=== PATIENT | female | born 1955 | race Caucasian/White ===

== ENCOUNTER 2016-12-06 19:41 | Emergency (ER) | payer MEDICARE ==
[~2016-12-06] VITALS: Ht 162.6 cm; Wt 71.7 kg
[2016-12-06] MEDS ORDERED: OMEP20CA3 (20:25)
[2016-12-06] MEDS ORDERED: HYDR-3719 PO (20:25)
[2016-12-06] MEDS ORDERED: SULFAMETHOXAZOLE-TMP PO (20:25)
[2016-12-06] MEDS ORDERED: GABA300C3 PO (20:25)
[2016-12-07] MEDS ORDERED: NS 1,000 ML IV ONE (00:15)
[2016-12-07] MEDS ORDERED: MORPHINE 4 MG/ML 1ML SYRINGE IV PRN (00:15)
[2016-12-07] MEDS ORDERED: ONDANSETRON 4MG/2ML VIAL (J2405) IV ONE (00:15)
[2016-12-07 00:29] LABS: BASO % 0.2 % (0.0-1.0); EOS # 0.2 K/mm3 (0.0-0.50); EOS % 1.3 % (0.0-3.0); LARGE UNSTAINED CELL # 0.1 K/mm3 (0.0-0.4); LARGE UNSTAINED CELL % 0.7 % (0.0-4.0); LYMPH # 2.1 K/mm3 (1.5-4.5); LYMPH % 17.8 % (24.0-44.0); MEAN CORPUSCULAR HGB CONC 33.6 g/dl (32.0-36.5); MEAN CORPUSCULAR VOLUME 95.4 fl (80.0-96.0); MONO # 0.5 K/mm3 (0.0-0.8); MONO % 3.9 % (0.0-5.0); NEUTROPHILS # 8.6 K/mm3 (1.8-7.7); PLATELET COUNT, AUTOMATED 308 k/mm3 (150-450); RED CELL DISTRIBUTION WIDTH 12.4 % (11.5-14.5); WHITE BLOOD COUNT 11.3 K/mm3 (4.0-10.0)
[2016-12-07 00:34] LABS: ALBUMIN 4.2 GM/DL (3.2-5.2); ALBUMIN/GLOBULIN RATIO 1.31 (1.00-1.93); ALKALINE PHOSPHATASE 84 U/L (45-117); ALT/SGPT 18 U/L (12-78); ANION GAP 7 MEQ/L (8-16); AST/SGOT 11 U/L (15-37); BILIRUBIN,DIRECT < 0.1 MG/DL (0.0-0.2); BILIRUBIN,TOTAL 0.2 MG/DL (0.2-1.0); BLOOD UREA NITROGEN 22 MG/DL (7-18); CALCIUM LEVEL 9.4 MG/DL (8.5-10.1); CARBON DIOXIDE LEVEL 24 MEQ/L (21-32); CHLORIDE LEVEL 107 MEQ/L (98-107); CREATININE FOR GFR 1.29 MG/DL (0.55-1.02); GLUCOSE, FASTING 105 MG/DL (70-105); POTASSIUM SERUM 4.5 MEQ/L (3.5-5.1); SODIUM LEVEL 138 MEQ/L (136-145); TOTAL PROTEIN 7.4 GM/DL (6.4-8.2)
[2016-12-07] MEDS: MORPHINE 4 MG/ML 1ML SYRINGE IV PRN ×2 (00:50→01:04)
[2016-12-07 00:55] LABS: CALCIUM OXALATE CRYSTALS LARGE
[2016-12-07] MEDS ORDERED: HYDROmorphone HCL 1 MG/ML SYRINGE (J1170) IV PRN (01:30)
--- NOTE | 2016-12-07 02:00 | REPUSA ---
CT of the abdomen and pelvis without contrast Clinical statement: Pain. Technique: Multiple axial CT images were obtained from the base of the lungs to the floor of the pelv is utilizing 5 mm axial slices without administration of contrast. Coronal and sagittal reconstructio ns were also obtained. No comparison is available. Findings: Chest: The visualized lung bases are clear. Abdomen: The kidneys are normal in size bilaterally. There is moderate right-sided hydronephrosis and hydroureter caused by an obstructing 3 mm stone at the right ureterovesical junction. The left renal collecting system is unremarkable. The liver, spleen, pancreas, gallbladder and adrenal glands are u nremarkable. The aorta demonstrates normal caliber and contour. There is no abdominal lymphadenopathy or ascites. Pelvis: The bowel is unremarkable, with no obstructive or inflammatory changes. The appendix is enoch l. The urinary bladder is within normal limits. There is no pelvic lymphadenopathy or ascites. The ot her pelvic structures appear unremarkable. Bones: There are no suspicious osseous abnormalities seen. Lumbar fusion changes at L4/L5 are intact. Impression: 1. Moderate right-sided hydronephrosis and hydroureter caused by a 3 mm obstructing stone at the righ t ureterovesical junction. 2. No obstructive or inflammatory bowel changes. 3. Lumbar fusion changes at L4/L5 are grossly intact. No acute osseous abnormality.
[2016-12-07] MEDS ORDERED: KETOROLAC 30 MG/ML VIAL (J1885) IV ONE (02:30)
[2016-12-07] MEDS ORDERED: TAMSULOSIN 0.4 MG CAP PO ONE (03:00)
[2016-12-07] MEDS ORDERED: PERC5TAB6 PO (03:52)
[2016-12-07] MEDS ORDERED: FLOM5CAP PO (03:52)
[2016-12-07] MEDS ORDERED: OXYCODONE/APAP 5MG/325MG(BULK) 1 TAB TAB PO ONE (04:00)
[2016-12-07 04:12] VITALS: BP 128/78
== END 2016-12-07 04:14 | disposition home or self-care (01) ==
LOC: M ED 21:21
DX: N20.1 Calculus of ureter (principal); Z79.899 Other long term (current) drug therapy
CPT/HCPCS: 36415; 74176; 80048; 80076; 81001; 83690; 85025; 87086; 93041; 96365; 96367; 96372; 96375; 99284; J1170; J1885; J2405

== ENCOUNTER → 2016-12-12 | Outpatient (REF) | payer MEDICARE ==
[~2016-12-12] MED LIST: ALBU17IN INH; AZIT250T3 PO; FLOM5CAP PO; FLON1SPR; GABA300C3 PO; GERITAB9 PO; HYDR-3713 PO; HYDR-3719 PO; LIDO5TD TOP; MUCI1LIQ PO; OMEP20CA3; OMEP20CA3 PO; PERC5TAB6 PO; PYRI200T5 PO; RIZA10TA4 PO; SULFAMETHOXAZOLE-TMP PO; VITA500T88 PO
== END ==
LOC: M LAB REF 16:40
PROVIDERS: ATTEND Physician Assistant
DX: J02.9 Acute pharyngitis, unspecified (principal)

== ENCOUNTER 2016-12-14 16:25 | Day surgery (SDC) | payer MEDICARE ==
[~2016-12-14] VITALS: Ht 162.6 cm; Wt 71.9 kg
[~2016-12-14 16:25] MED LIST changes: -ALBU17IN INH; -AZIT250T3 PO; -FLON1SPR; -GERITAB9 PO; -HYDR-3713 PO; -LIDO5TD TOP; -MUCI1LIQ PO; -OMEP20CA3 PO; -PYRI200T5 PO; -RIZA10TA4 PO; -VITA500T88 PO
[2016-12-14] MEDS ORDERED: MORPHINE 4 MG/ML 1ML SYRINGE IV ONE (17:45)
[2016-12-14] MEDS ORDERED: NS 1,000 ML IV ONE (17:45)
[2016-12-14] MEDS ORDERED: ONDANSETRON 4MG/2ML VIAL (J2405) IV ONE (17:45)
[2016-12-14 18:17] LABS: BASO % 0.4 % (0.0-1.0); EOS # 0.1 K/mm3 (0.0-0.50); EOS % 0.8 % (0.0-3.0); LARGE UNSTAINED CELL # 0.3 K/mm3 (0.0-0.4); LYMPH # 2.3 K/mm3 (1.5-4.5); LYMPH % 27.1 % (24.0-44.0); MEAN CORPUSCULAR HEMOGLOBIN 31.3 pg (27.0-33.0); MEAN CORPUSCULAR VOLUME 94.9 fl (80.0-96.0); MONO # 0.2 K/mm3 (0.0-0.8); MONO % 2.6 % (0.0-5.0); NEUTROPHILS # 5.6 K/mm3 (1.8-7.7); NEUTROPHILS % 66.1 % (36.0-66.0); PLATELET COUNT, AUTOMATED 309 k/mm3 (150-450); RED CELL DISTRIBUTION WIDTH 12.4 % (11.5-14.5); WHITE BLOOD COUNT 8.5 K/mm3 (4.0-10.0)
[2016-12-14] MEDS ORDERED: HYDROmorphone HCL 1 MG/ML SYRINGE (J1170) IV ONE (18:30)
[2016-12-14 18:35] LABS: ALBUMIN 4.2 GM/DL (3.2-5.2); ALKALINE PHOSPHATASE 86 U/L (45-117); ALT/SGPT 23 U/L (12-78); ANION GAP 9 MEQ/L (8-16); AST/SGOT 17 U/L (15-37); BILIRUBIN,DIRECT < 0.1 MG/DL (0.0-0.2); BILIRUBIN,TOTAL 0.2 MG/DL (0.2-1.0); BLOOD UREA NITROGEN 15 MG/DL (7-18); CALCIUM LEVEL 9.2 MG/DL (8.5-10.1); CARBON DIOXIDE LEVEL 24 MEQ/L (21-32); CHLORIDE LEVEL 108 MEQ/L (98-107); CREATININE FOR GFR 0.92 MG/DL (0.55-1.02); GLOMERULAR FILTRATION RATE > 60.0 (>51); GLUCOSE, FASTING 103 MG/DL (70-105); POTASSIUM SERUM 4.3 MEQ/L (3.5-5.1); SODIUM LEVEL 141 MEQ/L (136-145); TOTAL PROTEIN 7.2 GM/DL (6.4-8.2)
--- NOTE | 2016-12-14 19:02 | REP ---
CT ABDOMEN: REASON: Right flank pain. Followup distal right ureterolith. COMPARISON: 12/07/2016 There is right sided hydronephrosis and hydroureter which is essentially unchanged from the prior exam and again seen to be secondary to a 3 mm sized calcification within the distal right ureter near the ureterovesical junction. Limited evaluation of the solid intraabdominal organs and gallbladder show no gross abnormalities or significant changes from the prior exam. Limited evaluation of the pancreas, adrenal glands, and left kidney show no gross abnormalities or significant changes from the prior exam. Limited evaluation of the abdominal aorta and paraortic regions show no gross abnormalities or significant changes from the prior exam. There is no evidence of free fluid or free air in the abdomen or pelvis. Bone window technique throughout the examination shows no change in the appearance of the osseous structures, compared to the prior exam. IMPRESSION: No change from 12/07/2016 with findings as described above. Signed by Morales Collier DO 12/14/2016 07:05 P
[2016-12-14] MEDS ORDERED: CONRAY-60 60% 50ML VIAL (Q9961) As Ordered ONE (20:23)
[2016-12-14] MEDS ORDERED: ONDANSETRON 4MG/2ML VIAL (J2405) As Ordered ONE (20:25)
[2016-12-14] MEDS ORDERED: LIDOCAINE 2% INJ 100 MG/5 ML SDV (FOR ANES.) As Ordered ONE (20:25)
[2016-12-14] MEDS ORDERED: PROPOFOL 200 MG/20 ML VIAL As Ordered ONE ×2 (20:25→21:42)
[2016-12-14] MEDS ORDERED: MIDAZOLAM INJ 2 MG/2 ML VIAL (J2250) As Ordered ONE (20:27)
[2016-12-14] MEDS ORDERED: fentaNYL 100 MCG/2 ML INJECTION (J3010) As Ordered ONE ×2 (20:27→22:41)
[2016-12-14] MEDS ORDERED: HYDR-3713 PO (20:27)
[2016-12-14] MEDS ORDERED: FLOM5CAP PO (20:30)
[2016-12-14] MEDS ORDERED: GERITAB9 PO (20:30)
[2016-12-14] MEDS ORDERED: MUCI1LIQ PO (20:30)
[2016-12-14] MEDS ORDERED: OMEP20CA3 PO (20:30)
[2016-12-14] MEDS ORDERED: AZIT250T3 PO (20:30)
[2016-12-14] MEDS ORDERED: GABA300C3 PO (20:30)
[2016-12-14] MEDS ORDERED: VITA500T88 PO (20:30)
[2016-12-14] MEDS ORDERED: LIDO5TD TOP (20:32)
[2016-12-14] MEDS ORDERED: FLON1SPR (20:32)
[2016-12-14] MEDS ORDERED: ALBU17IN INH (20:32)
[2016-12-14] MEDS ORDERED: RIZA10TA4 PO (20:33)
[2016-12-14] MEDS ORDERED: ceFAZolin 1GM INJ (J0690) As Ordered ONE ×2 (20:54→21:00)
[2016-12-14] MEDS ORDERED: dexameTHASONE 4 MG/ML 1ML VIAL (J1100) As Ordered ONE (21:24)
[2016-12-14] MEDS ORDERED: PERCOCET 5MG/325MG TAB PO PRN (22:30)
[2016-12-14] MEDS ORDERED: fentaNYL 100 MCG/2 ML INJECTION (J3010) IV PRN (22:30)
[2016-12-14] MEDS ORDERED: ONDANSETRON 4MG/2ML VIAL (J2405) IV PRN ×2 (22:30→23:00)
[2016-12-14] MEDS ORDERED: LR 1,000 ML IV SCH (22:30)
[2016-12-14] MEDS ORDERED: zolPIDEM TARTRATE 5 MG TAB PO PRN (23:00)
[2016-12-14] MEDS ORDERED: ALPRAZolam 0.5 MG TAB PO PRN (23:00)
[2016-12-14 23:10] VITALS: BP 142/85
[2016-12-14 23:40] VITALS: BP 138/83
[2016-12-15] VITALS (7 sets, daily range): BP systolic 97–127; BP diastolic 51–77
[2016-12-15] MEDS: NORCO, ANEXSIA 5/325MG TABLET (HYDROcodone/ACETAMINOPHEN) PO PRN ×3 (00:31→13:42)
[2016-12-15] MEDS ORDERED: OMEPRAZOLE 20 MG CAP PO SCH (09:00)
--- NOTE | 2016-12-15 09:54 | REP ---
DOUBLE J STENT CATHETER PLACEMENT: Three fluoroscopic images of the abdomen and pelvis were obtained in my absentia during retrograde pyelography. A double J stent catheter is seen on the right, the proximal portion of which is in the region of the renal pelvis and the distal portion of which is in the region of the urinary bladder. Fluoroscopy time was 11 seconds. Signed by Morales Collier DO 12/15/2016 10:05 A
[2016-12-15] MEDS ORDERED: PYRI200T5 PO (13:08)
--- NOTE | 2016-12-15 16:20 | HPE ---
DATE OF ADMISSION: 12/14/2016 REASON FOR CONSULTATION: 3 mm right ureteral vesicle junction stone with moderate hydroureter nephrosis in a patient with intractable pain despite pain medication. HISTORY OF PRESENT ILLNESS: The patient is a 61-year-old female who began having right flank pain about 3 weeks ago radiating to the groin. On 12/07/2016 the pain became very severe and she came to the emergency room. A CT scan of the abdomen and pelvis was done which showed moderate right sided hydroureter nephrosis caused by a 3 mm stone at the right ureteral vesicle junction. The patient's pain was brought under control at that time and she was sent home on Flomax and pain medication. [facility] and they are unable to control her pain. They repeated a CT scan and this showed the stone unchanged in the distal right ureter. A urologic consultation was requested. The patient denies any previous history of kidney stones. She has had no gross hematuria. She was diagnosis with a urinary tract infection (UTI) at the beginning of this week but a urinalysis done today only showed a few red and white blood cells. Her white blood count is 8.5 and her serum creatinine is 0.92. Her serum calcium is 9.2. She denies any previous history of recurrent urinary tract infections. She does not drink a lot of water and she normally voids every 3-4 hours during the day. She has had both nausea and vomiting but denies fever or chills. She has also recently had some diarrhea. PAST MEDICAL HISTORY: Chronic back pain. PAST SURGICAL HISTORY: Back surgery in 2013 and she does not know the level, surgery for a right broken leg, hysterectomy, and cataract surgery. MEDICATIONS: She takes a half of a hydrocodone in the morning and at night for her chronic back pain, omeprazole, and multivitamins. ALLERGIES: No known drug allergies. FAMILY HISTORY: Her father at the age of 84 from prostate cancer. Mother at 79 from pancreatic cancer. There is no family history of kidney stones. SOCIAL HISTORY: She is . She smokes half a pack of cigarettes a day according to her but according to her son this is probably double that. She denies drinking alcohol or using any other drugs. PHYSICAL EXAMINATION: Her temperature was 98.5. Her pulse was 91, blood pressure 155/101, but then came down to 134/85 after pain medication, respiratory rate was 22, and her oxygen saturations were 100%. Her head was normocephalic, atraumatic. Her eyes were pupils equal, round, and reactive to light and accommodation and extraocular movements were intact. Her trachea was midline and she had no significant supraclavicular or cervical adenopathy. Her heart has a regular rate and rhythm. Her lungs had some inspiratory wheeze at the beginning but then sounded fairly clear, although there was some decreased breath sounds at the bases. She did have right CVA tenderness and also right lower quadrant tenderness without any rebound or guarding. Her extremities showed no cyanosis, clubbing or edema. RADIOLOGY: A CT scan of the abdomen and pelvis without contrast on 12/07/2016, showed moderate right-sided hydronephrosis and hydroureter caused by a 3 mm obstructing stone at the right ureteral vesicle junction without any other stones seen and there is lumbar fusion changes at L4-L5 which are grossly intact. Reportedly there was another CT scan done today and the findings were the same. LABORATORY DATA: Her white blood count is 8.5, hemoglobin and hematocrit 13.9/42.1. Her creatinine is 0.92 and her BUN is 15. Her serum calcium level is 9.2. Urinalysis from 12/14/2016, showed 1 white blood cell and 3 red blood cells per high power field. Urine culture for 12/07/2016, showed no growth. DISCUSSION: I discussed these findings at length with the patient and her son in the emergency room today. She has not had anything to eat or drink since early this morning. We discussed all different options and alternatives, and at this point she wanted to proceed with immediate surgical management. We discussed that we would plan on doing a right ureteroscopy with stone manipulation and we discussed exactly how this procedure is done and what to expect both pre and post procedurally. We discussed the major risks of the procedure which included, but was not limited to, the risks of general anesthesia, reactions to medication, bleeding, infection and stent pain. She also understands that there is a small possibility that there either will not be a stone there or we will not be able to remove it. She understands that the stent will need to be removed in the office and that it can be quite painful while it is in place. We discussed how this is removed by cystoscopy and stent removal. At this point she would like to proceed with surgical management. IMPRESSION: 1. 3 mm obstructing right ureteral vesicle junction stone in a patient in intractable pain with nausea and vomiting despite Flomax and pain medication for the last several days. 2. History of smoking. 3. Chronic low back pain. PLAN: The patient to be brought urgently to the operating room for cystoscopy, right ureteroscopy, laser lithotripsy and or stone basketing and right ureteral stent placement.
--- NOTE | 2016-12-16 11:57 | RO ---
DATE OF PROCEDURE: 12/14/2016 PREOPERATIVE DIAGNOSIS: Distal obstructing 3 mm ureteral stone. POSTOPERATIVE DIAGNOSIS: Distal obstructing 3 mm ureteral stone. PROCEDURE: Cystoscopy, right ureteroscopy, right stone basketing and right ureteral stent placement. SURGEON: Carol Blackwell MD NATIONAL SALES MANAGER: ANESTHESIA: General. MEDICATIONS: Ancef 2 grams preoperatively. SPECIMEN: Stone. FINDINGS: Small right ureteral orifice and very jagged distal stone. DRAINS: 6-Frisian double-J ureteral catheter. INDICATIONS FOR PROCEDURE: The patient is a 61-year-old female with a few week history of right flank pain. On 12/07/2016, the pain became extremely intense and she came to the emergency room where she was diagnosed with a 3 mm right ureterovesical junction stone and associated moderate hydroureteronephrosis. She was given Flomax and pain medication, but the pain became very severe again today and she came back to the emergency room (ER). A repeat CT scan showed the stone to be in the same place. The patient's pain could not be well controlled in the emergency room so a urologic consultation was called. When the patient was seen, she was extremely uncomfortable after pain medication was already given. After discussing all different options, alternatives, risks, and benefits it was decided to bring her to the operating room for further surgical management. DESCRIPTION OF PROCEDURE: The patient was brought into the operating room. Sequential compression devices were in place and preoperative antibiotics had been given. General anesthesia was induced. She was then placed in the lithotomy position and careful attention was paid that her pressure points were well padded and protected. She was prepped and draped in the usual fashion. Next, a 21-Frisian cystoscope was inserted. The urethra was noted to be open without any evidence of lesions or strictures. Upon entering the bladder. Both ureteral orifices were seen. There was no evidence of stones, erythematous patches, lesions or other significant abnormalities. The ureteral orifices though were noted to be extremely small and it was quite difficult even to pass a wire. I was able to finally direct it after an open-ended stent and then dilated the distal ureter with an open-ended catheter. Fluoroscopy showed the wire to be up in the right collecting system and this was used as a safety wire. A second wire was then placed and the ureteroscope was passed over this. The stone was seen in the distal ureter and was noted to be extremely jagged. At this point, a stone basket was placed and the stone was grasped and removed in totality. At this point, a 6-Frisian double-J ureteral stent was placed and there was an excellent curl seen under fluoroscopy in the right renal pelvis and down in the bladder. The patient's bladder was emptied and she was returned to the recovery room in stable condition.
== END 2016-12-15 14:00 | disposition home or self-care (01) ==
LOC: M ED 17:31 → M SDC 20:39 → M MSPAV 23:20 → M SDC 12-15 14:00
PROVIDERS: ATTEND Specialist
DX: N20.1 Calculus of ureter (principal); K21.9 Gastro-esophageal reflux disease without esophagitis; G89.29 Other chronic pain; M54.5 Low back pain; F17.290 Nicotine dependence, other tobacco product, uncomplicated; Z79.899 Other long term (current) drug therapy; Z96.1 Presence of intraocular lens
CPT/HCPCS: 52332; 52352; 74176; 74420; 80048; 80076; 81001; 82360; 85025; 87086; 88300; 96374; 96375; 96376; 99284; C2617; J0690; J1100; J1170; J2250; J2405; J3010

== ENCOUNTER 2016-12-18 17:19 | Emergency (ER) | payer MEDICARE ==
[~2016-12-18] VITALS: Ht 162.6 cm; Wt 71.7 kg
[~2016-12-18 17:19] MED LIST changes: +GABA-282 PO; -GABA300C3 PO
[2016-12-18] MEDS ORDERED: ONDANSETRON 4MG/2ML VIAL (J2405) IV ONE (17:45)
[2016-12-18] MEDS ORDERED: MORPHINE 4 MG/ML 1ML SYRINGE IV ONE (17:45)
[2016-12-18 18:13] LABS: BASO % 0.3 % (0.0-1.0); EOS # 0.2 K/mm3 (0.0-0.50); LARGE UNSTAINED CELL # 0.1 K/mm3 (0.0-0.4); LARGE UNSTAINED CELL % 1.3 % (0.0-4.0); LYMPH # 3.7 K/mm3 (1.5-4.5); LYMPH % 39.5 % (24.0-44.0); MEAN CORPUSCULAR HGB CONC 34.1 g/dl (32.0-36.5); MEAN CORPUSCULAR VOLUME 94.1 fl (80.0-96.0); MONO # 0.4 K/mm3 (0.0-0.8); MONO % 3.9 % (0.0-5.0); NEUTROPHILS # 4.8 K/mm3 (1.8-7.7); PLATELET COUNT, AUTOMATED 349 k/mm3 (150-450); RED CELL DISTRIBUTION WIDTH 12.3 % (11.5-14.5)
[2016-12-18 18:26] LABS: MICROSCOPIC INDICATED? MAN YES (NO)
[2016-12-18 18:29] LABS: BACTERIA, URINE NONE SEEN; SQUAMOUS EPITHELIAL CELL URINE SMALL AMOUNT /hpf (SMALL AMT); WBC, URINE 0-1 /hpf (0-3)
[2016-12-18 18:30] LABS: HYALINE CAST, URINE NONE SEEN /lpf (0-1); MICROSCOPIC EXAM PERFORMED
[2016-12-18] MEDS ORDERED: fentaNYL 100 MCG/2 ML INJECTION (J3010) IV ONE (18:30)
[2016-12-18 18:39] LABS: ALBUMIN 3.8 GM/DL (3.2-5.2); ALBUMIN/GLOBULIN RATIO 1.09 (1.00-1.93); ALKALINE PHOSPHATASE 75 U/L (45-117); ALT/SGPT 20 U/L (12-78); ANION GAP 9 MEQ/L (8-16); AST/SGOT 13 U/L (15-37); BILIRUBIN,DIRECT < 0.1 MG/DL (0.0-0.2); BILIRUBIN,TOTAL 0.2 MG/DL (0.2-1.0); BLOOD UREA NITROGEN 18 MG/DL (7-18); CALCIUM LEVEL 9.4 MG/DL (8.5-10.1); CARBON DIOXIDE LEVEL 26 MEQ/L (21-32); CHLORIDE LEVEL 104 MEQ/L (98-107); CREATININE FOR GFR 0.99 MG/DL (0.55-1.02); GLOMERULAR FILTRATION RATE > 60.0 (>51); GLUCOSE, FASTING 98 MG/DL (70-105); POTASSIUM SERUM 4.2 MEQ/L (3.5-5.1); SODIUM LEVEL 139 MEQ/L (136-145); TOTAL PROTEIN 7.3 GM/DL (6.4-8.2)
--- NOTE | 2016-12-18 19:00 | REPUSA ---
Clinical statement: Pain. Technique: Multiple axial CT images were obtained from the base of the lungs to the floor of the pelvis utilizing 5 mm axial slices without administration of contrast. Coronal and sagittal reconstructions were also obtained. Findings: Compared to 12/07/16 and 12/14/16 studies The kidneys are normal in size bilaterally. Again noted is a moderate right-sided hydronephrosis and hydroureter caused by an obstructing 3 mm stone at the right ureterovesical junction. The left renal collecting system is unremarkable. The liver, spleen, pancreas, gallbladder and adrenal glands are unremarkable. The aorta demonstrates normal caliber and contour. There is no abdominal lymphadenopathy or ascites. The bowel is unremarkable, with no obstructive or inflammatory changes. The appendix is normal. The urinary bladder is within normal limits. There is no pelvic lymphadenopathy or ascites. The other pelvic structures appear unremarkable. There are no suspicious osseous abnormalities seen. Lumbar fusion changes at L4/L5 are intact. Impression: 1. Moderate right-sided hydronephrosis and hydroureter caused by a 3 mm obstructing stone at the right ureterovesical junction. 2. No significant interval change.
[2016-12-18] MEDS ORDERED: KETOROLAC 30 MG/ML VIAL (J1885) IV ONE (20:30)
[2016-12-18] MEDS ORDERED: NORCO 5/325MG TABLET (BULK FOR ED) PO ONE (21:15)
[2016-12-18] MEDS ORDERED: FLOM5CAP PO (21:16)
[2016-12-18] MEDS ORDERED: PERC5TAB6 PO (21:17)
[2016-12-18 21:25] VITALS: BP 119/83
== END 2016-12-18 21:52 | disposition home or self-care (01) ==
LOC: M ED 17:57
DX: N20.1 Calculus of ureter (principal); N13.4 Hydroureter; N13.30 Unspecified hydronephrosis; F17.210 Nicotine dependence, cigarettes, uncomplicated
CPT/HCPCS: 52310; 74176; 80048; 80076; 81000; 83690; 85025; 87086; 93041; 99284; G0463; J1885; J2405; J3010

== ENCOUNTER → 2016-12-18 | Outpatient (REF) | payer MEDICARE ==
[~2016-12-18] MED LIST changes: +ALBU17IN INH; +AZIT250T3 PO; +FLON1SPR; +GERITAB9 PO; +HYDR-3713 PO; +LIDO5TD TOP; +MUCI1LIQ PO; +OMEP20CA3 PO; +PYRI200T5 PO; +RIZA10TA4 PO; +VITA500T88 PO
[2016-12-18 18:31] LABS: MICROSCOPIC INDICATED? MAN YES (NO)
[2016-12-18 18:37] LABS: BACTERIA, URINE NONE SEEN; CALCIUM OXALATE CRYSTALS,URINE MOD AMOUNT /hpf; HYALINE CAST, URINE NONE SEEN /lpf (0-1); MICROSCOPIC EXAM PERFORMED; RBC, URINE TNTC /hpf (0-3); SQUAMOUS EPITHELIAL CELL URINE SMALL AMOUNT /hpf (SMALL AMT); WBC, URINE 15-20 /hpf (0-3)
== END ==
LOC: M SMT 16:39
PROVIDERS: ATTEND Specialist
DX: N20.0 Calculus of kidney (principal)

== ENCOUNTER → 2016-12-24 | Outpatient (REF) | payer MEDICARE ==
[2016-12-24 20:13] LABS: CALCIUM OXALATE CRYSTALS MODERATE
== END ==
LOC: M SMT 17:12
PROVIDERS: ATTEND Urology
DX: N20.2 Calculus of kidney with calculus of ureter (principal)
CPT/HCPCS: 81001; 87086; G0463

== ENCOUNTER 2017-01-19 08:01 | Emergency (ER) | payer MEDICARE ==
[~2017-01-19] VITALS: Ht 162.6 cm; Wt 67.1 kg
[2017-01-19] MEDS ORDERED: HYDROmorphone HCL 1 MG/ML SYRINGE (J1170) IM ONE (08:45)
[2017-01-19] MEDS ORDERED: CEFD1CAP8 (08:50)
--- NOTE | 2017-01-19 09:59 | REP ---
REASON: Possible abscess left side of the neck. Multiple ultrasonographic images over the area of interest show multiple solid oval and reniform-shaped hypoechoic structures, which have central color flow, vascular phenomenon and evidence of fatty hilum. The largest of these measure 2.2 x 0.8 x 1.6 cm. There is no ultrasonographic evidence of a definite abscess. IMPRESSION: Lymphadenopathy as described above. Signed by Morales Collier DO 01/19/2017 10:20 A
[2017-01-19] MEDS ORDERED: methylPREDNISolone INJ 125 MG/2 ML VIAL (J2930) IM ONE (10:00)
[2017-01-19] MEDS ORDERED: CLIN1CAP5 PO (10:01)
[2017-01-19 10:20] VITALS: BP 125/76
--- NOTE | 2017-01-19 14:55 | ED PDOC ---
Post-Departure Follow-Up dr krishnamurthy faxed forml report of thyroid us for fu Raman Garcia MD Jan 19, 2017 14:55
== END 2017-01-19 10:23 | disposition home or self-care (01) ==
LOC: M ED 10:01
DX: R59.0 Localized enlarged lymph nodes (principal); J06.9 Acute upper respiratory infection, unspecified
CPT/HCPCS: 76536; 96372; 99282; J1170; J2930

== ENCOUNTER 2017-05-01 17:55 | Emergency (ER) | payer MEDICARE ==
[~2017-05-01] VITALS: Ht 162.6 cm; Wt 67.3 kg
[~2017-05-01 17:55] MED LIST changes: +AZIT-12 PO; -AZIT250T3 PO; +CEFD1CAP8; +CLIN150C14 PO; +PERC5TAB12 PO; -PERC5TAB6 PO; +PYRI1TAB5 PO; -PYRI200T5 PO
[2017-05-01] MEDS ORDERED: IBUP1TAB7 PO (18:26)
[2017-05-01] MEDS ORDERED: ROBA500T PO (19:04)
[2017-05-01] MEDS ORDERED: IBUP80TA PO (19:04)
[2017-05-01] MEDS ORDERED: METHOCARBAMOL 500 MG TAB PO ONE (19:15)
[2017-05-01] MEDS ORDERED: IBUPROFEN 800 MG TAB PO ONE (19:15)
[2017-05-01] MEDS ORDERED: NORCO, ANEXSIA 5/325MG TABLET (HYDROcodone/ACETAMINOPHEN) PO ONE (19:15)
[2017-05-01 19:18] VITALS: BP 132/78
[2017-07-18] MEDS ORDERED: HYDR-3719 PO (17:13)
[2017-07-18] MEDS ORDERED: APPL300T PO (17:13)
[2017-07-18] MEDS ORDERED: MULT1TAB16 PO (17:13)
[2017-07-18] MEDS ORDERED: VITA100072 PO (17:13)
[2017-07-18] MEDS ORDERED: POTA99TA PO (17:13)
[2017-07-18] MEDS ORDERED: CALC600T27 PO (17:13)
== END 2017-05-01 19:22 | disposition home or self-care (01) ==
LOC: M ED 17:55
DX: S39.012A Strain of muscle, fascia and tendon of lower back, initial encounter (principal); S43.402A Unspecified sprain of left shoulder joint, initial encounter; M26.622 Arthralgia of left temporomandibular joint; F33.8 Other recurrent depressive disorders; F17.210 Nicotine dependence, cigarettes, uncomplicated; X58.XXXA Exposure to other specified factors, initial encounter; Y92.9 Unspecified place or not applicable; Y99.9 Unspecified external cause status; Y93.9 Activity, unspecified; Z87.442 Personal history of urinary calculi; Z88.5 Allergy status to narcotic agent; Z79.899 Other long term (current) drug therapy

== ENCOUNTER → 2017-05-14 | Outpatient (CLI) | payer MEDICARE ==
[~2017-05-14] MED LIST changes: +APPL300T PO; +CALC600T27 PO; +IBUP1TAB7 PO; +IBUP80TA PO; +MULT1TAB16 PO; +POTA99TA PO; +ROBA500T PO; +VITA100072 PO
--- NOTE | 2017-05-14 10:01 | REPMRS ---
Patient History The patient states she had a clinical breast exam in 2016. Patient is postmenopausal and has history of high-risk lesion on a previous biopsy at age 46. Family history of prostate cancer in father at age 82 and colorectal cancer in mother at age 79. Benign mammogram-guided core biopsy of both breasts, 2008. Took hormonal contraceptives for 5 years. Took estrogen for 11 years. Digital Mammo Screening Bilat: May 14, 2017 - Exam #: [id number] Bilateral CC and MLO view(s) were taken. Technologist: Yaritza Rowley, Technologist Prior study comparison: May 14, 2016, right breast digital mammo diagnostic unilateral performed at [facility]. May 07, 2016, bilateral digital mammo screening bilat performed at [facility]. FINDINGS: There are scattered fibroglandular densities. There is a fairly symmetric fibroglandular pattern in both breasts. There has been no interval development of masses, areas of architectural distortion or clusters of microcalcifications typical of malignancy. ASSESSMENT: BI-RADS/ACR category 2 mammogram. Benign finding(s). Recommendation Routine screening mammogram of both breasts in 1 year (for women over age 40). This mammogram was interpreted with the aid of an FDA-approved computer-aided dectection system. Electronically Signed By: Jerome Lopez MD 05/14/17 [id number]
== END ==
LOC: M RAD 08:57
PROVIDERS: ATTEND Nurse Practitioner Adult Health
DX: Z12.31 Encounter for screening mammogram for malignant neoplasm of breast (principal); Z78.0 Asymptomatic menopausal state; Z92.89 Personal history of other medical treatment; Z92.23 Personal history of estrogen therapy; Z92.0 Personal history of contraception

== ENCOUNTER → 2017-06-06 | Outpatient (CLI) | payer MEDICARE ==
--- NOTE | 2017-06-06 13:06 | REP ---
THYROID ULTRASOUND: Real-time sonographic evaluation of the thyroid performed and compared to prior study of 09/10/2016. Right lobe measures 5.4 x 1.7 x 2.0 cm and left lobe 5.5 x 1.7 x 1.4 cm. There are approximately 5 nodules in the right lobe which are subcentimeter diameter, one of them a tiny cyst measuring 2 mm in diameter in the right upper pole. Four others are at least partially solid, the largest measuring 5 x 4 x 4 mm in the mid aspect. On the left, a 3 mm nodule is seen in the upper pole, a complex cyst is seen in the mid aspect 5 x 2 x 4 mm, a solid nodule is seen in the lower pole, 6 x 4 x 7 mm and a cyst in the left lower pole measures 4 mm. There is no significant change when compared to the prior study. IMPRESSION: Several subcentimeter cysts and nodules bilaterally are essentially unchanged compared to the prior study of 09/10/2016. Signed by Jerome Lopez MD 06/07/2017 04:00 P
== END ==
LOC: M RAD 11:14
PROVIDERS: ATTEND Family Medicine
DX: E04.1 Nontoxic single thyroid nodule (principal)

== ENCOUNTER → 2017-07-02 | Outpatient (REF) | payer MEDICARE ==
[2017-07-02 14:49] LABS: ANION GAP 5 MEQ/L (8-16); BLOOD UREA NITROGEN 18 MG/DL (7-18); CALCIUM LEVEL 9.3 MG/DL (8.8-10.2); CARBON DIOXIDE LEVEL 30 MEQ/L (21-32); CHLORIDE LEVEL 108 MEQ/L (98-107); GLOMERULAR FILTRATION RATE > 60.0 (>45); GLUCOSE, FASTING 98 MG/DL (80-110); POTASSIUM SERUM 4.6 MEQ/L (3.5-5.1); SODIUM LEVEL 143 MEQ/L (136-145)
== END ==
LOC: M LABDRAW1 11:23
PROVIDERS: ATTEND Family Medicine
DX: R63.4 Abnormal weight loss (principal)
CPT/HCPCS: 36415; 80048; G0463

== ENCOUNTER 2017-07-25 08:26 | Day surgery (SDC) | payer MEDICARE ==
[~2017-07-25] VITALS: Ht 162.6 cm; Wt 62.1 kg
[2017-07-25] MEDS: NS 500 ML IV SCH ×2 (08:30→09:16)
[2017-07-25] MEDS ORDERED: LIDOCAINE 2% INJ 100 MG/5 ML SDV (FOR ANES.) As Ordered ONE (09:41)
[2017-07-25] MEDS ORDERED: PROPOFOL 200 MG/20 ML VIAL As Ordered ONE (09:41)
--- NOTE | 2017-07-25 10:01 | ROOR ---
Patient Name: Karol Javed Procedure Date: 07/25/2017 9:38 AM Date of : 1955 Age: 62 Room: [facility] Gender: Female Note Status: Finalized Procedure: Colonoscopy Indications: Screening for colorectal malignant neoplasm Providers: Manny HERRERA MD Referring MD: Marlene Jc Do Requestshahana Provider: Medicines: Monitored Anesthesia Care Complications: No immediate complications. Procedure: Pre-Anesthesia Assessment: - The heart rate, respiratory rate, oxygen saturations, blood pressure, adequacy of pulmonary ventilation, and response to care were monitored throughout the procedure. The Colonoscope was introduced through the anus and advanced to the terminal ileum, with identification of the appendiceal orifice and IC valve. The colonoscopy was performed without difficulty. The patient tolerated the procedure well. The quality of the bowel preparation was good. Findings: The perianal and digital rectal examinations were normal. A 4 mm polyp was found in the hepatic flexure. The polyp was sessile. The polyp was removed with a cold snare. Resection and retrieval were complete. Three sessile polyps were found in the sigmoid colon. The polyps were 3 to 4 mm in size. These polyps were removed with a cold snare. Resection and retrieval were complete. Mild diverticulosis and small internal hemorrhoids. The exam was otherwise without abnormality on direct and retroflexion views. Impression: - One 4 mm polyp at the hepatic flexure, removed with a cold snare. Resected and retrieved. - Three 3 to 4 mm polyps in the sigmoid colon, removed with a cold snare. Resected and retrieved. - Mild diverticulosis and small internal hemorrhoids. - The colonoscopy was otherwise normal on direct and retroflexion views. Recommendation: - Telephone endoscopist for pathology results in 2 weeks. - If the pathology report reveals adenomatous tissue, then repeat the colonoscopy for surveillance in 3 years. - If the pathology report indicates hyperplastic polyp, then repeat colonoscopy for screening purposes in 10 years. Manny Herrera MD Manny HERRERA MD 07/25/2017 10:01:28 AM This report has been signed electronically. Number of Addenda: 0 Note Initiated On: 07/25/2017 9:38 AM Estimated Blood Loss: Estimated blood loss: none.
[2017-07-25 10:33] VITALS: BP 119/68
== END 2017-07-25 10:36 | disposition home or self-care (01) ==
LOC: M OPP 08:26 → EDSTATUS 10:40
PROVIDERS: ATTEND Internal Medicine Gastroenterology
DX: Z12.11 Encounter for screening for malignant neoplasm of colon (principal); K63.5 Polyp of colon; K57.30 Diverticulosis of large intestine without perforation or abscess without bleeding; K64.8 Other hemorrhoids; K21.9 Gastro-esophageal reflux disease without esophagitis; M54.5 Low back pain; F32.9 Major depressive disorder, single episode, unspecified; R51 Headache; M81.0 Age-related osteoporosis without current pathological fracture; Z87.442 Personal history of urinary calculi; Z98.1 Arthrodesis status; H91.90 Unspecified hearing loss, unspecified ear; F17.210 Nicotine dependence, cigarettes, uncomplicated; Z88.5 Allergy status to narcotic agent; Z79.899 Other long term (current) drug therapy; Z80.8 Family history of malignant neoplasm of other organs or systems; Z80.42 Family history of malignant neoplasm of prostate

== ENCOUNTER 2017-08-04 13:50 | Emergency (ER) | payer MEDICARE ==
[2017-08-04 15:00] LABS: BASO % 0.4 % (0.0-1.0); EOS # 0.1 10^3/uL (0.0-0.50); EOS % 0.7 % (0.0-3.0); IMMATURE GRANULOCYTE % 0.4 % (0-0); LYMPH # 3.4 10^3/uL (1.5-4.5); MEAN CORPUSCULAR HEMOGLOBIN 32.7 pg (27.0-33.0); MEAN CORPUSCULAR VOLUME 96.4 fl (80.0-96.0); MONO # 0.6 10^3/uL (0.0-0.8); MONO % 6.1 % (0.0-5.0); NEUTROPHILS # 6.2 10^3/uL (1.8-7.7); NEUTROPHILS % 59.4 % (36.0-66.0); PLATELET COUNT, AUTOMATED 268 10^3/uL (150-450); RED CELL DISTRIBUTION WIDTH 13.5 % (11.5-14.5); WHITE BLOOD COUNT 10.3 10^3/uL (4.0-10.0)
[2017-08-04 15:10] LABS: INR 0.86
--- NOTE | 2017-08-04 15:18 | REP ---
CT brain without contrast: History: Syncope. Comparison CT study: June 17, 2015. Findings: Digital lateral hotel server radiograph is unremarkable. Bone window settings demonstrate an intact bony calvarium. Visualized paranasal sinuses are clear. No intraorbital abnormality is seen. On soft tissue window settings, the lateral, third, and fourth ventricles are normal in size and position. Lopez-white differentiation pattern is normal above and below the tentorium. There is no evidence of intracranial hemorrhage. No mass, infarction, extra-axial fluid collection or midline shift is seen. Impression: Negative noncontrast brain CT. Signed by Saulo Romeo MD 08/04/2017 03:32 P
[2017-08-04 15:25] LABS: ANION GAP 8 MEQ/L (8-16); BLOOD UREA NITROGEN 22 MG/DL (7-18); CALCIUM LEVEL 8.9 MG/DL (8.8-10.2); CARBON DIOXIDE LEVEL 25 MEQ/L (21-32); CHLORIDE LEVEL 109 MEQ/L (98-107); CREATININE FOR GFR 0.82 MG/DL (0.55-1.02); GLOMERULAR FILTRATION RATE > 60.0 (>45); GLUCOSE, FASTING 104 MG/DL (80-110); MAGNESIUM LEVEL 2.5 MG/DL (1.8-2.4); POTASSIUM SERUM 4.2 MEQ/L (3.5-5.1); SODIUM LEVEL 142 MEQ/L (136-145)
[2017-08-04 16:13] VITALS: BP 135/74
--- NOTE | 2017-08-04 18:22 | ECGEPIP ---
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
--- NOTE | 2017-08-05 18:46 | REP ---
RIGHT RIB SERIES: Study is submitted to me for interpretation on 08/05/2017 at approximately 4 p.m. I do not see evidence of fracture or bone lesion of the visualized portions of the right ribs. An accompanying view of the chest demonstrates no acute infiltrate or pneumothorax. There is no evidence of pleural effusion. The heart is normal in size. IMPRESSION: No right rib abnormality detected. Signed by Jerome Lopez MD 08/06/2017 01:17 P
== END 2017-08-04 16:35 | disposition home or self-care (01) ==
LOC: EDBD 13:50 → M ED 13:50
DX: R55 Syncope and collapse (principal); F17.200 Nicotine dependence, unspecified, uncomplicated; Z79.899 Other long term (current) drug therapy; Z88.5 Allergy status to narcotic agent
CPT/HCPCS: 70450; 71101; 80048; 82550; 82553; 83735; 84443; 84484; 85025; 85610; 93005; 93041; 94760; 99285; G0480

== ENCOUNTER → 2017-12-16 | Outpatient (CLI) | payer MEDICARE | LOC: M WUC 13:24 | DX: M19.011 Primary osteoarthritis, right shoulder (principal) | CPT/HCPCS: 73030 ==

== ENCOUNTER 2018-01-05 11:47 | Emergency (ER) | payer MEDICARE ==
[2018-01-05] MEDS: IPRATROPIUM 0.5MG/ALBUTEROL 2.5MG INH SOL UD 3ML (DUONEB)(J7620) NEB (12:27)
[2018-01-05] MEDS: ALBUTEROL SULFATE 2.5 MG/0.5 ML INH NEB SOLN INH (12:27)
[2018-01-05 12:33] LABS: BASO % 0.4 % (0.0-1.0); EOS # 0.1 10^3/uL (0.0-0.50); EOS % 1.6 % (0.0-3.0); HEMOGLOBIN 13.8 g/dl (12.0-15.5); LYMPH # 2.3 10^3/uL (1.5-4.5); LYMPH % 47.4 % (24.0-44.0); MEAN CORPUSCULAR HEMOGLOBIN 31.7 pg (27.0-33.0); MEAN CORPUSCULAR HGB CONC 33.7 g/dl (32.0-36.5); MONO # 0.4 10^3/uL (0.0-0.8); MONO % 8.5 % (0.0-5.0); NEUTROPHILS # 2.1 10^3/uL (1.8-7.7); NEUTROPHILS % 42.1 % (36.0-66.0); PLATELET COUNT, AUTOMATED 268 10^3/uL (150-450); RED BLOOD COUNT 4.36 10^6/uL (4.00-5.40); RED CELL DISTRIBUTION WIDTH 13.7 % (11.5-14.5); WHITE BLOOD COUNT 4.9 10^3/uL (4.0-10.0)
[2018-01-05 12:55] LABS: ANION GAP 4 MEQ/L (8-16); BLOOD UREA NITROGEN 17 MG/DL (7-18); CALCIUM LEVEL 9.2 MG/DL (8.8-10.2); CARBON DIOXIDE LEVEL 29 MEQ/L (21-32); CHLORIDE LEVEL 107 MEQ/L (98-107); CK-MB VALUE MASS 1.3 NG/ML (<3.6); CPK CREATINE PHOSPHOKINASE 49 U/L (26-192); CREATININE FOR GFR 0.82 MG/DL (0.55-1.30); GLOMERULAR FILTRATION RATE > 60.0 (>45); GLUCOSE, FASTING 88 MG/DL (70-100); MB/CK RELATIVE INDEX 2.65 (< OR =4); POTASSIUM SERUM 4.2 MEQ/L (3.5-5.1); SODIUM LEVEL 140 MEQ/L (136-145); TROPONIN I < 0.02 NG/ML (< 0.10)
[2018-01-05] MEDS ORDERED: NAPROXEN 250 MG TAB PO (13:30)
== END 2018-01-05 13:36 | disposition home or self-care (01) ==
LOC: M ED 11:47
DX: J40 Bronchitis, not specified as acute or chronic (principal); B34.9 Viral infection, unspecified; R09.1 Pleurisy; G89.29 Other chronic pain; F17.200 Nicotine dependence, unspecified, uncomplicated; Z88.5 Allergy status to narcotic agent; Z79.899 Other long term (current) drug therapy
CPT/HCPCS: 71046

== ENCOUNTER → 2018-01-27 | Outpatient (REF) | payer MEDICARE | LOC: M LAB REF 09:40 | DX: J06.9 Acute upper respiratory infection, unspecified (principal) | CPT/HCPCS: 87081 ==

== ENCOUNTER → 2018-02-13 | Outpatient (CLI) | payer MEDICARE ==
[~2018-02-13] MED LIST changes: -ALBU17IN INH; -APPL300T PO; -AZIT-12 PO; -CALC600T27 PO; -CEFD1CAP8; -CLIN150C14 PO; -FLOM5CAP PO; -FLON1SPR; -GABA-282 PO; -GERITAB9 PO; -HYDR-3713 PO; -HYDR-3719 PO; -IBUP1TAB7 PO; -IBUP80TA PO; +ISOVUE-370 76% 100ML VIAL (Q9967) As Ordered; -LIDO5TD TOP; -MUCI1LIQ PO; -MULT1TAB16 PO; -OMEP20CA3; -OMEP20CA3 PO; -PERC5TAB12 PO; -POTA99TA PO; -PYRI1TAB5 PO; -RIZA10TA4 PO; -ROBA500T PO; -SULFAMETHOXAZOLE-TMP PO; -VITA100072 PO; -VITA500T88 PO
== END ==
LOC: M RAD 10:03
DX: R07.0 Pain in throat (principal)
CPT/HCPCS: Q9967

== ENCOUNTER → 2018-03-31 | Outpatient (CLI) | payer MEDICARE | LOC: M WUC 11:00 | DX: S20.211A Contusion of right front wall of thorax, initial encounter (principal); X58.XXXA Exposure to other specified factors, initial encounter; Y92.89 Other specified places as the place of occurrence of the external cause | CPT/HCPCS: 71101 ==

== ENCOUNTER → 2018-05-14 | Outpatient (CLI) | payer MEDICARE | LOC: M RAD 12:39 | DX: Z12.31 Encounter for screening mammogram for malignant neoplasm of breast (principal); N60.31 Fibrosclerosis of right breast; N60.32 Fibrosclerosis of left breast | CPT/HCPCS: 77067 ==

== ENCOUNTER → 2018-07-02 | Outpatient (CLI) | payer MEDICARE | LOC: M WUC 09:32 | DX: M79.642 Pain in left hand (principal) | CPT/HCPCS: 73130 ==

== ENCOUNTER 2019-03-06 12:36 | Emergency (ER) | payer MEDICARE ==
[~2019-03-06] VITALS: Ht 162.6 cm; Wt 54.5 kg
[~2019-03-06 12:36] MED LIST changes: +ALBU17IN INH; +APPL300T PO; +AZIT-12 PO; +CALC600T27 PO; +CEFD1CAP8; +CLIN150C14 PO; +FLOM0.4C39 PO; +FLON1SPR; +GABA-843 PO; +GERITAB9 PO; +HYDR-3713 PO; +HYDR-3719 PO; +IBUP-1022 PO; +IBUP1TAB7 PO; +IBUP80TA PO; -ISOVUE-370 76% 100ML VIAL (Q9967) As Ordered; +LIDO5TD TOP; +MUCI1LIQ PO; +MULT1TAB16 PO; +OMEP20CA3; +OMEP20CA3 PO; +PERC5TAB12 PO; +POTA99TA PO; +PROAAER10 INH; +PYRI1TAB5 PO; +RIZA10TA4 PO; +ROBA500T PO; +SULFAMETHOXAZOLE-TMP PO; +VITA100018 PO; +VITA500T88 PO
[2019-03-06] MEDS ORDERED: MECLIZINE 25 MG TABLET PO ONE (13:15)
--- NOTE | 2019-03-06 13:29 | REP ---
Clinical: Vertigo . Comparison: 08/04/2017 . Findings: The ventricles, sulci, and cisterns are normal in position and appearance. Lopez-white differentiation is maintained. No acute intracranial hemorrhage, mass/mass effect, pathology or trauma/injury. No evidence for acute infarction. No extra-axial fluid collection. Calvarium is intact. Paranasal sinuses and mastoid air cells are clear. Impression: Normal noncontrast head CT. No evidence for acute intracranial pathology or trauma/injury. Electronically Signed by Tony Greco MD 03/06/2019 01:20 P
[2019-03-06 14:09] LABS: BASO % 0.4 % (0.0-1.0); EOS # 0.1 10^3/uL (0.0-0.50); EOS % 0.9 % (0.0-3.0); HEMATOCRIT 41.4 % (36.0-47.0); HEMOGLOBIN 13.9 g/dl (12.0-15.5); LYMPH # 2.7 10^3/uL (1.5-4.5); LYMPH % 39.5 % (24.0-44.0); MEAN CORPUSCULAR HEMOGLOBIN 32.9 pg (27.0-33.0); MEAN CORPUSCULAR HGB CONC 33.6 g/dl (32.0-36.5); MEAN CORPUSCULAR VOLUME 98.1 fl (80.0-96.0); MONO # 0.4 10^3/uL (0.0-0.8); MONO % 6.2 % (0.0-5.0); NEUTROPHILS # 3.7 10^3/uL (1.8-7.7); NEUTROPHILS % 52.7 % (36.0-66.0); PLATELET COUNT, AUTOMATED 295 10^3/uL (150-450); RED BLOOD COUNT 4.22 10^6/uL (4.00-5.40); WHITE BLOOD COUNT 6.9 10^3/uL (4.0-10.0)
--- NOTE | 2019-03-06 14:11 | REP ---
Chest one-view HISTORY: Altered mental status Comparison: 01/05/2018 The lungs are clear. The heart is normal in size. The pulmonary vasculature is normal in appearance. Impression: No acute disease. Electronically Signed by Ortega Trejo MD 03/06/2019 02:03 P
[2019-03-06] MEDS ORDERED: NS 500 ML IV ONE (14:15)
[2019-03-06 14:50] LABS: ALBUMIN 3.8 GM/DL (3.2-5.2); ALT/SGPT 17 U/L (12-78); BILIRUBIN,DIRECT < 0.1 MG/DL (0.0-0.2); BILIRUBIN,TOTAL 0.3 MG/DL (0.2-1.0); BLOOD UREA NITROGEN 14 MG/DL (7-18); CARBON DIOXIDE LEVEL 29 MEQ/L (21-32); CHLORIDE LEVEL 108 MEQ/L (98-107); CPK CREATINE PHOSPHOKINASE 85 U/L (26-192); CREATININE FOR GFR 0.81 MG/DL (0.55-1.30); GLOMERULAR FILTRATION RATE > 60.0 (>45); GLUCOSE, FASTING 73 MG/DL (70-100); POTASSIUM SERUM 3.9 MEQ/L (3.5-5.1); SODIUM LEVEL 143 MEQ/L (136-145); THYROID STIMULATING HORMONE 0.718 uIU/ML (0.358-3.740); TOTAL PROTEIN 6.7 GM/DL (6.4-8.2); TROPONIN I < 0.02 NG/ML (< 0.10)
--- NOTE | 2019-03-06 15:46 | REP ---
MR BRAIN WITHOUT CONTRAST: HISTORY: Double vision. COMPARISON: CT 03/06/2019 Several punctate areas of increased signal intensity on T2-weighted images are present in the periventricular and subcortical white matter. This represents small vessel ischemic disease. There is no intraparenchymal hemorrhage, infarct, mass or midline shift. The ventricular system is normal in appearance. There is no extracerebral collection. Mucosal thickening is present in the right mastoid air cells. The sinuses are clear. IMPRESSION: Minimal small vessel ischemic disease. Electronically Signed by Ortega Trejo MD 03/06/2019 04:00 P
[2019-03-06] MEDS ORDERED: MECL1CHW PO (15:51)
[2019-03-06 16:31] VITALS: BP 111/69
--- NOTE | 2019-03-06 22:31 | ECGEPIP ---
[facility] - ED Test Date: 2019-03-06 Pat Name: HI ZAPATA Department: Room: - Gender: Female Incident Engineer: KIM : 1955 Requested By: Regi De Los Santos Order Number: [id number] Reading MD: Stanford Rice Measurements Intervals [place] Rate: 79 P: 67 SD: 128 QRS: 75 QRSD: 87 T: 65 QT: 367 QTc: 421 Interpretive Statements SINUS RHYTHM SIMILAR TO 01/05/18 Electronically Signed on 03-06-2019 22:31:19 EDT by Stanford Rice
== END 2019-03-06 16:32 | disposition home or self-care (01) ==
LOC: M ED 12:36
DX: H81.49 Vertigo of central origin, unspecified ear (principal); F17.210 Nicotine dependence, cigarettes, uncomplicated; Z79.891 Long term (current) use of opiate analgesic; Z79.899 Other long term (current) drug therapy; Z87.442 Personal history of urinary calculi

== ENCOUNTER → 2019-03-27 | Outpatient (CLI) | payer MEDICARE ==
[~2019-03-27] MED LIST changes: +MECL1CHW PO; +PROHANCE 279.3MG/ML 5ML VIAL (A9576) As Ordered ONE
--- NOTE | 2019-03-30 08:37 | REP ---
MRI brain without and with contrast: History: Diplopia . Comparison study: March 06, 2019 Technique: Axial and sagittal imaging planes are utilized for T1 and T2-weighted scans. Sequences include spin-echo, fast spin echo, FLAIR, and diffusion weighted sequences. Gadolinium enhancement dose is 10 ml of intravenous ProHance. MRI findings: No bony calvarial lesion is seen. Craniocervical junction and upper cervical cord are normal in appearance. There is no MR evidence of significant paranasal sinus disease. No intraorbital abnormality is seen. The lateral, third, and fourth ventricles are normal in size and position. Lopez-white differentiation pattern is intact above and below the tentorium. There is no evidence of intracranial hemorrhage. No mass, infarction, extra-axial fluid collection or midline shift is seen. Suprasellar cistern and optic chiasm are unremarkable. There are minimal small vessel changes. No abnormal white matter lesion is seen. No abnormal intracranial gadolinium enhancement is appreciated. Impression: Negative brain MRI study. Electronically Signed by Saulo Romeo MD 03/30/2019 08:28 A
== END ==
LOC: M RAD 17:06
PROVIDERS: ATTEND Hospitalist
DX: H53.2 Diplopia (principal)
CPT/HCPCS: 70553; A9576

== ENCOUNTER → 2019-06-19 | Outpatient (CLI) | payer MEDICARE ==
[~2019-06-19] MED LIST changes: -OMEP20CA3; -OMEP20CA3 PO; +OMEP20CA4; +OMEP20CA4 PO; -PROHANCE 279.3MG/ML 5ML VIAL (A9576) As Ordered ONE
--- NOTE | 2019-06-19 13:52 | REPMRS ---
Patient History The patient states she had a clinical breast exam in June 2019. Family history of prostate cancer at age 82 in father, colorectal cancer at age 79 in mother. Benign mammogram-guided core biopsy of both breasts, 2009. Took hormonal contraceptives for 5 years. Took estrogen for 11 years. 3D TOMOSYNTHESIS WAS PERFORMED. The [facility] lifetime risk for breast cancer is 5.8%. Digital Mammo Screening Bilat: June 19, 2019 - Exam #: [id number] Bilateral CC and MLO view(s) were taken. Technologist: Keely Tenorio, Technologist Prior study comparison: May 14, 2018, bilateral digital mammo screening bilat performed at [facility]. May 14, 2017, bilateral digital mammo screening bilat performed at [facility]. FINDINGS: The breast tissue is heterogeneously dense. This may lower the sensitivity of mammography. There has been no change in the appearance of the mammogram from the prior studies. There is a moderate amount of residual fibroglandular tissue which is fairly symmetric. There is no interval development of dominant mass, areas of architectural distortion, or clustered microcalcification typical of malignancy. Assessment: BI-RADS/ACR category 1 mammogram. Negative Mammogram. Recommendation Routine screening mammogram in 1 year (for women over age 40). This mammogram was interpreted with the aid of an FDA-approved computer-aided dectection system. Electronically Signed By: Jerome Lopez MD 06/19/19 7161
== END ==
LOC: M RAD 12:59
PROVIDERS: ATTEND Nurse Practitioner Adult Health
DX: Z12.31 Encounter for screening mammogram for malignant neoplasm of breast (principal); Z80.0 Family history of malignant neoplasm of digestive organs; Z92.0 Personal history of contraception; Z92.23 Personal history of estrogen therapy

== ENCOUNTER → 2019-10-28 | Outpatient (CLI) | payer MEDICARE ==
[~2019-10-28] MED LIST changes: +CONRAY-43 43% 50ML VIAL (Q9960) As Ordered ONE; +OMEP1CAP73; +OMEP1CAP73 PO; -OMEP20CA4; -OMEP20CA4 PO; +PROHANCE 279.3MG/ML 5ML VIAL (A9576) As Ordered ONE; -RIZA10TA4 PO; +RIZA10TA58 PO
--- NOTE | 2019-10-28 13:21 | REP ---
Reason For Exam/Comment: Osteoarthritis of the left shoulder Procedure: Left MRI arthrogram The procedure was performed by JAVIER Cedillo, under the direct supervision of Dr. Romeo. The benefits and risks including but not limited to pain, infection, bleeding and anaphylaxis were explained to the patient and informed consent was obtained both verbally and written. Directly prior to the start of the procedure, a formal timeout was completed in the procedure room. Technique: The left glenohumeral joint space was localized using fluoroscopic guidance. The skin was prepped and draped in the usual sterile fashion. 3 mL of 1% lidocaine 10 mg/ml was used as a local anesthetic. Using fluoroscopic guidance a 22-gauge spinal needle was inserted and advanced to the left glenohumeral joint space. 1 mL of Conray 43 was injected to verify needle placement. 12 mL of a solution containing 20 ml of sterile saline and a 0.15 ml of ProHance was injected into the joint. The needle was removed and the patient was taken MRI for post procedural imaging. The patient tolerated the procedure well and there were no immediate complications. 0.1 minutes of fluoroscopy time was utilized for this procedure. Some fluoroscopic images are performed with last image hold technology. These images require no additional radiation. Reviewed by JAVIER Vides 10/28/2019 08:23 A Electronically Signed by Saulo Romeo MD 10/28/2019 01:13 P
--- NOTE | 2019-10-28 14:52 | REP ---
MR ARTHROGRAPHY LEFT SHOULDER: with pre- and post intra-articular gadolinium enhanced saline injected imaging: HISTORY: Bilateral shoulder pain. Primary osteoarthritis left shoulder. Calcific tendonitis left shoulder. Rule out rotator cuff tear. No comparison radiographs. TECHNIQUE: The injection procedure is performed and dictated separately. Pre- and post intra-articular gadolinium enhanced saline injected imaging is acquired. Imaging planes include axial, oblique coronal, oblique sagittal and ABER projection images. T1- and T2-weighted scans are included with and without fat saturation. MRI FINDINGS: Pre-injection imaging shows a large subacromial subdeltoid bursal effusion. No significant glenohumeral joint effusion. There is mild hypertrophy at the AC joint. The glenohumeral and acromioclavicular joints are normally aligned. Cortical and medullary bone signal intensity are normal. There is subcortical cyst formation in the superolateral humeral head. There is diffuse tendonitis tendinosis change in the supraspinatus on oblique coronal T1-weighted scans. There is a tendon insertion site partial-thickness cuff tear visible on pre injection oblique coronal T2-weighted scans. Post injection imaging shows good filling and enhancement of the left glenohumeral left accumulation. No loose body is seen. There is mild fraying of the anterior posterior articular glenoid labral cartilages. No labral tear is appreciated. Oblique coronal post injection fat sat images demonstrate partial enhancement of the subacromial subdeltoid bursal effusion indicating at the supraspinatus tear is full-thickness. ABER image shows no evidence of anterior labral tear. Biceps tendon is intact. The infraspinatus and subscapularis tendons have an intact appearance. IMPRESSION: Findings consistent with full-thickness distal supraspinatus cuff tear. Subacromial subdeltoid bursal effusion. AC joint osteoarthritis. Electronically Signed by Saulo Romeo MD 10/28/2019 07:05 P
== END ==
LOC: M RADPRO 06:30
PROVIDERS: ATTEND Orthopaedic Surgery
DX: M75.120 Complete rotator cuff tear or rupture of unspecified shoulder, not specified as traumatic (principal); M75.30 Calcific tendinitis of unspecified shoulder; M19.012 Primary osteoarthritis, left shoulder
CPT/HCPCS: 23350; 73223; 77002; A9576; Q9960

== ENCOUNTER → 2019-10-30 | Outpatient (CLI) | payer MEDICARE ==
--- NOTE | 2019-10-30 09:26 | REP ---
MR arthrography right shoulder: with pre and post intra-articular gadolinium enhanced saline injected imaging: History: Right shoulder osteoarthritis. Rule out rotator cuff tear. Comparison right shoulder radiographs are from December 26, 2017 showing a large calcific deposit adjacent to the humeral head. Technique: The injection procedure is performed and dictated separately. Pre and post intra-articular gadolinium enhanced saline injected imaging is acquired. Imaging planes include axial, oblique coronal, oblique sagittal and ABER projection images. T1 T2-weighted scans are included with and without fat saturation. MRI findings: Pre injection MR imaging of the right shoulder shows cortical and medullary bone signal intensity are normal. Glenohumeral and acromioclavicular joints are normally aligned. There is a moderate size subacromial subdeltoid bursal effusion. There is inferolateral spurring on the acromion process and minimal osteoarthritic hypertrophy at the AC joint is present. There is a low signal intensity area in the distal supraspinatus tendon which may correspond to the calcific opacity seen radiographically. It is not separately visible from the tendon. There is heterogeneous thickening and some increased signal intensity in the distal supraspinous tendon on oblique coronal T1-weighted scans. There is partial thickness linear T2 hyperintensity parallel to the tendon and within it near its insertion on oblique coronal T2-weighted scans which may be partial thickness supraspinatus cuff tear. There is no evidence of labral cartilage tear on pre injection imaging. Post injection imaging shows good filling and enhancement of the right shoulder articulation. Biceps tendon is unremarkable. Infraspinatus tendon shows mild tendinosis but is intact. Infraspinatus tendon is unremarkable. There is subcortical cyst formation in the posterolateral humeral head. T1-weighted fat sat post injection images show no definite full-thickness cuff tear. No loose body is seen. No evidence of labral tear. Impression: Partial thickness distal supraspinatus tear seen. Subacromial subdeltoid bursal effusion. Acromion process spurring. The radiographically visible calcific deposit is felt to be within the distal supraspinatus tendon, mild tendinosis in the subscapularis tendon. Electronically Signed by Saulo Romeo MD 10/30/2019 06:33 P
--- NOTE | 2019-10-30 18:42 | REP ---
Reason For Exam/Comment: Right shoulder osteoarthritis Procedure: Right shoulder MRI arthrogram The procedure was performed by JAVIER Cedillo, under the direct supervision of Dr. Romeo. The benefits and risks including but not limited to pain, infection, bleeding and anaphylaxis were explained to the patient and informed consent was obtained both verbally and written. Directly prior to the start of the procedure, a formal timeout was completed in the procedure room. Technique: The right glenohumeral joint space was localized using fluoroscopic guidance. The skin was prepped and draped in the usual sterile fashion. 4 mL of 1% lidocaine 10 mg/ml was used as a local anesthetic. Using fluoroscopic guidance a 22-gauge spinal needle was inserted and advanced to the right glenohumeral joint space. 1 mL of Conray 43 was injected to verify needle placement. 12 mL of a solution containing 20 ml of sterile saline and a 0.15 ml of ProHance was injected into the joint. The needle was removed and the patient was taken MRI for post procedural imaging. The patient tolerated the procedure well and there were no immediate complications. 0.1 minutes of fluoroscopy time was utilized for this procedure. Some fluoroscopic images are performed with last image hold technology. These images require no additional radiation. Reviewed by JAVIER Vides 10/30/2019 10:20 A Electronically Signed by Saulo Romeo MD 10/30/2019 06:32 P
== END ==
LOC: M RADPRO 06:32
PROVIDERS: ATTEND Orthopaedic Surgery
DX: M75.111 Incomplete rotator cuff tear or rupture of right shoulder, not specified as traumatic (principal); M25.421 Effusion, right elbow; M19.011 Primary osteoarthritis, right shoulder; M79.652 Pain in left thigh; M79.651 Pain in right thigh
CPT/HCPCS: 23350; 36415; 73223; 77002; 80048; 82607; 82728; 82746; 83550; 83735; A9576; G0463; Q9960

== ENCOUNTER → 2019-10-30 | Outpatient (REF) | payer MEDICARE ==
[~2019-10-30] MED LIST changes: -CONRAY-43 43% 50ML VIAL (Q9960) As Ordered ONE; -PROHANCE 279.3MG/ML 5ML VIAL (A9576) As Ordered ONE
[2019-10-30 16:49] LABS: BLOOD UREA NITROGEN 20 MG/DL (7-18); CALCIUM LEVEL 9.8 MG/DL (8.8-10.2); CARBON DIOXIDE LEVEL 31 MEQ/L (21-32); CHLORIDE LEVEL 108 MEQ/L (98-107); CREATININE FOR GFR 0.82 MG/DL (0.55-1.30); FERRITIN 144 NG/ML (8-252); GLOMERULAR FILTRATION RATE > 60.0 (>45); GLUCOSE, FASTING 76 MG/DL (70-100); IRON (FE) 85 UG/DL (50-170); MAGNESIUM LEVEL 2.2 MG/DL (1.8-2.4); PERCENT SATURATION 27.2 % (13.2-45.0); POTASSIUM SERUM 4.4 MEQ/L (3.5-5.1); SODIUM LEVEL 141 MEQ/L (136-145); TOTAL IRON BINDING CAPACITY 313 UG/DL (250-450)
[2019-10-30 16:57] LABS: FOLATE > 24.0 NG/ML (>5.4); VITAMIN B12 LEVEL 1454 PG/ML (247-911)
== END ==
LOC: M LABDRAW1 15:13
PROVIDERS: ATTEND Hospitalist
DX: M79.652 Pain in left thigh (principal)

== ENCOUNTER → 2019-12-03 | Outpatient (REF) | payer MEDICARE | LOC: M SFHCPLAZ 14:06 | DX: Z01.810 Encounter for preprocedural cardiovascular examination (principal); Z71.89 Other specified counseling ==

== ENCOUNTER → 2020-04-01 | Outpatient (CLI) | payer MEDICARE ==
[2020-04-01 14:54] LABS: BASO % 0.5 % (0.0-1.0); EOS # 0.1 10^3/uL (0.0-0.5); EOS % 1.8 % (0.0-3.0); HEMATOCRIT 40.5 % (36.0-47.0); LYMPH # 2.4 10^3/uL (1.5-5.0); LYMPH % 42.2 % (24.0-44.0); MEAN CORPUSCULAR HEMOGLOBIN 32.1 pg (27.0-33.0); MEAN CORPUSCULAR HGB CONC 32.1 g/dl (32.0-36.5); MONO # 0.4 10^3/uL (0.0-0.8); MONO % 7.1 % (0.0-5.0); NEUTROPHILS # 2.7 10^3/uL (1.5-8.5); NEUTROPHILS % 48.2 % (36.0-66.0); PLATELET COUNT, AUTOMATED 342 10^3/uL (150-450); RED BLOOD COUNT 4.05 10^6/uL (4.00-5.40); WHITE BLOOD COUNT 5.7 10^3/uL (4.0-10.0)
[2020-04-01 15:11] LABS: ALBUMIN 3.6 GM/DL (3.2-5.2); ALT/SGPT 21 U/L (12-78); BILIRUBIN,TOTAL 0.3 MG/DL (0.2-1.0); BLOOD UREA NITROGEN 16 MG/DL (7-18); CALCIUM LEVEL 9.3 MG/DL (8.8-10.2); CARBON DIOXIDE LEVEL 28 MEQ/L (21-32); CHLORIDE LEVEL 108 MEQ/L (98-107); CREATININE FOR GFR 0.68 MG/DL (0.55-1.30); FREE T4 0.96 NG/DL (0.76-1.46); GLOMERULAR FILTRATION RATE > 60.0 (>45); GLUCOSE, FASTING 88 MG/DL (70-100); POTASSIUM SERUM 4.5 MEQ/L (3.5-5.1); SODIUM LEVEL 140 MEQ/L (136-145); THYROID STIMULATING HORMONE 0.742 uIU/ML (0.358-3.740); TOTAL PROTEIN 6.5 GM/DL (6.4-8.2); TOTAL T3 107.5 NG/DL (60.0-181.0)
== END ==
LOC: M PLALAB 11:37
PROVIDERS: ATTEND Allergy & Immunology Allergy
DX: L29.9 Pruritus, unspecified (principal)

== ENCOUNTER → 2020-07-15 | Outpatient (CLI) | payer MEDICARE ==
--- NOTE | 2020-07-15 11:30 | REPMRS ---
Patient History The patient states she had a clinical breast exam in July 2020.Family history of prostate cancer at age 82 in father, colorectal cancer at age 79 in mother. Benign mammogram-guided core biopsy of both breasts, 2008. Took hormonal contraceptives for 5 years. Took estrogen for 11 years. 3D TOMOSYNTHESIS WAS PERFORMED. The [facility] lifetime risk for breast cancer is 5.6%. VOLPARA DENSITY C. Digital Woman Screen Mammo: July 15, 2020 - Exam #: [id number] Bilateral CC and MLO view(s) were taken. Technologist: Yaritza Rowley, Technologist Prior study comparison: June 19, 2019, bilateral digital mammo screening bilat, performed at [facility]. May 14, 2018, bilateral digital mammo screening bilat, performed at [facility]. FINDINGS: The breast tissue is heterogeneously dense. This may lower the sensitivity of mammography. There has been no change in the appearance of the mammogram from the prior studies. There is a moderate amount of residual fibroglandular tissue which is fairly symmetric. There is no interval development of dominant mass, areas of architectural distortion, or clustered microcalcification typical of malignancy. Assessment: BI-RADS/ACR category 1 mammogram. Negative Mammogram. Recommendation Routine screening mammogram in 1 year (for women over age 40). This mammogram was interpreted with the aid of an FDA-approved computer-aided dectection system. Electronically Signed By: Jerome Lopez MD 07/15/20 1126
== END ==
LOC: M WHC 09:59
PROVIDERS: ATTEND Nurse Practitioner Adult Health
DX: Z12.31 Encounter for screening mammogram for malignant neoplasm of breast (principal); Z80.0 Family history of malignant neoplasm of digestive organs

== ENCOUNTER → 2020-09-06 | Outpatient (REF) | payer MEDICARE | LOC: EEVIPCON 13:28 → M SFHCPLAZ 13:28 | PROVIDERS: ATTEND Internal Medicine Infectious Disease | DX: Z22.322 Carrier or suspected carrier of Methicillin resistant Staphylococcus aureus (principal) | CPT/HCPCS: 87070; 87077; 87186; G0463 ==

== ENCOUNTER → 2020-09-16 | Outpatient (REF) | payer MEDICARE ==
[2020-09-16 18:10] LABS: APPEARANCE, URINE HAZY (CLEAR); BACTERIA, URINE AUTO 1+ (NEGATIVE); BILIRUBIN, URINE AUTO NEGATIVE (NEGATIVE); BLOOD, URINE BLOOD 2+ (NEGATIVE); COLOR, URINE YELLOW (YELLOW); GLUCOSE, URINE (UA) AUTO NEGATIVE (NEGATIVE); KETONE, URINE AUTO NEGATIVE (NEGATIVE); LEUKOCYTE ESTERASE, URINE AUTO 3+ (NEGATIVE); MUCUS, URINE SMALL (NEGATIVE); NITRITE, URINE AUTO NEGATIVE (NEGATIVE); PROTEIN, URINE AUTO NEGATIVE (NEGATIVE); RBC, URINE AUTO 1 /HPF (0-3); SPECIFIC GRAVITY URINE AUTO 1.003 (1.002-1.035); SQUAMOUS EPITHELIAL CELL UR AU 1 /HPF (0-6); UROBILINOGEN, URINE AUTO 0.2 mg/dL (0.0-2.0); WBC, URINE AUTO 20 /HPF (0-3)
== END ==
LOC: M LAB REF 16:29
PROVIDERS: ATTEND Physician Assistant
DX: N39.0 Urinary tract infection, site not specified (principal)

== ENCOUNTER → 2020-09-26 | Outpatient (REF) | payer MEDICARE ==
[2020-09-26 18:10] LABS: APPEARANCE, URINE CLEAR (CLEAR); BACTERIA, URINE AUTO 1+ (NEGATIVE); BILIRUBIN, URINE AUTO NEGATIVE (NEGATIVE); BLOOD, URINE BLOOD NEGATIVE (NEGATIVE); COLOR, URINE AMBER (YELLOW); GLUCOSE, URINE (UA) AUTO 1+ mg/dL (NEGATIVE); KETONE, URINE AUTO NEGATIVE (NEGATIVE); LEUKOCYTE ESTERASE, URINE AUTO NEGATIVE (NEGATIVE); MUCUS, URINE SMALL (NEGATIVE); NITRITE, URINE AUTO POSITIVE (NEGATIVE); PROTEIN, URINE AUTO 1+ mg/dL (NEGATIVE); RBC, URINE AUTO 2 /HPF (0-3); SPECIFIC GRAVITY URINE AUTO 1.011 (1.002-1.035); SQUAMOUS EPITHELIAL CELL UR AU 3 /HPF (0-6); WBC, URINE AUTO 56 /HPF (0-3)
== END ==
LOC: M LAB REF 16:35
PROVIDERS: ATTEND Physician Assistant Medical
DX: N39.0 Urinary tract infection, site not specified (principal)

== ENCOUNTER → 2020-10-10 | Outpatient (REF) | payer MEDICARE ==
[~2020-10-10] MED LIST changes: -CLIN150C14 PO; +CLIN150C15 PO; +GABA-282 PO; -GABA-843 PO
== END ==
LOC: M SFHCPLAZ 13:12
PROVIDERS: ATTEND Internal Medicine Infectious Disease
DX: Z22.322 Carrier or suspected carrier of Methicillin resistant Staphylococcus aureus (principal)
CPT/HCPCS: 87641; G0463

== ENCOUNTER 2020-12-22 09:47 | Emergency (ER) | payer MEDICARE ==
[~2020-12-22] VITALS: Ht 162.6 cm; Wt 63.4 kg
--- NOTE | 2020-12-22 11:04 | REP ---
INDICATION: chest pain. COMPARISON: Comparison chest x-ray March 06, 2019.. TECHNIQUE: Five views including PA chest. FINDINGS: PA chest radiograph shows no evidence of pneumothorax or hydrothorax. No mediastinal widening is seen. Cardiomediastinal silhouette is unremarkable. Lung mathews are clear. No infiltrate. No extra thoracic soft tissue emphysema. Multiple views of the right rib cage show no visible rib fracture or bony destructive lesion. IMPRESSION: Negative right rib radiographic series. <Electronically signed by Maximino Romeo > 12/22/20 1100
[2020-12-22 11:32] VITALS: BP 131/79
== END 2020-12-22 11:33 | disposition home or self-care (01) ==
LOC: M ED 09:47
DX: S20.211A Contusion of right front wall of thorax, initial encounter (principal); W22.8XXA Striking against or struck by other objects, initial encounter; Y92.810 Car as the place of occurrence of the external cause; K21.9 Gastro-esophageal reflux disease without esophagitis; F33.9 Major depressive disorder, recurrent, unspecified; Z79.899 Other long term (current) drug therapy

== ENCOUNTER → 2021-01-26 | Outpatient (CLI) | payer MEDICARE ==
--- NOTE | 2021-01-26 12:08 | REP ---
INDICATION: CALCIFIC TENDINITIS OF CHARLI SHOULDER. Rule out rotator cuff tear COMPARISON: Comparison left shoulder MR arthrography 28 October 2019.. TECHNIQUE: Axial, oblique coronal, and oblique sagittal imaging planes utilized. T1 and T2 weighted scans are included with without fat saturation. FINDINGS: There is a non metallic orthopedic anchor ring device in the humeral head extending from anterior aspect. There is subcortical cyst formation. Cortical and medullary bone signal intensity are otherwise normal. Glenohumeral and acromioclavicular joints are normally aligned. There is heterogeneous increased signal intensity on T1 and T2 weighted scans in the distal supraspinatus tendon consistent with tendinitis tendinosis change. There is a small focus of T2 hypointensity which may be a calcific deposit. This is surrounded by some adjacent fluid signal. No full-thickness supraspinatus cuff tear is appreciated. There is a small quantity of subacromial subdeltoid bursal fluid. Chondromalacia is seen mild in degree in the glenohumeral articulation. There is some fraying of the anterior and posterior labral cartilage is period there is mild inferolateral spurring of the acromion process. The subscapularis and infraspinatus tendons appear intact. Biceps tendon is in the bony bicipital groove. IMPRESSION: Subacromial subdeltoid bursal effusion. Postoperative change in the humeral head. Fraying of the anterior and posterior labral cartilage is and tendinitis tendinosis in the supraspinatus tendon. Question intra tendinous calcific deposit. <Electronically signed by Maximino Romeo > 01/26/21 1727
--- NOTE | 2021-01-26 12:15 | REP ---
INDICATION: CALCIFIC TENDINITIS OF CHARLI SHOULDER. COMPARISON: 10/28/2019 left 10/30/2019 right TECHNIQUE: Coronal oblique T1 and fat suppressed T2. Sagittal oblique fat suppressed T2. Axial [id number] and T2 FLASH. FINDINGS: Right shoulder: Mild to moderate hypertrophic degenerative changes seen involving the acromioclavicular joint. The acromion process is type 2. Patchy and linear T2 hyper signal is seen throughout the supraspinatus tendon without evidence of musculotendinous retraction or significant muscular atrophy. Patchy T2 hyper signal is seen in the infraspinatus tendon and minimally within the teres minor and subscapularis tendons. The biceps tendon resides within the bicipital groove. There is no glenohumeral joint effusion. Left shoulder: Moderate hypertrophic degenerative changes seen involving the acromioclavicular joint with T2 hyper signal seen within the joint. The acromion process is type 2. There is fluid in the subacromial space. Patchy and linear T2 hyper signal is seen throughout the supraspinatus tendon without evidence of musculotendinous retraction. The supraspinatus muscle does appear to be mildly atrophied. Patchy T2 hyper signal is seen in the infraspinatus and subscapularis tendons. There is a small amount of fluid seen superficial to the infraspinatus musculotendinous junction. The biceps tendon resides within the bicipital groove. There is no glenohumeral joint effusion. The labrum appears somewhat truncated. There is evidence of patchy T2 hyper signal is seen within the labrum. Small subchondral cysts are seen in the superolateral humeral head. There is magnetic susceptibility artifact seen in the humeral head from previous anchor deployment. IMPRESSION: 1. Right shoulder supraspinatus tendinitis/tendinosis without evidence of a complete full-thickness tear. Infraspinatus, teres minor, and subscapularis tendinitis. AC joint DJD. 2. Left shoulder supraspinatus tendinitis and infraspinatus tendinitis with fluid collection as described above. Minimal subscapularis tendinitis is also suspected. Partial full-thickness tear of the supraspinatus tendon cannot be ruled out. Labral pathology is suspected as described above. Other findings as described above. <Electronically signed by Morales Collier > 01/26/21 1211
== END ==
LOC: M RAD 09:54
PROVIDERS: ATTEND Orthopaedic Surgery
DX: M19.011 Primary osteoarthritis, right shoulder (principal); M19.012 Primary osteoarthritis, left shoulder; M77.8 Other enthesopathies, not elsewhere classified; M75.32 Calcific tendinitis of left shoulder; M75.31 Calcific tendinitis of right shoulder

== ENCOUNTER 2021-04-29 18:01 | Emergency (ER) | payer MEDICARE ==
[~2021-04-29] VITALS: Ht 162.6 cm; Wt 59.1 kg
[2021-04-29] MEDS ORDERED: NS 1,000 ML IV ONE (20:00)
[2021-04-29] MEDS ORDERED: MORPHINE 2 MG/ML 1ML VIAL (J2270) IV ONE (20:10)
[2021-04-29] MEDS ORDERED: ONDANSETRON 4MG/2ML VIAL IV ONE (20:10)
[2021-04-29 20:24] LABS: BASO # 0.1 10^3/uL (0.0-0.2); BASO % 0.5 % (0.0-1.0); EOS # 0.1 10^3/uL (0.0-0.5); HEMATOCRIT 39.5 % (36.0-47.0); LYMPH # 1.9 10^3/uL (1.5-5.0); LYMPH % 18.9 % (24.0-44.0); MEAN CORPUSCULAR HEMOGLOBIN 31.6 pg (27.0-33.0); MEAN CORPUSCULAR HGB CONC 32.9 g/dl (32.0-36.5); MEAN CORPUSCULAR VOLUME 96.1 fl (80.0-96.0); MONO # 0.5 10^3/uL (0.0-0.8); MONO % 5.3 % (2.0-8.0); NEUTROPHILS # 7.6 10^3/uL (1.5-8.5); PLATELET COUNT, AUTOMATED 305 10^3/uL (150-450); RED BLOOD COUNT 4.11 10^6/uL (4.00-5.40); WHITE BLOOD COUNT 10.2 10^3/uL (4.0-10.0)
[2021-04-29 20:46] LABS: BLOOD UREA NITROGEN 15 MG/DL (7-18); CALCIUM LEVEL 9.5 MG/DL (8.8-10.2); CARBON DIOXIDE LEVEL 25 MEQ/L (21-32); CHLORIDE LEVEL 110 MEQ/L (98-107); CREATININE FOR GFR 0.84 MG/DL (0.55-1.30); GLOMERULAR FILTRATION RATE > 60.0 (>45); GLUCOSE, FASTING 118 MG/DL (70-100); POTASSIUM SERUM 4.3 MEQ/L (3.5-5.1); SODIUM LEVEL 141 MEQ/L (136-145)
[2021-04-29 20:57] LABS: ALBUMIN 3.9 GM/DL (3.2-5.2); ALT/SGPT 29 U/L (12-78); BILIRUBIN,DIRECT < 0.1 MG/DL (0.0-0.2); BILIRUBIN,TOTAL 0.2 MG/DL (0.2-1.0); LIPASE 129 U/L (73-393); TOTAL PROTEIN 6.7 GM/DL (6.4-8.2)
[2021-04-29] MEDS ORDERED: KETOROLAC 30 MG/ML 1ML VIAL IV ONE (21:00)
[2021-04-29 21:32] LABS: BILIRUBIN, URINE MANUAL OBSCURED (NEGATIVE); GLUCOSE, URINE (UA) MANUAL OBSCURED mg/dL (NEGATIVE); KETONE, URINE MANUAL OBSCURED mg/dL (NEGATIVE); UROBILINOGEN, URINE MANUAL OBSCURED mg/dl (NORMAL)
[2021-04-29 21:33] LABS: BACTERIA, URINE SMALL AMOUNT; HYALINE CAST, URINE 0-1 /lpf (0-1); MUCUS, URINE LARGE AMOUNT (NEGATIVE); RBC, URINE TNTC /hpf (0-3); SQUAMOUS EPITHELIAL CELL URINE MOD AMOUNT /hpf (SMALL AMT)
--- NOTE | 2021-04-29 21:50 | REPVR ---
PROCEDURE INFORMATION: Exam: CT Abdomen And Pelvis Without Contrast Exam date and time: 04/29/2021 8:43 PM Age: 65 years old Clinical indication: Other: L flank pain, HX of stones TECHNIQUE: Imaging protocol: Computed tomography of the abdomen and pelvis without contrast. Radiation optimization: All CT scans at this facility use at least one of these dose optimization techniques: automated exposure control; mA and/or kV adjustment per patient size (includes targeted exams where dose is matched to clinical indication); or iterative reconstruction. COMPARISON: CT ABD PELVIS W/O CONTRAST 12/18/2016 6:09 PM FINDINGS: Liver: Normal. No mass. Gallbladder and bile ducts: Normal. No calcified stones. No ductal dilation. Pancreas: Normal. No ductal dilation. Spleen: Normal. No splenomegaly. Adrenal glands: Normal. No mass. Kidneys and ureters: Punctate nonobstructive calculi in the kidneys. Small simple cyst anterior aspect of the left kidney measures 1.5 cm. There is a 3 mm. obstructive ureteral calculus located left UV junction resulting in mild proximal hydroureteronephrosis. There is no significant periureteral and perinephric stranding. No urinoma demonstrated. Stomach and bowel: Unremarkable. No obstruction. No mucosal thickening. Appendix: No evidence of appendicitis. Intraperitoneal space: Unremarkable. No free air. No significant fluid collection. Vasculature: The aortoiliac vessels demonstrate mild atherosclerotic calcification. Lymph nodes: Unremarkable. No enlarged lymph nodes. Urinary bladder: Unremarkable as visualized. Reproductive: There has been a hysterectomy. Bones/joints: Status post posterior interbody fusion of L4 and L5 using transpedicular screws. Status post L4 bilateral laminectomy. There is increasing irregularity of the intervertebral disc space at L4-L5 particularly along the inferior margin of L4. Clinical correlation to exclude discitis suggested. Slight anterolisthesis of L4 on L5 slightly increased in comparison to the prior study 2017. Soft tissues: There is a small umbilical hernia. There is no evidence of incarceration. IMPRESSION: 1. There is increasing irregularity of the intervertebral disc space at L4-L5 particularly along the inferior margin of L4. Clinical correlation to exclude discitis suggested. 2. Punctate nonobstructive calculi in the kidneys. 3. Small simple cyst anterior aspect of the left kidney measures 1.5 cm. 4. There has been a hysterectomy. 5. 3 mm obstructive left UV junction ureteral calculus as described above. COMMENTS: Consistent with the [employer]'s Incidental Findings Committee white paper (J Am Cortney Radiol 2018): Any incidental renal lesion less than 1 cm or classified as too small to characterize, or any incidental cystic renal lesion characterized as simple-appearing, is likely benign. No follow-up imaging is recommended for these lesions per consensus recommendations based on imaging criteria. Electronically signed by: Marek Chao On 04/29/2021 21:49:32 PM
[2021-04-29] MEDS ORDERED: TAMSULOSIN 0.4 MG CAP PO ONE (22:15)
[2021-04-29] MEDS ORDERED: CIPROFLOXACIN 500MG TABLET PO ONE (22:15)
[2021-04-29] MEDS ORDERED: FLOM0.4C39 PO (22:20)
[2021-04-29] MEDS ORDERED: CIPR-249 PO (22:20)
[2021-04-29] MEDS ORDERED: KETO10TAB PO (22:20)
[2021-04-29 22:22] VITALS: BP 124/74
--- NOTE | 2021-04-30 06:31 | ED PDOC ---
Post-Departure Follow-Up certified letter sent to pt - need to obtain pcp name so can fax formal report o f ct abd/p. obtain and fax. if no pcp [facility] and fax there.Raman Garcia MD Apr 30, 2021 06:31
== END 2021-04-29 22:38 | disposition home or self-care (01) ==
LOC: M ED 18:01
DX: N20.1 Calculus of ureter (principal); N39.0 Urinary tract infection, site not specified; K21.9 Gastro-esophageal reflux disease without esophagitis; Z87.448 Personal history of other diseases of urinary system; Z79.899 Other long term (current) drug therapy
CPT/HCPCS: 74176; 80048; 80076; 81000; 83690; 85025; 87086; 96361; 96374; 96375; 99284; J1885; J2270; J2405

== ENCOUNTER 2021-04-30 13:11 | Emergency (ER) | payer MEDICARE ==
[~2021-04-30] VITALS: Ht 162.6 cm; Wt 62.5 kg
[~2021-04-30 13:11] MED LIST changes: +CIPR-249 PO; +KETO10TAB PO
[2021-04-30 13:12] VITALS: BP 109/71
== END 2021-04-30 13:32 | disposition left against medical advice (07) ==
LOC: M ED 13:11
DX: Z53.21 Procedure and treatment not carried out due to patient leaving prior to being seen by health care provider (principal)

== ENCOUNTER 2021-08-13 10:47 | Emergency (ER) | payer MEDICARE ==
[~2021-08-13] VITALS: Ht 162.6 cm; Wt 59.1 kg
[~2021-08-13 10:47] MED LIST changes: -CLIN150C15 PO; +CLIN150C17 PO
[2021-08-13] MEDS ORDERED: VALA500T5 PO (10:56)
[2021-08-13] MEDS ORDERED: GABA-282 PO (10:56)
[2021-08-13] MEDS ORDERED: HYDR-3719 PO (10:56)
--- OUTSIDE RECORDS SUMMARY | 2021-08-13 10:56 | CCD | Continuity of Care Document ---
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 Name Role Phone Julissa Webster MD AUTM [phone] Mallorie Simon AUTM [phone] Problems Description No Information Available Social History Type Date Description Comments Sex Unknown ETOH Use Denies alcohol use Tobacco Use Start: Unknown Patient is a current smoker, smo kes every day 4-5 CIGARETTES DAILY Smoking Status Reviewed: 01/05/21 Patient is a current smoker, smokes every day 4-5 CIGARETTES DAILY Allergies and adverse reactions Description No Known Drug Allergies Medications Active Medications SIG Qnty Indications Ordering Provide r Date Lidocaine Plus 4% Cream Apply a thin layer to shoulders three times a day as needed. 240gm D. Pet rowena Pacheco MD 10/02/2019 Gabapentin 300mg Capsules Take One Capsule By Mouth Three Times A Day Unknown Methylprednisolone 4mg TBPK Use as Directed Unknown Metronidazole 500mg Tablets Take One Tablet By Mouth Twice A Day For 7 Days Unknown Sulfamethoxazole-Trimethoprim 400-80mg Tablets Take One Tablet By Mouth Twice A Day For 7 Days Unknown Fluconazole 150mg Tablets Take 1 Tablet By Mouth For 1 Day Then Take 2ND Tablet In 48 Hours Unknown Cephalexin 500mg Capsules Take One Capsule By Mouth Three Times A Day For 7 Days Unknown Ciprofloxacin HCL 500mg Tablets Take One Tablet By Mouth Twice A Day For 5 Days Unknown Mupirocin 2% Ointment Apply Externally To Nose Axilla And Groin Two Times A Day For 10 Days Unknown Estradiol 0.1mg/GM Cream Insert 1 Applicatorful Of 1 Gram Vaginally Once Weekly Un known Ibuprofen 800mg Tablets Take One Tablet By Mouth Three Times A Day as Needed DO Not Take For More Than 10Consecutive Day Unknown Hydrocodone-Acetaminophen 10-325mg Tablets Take 1 Tablet By Mouth Every 12 Hours as Needed Maximum Daily Do se 2 Unknown Lidocaine 5% Patches Apply 1 Patch Topically Every Day 12 Hours On And 12 Hours Off Unknown Valacyclovir HCL 500mg Tablets Emmy Andrea MD Vicodin 5-500mg Tablets 1 tablet 4 times a day. From Dr Torrez, pain management Unknown Hydroxyzine HCL 10mg Tablets take 1-2 tablets by mouth every 6 hours if needed Unknown Omeprazole 20mg Capsules DR 1 by mouth every day Unknown Calcium 500mg Tablets 2 by mouth every day Unknown One Daily Multivitamin Adult Tablets Unknown Immunizations Description No Information Available Vital Signs Date Vital Result Comment 01/05/2021 1:33pm Body Temperature 97.1 F Height 64.5 inches 5'4.50" Weight 140.00 lb BMI (Body Mass Index) 23.7 kg/m2 12/27/2017 9:13am Body Temperature 99.0 F Height 64 inches 5'4" Weight 150.12 lb BMI (Body Mass Index) 25.8 kg/m2 Results Description No Information Available Procedures Date Code Description Status 07/26/2021 23299 Office/Outpatient Established Mo d MDM 30-39 Min Completed 07/26/202176965 Inject/Drain Joint/Bursa Major C ompleted 02/15/2021 68035 Office/Outpatient Established Mo d MDM 30-39 Min Completed 02/15/202119173 Inject/Drain Joint/Bursa Major C ompleted Medical Devices Description No Information Available Encounters Type Date Location Provider Dx Diagnosis Office Visit 07/26/2021 2:30p Ugo Pacheco MD M7 5.41 Impingement syndrome of right shoulder M75.42 Impingement syndrome of left shoulder Office Visit 02/15/2021 2:15p Ugo Pacheco MD M7 5.31 Calcific tendinitis of right shoulder M75.32 Calcific tendinitis of left shoulder Assessments Date Code Description Provider 07/26/2021 M75.41 Impingement syndrome of right sh oulder Gareth Pacheco MD 07/26/2021 M75.42 Impingement syndrome of left lizbeth lesley Rodrigues. Vishnu Pacheco MD 02/15/2021 M75.31 Calcific tendinitis of right lizbeth lesley Rodrigues. Vishnu Pacheco MD 02/15/2021 M75.32 Calcific tendinitis of left shou gerir Pacheco MD Plan of Treatment 07/26/2021 - Gareth Pacheco MD* M75.41 Impingement syndrome of right shoulder* Follow up:* 4-5 months zenaida shoulders bharat w/dpv * M75.42 Impingement syndrome of left shoulder Functional Status Description No Information Available Mental Status Description No Information Available Referrals Description No Information Available
--- OUTSIDE RECORDS SUMMARY | 2021-08-13 10:56 | CCD | Continuity of Care Document ---
Author Author Karol COBB SEAT [employer]IMMER Organization Unknown Address [address] [place] [id number] Phone [phone] Problems Active Problems Provider Date Deafness of left ear Delilah Ken NP Onset: 12/04/2016 Recurrent herpes simplex Delilah Ken NP Onset: 05/14/20 18 Family history of breast cancer Delilah Ken NP Onset: 0 07/04/2020 Note: M Social History Type Date Description Comments Sex Unknown ETOH Use Denies alcohol use Recreational Drug Use Denies Drug Use Tobacco Use Start: Unknown End: Patient is a former smoker Allergies and adverse reactions Active Allergies Criticality Reaction | Severity Comments Date NKDA Unable to assess criticality 05/01/2016 NKEA Unable to assess criticality 05/01/2016 NKFA Unable to assess criticality 05/01/2016 Medications Active Medications SIG Qnty Indications Ordering Provide r Date Valacyclovir HCL 500mg Tablets 1 by mouth every day 90tabs Liam Colin M.D. 02/23/20 21 Sulfamethoxazole-Trimethoprim 400-80mg Tablets take one pill by mouth twice a day for 7 days 14tabs Liam Colin M.D. 08/01/2020 Estrace 0.1mg/GM Cream insert in vagina weekly applicator of 1 gm 42.500gm N95.2 Meenu Baez 07/25/2020 Valacyclovir HCL 500mg Tablets take one tablet by mouth twice a day for 3 days 6tabs Liam Colin M.D. 09/14/[address] Take One Capsule By Mouth Twice A Day Unknown Hydrocodone-Acetaminophen 10-325mg Tablets Take One Tablet By Mouth Three Times A Day as Needed Maximum Angelica ly Dos Unknown Multi Vitamin Daily Tablets 1 by mouth every day Unknown Lidocaine 5% Patches apply patch to affected area for 12 hours and remove for 12 hours. 1units Unknown Ibuprofen 800mg Tablets 1 by mouth every 6 hours as needed 60tabs Unknown Immunizations Description No Information Available Vital Signs Date Vital Result Comment 07/10/2021 10:23am BP Systolic 116 mmHg BP Diastolic 74 mmHg Heart Rate 93 /min O2 % BldC Oximetry 98 % Weight 141.25 lb Weight 64.071 kg Height 64 inches 5'4" BMI (Body Mass Index) 24.2 kg/m2 BSA (Body Surface Area) 1.69 m2 07/25/2020 10:11am BP Systolic 105 mmHg BP Diastolic 70 mmHg Heart Rate 104 /min Body Temperature 97.0 F Weight 130.00 lb Weight 58.968 kg Height 64 inches 5'4" BMI (Body Mass Index) 22.3 kg/m2 BSA (Body Surface Area) 1.63 m2 Results Test Acquired Date Facility Test Result H/L Range Note Xray 07/10/2021 [facility] [address] [facility], [address] [place] [id number] [phone] Mammo Screening Bilateral with CAD <pending> Xray 06/27/2021 [facility] nter ( )- - Mammo Screening Bilateral with CAD <pending> Procedures Date Code Description Status 07/10/2021 27138 Preventive Visit Est 40-64 Yrs C ompleted 07/15/2020 [id number] Mammogram Completed 06/19/2019 [id number] Mammogram Completed 05/14/2018 [id number] Mammogram Completed 05/14/2017 [id number] Mammogram Completed Medical Devices Description No Information Available Encounters Description No Information Available Assessments Date Code Description Provider 07/10/2021 Z01.419 Encounter for gyneco logical examination (general) (routine) without abnormal findings Delilah Ken NP 07/10/2021 N95.2 Postmenopausal atrophic vaginiti s Delilah Ken NP 07/10/2021 B00.9 Herpesviral infection, unspecifi ed Delilah Ken NP Plan of Treatment No Information Available Functional Status Description No Information Available Mental Status Description No Information Available Referrals Description No Information Available
--- OUTSIDE RECORDS SUMMARY | 2021-08-13 10:56 | CCD ---
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 INJECT DIRECTED Completed 10/04/2020 Afluria Quad 60 mcg (15 mcg x 4)/0.5 mL intramuscular susp. INJECT DIRECTED Completed 03/13/2021 Amitiza 24 mcg capsule Take 1 capsule twice a day by oral route. Active Not available amoxicillin 875 mg tablet Completed 2018 amoxicillin 875 mg-potassium clavulanate 125 mg tablet Completed 02/05/2020 Aspercreme (lidocaine HCl) 4 % topical APPLY THIN LAYER TO SHOULDERS THREE TIMES A DAY NEEDED Active Not available azelastine 137 mcg (0.1 %) nasal spray aerosol Completed 08/20/2018 cephalexin 500 mg capsule Completed 2020 cetirizine 10 mg tablet TAKE ONE TABLET BY MOUTH EVERY DAY Completed 03/2021 ciprofloxacin 0.3 % eye drops Completed ciprofloxacin 500 mg tablet TAKE ONE TABLET BY MOUTH TWICE A DAY Completed clindamycin 2 % vaginal cream Completed cyclobenzaprine 10 mg tablet Completed diclofenac 1 % topical gel Completed 10/04 doxycycline hyclate 100 mg tablet Completed 08/20/2018 estradiol 0.01% (0.1 mg/gram) vaginal cr eam INSERT 1 APPLICATORFUL OF 1 GRAM VAGINALLY ONCE WEEKLY Completed 07/27/2021 fluconazole 150 mg tablet Completed 2020 fluticasone propionate 50 mcg/actuation nasal spray,suspension C ompleted 08/20/2018 gabapentin 300 mg capsule TAKE ONE CAPSULE BY MOUTH THREE TIMES A DAY Active Not available hydrocodone 10 mg-acetaminophen 325 mg t ablet TAKE 1 TABLET BY MOUTH EVERY 12 HOURS NEEDED MAXIMUM DAILY DOSE 2 Active Not available ibuprofen 800 mg tablet TAKE ONE TABLET BY MOUTH THREE TIMES A DAY NEEDED DO NOT TAKE FOR MORE THAN 10 CONSECUTIVE DAY Active Not available ketorolac 10 mg tablet TAKE ONE TABLET BY MOUTH EVERY 6 HOURS NEEDED FOR PAIN Active Not available lidocaine 4 % topical gel apply to affected area twice a day as needed Completed 10/02/2019 lidocaine 5 % topical patch Apply 1 patch every day by topical route as directed. Active Not available methocarbamol 500 mg tablet Completed 08/07 methylprednisolone 4 mg tablets in a dose pack Completed 06/06/2020 metronidazole 500 mg tablet Completed 03/2021 Movantik 25 mg tablet 1 tab in the am Completed 02/17/2019 05/12/2019 mupirocin 2 % topical ointment APPLY EXTERNALLY TO NOSE AXILLA AND GROIN TWO TIMES A DAY FOR 10 DAYS Active Not available naproxen 375 mg tablet as directed Completed 09/05/2020 omeprazole 20 mg capsule,delayed release TAKE ONE CAPSULE BY MOUTH EVERY DAY Active Not available oxycodone-acetaminophen 5 mg-325 mg tablet Completed 12/25/2019 prednisone 10 mg tablet Completed 02/05/20 prednisone 20 mg tablet Completed 06/06/20 20 sulfamethoxazole 400 mg-trimethoprim 80 mg tablet TAKE ONE TABLET BY MOUTH TWICE A DAY FOR 7 DAYS Completed 01/10/2021 Symproic 0.2 mg tablet Active Not avail able tamsulosin 0.4 mg capsule TAKE ONE CAPSULE BY MOUTH EVERY DAY Active Not available Travel Sickness (meclizine) 25 mg chewable tablet Active Not available valacyclovir 500 mg tablet TAKE ONE TABLET BY MOUTH EVERY DAY Active Not available Vandazole 0.75 % vaginal gel Completed Problems Name Status Onset Date Source Pain in Right Foot Active 08/15/2015 History Finding of Ankle or Foot Active 08/15/2015 History Clinical Finding Active 08/15/2015 History Spondylosis without Myelopathy Active 08/06/2016 H istory Displacement of Cervical Intervertebral Disc Active History Neck Pain Active 08/06/2016 History Cervico-occipital Neuralgia Active 08/06/2016 Hist ory Muscle Pain Active 08/06/2016 History Degeneration of Cervical Intervertebral Disc Active History Cervical Radiculopathy Active 08/28/2016 History Inflammation of Sacroiliac Joint Active 02/05/2017 History Prolapsed Lumbar Intervertebral Disc Active 02/05/2017 History Post-laminectomy Syndrome Active 02/05/2017 Histor y Spinal Stenosis of Lumbar Region Active 02/05/2017 History Procedures Date Name Performed by 12/07/2019 Shoulder Surgery Information not avai lable 10/07/2014 Back Surgery Information not avai lable Hysterectomy Information not avai lable Cataract Surgery Complex Information not available Notes: Broken leg sx in 2005, back surge ry 06/01/2014 (Dr. Tellez), T&A at grade 3, hysterectomy, lithotripsy 12/201606/17/2017 Results Lab Results Date Name Specimen Result Interpretation Description Value Range Status Address 10/04/2020 Drug Screen, Urine No observation recorde d. [facility]: [address] [place] [address] 10/04/2020 [email or web address] Pdf Report UR No observation recorded. [facility]: [address] [place] [address] 10/04/2020 Drug Screen, Urine Amphetamines: negati ve Main Office: [address], [place] Thc negative Main Off ice: [address], [place] Cocaine: negative Main Office: [address] [facility] [address], [place] Opiates: negative Main Office: [address] [facility] [address], [place] Barbiturates: negative Main Office: [address] [facility] [address], [place] Benzodiazepines: negative Main Office: [address] [facility] [address], [place] Methamphetamine negative Main Office: [address] [facility] [address], [place] Pcp positive Main Off ice: [address], [place] Mtd negative Main Off ice: [address], [place] Oxy positive Main Off ice: [address] [facility] [address], [place] 10/04/2020 Drug Screen, Urine U Buprenorphine Ur Ql Cfm <1 NG/mL >=1 NG/mL Final [facility]: [address] [place] [address] U Alcohol Metabolites Ur Ql Cfm <200 N G/mL >=200 NG/mL Final [email or web address] [facility]: [address] [place] [address] U Ethyl Glucuronide Ur Cfm-mcnc <500 N G/mL >=500 NG/mL Final [facility]: [address] [place] [address] U Ethyl Sulfate Ur Cfm-mcnc <200 NG/mL >=200 NG/mL Final [facility]: [address] [place] [address] U Amphetamines Ur Ql Cfm <0 NG/mL >=0 NG/mL Final [facility]: [address] [place] [address] U Tapentadol Ur Ql Cfm <100 NG/mL >=10 0 NG/mL Final [facility]: [address] [place] [address] U Benzodiaz Ur Ql Cfm <50 NG/mL >=50 N G/mL Final [facility]: [address] [place] [address] U Gabapentinpregabalin Ur Ql Cfm <5 mc g/mL >=5 mcg/mL Final [facility]: [address] [place] [address] U Bze Ur Ql Cfm <50 NG/mL >=50 NG/mL F inal [facility]: [address] [place] [address] U Opiates Ur Ql Cfm >=100 NG/mL >=100 NG/mL Final [facility]: [address] [place] [address] U Dhc Ur Cfm-mcnc 309 NG/mL >=100 NG/m L Final [facility]: [address] [place] [address] U Hydrocodone Ur Cfm-mcnc 3240 NG/mL > =100 NG/mL Final [facility]: [address] [place] [address] U Norhydrocodone Ur Cfm-mcnc 1770 NG/m L >=100 NG/mL Final [facility]: [address] [place] [address] U Hydromorphone Ur Cfm-mcnc 354 NG/mL >=100 NG/mL Final [facility]: [address] [place] [address] U 6Mam Ur Ql Cfm <10 NG/mL >=10 NG/mL Final [facility]: [address] [place] [address] U Methadone Ur Ql Cfm <200 NG/mL >=200 NG/mL Final [facility]: [address] [place] [address] U Meperidine Ur Ql Cfm <100 NG/mL >=10 0 NG/mL Final [facility]: [address] [place] [address] U Fentanyl+norfentanyl Ur Ql Cfm <5 NG /mL >=5 NG/mL Final [facility]: [address] [place] [address] U Carisoprodol+meprob Ur Ql Scn <200 N G/mL >=200 NG/mL Final [facility]: [address] [place] [address] U Tramadol Ur Ql Cfm <100 NG/mL >=100 NG/mL Final [facility] [facility]: [address] [place] [address] U Cotinine Ur Ql Cfm >=125 NG/mL >=125 NG/mL Final [facility]: [address] [place] [address] U Kqmtf-3-Ps-cotinine Ur-mcnc 7400 NG/ mL >=125 NG/mL Final [facility]: [address] [place] [address] U Normal pH Ur 5.49 4.5 - 9.0 Final [facility]: [address] [place] [address] U Normal Creat Ur-mcnc 201.8 mg/dL 20 - 370 m g/dL Final [facility]: [address] [place] [address] 10/04/2020 Drug Screen, Urine UR ABNORMAL Gabapentin Ur CM P <5 mcg/mL >=5 mcg/mL Final [facility]: [address] [place] [address] UR Normal Hydrocodone Ur CMP 5680 NG/mL >=100 NG/mL Final [facility]: [address] [place] [address] UR ABNORMAL Cotinine Ur CMP 7400 NG/mL >=500 N G/mL Final [facility]: [address] [place] [address] 05/12/2019 [facility] P[facility] Report UR No observation recorded. [facility]: [address] [place] [address] 05/12/2019 Drug Screen, Urine No observation recorde d. [facility]: [address] [place] [address] 05/12/2019 Drug Screen, Urine Amphetamines: negati ve Main Office: [address], [place] Thc positive Main Off ice: [address], [place] Cocaine: negative Main Office: [address] [address] [address], [place] Opiates: positive Main Office: [address] [place] [address] [address], [place] Barbiturates: negative Main Office: [address] [place] [address] [address], [place] Benzodiazepines: negative Main Office: [address], [place] Methamphetamine negative Main Office: [address], [place] Pcp negative Main Off ice: [address], [place] Mtd negative Main Off ice: [address], [place] Oxy positive Main Off ice: [address], [place] 05/12/2019 Drug Screen, Urine U Buprenorphine Ur Ql Cfm <1 NG/mL >=1 NG/mL Final [facility]: [address] [place] [address] U Alcohol Metabolites Ur Ql Cfm <200 N G/mL >=200 NG/mL Final [facility]: [address] [place] [address] U Ethyl Glucuronide Ur Cfm-mcnc <500 N G/mL >=500 NG/mL Final [facility]: [address] [place] [address] U Ethyl Sulfate Ur Cfm-mcnc <200 NG/mL >=200 NG/mL Final [facility]: [address] [place] [address] U Tapentadol Ur Ql Cfm <100 NG/mL >=10 0 NG/mL Final [facility]: [address] [place] [address] U Amphetamines Ur Ql Cfm <0 NG/mL >=0 NG/mL Final [facility]: [address] [place] [address] U Benzodiaz Ur Ql Cfm <50 NG/mL >=50 N G/mL Final [facility]: [address] [place] [address] U Gabapentinpregabalin Ur Ql Cfm <5 mc g/mL >=5 mcg/mL Final [facility]: [address] [place] [address] U Bze Ur Ql Cfm <50 NG/mL >=50 NG/mL F inal [facility]: [address] [place] [address] U Opiates Ur Ql Cfm >=100 NG/mL >=100 NG/mL Final [facility]: [address] [place] [address] U Dhc Ur Cfm-mcnc 106 NG/mL >=100 NG/m L Final [facility]: [address] [place] [address] U Hydrocodone Ur Cfm-mcnc 1780 NG/mL > =100 NG/mL Final [facility]: [address] [place] [address] U Norhydrocodone Ur Cfm-mcnc 2740 NG/m L >=100 NG/mL Final [facility]: [address] [place] [address] U Hydromorphone Ur Cfm-mcnc 304 NG/mL >=100 NG/mL Final [facility]: [address] [place] [address] U 6Mam Ur Ql Cfm <10 NG/mL >=10 NG/mL Final [facility]: [address] [place] [address] U Methadone Ur Ql Cfm <200 NG/mL >=200 NG/mL Final [facility]: [address] [place] [address] U Meperidine Ur Ql Cfm <100 NG/mL >=10 0 NG/mL Final [facility]: [address] [place] [address] U Fentanyl+norfentanyl Ur Ql Cfm <5 NG /mL >=5 NG/mL Final [facility]: [address] [place] [address] U Carisoprodol+meprob Ur Ql Scn <200 N G/mL >=200 NG/mL Final [facility]: [address] [place] [address] U Tramadol Ur Ql Cfm <100 NG/mL >=100 NG/mL Final [facility]: [address] [place] [address] U Cotinine Ur Ql Cfm >=125 NG/mL >=125 NG/mL Final [facility]: [address] [place] [address] U Cotinine Ur-mcnc 1810 NG/mL >=125 NG /mL Final [facility]: [address] [place] [address] U Rqtte-6-Me-cotinine Ur-mcnc 68345 NG /mL >=125 NG/mL Final [facility]: [address] [place] [address] U Normal pH Ur 5.97 4.5 - 9.0 Final [facility]: [address] [place] [address] U Normal Creat Ur-mcnc 356.3 mg/dL 20 - 370 m g/dL Final [facility]: [address] [place] [address] 05/12/2019 Drug Screen, Urine UR Normal Hydrocodone Ur CM P 4940 NG/mL >=100 NG/mL Final [facility]: [address] [place] [address] UR ABNORMAL Gabapentin Ur CMP <5 mcg/mL >=5 mc g/mL Final [facility]: [address] [place] [address] UR ABNORMAL Cotinine Ur CMP 97697 NG/mL >=500 NG/mL Final [facility]: [address] [facility], [place] 02/17/2019 Drug Screen, Urine Urine Oxy positive Main Office: [address], [place] Urine Methamphetamine positive Main Office: [address], [place] Urine Mtd negative Main Off ice: [address], [place] Urine Pcp negative Main Off ice: [address], [place] Urine Benzodiazepines: negative Main Office: [address], [place] Urine Barbiturates: negative Main Office: [address], [place] Urine Opiates: positive Main Office: [address], [place] Urine Cocaine: negative Main Office: [address], [place] Urine Thc negative Main Off ice: [address], [place] Urine Amphetamines: negative Main Office: [address], [place] 01/07/2019 Drug Screen, Urine Oxy positive Main Office: [address], [place] Mtd negative Main Off ice: [address], [place] Pcp negative Main Off ice: [address], [place] Methamphetamine negative Main Office: [address], [place] Benzodiazepines: negative Main Office: [address], [place] Barbiturates: negative Main Office: [address], [place] Opiates: negative Main Office: [address], [place] Cocaine: negative Main Office: [address], [place] Thc negative Main Off ice: [address], [place] Amphetamines: negative Main Office: [address], [place] Past Encounters 07/27/2021 Therapeutic Opioid Induced Constipation; Cervical Radiculopathy; Degeneration of Cervical Intervertebral Disc; Muscle Pain; Spinal Stenosis of Lumbar Region; Long-term Drug Therapy; Displacement of Cervical Intervertebral Disc without Myelopathy; Cervical Spondylosis without Myelopathy; Medication Side Effects Present Anna Vazquez PHYSICIAN PRESIDENT: [address] [facility] [address], [place] [address], Ph. 06/05/2021 Therapeutic Opioid Induced Constipation; Cervical Radiculopathy; Degeneration of Cervical Intervertebral Disc; Muscle Pain; Spinal Stenosis of Lumbar Region; Long-term Drug Therapy; Displacement of Cervical Intervertebral Disc without Myelopathy; Cervical Spondylosis without Myelopathy; Medication Side Effects Present Anna Vazquez NP: [address], [place] [address], Ph. 04/24/2021 Therapeutic Opioid Induced Constipation; Cervical Radiculopathy; Degeneration of Cervical Intervertebral Disc; Muscle Pain; Spinal Stenosis of Lumbar Region; Long-term Drug Therapy; Displacement of Cervical Intervertebral Disc without Myelopathy; Cervical Spondylosis without Myelopathy; Medication Side Effects Present Anna Vazquez NP: [address], [place] [address], Ph. 03/13/2021 Therapeutic Opioid Induced Constipation; Cervical Radiculopathy; Degeneration of Cervical Intervertebral Disc; Muscle Pain; Spinal Stenosis of Lumbar Region; Long-term Drug Therapy; Displacement of Cervical Intervertebral Disc without Myelopathy; Cervical Spondylosis without Myelopathy; Medication Side Effects Present Anna Vazquez NP: [address], [place] [address], Ph. 02/13/2021 Therapeutic Opioid Induced Constipation; Cervical Radiculopathy; Degeneration of Cervical Intervertebral Disc; Muscle Pain; Spinal Stenosis of Lumbar Region; Long-term Drug Therapy; Displacement of Cervical Intervertebral Disc without Myelopathy; Cervical Spondylosis without Myelopathy; Medication Side Effects Present Anna Vazquez PHYSICIAN PRESIDENT: [address], [place] [address], Ph. 01/10/2021 Cervical Radiculopathy; Degeneration of Cervical Intervertebral Disc; Muscle Pain; Therapeutic Opioid Induced Constipation; Spinal Stenosis of Lumbar Region; Long-term Drug Therapy; Displacement of Cervical Intervertebral Disc without Myelopathy; Cervical Spondylosis without Myelopathy; Medication Side Effects Present Anna Vazquez PHYSICIAN PRESIDENT: [address], [facility] [place] [address], Ph. 11/28/2020 Cervical Radiculopathy; Degeneration of Cervical Intervertebral Disc; Muscle Pain; Therapeutic Opioid Induced Constipation; Spinal Stenosis of Lumbar Region; Long-term Drug Therapy; Displacement of Cervical Intervertebral Disc without Myelopathy; Cervical Spondylosis without Myelopathy Anna Vazquez PHYSICIAN PRESIDENT: [address] [facility] [address] , [place] [address], Ph. 10/31/2020 Cervical Radiculopathy; Degeneration of Cervical Intervertebral Disc; Muscle Pain; Therapeutic Opioid Induced Constipation; Spinal Stenosis of Lumbar Region; Long-term Drug Therapy; Displacement of Cervical Intervertebral Disc without Myelopathy; Cervical Spondylosis without Myelopathy Anna Vazquez PHYSICIAN PRESIDENT: [address] [facility] [address] , [place] [address], Ph. 10/04/2020 Cervical Radiculopathy; Degeneration of Cervical Intervertebral Disc; Muscle Pain; Therapeutic Opioid Induced Constipation; Spinal Stenosis of Lumbar Region; Long-term Drug Therapy; Displacement of Cervical Intervertebral Disc without Myelopathy; Cervical Spondylosis without Myelopathy Anna Vazquez PHYSICIAN PRESIDENT: [address] [facility] [address] , [place] [address], Ph. 09/05/2020 Cervical Radiculopathy; Degeneration of Cervical Intervertebral Disc; Muscle Pain; Therapeutic Opioid Induced Constipation; Spinal Stenosis of Lumbar Region; Long-term Drug Therapy; Displacement of Cervical Intervertebral Disc without Myelopathy; Cervical Spondylosis without Myelopathy Anna Vazquez PHYSICIAN PRESIDENT: [address] [facility] [address], [place] [address], Ph. 07/18/2020 Cervical Radiculopathy; Degeneration of Cervical Intervertebral Disc; Muscle Pain; Therapeutic Opioid Induced Constipation; Spinal Stenosis of Lumbar Region; Long-term Drug Therapy; Displacement of Cervical Intervertebral Disc without Myelopathy; Cervical Spondylosis without Myelopathy Anna Vazquez PHYSICIAN PRESIDENT: [address] [facility] [address], [place] [address], Ph. 06/06/2020 Cervical Radiculopathy; Degeneration of Cervical Intervertebral Disc; Muscle Pain; Therapeutic Opioid Induced Constipation; Spinal Stenosis of Lumbar Region; Long-term Drug Therapy Anna Vazquez, PHYSICIAN PRESIDENT: [address], [facility] [place] [address], Ph. 04/29/2020 Cervical Radiculopathy; Degeneration of Cervical Intervertebral Disc; Muscle Pain; Therapeutic Opioid Induced Constipation; Spinal Stenosis of Lumbar Region; Long-term Drug Therapy Anna Vazquez, PHYSICIAN PRESIDENT: [address], [facility] [place] [address], Ph. 03/18/2020 Cervical Radiculopathy; Degeneration of Cervical Intervertebral Disc; Muscle Pain; Therapeutic Opioid Induced Constipation; Spinal Stenosis of Lumbar Region; Long-term Drug Therapy Anna Vazquez, PHYSICIAN PRESIDENT: [address], [place] [address], Ph. 02/05/2020 Cervical Radiculopathy; Degeneration of Cervical Intervertebral Disc; Muscle Pain; Therapeutic Opioid Induced Constipation; Spinal Stenosis of Lumbar Region; Long-term Drug Therapy Anna Vazquez, PHYSICIAN PRESIDENT: [address], [facility] [place] [address], Ph. 12/25/2019 Cervical Radiculopathy; Degeneration of Cervical Intervertebral Disc; Muscle Pain; Therapeutic Opioid Induced Constipation; Spinal Stenosis of Lumbar Region; Long-term Drug Therapy Anna Vazquez, PHYSICIAN PRESIDENT: [address], [facility] [place] [address], Ph. 11/13/2019 Cervical Radiculopathy; Degeneration of Cervical Intervertebral Disc; Muscle Pain; Therapeutic Opioid Induced Constipation; Spinal Stenosis of Lumbar Region; Long-term Drug Therapy Anna Vazquez, PHYSICIAN PRESIDENT: [address], [facility] [place] [address], Ph. 10/02/2019 Cervical Radiculopathy; Degeneration of Cervical Intervertebral Disc; Muscle Pain; Therapeutic Opioid Induced Constipation; Spinal Stenosis of Lumbar Region; Long-term Drug Therapy Anna Vazquez, PHYSICIAN PRESIDENT: [address], [facility] [place] [address], Ph. 08/25/2019 Cervical Radiculopathy; Degeneration of Cervical Intervertebral Disc; Muscle Pain; Therapeutic Opioid Induced Constipation; Spinal Stenosis of Lumbar Region; Long-term Drug Therapy Anna Vazquez, PHYSICIAN PRESIDENT: [address], [facility] [place] [address], Ph. 07/14/2019 Cervical Radiculopathy; Degeneration of Cervical Intervertebral Disc; Muscle Pain; Therapeutic Opioid Induced Constipation; Spinal Stenosis of Lumbar Region; Long-term Drug Therapy Anna Vazquez, PHYSICIAN PRESIDENT: [address], [facility] [place] [address], Ph. 05/12/2019 Cervical Radiculopathy; Degeneration of Cervical Intervertebral Disc; Muscle Pain; Therapeutic Opioid Induced Constipation; Spinal Stenosis of Lumbar Region; Long-term Drug Therapy Anna Vazquez, PHYSICIAN PRESIDENT: [address], [facility] [place] [address], Ph. 03/31/2019 Cervical Radiculopathy; Degeneration of Cervical Intervertebral Disc; Muscle Pain; Therapeutic Opioid Induced Constipation; Spinal Stenosis of Lumbar Region; Long-term Drug Therapy Anna Vazquez, PHYSICIAN PRESIDENT: [address], [facility] [place] [address], Ph. 02/17/2019 Cervical Radiculopathy; Degeneration of Cervical Intervertebral Disc; Muscle Pain; Therapeutic Opioid Induced Constipation; Spinal Stenosis of Lumbar Region; Long-term Drug Therapy Anna Vazquez, PHYSICIAN PRESIDENT: [address], [facility] [place] [address], Ph. 01/06/2019 Cervical Radiculopathy; Degeneration of Cervical Intervertebral Disc; Muscle Pain; Therapeutic Opioid Induced Constipation; Spinal Stenosis of Lumbar Region; Long-term Drug Therapy Anna Vazquez, PHYSICIAN PRESIDENT: [address] [facility] [address], [place] [address], Ph. 11/25/2018 Cervical Radiculopathy; Degeneration of Cervical Intervertebral Disc; Muscle Pain; Therapeutic Opioid Induced Constipation; Spinal Stenosis of Lumbar Region Anna Vazquez, PHYSICIAN PRESIDENT: [address], [facility] [place] [address], Ph. 10/03/2018 Cervical Radiculopathy; Degeneration of Cervical Intervertebral Disc; Muscle Pain; Therapeutic Opioid Induced Constipation Anna Vazquez, PHYSICIAN PRESIDENT: [id number], [facility] [place] [address], Ph. 08/20/2018 Cervical Radiculopathy; Degeneration of Cervical Intervertebral Disc; Muscle Pain Anna Vazquez, PHYSICIAN PRESIDENT: [id number] [facility] [address], [facility] [place] [address], Ph. Social History Tobacco Smoking Status Former Smoker Vaccine List Notes: patient not vaccinated Plan of Care Reminders Provider Appointments None recorded. Lab None recorded. Referral None recorded. Procedures None recorded. Surgeries None recorded. Imaging None recorded. Vitals 07/27/2021 09:45AM FOLLOW-UP Height Blood Pressure 5 ft 4 in 105/69 mm[Hg] 04/24/2021 10:15AM FOLLOW-UP Height Blood Pressure 5 ft 4 in 97/67 mm[Hg] 03/13/2021 02:30PM FOLLOW-UP Height Blood Pressure 5 ft 4 in 99/76 mm[Hg] 01/10/2021 11:00AM FOLLOW-UP Height Blood Pressure 5 ft 4 in 99/66 mm[Hg] 11/28/2020 10:15AM FOLLOW-UP Height Blood Pressure 5 ft 4 in 88/54 mm[Hg] 10/31/2020 10:45AM FOLLOW-UP Height Blood Pressure 5 ft 4 in 90/64 mm[Hg] 10/04/2020 11:00AM FOLLOW-UP Height Blood Pressure 5 ft 4 in 129/68 mm[Hg] 09/05/2020 11:15AM Telehealth Height 5 ft 4 in 06/06/2020 10:00AM FOLLOW-UP Height Blood Pressure 5 ft 4 in 127/71 mm[Hg] 12/25/2019 11:15AM FOLLOW-UP Height Weight BMI Blood Pressure 5 ft 4 in 130 lbs 22.3 kg/m2 93/65 mm[Hg] 11/13/2019 10:00AM FOLLOW-UP Height Weight BMI Blood Pressure 5 ft 4 in 130 lbs 22.3 kg/m2 101/65 mm[Hg] 10/02/2019 10:00AM FOLLOW-UP Height Blood Pressure 5 ft 4 in 103/61 mm[Hg] 08/25/2019 11:00AM FOLLOW-UP Height Weight BMI Blood Pressure 5 ft 4 in 130 lbs 22.3 kg/m2 95/58 mm[Hg] 07/14/2019 11:00AM FOLLOW-UP Height Weight BMI Blood Pressure 5 ft 4 in 130 lbs 22.3 kg/m2 93/66 mm[Hg] 05/12/2019 10:15AM FOLLOW-UP Height Weight BMI Blood Pressure 5 ft 4 in 130 lbs 22.3 kg/m2 96/67 mm[Hg] 03/31/2019 10:00AM FOLLOW-UP Height Weight BMI Blood Pressure 5 ft 4 in 130 lbs 22.3 kg/m2 97/64 mm[Hg] 02/17/2019 10:00AM FOLLOW-UP Height Blood Pressure 5 ft 4 in 118/68 mm[Hg] 01/06/2019 10:00AM FOLLOW-UP Height Weight BMI Blood Pressure 5 ft 4 in 130 lbs 22.3 kg/m2 93/61 mm[Hg] 11/25/2018 10:00AM FOLLOW-UP Height Weight BMI Blood Pressure 5 ft 4 in 130 lbs 22.3 kg/m2 111/75 mm[Hg] 10/03/2018 10:30AM FOLLOW-UP Height Blood Pressure 5 ft 4 in 120/78 mm[Hg] 08/20/2018 10:15AM FOLLOW-UP Height Blood Pressure 5 ft 4 in 111/76 mm[Hg] 07/09/2018 Blood Pressure 108/69 mm[Hg] 05/28/2018 Blood Pressure 110/76 mm[Hg] 04/16/2018 Weight BMI Blood Pressure 148.2 lbs 25.53 kg/m2 136/94 mm[Hg] 03/05/2018 Weight BMI Blood Pressure 140 lbs 24.12 kg/m2 108/70 mm[Hg] 01/22/2018 Weight BMI Blood Pressure 140 lbs 24.12 kg/m2 122/73 mm[Hg] 12/11/2017 Weight BMI Blood Pressure 140 lbs 24.12 kg/m2 115/79 mm[Hg] 10/23/2017 Weight BMI Blood Pressure 140 lbs 24.12 kg/m2 110/66 mm[Hg] 09/09/2017 Weight BMI Blood Pressure 140 lbs 24.12 kg/m2 112/76 mm[Hg] 07/29/2017 Weight BMI Blood Pressure 138 lbs 23.77 kg/m2 111/70 mm[Hg] 06/17/2017 Weight BMI Blood Pressure 144.4 lbs 24.88 kg/m2 131/89 mm[Hg] 05/06/2017 Blood Pressure 114/75 mm[Hg] 04/17/2017 Blood Pressure 110/69 mm[Hg] 03/25/2017 Blood Pressure 111/75 mm[Hg] 03/21/2017 Blood Pressure 110/82 mm[Hg] 03/19/2017 Blood Pressure 109/75 mm[Hg] 02/22/2017 Blood Pressure 114/72 mm[Hg] 02/18/2017 Blood Pressure 122/83 mm[Hg] 02/08/2017 Blood Pressure 110/76 mm[Hg] 02/05/2017 Blood Pressure 112/81 mm[Hg] 01/03/2017 Blood Pressure 112/77 mm[Hg] 11/22/2016 Blood Pressure 121/77 mm[Hg] 10/10/2016 Blood Pressure 140/85 mm[Hg] 09/17/2016 Blood Pressure 128/82 mm[Hg] 08/28/2016 Blood Pressure 137/86 mm[Hg] 08/06/2016 Weight BMI Blood Pressure 160 lbs 27.56 kg/m2 116/73 mm[Hg] 11/30/2015 Blood Pressure 122/74 mm[Hg] 11/17/2015 Blood Pressure 143/90 mm[Hg] 11/16/2015 Blood Pressure 105/70 mm[Hg] 09/05/2015 Blood Pressure 105/70 mm[Hg] 08/18/2015 Blood Pressure 133/80 mm[Hg] 08/15/2015 Height Weight BMI Blood Pressure 5 ft 4 in 171.8 lbs 29.60 kg/m2 135/77 mm[Hg]
--- OUTSIDE RECORDS SUMMARY | 2021-08-13 10:56 | CCD ---
Author Organization Unknown Address [address] [place] [address] Phone [phone] Care Team Providers Care Juke[employer] Route Driver Name Role Phone JACQUES WHEATLEY DO 3 [phone] KEITH VÁSQUEZEVER 1 [phone] Allergies Code Code System Name Reaction Severity Status Onset NKDA Medications Name Status Start Date Stop Date acyclovir 200 mg capsule TAKE TWO CAPSULES BY MOUTH FIVE TIMES A DAY FOR 5 DAYS Active Not available Afluria Quad 60 mcg (15 mcg x [...] ONE TABLET BY MOUTH TWICE A DAY Active No t available clindamycin 2 % vaginal cream Completed cyclobenzaprine 10 mg tablet Completed diclofenac 1 % topical gel Completed 10/04 doxycycline hyclate 100 mg tablet Completed 08/20/2018 estradiol 0.01% (0.1 mg/gram) vaginal cr eam INSERT 1 APPLICATORFUL OF 1 GRAM VAGINALLY ONCE WEEKLY Active Not available fluconazole 150 mg tablet Active Not av ailable fluticasone propionate 50 mcg/actuation nasal spray,suspension C [...] 02/05/20 prednisone 20 mg tablet Completed 06/06/20 sulfamethoxazole 400 mg-trimethoprim 80 mg tablet TAKE [...] of Ankle or Foot Active 08/15/2015 History Finding by Site Active 08/15/2015 History 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 [facility]: [address] [place] [address] 10/04/2020 [facility] Report [place] No observation recorded. [facility]: [address] [place] [address] 10/04/2020 Drug Screen, Urine Amphetamines: negati ve Main Office: [address] [facility] [address], [place] Thc negative Main Off ice: [address] [place] Cocaine: negative Main Office: [address] [facility] [address], [place] Opiates: negative Main Office: [address] [facility] [address], [place] Barbiturates: negative Main Office: [address] [facility] [address], [place] Benzodiazepines: negative Main Office: [address] [facility] [address], [place] Methamphetamine negative Main Office: [address] [facility] [address], [place] Pcp positive Main Off ice: [address] [facility] [address], [place] Mtd negative Main Off ice: [address] [facility] [address], [place] Oxy positive Main Off ice: [address] [place] [address] [address], [place] 10/04/2020 Drug Screen, Urine U Buprenorphine Ur Ql Cfm <1 NG/mL >=1 NG/mL Final [facility]: [address] [place] [address] U Alcohol Metabolites Ur Ql Cfm <200 N G/mL >=200 NG/mL Final [facility]: [address] [place] [address] U Ethyl Glucuronide Ur Cfm-mcnc <500 N G/mL >=500 NG/mL Final [facility]: [address] [place] [address] U Ethyl Sulfate Ur Cfm-mcnc <200 NG/mL >=200 NG/mL Final [facility]: [address] [place] [address] U Amphetamines Ur Ql Cfm <0 NG/mL >=0 NG/mL Final [facility]: [address] [place] [address] U Tapentadol Ur Ql Cfm <100 NG/mL >=10 0 NG/mL Final [facility]: [address] [place] [address] U Benzodiaz Ur Ql Cfm <50 NG/mL >=50 N G/mL Final [facility]: [address] [place] [address] U Gabapentinpregabalin Ur Ql Cfm <5 mc g/mL >=5 mcg/mL Final [facility]: [address] [place] [address] U Bze Ur Ql Cfm <50 NG/mL >=50 NG/mL F inal [facility]: [address] [place] [address] U Opiates Ur Ql Cfm >=100 NG/mL >=100 NG/mL Final [facility]: [address] [place] [address] U Dhc Ur Cfm-mcnc 309 NG/mL >=100 NG/m L Final [facility]: [address] [place] [address] U Hydrocodone Ur Cfm-mcnc 3240 NG/mL > =100 NG/mL Final [facility]: [address] [place] [address] U Norhydrocodone Ur Cfm-mcnc 1770 NG/m L >=100 NG/mL Final [facility]: [address] [place] [address] U Hydromorphone Ur Cfm-mcnc 354 NG/mL >=100 NG/mL Final [facility]: [address] [place] [address] U 6Mam Ur Ql Cfm <10 NG/mL >=10 NG/mL Final [facility]: [address] [place] [address] U Methadone Ur Ql Cfm <200 NG/mL >=200 NG/mL Final [facility]: [address] [place] [address] U Meperidine Ur Ql Cfm <100 NG/mL >=10 0 NG/mL Final [facility]: [address] [place] [address] U Fentanyl+norfentanyl Ur Ql Cfm <5 NG /mL >=5 NG/mL Final [facility]: [address] [place] [address] U Carisoprodol+meprob Ur Ql Scn <200 N G/mL >=200 NG/mL Final [facility]: [address] [place] [address] U Tramadol Ur Ql Cfm <100 NG/mL >=100 NG/mL Final [facility]: [address] [place] [address] U Cotinine Ur Ql Cfm >=125 NG/mL >=125 NG/mL Final [facility]: [address] [place] [address] U Ykzli-6-Oj-cotinine Ur-mcnc 7400 NG/ mL >=125 NG/mL Final [facility]: [address] [place] [address] U Normal pH Ur 5.49 4.5 - 9.0 Final [facility]: [address] [place] [address] U Normal Creat Ur-mcnc 201.8 mg/dL 20 - 370 m g/dL Final [facility]: [address] [place] [address] 10/04/2020 Drug Screen, Urine UR ABNORMAL Gabapentin Ur CM P <5 mcg/mL >=5 mcg/mL Final [facility] [facility]: [address] [place] [address] UR Normal Hydrocodone Ur CMP 5680 NG/mL >=100 NG/mL Final [facility]: [address] [place] [address] UR ABNORMAL Cotinine Ur CMP 7400 NG/mL >=500 N G/mL Final [facility]: [address] [place] [address] 05/12/2019 [facility] Report UR No observation recorded. [facility]: [address] [place] [address] 05/12/2019 Drug Screen, Urine No observation recorde d. [facility]: [address] [place] [address] 05/12/2019 Drug Screen, Urine Amphetamines: negati ve Main Office: [address] [facility] [address], [place] Thc positive Main Off ice: [address] [place] [address] [address], [place] Cocaine: negative Main Office: [address] [place] [address] [address], [place] Opiates: positive Main Office: [address] [place] [address] [address], [place] Barbiturates: negative Main Office: [address] [place] [address] [address], [place] Benzodiazepines: negative Main Office: [address], [place] Methamphetamine negative Main Office: [address], [place] Pcp negative Main Off ice: [address], [place] Mtd negative Main Off ice: [address], [place] Oxy positive Main Off ice: [address] [facility] [address], [place] 05/12/2019 Drug Screen, Urine U Buprenorphine Ur Ql Cfm <1 NG/mL >=1 NG/mL Final [facility]: [address] [place] [address] U Alcohol Metabolites Ur Ql Cfm <200 N G/mL >=200 NG/mL Final [facility]: [address] [place] [address] U Ethyl Glucuronide Ur Cfm-mcnc <500 N G/mL >=500 NG/mL Final [facility]: [address] [place] [address] U Ethyl Sulfate Ur Cfm-mcnc <200 NG/mL >=200 NG/mL Final [facility]: [address] [place] [address] U Tapentadol Ur Ql Cfm <100 NG/mL >=10 0 NG/mL Final [facility]: [address] [place] [address] U Amphetamines Ur Ql Cfm <0 NG/mL >=0 NG/mL Final [facility]: [address] [place] [address] U Benzodiaz Ur Ql Cfm <50 NG/mL >=50 N G/mL Final [facility]: [address] [place] [address] U Gabapentinpregabalin Ur Ql Cfm <5 mc g/mL >=5 mcg/mL Final [facility]: [address] [place] [address] U Bze Ur Ql Cfm <50 NG/mL >=50 NG/mL F inal [facility]: [address] [place] [address] U Opiates Ur Ql Cfm >=100 NG/mL >=100 NG/mL Final [facility]: [address] [place] [address] U Dhc Ur Cfm-mcnc 106 NG/mL >=100 NG/m L Final [facility]: [address] [place] [address] U Hydrocodone Ur Cfm-mcnc 1780 NG/mL > =100 NG/mL Final [facility]: [address] [place] [address] U Norhydrocodone Ur Cfm-mcnc 2740 NG/m L >=100 NG/mL Final [facility]: [address] [place] [address] U Hydromorphone Ur Cfm-mcnc 304 NG/mL >=100 NG/mL Final [facility]: [address] [place] [address] U 6Mam Ur Ql Cfm <10 NG/mL >=10 NG/mL Final [facility]: [address] [place] [address] U Methadone Ur Ql Cfm <200 NG/mL >=200 NG/mL Final [facility]: [address] [place] [address] U Meperidine Ur Ql Cfm <100 NG/mL >=10 0 NG/mL Final [facility]: [address] [place] [address] U Fentanyl+norfentanyl Ur Ql Cfm <5 NG /mL >=5 NG/mL Final [facility]: [address] [place] [address] U Carisoprodol+meprob Ur Ql Scn <200 N G/mL >=200 NG/mL Final [facility]: [address] [place] [address] U Tramadol Ur Ql Cfm <100 NG/mL >=100 NG/mL Final [facility]: [address] [place] [address] U Cotinine Ur Ql Cfm >=125 NG/mL >=125 NG/mL Final [facility]: [address] [place] [address] U Cotinine Ur-mcnc 1810 NG/mL >=125 NG /mL Final [facility]: [address] [place] [address] U Mjlsa-6-Qs-cotinine Ur-mcnc 27126 NG /mL >=125 NG/mL Final [facility]: [address] [place] [address] U Normal pH Ur 5.97 4.5 - 9.0 Final [facility]: [address] [place] [address] U Normal Creat Ur-mcnc 356.3 mg/dL 20 - 370 m g/dL Final [facility]: [address] [place] [address] 05/12/2019 Drug Screen, Urine UR Normal Hydrocodone Ur CM P 4940 NG/mL >=100 NG/mL Final [facility]: [address] [place] [address] UR ABNORMAL Gabapentin Ur CMP <5 mcg/mL >=5 mc g/mL Final [facility]: [address] [place] [address] UR ABNORMAL Cotinine Ur CMP 01428 NG/mL >=500 NG/mL Final [facility]: [address] [place] [address] 02/17/2019 Drug Screen, Urine Urine Oxy positive Main Office: [address] [place] Urine Methamphetamine positive Main Office: [address], [place] Urine Mtd negative Main Off ice: [address], [place] Urine Pcp negative Main Off ice: [address], [place] Urine Benzodiazepines: negative Main Office: [address], [place] Urine Barbiturates: negative Main Office: [address], [place] Urine Opiates: positive Main Office: [address], [place] Urine Cocaine: negative Main Office: [address], [place] Urine Thc negative Main Off ice: [address], [place] Urine Amphetamines: negative Main Office: [address], [place] 01/07/2019 Drug Screen, Urine Oxy positive Main Office: [address], [place] Mtd negative Main Off ice: [address], [place] Pcp negative Main Off ice: [address], [place] Methamphetamine negative Main Office: [address], [place] Benzodiazepines: negative Main Office: [address], [place] Barbiturates: negative Main Office: [address], [place] Opiates: negative Main Office: [address], [place] Cocaine: negative Main Office: [address], [place] Thc negative Main Off ice: [address], [place] Amphetamines: negative Main Office: [address], [place] Past Encounters 06/05/2021 Therapeutic Opioid Induced Constipation; Cervical Radiculopathy; Degeneration of Cervical Intervertebral Disc; Muscle Pain; Spinal Stenosis of Lumbar Region; Long-term Drug Therapy; Displacement of Cervical Intervertebral Disc without Myelopathy; Cervical Spondylosis without Myelopathy; Medication Side Effects Present Anna Vazquez, TOW TRUCK DRIVER: [address] [facility] [address], [address], [place] [address], Ph. 04/24/2021 Therapeutic Opioid Induced Constipation; Cervical Radiculopathy; Degeneration of Cervical Intervertebral Disc; Muscle Pain; Spinal Stenosis of Lumbar Region; Long-term Drug Therapy; Displacement of Cervical Intervertebral Disc without Myelopathy; Cervical Spondylosis without Myelopathy; Medication Side Effects Present Anna Vazquez TOW TRUCK DRIVER: [address], [facility] [place] [address], Ph. 03/13/2021 Therapeutic Opioid Induced Constipation; Cervical Radiculopathy; Degeneration of Cervical Intervertebral Disc; Muscle Pain; Spinal Stenosis of Lumbar Region; Long-term Drug Therapy; Displacement of Cervical Intervertebral Disc without Myelopathy; Cervical Spondylosis without Myelopathy; Medication Side Effects Present Anna Vazquez TOW TRUCK DRIVER: [address], [facility] [place] [address], Ph. 02/13/2021 Therapeutic Opioid Induced Constipation; Cervical Radiculopathy; Degeneration of Cervical Intervertebral Disc; Muscle Pain; Spinal Stenosis of Lumbar Region; Long-term Drug Therapy; Displacement of Cervical Intervertebral Disc without Myelopathy; Cervical Spondylosis without Myelopathy; Medication Side Effects Present Anna Vazquez TOW TRUCK DRIVER: [address], [facility] [place] [address], Ph. 01/10/2021 Cervical Radiculopathy; Degeneration of Cervical Intervertebral Disc; Muscle Pain; Therapeutic Opioid Induced Constipation; Spinal Stenosis of Lumbar Region; Long-term Drug Therapy; Displacement of Cervical Intervertebral Disc without Myelopathy; Cervical Spondylosis without Myelopathy; Medication Side Effects Present Anna Vazquez TOW TRUCK DRIVER: [address], [facility] [place] [address], Ph. 11/28/2020 Cervical Radiculopathy; Degeneration of Cervical Intervertebral Disc; Muscle Pain; Therapeutic Opioid Induced Constipation; Spinal Stenosis of Lumbar Region; Long-term Drug Therapy; Displacement of Cervical Intervertebral Disc without Myelopathy; Cervical Spondylosis without Myelopathy Anna Vazquez TOW TRUCK DRIVER: [address], [facility] [place] [address], Ph. 10/31/2020 Cervical Radiculopathy; Degeneration of Cervical Intervertebral Disc; Muscle Pain; Therapeutic Opioid Induced Constipation; Spinal Stenosis of Lumbar Region; Long-term Drug Therapy; Displacement of Cervical Intervertebral Disc without Myelopathy; Cervical Spondylosis without Myelopathy Anna Vazquez, TOW TRUCK DRIVER: [address] [facility] [address], [place] [address], Ph. 10/04/2020 Cervical Radiculopathy; Degeneration of Cervical Intervertebral Disc; Muscle Pain; Therapeutic Opioid Induced Constipation; Spinal Stenosis of Lumbar Region; Long-term Drug Therapy; Displacement of Cervical Intervertebral Disc without Myelopathy; Cervical Spondylosis without Myelopathy Anna Karime Valdezosvaldo, TOW TRUCK DRIVER: [address] , [place] [address], Ph. 09/05/2020 Cervical Radiculopathy; Degeneration of Cervical Intervertebral Disc; Muscle Pain; Therapeutic Opioid Induced Constipation; Spinal Stenosis of Lumbar Region; Long-term Drug Therapy; Displacement of Cervical Intervertebral Disc without Myelopathy; Cervical Spondylosis without Myelopathy Anna Karime George, TOW TRUCK DRIVER: [address] [place] [address], Ph. 07/18/2020 Cervical Radiculopathy; Degeneration of Cervical Intervertebral Disc; Muscle Pain; Therapeutic Opioid Induced Constipation; Spinal Stenosis of Lumbar Region; Long-term Drug Therapy; Displacement of Cervical Intervertebral Disc without Myelopathy; Cervical Spondylosis without Myelopathy Anna Karime George, TOW TRUCK DRIVER: [address], [place] [address], Ph. 06/06/2020 Cervical Radiculopathy; Degeneration of Cervical Intervertebral Disc; Muscle Pain; Therapeutic Opioid Induced Constipation; Spinal Stenosis of Lumbar Region; Long-term Drug Therapy Anna Valdezosvaldo, TOW TRUCK DRIVER: [address], [place] [address], Ph. 04/29/2020 Cervical Radiculopathy; Degeneration of Cervical Intervertebral Disc; Muscle Pain; Therapeutic Opioid Induced Constipation; Spinal Stenosis of Lumbar Region; Long-term Drug Therapy Anna Vazquez, TOW TRUCK DRIVER: [address], [place] [address], Ph. 03/18/2020 Cervical Radiculopathy; Degeneration of Cervical Intervertebral Disc; Muscle Pain; Therapeutic Opioid Induced Constipation; Spinal Stenosis of Lumbar Region; Long-term Drug Therapy Anna Vazquez, TOW TRUCK DRIVER: [address] , [place] [address], Ph. 02/05/2020 Cervical Radiculopathy; Degeneration of Cervical Intervertebral Disc; Muscle Pain; Therapeutic Opioid Induced Constipation; Spinal Stenosis of Lumbar Region; Long-term Drug Therapy Anna Vazquez, TOW TRUCK DRIVER: [address], [facility] [place] [address], Ph. 12/25/2019 Cervical Radiculopathy; Degeneration of Cervical Intervertebral Disc; Muscle Pain; Therapeutic Opioid Induced Constipation; Spinal Stenosis of Lumbar Region; Long-term Drug Therapy Anna Vazquez, TOW TRUCK DRIVER: [address], [place] [address], Ph. 11/13/2019 Cervical Radiculopathy; Degeneration of Cervical Intervertebral Disc; Muscle Pain; Therapeutic Opioid Induced Constipation; Spinal Stenosis of Lumbar Region; Long-term Drug Therapy Anna Vazquez, TOW TRUCK DRIVER: [address], [facility] [place] [address], Ph. 10/02/2019 Cervical Radiculopathy; Degeneration of Cervical Intervertebral Disc; Muscle Pain; Therapeutic Opioid Induced Constipation; Spinal Stenosis of Lumbar Region; Long-term Drug Therapy Anna Vazquez, TOW TRUCK DRIVER: [address], [facility] [place] [address], Ph. 08/25/2019 Cervical Radiculopathy; Degeneration of Cervical Intervertebral Disc; Muscle Pain; Therapeutic Opioid Induced Constipation; Spinal Stenosis of Lumbar Region; Long-term Drug Therapy Anna Vazquez, TOW TRUCK DRIVER: [address], [facility] [place] [address], Ph. 07/14/2019 Cervical Radiculopathy; Degeneration of Cervical Intervertebral Disc; Muscle Pain; Therapeutic Opioid Induced Constipation; Spinal Stenosis of Lumbar Region; Long-term Drug Therapy Anna Vazquez, TOW TRUCK DRIVER: [address], [facility] [place] [address], Ph. 05/12/2019 Cervical Radiculopathy; Degeneration of Cervical Intervertebral Disc; Muscle Pain; Therapeutic Opioid Induced Constipation; Spinal Stenosis of Lumbar Region; Long-term Drug Therapy Anna Vazquez, TOW TRUCK DRIVER: [address], [facility] [place] [address], Ph. 03/31/2019 Cervical Radiculopathy; Degeneration of Cervical Intervertebral Disc; Muscle Pain; Therapeutic Opioid Induced Constipation; Spinal Stenosis of Lumbar Region; Long-term Drug Therapy Anna Vazquez, TOW TRUCK DRIVER: [address], [facility] [place] [address], Ph. 02/17/2019 Cervical Radiculopathy; Degeneration of Cervical Intervertebral Disc; Muscle Pain; Therapeutic Opioid Induced Constipation; Spinal Stenosis of Lumbar Region; Long-term Drug Therapy Anna Vazquez, TOW TRUCK DRIVER: [address], [facility] [place] [address], Ph. 01/06/2019 Cervical Radiculopathy; Degeneration of Cervical Intervertebral Disc; Muscle Pain; Therapeutic Opioid Induced Constipation; Spinal Stenosis of Lumbar Region; Long-term Drug Therapy Anna Vazquez, TOW TRUCK DRIVER: [address], [facility] [place] [address], Ph. 11/25/2018 Cervical Radiculopathy; Degeneration of Cervical Intervertebral Disc; Muscle Pain; Therapeutic Opioid Induced Constipation; Spinal Stenosis of Lumbar Region Anna Vazquez, TOW TRUCK DRIVER: [address], [place] [address], Ph. 10/03/2018 Cervical Radiculopathy; Degeneration of Cervical Intervertebral Disc; Muscle Pain; Therapeutic Opioid Induced Constipation Anna Vazquez, TOW TRUCK DRIVER: [address], [address], [place] [address], Ph. 08/20/2018 Cervical Radiculopathy; Degeneration of Cervical Intervertebral Disc; Muscle Pain Anna Vazquez, TOW TRUCK DRIVER: [address], [address], [place] [address], Ph. Social History Tobacco Smoking Status Former Smoker Vaccine List Notes: patient not vaccinated Plan of Care Reminders Provider Appointments None recorded. Lab None recorded. Referral None recorded. Procedures None recorded. Surgeries None recorded. Imaging None recorded. Vitals 04/24/2021 10:15AM FOLLOW-UP Height Blood Pressure 5 [...]
--- OUTSIDE RECORDS SUMMARY | 2021-08-13 10:56 | CCD | Continuity of Care Document ---
Author Author Karol COBB GASSER MACHINE OPERATOR Organization Unknown Address [address] [place], [place] [address] Phone [phone] Problems Active Problems Provider Date Deafness of [...] Unknown End: Patient is a former smoker Allergies, Adverse Reactions, Alerts Active Allergies Criticality Reaction | Severity Comments [...] Test Result H/L Range Note Xray 07/10/2021 [facility] [address] [facility], [address] [place] [id number] [phone] Mammo Screening Bilateral with CAD <pending> Xray 06/27/2021 [facility] nter ( )- - Mammo Screening Bilateral with CAD <pending> Procedures Date Code Description Status 07/10/2021 25281 Preventive Visit Est 40-64 Yrs C ompleted 07/15/2020 [id number] Mammogram Completed 06/19/2019 [id number] Mammogram Completed 05/14/2018 [id number] Mammogram Completed 05/14/2017 [id number] Mammogram Completed Medical Devices Description No Information Available Encounters Type Date Location Provider Dx Diagnosis Office Visit 07/10/2021 10:30a [facility] Delilah Ken NP Z01.419 Encntr for guard range exam (general) (routine) w/o abn findings N95.2 Postmenopausal atrophic vagi nitis B00.9 Herpesviral infection, unspe cified Assessments Date Code Description Provider 07/10/2021 Z01.419 Encounter for gyneco logical examination (general) (routine) without abnormal findings Delilah Ken NP 07/10/2021 N95.2 Postmenopausal atrophic vaginiti s Delilah Ken NP 07/10/2021 B00.9 Herpesviral infection, unspecifi ed Delilah Ken NP Plan of Treatment 07/10/2021 - Delilah Ken NP* Z01.419 Encounter for gynecological examination (general) (routine) without abnormal findings* Follow up:* 1 year. * Instructions:* Call for problems or questions * N95.2 Postmenopausal atrophic vaginitis* Recommendations:* to call for RF when needed * B00.9 Herpesviral infection, unspecified* Recommendations:* to call for RF on med when needed Functional Status Description No Information Available Mental Status Description No Information Available Referrals Description No Information Available
--- OUTSIDE RECORDS SUMMARY | 2021-08-13 10:56 | CCD | Continuity of Care Document ---
Author Author Karol PACHECO MD Organization Unknown Address [address] [place] [address] Phone [phone] Care Team Providers Care Professor Of Voice Name Role Phone Julissa Webster MD AUTM [phone] Mallorie Simon AUTM [phone] Problems Description No Information Available Social History [...] Information Available Procedures Date Code Description Status 02/15/2021 61439 Office/Outpatient Established Mo d MDM 30-39 Min Completed 02/15/2021 28518 Inject/Drain Joint/Bursa Major C ompleted Medical Devices Description No Information Available Encounters Type Date Location Provider Dx Diagnosis Office Visit 02/15/2021 2:15p Ugo Pacheco MD M7 5.31 [facility] tendinitis of right shoulder M75.32 [facility] tendinitis of left shoulder Assessments Date Code Description Provider 07/26/2021 M75.31 [facility] tendinitis of right lizbeth lesley Pacheco MD 07/26/2021 M75.32 [facility] tendinitis of left shomarcos Pacheco MD 02/15/2021 M75.31 [facility] tendinitis of right lizbeth anastasiader Gareth Pacheco MD 02/15/2021 M75.32 [facility]cific tendinitis of left shou gerri Pacheco MD Plan of Treatment 07/26/2021 - Gareth Pacheco MD* M75.31 [facility]cific tendinitis of right shoulder* Follow up:* 4-5 months zenaida shoulders bharat w/dpv * M75.32 Calcific tendinitis of left shoulder Functional Status Description No Information Available Mental Status Description No Information Available Referrals Description No Information Available
--- OUTSIDE RECORDS SUMMARY | 2021-08-13 10:58 | CCD ---
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 Name Role Phone Kath Lafleur Unavailable Unavailable LafleurKath ruano Unavailable Unavailable Kath Lafleur Unavailable Unavailable Kath Lafleur Unavailable Unavailable Kath Lafleur Unavailable Unavailable Kath Lafleur Unavailable Unavailable Kath Lafleur Unavailable Unavailable Kath Lafleur Unavailable Unavailable Kath Lafleur Unavailable Unavailable Kath Lafleur Unavailable Unavailable MARIN, R HARI WEIGHER AND MIXER Unavailable Unavailable MARIN, R HARI WEIGHER AND MIXER Unavailable Unavailable MARIN, R HARI WEIGHER AND MIXER Unavailable Unavailable MARIN, R HARI WEIGHER AND MIXER Unavailable Unavailable MARIN, R HARI WEIGHER AND MIXER Unavailable Unavailable MARIN, R HARI WEIGHER AND MIXER Unavailable Unavailable MARIN, R HARI WEIGHER AND MIXER Unavailable Unavailable MARIN, R HARI WEIGHER AND MIXER Unavailable Unavailable MARIN, R HARI WEIGHER AND MIXER Unavailable Unavailable MARIN, R HARI WEIGHER AND MIXER Unavailable Unavailable MARIN, R HARI WEIGHER AND MIXER Unavailable Unavailable MARIN, R HARI WEIGHER AND MIXER Unavailable Unavailable MARIN, R HARI WEIGHER AND MIXER Unavailable Unavailable MARIN, R HARI WEIGHER AND MIXER Unavailable Unavailable MARIN, R HARI WEIGHER AND MIXER Unavailable Unavailable MARIN, R HARI WEIGHER AND MIXER Unavailable Unavailable MARIN, R HARI WEIGHER AND MIXER Unavailable Unavailable MARIN, R HARI WEIGHER AND MIXER Unavailable Unavailable MARIN, R HARI WEIGHER AND MIXER Unavailable Unavailable MARIN, R HARI WEIGHER AND MIXER Unavailable Unavailable MARIN, R HARI WEIGHER AND MIXER Unavailable Unavailable MARIN, R HARI WEIGHER AND MIXER Unavailable Unavailable MARIN, R HARI WEIGHER AND MIXER Unavailable Unavailable MARIN, R HARI WEIGHER AND MIXER Unavailable Unavailable MARIN, R HARI WEIGHER AND MIXER Unavailable Unavailable MARIN, R HARI WEIGHER AND MIXER Unavailable Unavailable MARIN, R HARI WEIGHER AND MIXER Unavailable Unavailable MARIN, R HARI WEIGHER AND MIXER Unavailable Unavailable MARIN, R HARI WEIGHER AND MIXER Unavailable Unavailable MARIN, R HARI WEIGHER AND MIXER Unavailable Unavailable MARIN, R HARI WEIGHER AND MIXER Unavailable Unavailable MARIN, R HARI WEIGHER AND MIXER Unavailable Unavailable MARIN, R HARI WEIGHER AND MIXER Unavailable Unavailable MARIN, R HARI WEIGHER AND MIXER Unavailable Unavailable MARIN, R HARI WEIGHER AND MIXER Unavailable Unavailable MARIN, R HARI WEIGHER AND MIXER Unavailable Unavailable MARIN, R HARI WEIGHER AND MIXER Unavailable Unavailable MARIN, R HARI WEIGHER AND MIXER Unavailable Unavailable MARIN, R HARI WEIGHER AND MIXER Unavailable Unavailable MARIN, R HARI WEIGHER AND MIXER Unavailable Unavailable MARIN, R HARI WEIGHER AND MIXER Unavailable Unavailable MARIN, R HARI WEIGHER AND MIXER Unavailable Unavailable MARIN, R HARI WEIGHER AND MIXER Unavailable Unavailable MARIN, R HARI WEIGHER AND MIXER Unavailable Unavailable MERCER, JUDY PETER WEIGHER AND MIXER Unavailable Unavailable MERCER, JUDY PETER WEIGHER AND MIXER Unavailable Unavailable MERCER, JUDY PETER WEIGHER AND MIXER Unavailable Unavailable MERCER, JUDY PETER WEIGHER AND MIXER Unavailable Unavailable MERCER, JUDY PETER WEIGHER AND MIXER Unavailable Unavailable MERCER, JUDY PETER WEIGHER AND MIXER Unavailable Unavailable MERCER, JUDY PETER WEIGHER AND MIXER Unavailable Unavailable MERCER, JUDY PETER WEIGHER AND MIXER Unavailable Unavailable MERCER, JUDY PETRE WEIGHER AND MIXER Unavailable Unavailable MERCER, JUDY PETER WEIGHER AND MIXER Unavailable Unavailable MERCER, JUDY PETER WEIGHER AND MIXER Unavailable Unavailable MERCER, JUDY PETER WEIGHER AND MIXER Unavailable Unavailable MERCER, JUDY PETER WEIGHER AND MIXER Unavailable Unavailable MERCER, JUDY PETER WEIGHER AND MIXER Unavailable Unavailable MERCER, JUDY PETER WEIGHER AND MIXER Unavailable Unavailable MERCER, JUDY PETER WEIGHER AND MIXER Unavailable Unavailable MERCER, JUDY PETER WEIGHER AND MIXER Unavailable Unavailable MERCER, JUDY PETER WEIGHER AND MIXER Unavailable Unavailable MERCER, JUDY PETER WEIGHER AND MIXER Unavailable Unavailable MERCER, JUDY PETER WEIGHER AND MIXER Unavailable Unavailable MERCER, JUDY PETER WEIGHER AND MIXER Unavailable Unavailable MERCER, JUDY PETER WEIGHER AND MIXER Unavailable Unavailable MERCER, JUDY PETER WEIGHER AND MIXER Unavailable Unavailable Dille, E Pamela DDS Unavailable Unavailable Dille, E Pamela DDS Unavailable Unavailable Dille, E Pamela DDS Unavailable Unavailable Dille, E Pamela DDS Unavailable Unavailable FEDERLINE, K JACQUES DO Unavailable Unavailable FEDERLINE, K JACQUES DO Unavailable Unavailable FEDERLINE, K JACQUES DO Unavailable Unavailable FEDERLINE, K JACQUES DO Unavailable Unavailable FEDERLINE, K JACQUES DO Unavailable Unavailable FEDERLINE, K JACQUES DO Unavailable Unavailable FEDERLINE, K JACQUES DO Unavailable Unavailable FEDERLINE, K JACQUES DO Unavailable Unavailable FEDERLINE, K JACQUES DO Unavailable Unavailable FEDERLINE, K JACQUES DO Unavailable Unavailable FEDERLINE, K JACQUES DO Unavailable Unavailable FEDERLINE, K JACQUES DO Unavailable Unavailable FEDERLINE, K JACQUES DO Unavailable Unavailable FEDERLINE, K JACQUES DO Unavailable Unavailable FEDERLINE, K JACQUES DO Unavailable Unavailable FEDERLINE, K JACQUES DO Unavailable Unavailable FEDERLINE, K JACQUES DO Unavailable Unavailable FEDERLINE, K JACQUES DO Unavailable Unavailable FEDERLINE, K JACQUES DO Unavailable Unavailable Jumalon, M Anna PHOTOGRAPHIC COLORIST Unavailable Unavailable Jumalon, M Anna PHOTOGRAPHIC COLORIST Unavailable Unavailable Jumalon, M Anna PHOTOGRAPHIC COLORIST Unavailable Unavailable Jumalon, M Anna PHOTOGRAPHIC COLORIST Unavailable Unavailable Jumalon, M Anna PHOTOGRAPHIC COLORIST Unavailable Unavailable Jumalon, M Anna PHOTOGRAPHIC COLORIST Unavailable Unavailable Jumalon, M Anna PHOTOGRAPHIC COLORIST Unavailable Unavailable Jumalon, M Anna PHOTOGRAPHIC COLORIST Unavailable Unavailable Jumalon, M Anna PHOTOGRAPHIC COLORIST Unavailable Unavailable Jumalon, M Anna PHOTOGRAPHIC COLORIST Unavailable Unavailable Jumalon, M Anna PHOTOGRAPHIC COLORIST Unavailable Unavailable Jumalon, M Anna PHOTOGRAPHIC COLORIST Unavailable Unavailable Jumalon, M Anna PHOTOGRAPHIC COLORIST Unavailable Unavailable Jumalon, M Anna PHOTOGRAPHIC COLORIST Unavailable Unavailable Jumalon, M Anna PHOTOGRAPHIC COLORIST Unavailable Unavailable Jumalon, M Anna PHOTOGRAPHIC COLORIST Unavailable Unavailable Jumalon, M Anna PHOTOGRAPHIC COLORIST Unavailable Unavailable Jumalon, M Anna PHOTOGRAPHIC COLORIST Unavailable Unavailable Jumalon, M Anna PHOTOGRAPHIC COLORIST Unavailable Unavailable Jumalon, M Anna PHOTOGRAPHIC COLORIST Unavailable Unavailable Jumalon, M Anna PHOTOGRAPHIC COLORIST Unavailable Unavailable Jumalon, M Anna PHOTOGRAPHIC COLORIST Unavailable Unavailable Jumalon, M Anna PHOTOGRAPHIC COLORIST Unavailable Unavailable Jumalon, M Anna PHOTOGRAPHIC COLORIST Unavailable Unavailable Jumalon, M Anna PHOTOGRAPHIC COLORIST Unavailable Unavailable Jumalon, M Anna PHOTOGRAPHIC COLORIST Unavailable Unavailable Jumalon, M Anna PHOTOGRAPHIC COLORIST Unavailable Unavailable Jumalon, M Anna PHOTOGRAPHIC COLORIST Unavailable Unavailable Jumalon, M Anna PHOTOGRAPHIC COLORIST Unavailable Unavailable Jumalon, M Anna PHOTOGRAPHIC COLORIST Unavailable Unavailable TESSA, Lawrence VARELA MD Unavailable Unavailable TESSA, Lawrence VARELA MD Unavailable Unavailable TESSALawrence FATIMA MD Unavailable Unavailable TESSALawrence FATIMA MD Unavailable Unavailable TESSALawrence FATIMA MD Unavailable Unavailable TESSALawrence FATIMA MD Unavailable Unavailable TESSALawrence FATIMA MD Unavailable Unavailable TESSALawrence FATIMA MD Unavailable Unavailable TESSALawrence FATIMA MD Unavailable Unavailable TESSALawrence FATIMA MD Unavailable Unavailable TESSALwarence FATIMA MD Unavailable Unavailable TESSALawrence FATIMA MD Unavailable Unavailable TESSALawrence FATIMA MD Unavailable Unavailable TESSALawrence FATIMA MD Unavailable Unavailable TESSALawrence FATIMA MD Unavailable Unavailable TESSALawrence FATIMA MD Unavailable Unavailable TESSALawrence FATIMA MD Unavailable Unavailable TESSALawrence FATIMA MD Unavailable Unavailable TESSALawrence FATIMA MD Unavailable Unavailable TESSALawrence FATIMA MD Unavailable Unavailable TESSALawrence FATIMA MD Unavailable Unavailable TESSALawrence FATIMA MD Unavailable Unavailable TESSALawrence FATIMA MD Unavailable Unavailable TESSALawrence FATIMA MD Unavailable Unavailable TESSALawrence FATIMA MD Unavailable Unavailable TESSALawrence FAITMA MD Unavailable Unavailable TESSALawrence FATIMA MD Unavailable Unavailable TESSALawrence FATIMA MD Unavailable Unavailable TESSALawrence FATIMA MD Unavailable Unavailable TESSALawrence FATIMA MD Unavailable Unavailable TESSALawrence FAITMA MD Unavailable Unavailable Lawrence ZARATE MD Unavailable Unavailable TESSALawrence FATIMA MD Unavailable Unavailable TESSALawrence FATIMA MD Unavailable Unavailable TESSALawrence FATIMA MD Unavailable Unavailable TESSALawrence FATIMA MD Unavailable Unavailable TESSALawrence FATIMA MD Unavailable Unavailable TESSA, Lawrence VARELA MD Unavailable Unavailable TESSA, Lawrence VARELA MD Unavailable Unavailable TESSA, Lawrence VARELA MD Unavailable Unavailable TESSA, Lawrence VARELA MD Unavailable Unavailable TESSA, Lawrence VARELA MD Unavailable Unavailable TESSA, Lawrence VARELA MD Unavailable Unavailable TESSA, Lawrence VARELA MD Unavailable Unavailable TESSA, Lawrence VARELA MD Unavailable Unavailable TESSA, Lawrence VARELA MD Unavailable Unavailable TESSA, Lawrence VARELA MD Unavailable Unavailable TESSA, Lawrence VARELA MD Unavailable Unavailable TESSA, Lawrence VARELA MD Unavailable Unavailable TESSA, Lawrence VARELA MD Unavailable Unavailable TESSA, Lawrence VARELA MD Unavailable Unavailable TESSA, Lawrence VARELA MD Unavailable Unavailable TESSA, Lawrence VARELA MD Unavailable Unavailable TESSA, Lawrence VARELA MD Unavailable Unavailable TESSA, Lawrence VARELA MD Unavailable Unavailable TESSA, Lawrence VARELA MD Unavailable Unavailable TESSA, Lawrence VARELA MD Unavailable Unavailable TESSA, Lawrence VARELA MD Unavailable Unavailable TESSA, Lawrence VARELA MD Unavailable Unavailable TESSA, Lawrence VARELA MD Unavailable Unavailable TESSA, Lawrence VARELA MD Unavailable Unavailable TESSA, Lawrence VARELA MD Unavailable Unavailable TESSA, Lawrence VARELA MD Unavailable Unavailable TESSA, Lawrence VARELA MD Unavailable Unavailable TESSA, Lawrence VARELA MD Unavailable Unavailable TESSA, Lawrence VARELA MD Unavailable Unavailable TESSA, Lawrence VARELA MD Unavailable Unavailable TESSA, Lawrence VARELA MD Unavailable Unavailable TESSA, Lawrence VARELA MD Unavailable Unavailable TESSA, Lawrence VARELA MD Unavailable Unavailable TESSA, Lawrence VARELA MD Unavailable Unavailable TESSA, Lawrence VARELA MD Unavailable Unavailable TESSA, Lawrence VARELA MD Unavailable Unavailable TESSA, Lawrence VARELA MD Unavailable Unavailable TESSA, Lawrence VARELA MD Unavailable Unavailable TESSA, Lawrence VARELA MD Unavailable Unavailable TESSA, Lawrence VARELA MD Unavailable Unavailable TESSA, Lawrence VARELA MD Unavailable Unavailable TESSA, Lawrence VARELA MD Unavailable Unavailable TESSA, Lawrence VARELA MD Unavailable Unavailable TESSA, Lawrence VARELA MD Unavailable Unavailable TESSA, Lawrence VARELA MD Unavailable Unavailable TESSA, Lawrence VARELA MD Unavailable Unavailable TESSA, Lawrence VARELA MD Unavailable Unavailable TESSA, Lawrence VARELA MD Unavailable Unavailable TESSA, Lawrence VARELA MD Unavailable Unavailable TESSA, Lawrence VARELA MD Unavailable Unavailable TESSA, Lawrence VARELA MD Unavailable Unavailable TESSA, Lawrence VARELA MD Unavailable Unavailable TESSA, Lawrence VARELA MD Unavailable Unavailable TESSA, Lawrence VARELA MD Unavailable Unavailable TESSA, Lawrence VARELA MD Unavailable Unavailable TESSA, Lawrence VARELA MD Unavailable Unavailable TESSA, Lawrence VARELA MD Unavailable Unavailable TESSA, Lawrence VARELA MD Unavailable Unavailable TESSA, Lawrence VARELA MD Unavailable Unavailable TESSA, Lawrence VARELA MD Unavailable Unavailable TESSA, Lawrence VARELA MD Unavailable Unavailable TESSA, Lawrence VARELA MD Unavailable Unavailable TESSA, Lawrence VARELA MD Unavailable Unavailable SETTERLorena MD Unavailable Unavailable SETTERLorena MD Unavailable Unavailable SETTERLorena MD Unavailable Unavailable SETTER, Lorena MARX MD Unavailable Unavailable SETTER, Lorena MARX MD Unavailable Unavailable SETTERLorena MD Unavailable Unavailable SETTERLorena MD Unavailable Unavailable SETTERLorena MD Unavailable Unavailable SETTER, Lorena MARX MD Unavailable Unavailable SETTER, Lorena MARX MD Unavailable Unavailable SETTER, Lorena MARX MD Unavailable Unavailable SETTER, Lorena MARX MD Unavailable Unavailable SETTER, Lorena MARX MD Unavailable Unavailable SETTERLorena MD Unavailable Unavailable SETTER, Lorena MARX MD Unavailable Unavailable SETTER, Lorena MARX MD Unavailable Unavailable SETTER, Lorena MARX MD Unavailable Unavailable SETTER, Lorena MARX MD Unavailable Unavailable SETTER, Lorena MARX MD Unavailable Unavailable SETTERLorena MD Unavailable Unavailable SETTERLorena MD Unavailable Unavailable SETTERLorena MD Unavailable Unavailable SETTERLorena MD Unavailable Unavailable SETTERLorena MD Unavailable Unavailable SETTERLorena MD Unavailable Unavailable SETTERLorena MD Unavailable Unavailable SETTERLorena MD Unavailable Unavailable SETTERLorena MD Unavailable Unavailable SETTERLorena MD Unavailable Unavailable SETTERLorena MD Unavailable Unavailable SETTERLorena MD Unavailable Unavailable SETTERLorena MD Unavailable Unavailable SETTERLorena MD Unavailable Unavailable SETTERLorena MD Unavailable Unavailable SETTERLorena MD Unavailable Unavailable SETTERLorena MD Unavailable Unavailable SETTERLorena MD Unavailable Unavailable SETTERLorena MD Unavailable Unavailable SETTERLorena MD Unavailable Unavailable SETTERLorena MD Unavailable Unavailable SETTERLorena MD Unavailable Unavailable SETTERLorena MD Unavailable Unavailable SETTERLorena MD Unavailable Unavailable SETTERLorena MD Unavailable Unavailable SETTERLorena MD Unavailable Unavailable SETTERLorena MD Unavailable Unavailable SETTERLorena MD Unavailable Unavailable SETTERLorena MD Unavailable Unavailable SETTERLorena MD Unavailable Unavailable SETTERLorena MD Unavailable Unavailable SETTERLorena MD Unavailable Unavailable SETTERLorena MD Unavailable Unavailable SETTERLorena MD Unavailable Unavailable SETTERLorena MD Unavailable Unavailable SETTERLorena MD Unavailable Unavailable SETTERLorena MD Unavailable Unavailable SETTERLorena MD Unavailable Unavailable SETTERLorena MD Unavailable Unavailable SETTERLorena MD Unavailable Unavailable SETTERLorena MD Unavailable Unavailable SETTER, Lorena MARX MD Unavailable Unavailable SETTER, Lorena MARX MD Unavailable Unavailable SETTER, Lorena MARX MD Unavailable Unavailable SETTERLorena MD Unavailable Unavailable SETTERLorena MD Unavailable Unavailable SETTERLorena MD Unavailable Unavailable SETTER, Lorena MARX MD Unavailable Unavailable SETTER, Lorena MARX MD Unavailable Unavailable SETTER, Lorena MARX MD Unavailable Unavailable SETTER, Lorena MARX MD Unavailable Unavailable SETTER, Lorena MARX MD Unavailable Unavailable SETTER, Lorena MARX MD Unavailable Unavailable SETTER, Lorena MARX MD Unavailable Unavailable SETTER, Lorena MARX MD Unavailable Unavailable SETTER, Lorena MARX MD Unavailable Unavailable SETTER, Lorena MARX MD Unavailable Unavailable SETTERLorena MD Unavailable Unavailable SETTERLorena MD Unavailable Unavailable SETTERLorena MD Unavailable Unavailable SETTERLorena MD Unavailable Unavailable SETTER, Lorena MAXR MD Unavailable Unavailable SETTERLorena MD Unavailable Unavailable SETTERLorena MD Unavailable Unavailable SETTERLorena MD Unavailable Unavailable SETTERLorena MD Unavailable Unavailable SETTERLorena MD Unavailable Unavailable SETTERLorena MD Unavailable Unavailable SETTERLorena MD Unavailable Unavailable SETTERLorena MD Unavailable Unavailable SETTERLorena MD Unavailable Unavailable SETTERLorena MD Unavailable Unavailable SETTERLorena MD Unavailable Unavailable SETTERLorena MD Unavailable Unavailable SETTERLorena MD Unavailable Unavailable SETTERLorena MD Unavailable Unavailable SETTERLorena MD Unavailable Unavailable SETTERLorena MD Unavailable Unavailable SETTERLorena MD Unavailable Unavailable SETTERLorena MD Unavailable Unavailable SETTERLorena MD Unavailable Unavailable SETTERLorena MD Unavailable Unavailable SETTERLorena MD Unavailable Unavailable SETTERLorena MD Unavailable Unavailable SETTERLorena MD Unavailable Unavailable SETTERLorena MD Unavailable Unavailable SETTERLorena MD Unavailable Unavailable SETTERLorena MD Unavailable Unavailable SETTERLorena MD Unavailable Unavailable SETTERLorena MD Unavailable Unavailable SETTERLorena MD Unavailable Unavailable SETTERLorena MD Unavailable Unavailable Lorena WEI MD Unavailable Unavailable Vaneenenaam, Lilia Mares MD Unavailable Unavailable VaneenenaamLilia MD Unavailable Unavailable Vaneenenaam, Lilia Mares MD Unavailable Unavailable Vaneenenaam, Lilia Mares MD Unavailable Unavailable Vaneenenaam, Lilia Mares MD Unavailable Unavailable VaneenenaamLilia MD Unavailable Unavailable Vaneenenaam, Lilia Mares MD Unavailable Unavailable Vaneenenaam, Lilia Mares MD Unavailable Unavailable Vaneenenaam, Lilia Mares MD Unavailable Unavailable Vaneenenaam, Lilia Mares MD Unavailable Unavailable Vaneenenaam, Lilia Mares MD Unavailable Unavailable Vaneenenaam, Lilia Mares MD Unavailable Unavailable Vaneenenaam, Lilia Mares MD Unavailable Unavailable Vaneenenaam, Lilia Mares MD Unavailable Unavailable Vaneenenaam, Lilia Mares MD Unavailable Unavailable Vaneenenaam, Lilia Mares MD Unavailable Unavailable Vaneenenaam, Lilia Mares MD Unavailable Unavailable Vaneenenaam, Lilia Mares MD Unavailable Unavailable Vaneenenaam, Lilia Mares MD Unavailable Unavailable Vaneenenaam, Lilia Mares MD Unavailable Unavailable Vaneenenaam, Lilia Mares MD Unavailable Unavailable Vaneenenaam, Lilia Mares MD Unavailable Unavailable Vaneenenaam, Lilia Mares MD Unavailable Unavailable VaneenenaamLilia MD Unavailable Unavailable Vaneenenaam, Lilia Mares MD Unavailable Unavailable VaneenenaamLilia MD Unavailable Unavailable VaneenenaamLilia MD Unavailable Unavailable VaneenenaamLilia MD Unavailable Unavailable VaneenenaamLilia MD Unavailable Unavailable VaneenenaamLilia MD Unavailable Unavailable VaneenenaamLilia MD Unavailable Unavailable VaneenenaamLilia MD Unavailable Unavailable VaneenenaamLilia MD Unavailable Unavailable VaneenenaamLilia MD Unavailable Unavailable VaneenenaamLilia MD Unavailable Unavailable VaneenfrandyamLilia MD Unavailable Unavailable VaneenfrandyamLilia MD Unavailable Unavailable VaneenfrandyamLilia MD Unavailable Unavailable VaneenfrandyamLilia MD Unavailable Unavailable VaneenfrandyamLilia MD Unavailable Unavailable VaneenenaamLilia MD Unavailable Unavailable VaneenenaamLilia MD Unavailable Unavailable VaneenenaamLilia MD Unavailable Unavailable VaneenfrandyamLilia MD Unavailable Unavailable VaneenfrandyamLilia MD Unavailable Unavailable VaneenfrandyamLilia MD Unavailable Unavailable Re-disclosure Warning The records that you are about to access may contain information from federally-assisted alcohol or drug abuse programs. If such information is present, then the following federally mandated warning applies: This information has been disclosed to you from records protected by federal confidentiality rules (42 CFR part 2). The federal rules prohibit you from making any further disclosure of this information unless further disclosure is expressly permitted by the written consent of the person to whom it pertains or as otherwise permitted by 42 CFR part 2. A general authorization for the release of medical or other information is NOT sufficient for this purpose. The Federal rules restrict any use of the information to criminally investigate or prosecute any alcohol or drug abuse patient.The records that you are about to access may contain highly sensitive health information, the redisclosure of which is protected by Article 27-F of the [facility] Public Health law. If you continue you may have access to information: Regarding HIV / AIDS; Provided by facilities licensed or operated by the [facility] Office of Mental Health; or Provided by the [facility] Office for People With Developmental Disabilities. If such information is present, then the following [facility] mandated warning applies: This information has been disclosed to you from confidential records which are protected by state law. State law prohibits you from making any further disclosure of this information without the specific written consent of the person to whom it pertains, or as otherwise permitted by law. Any unauthorized further disclosure in violation of state law may result in a fine or half-way sentence or both. A general authorization for the release of medical or other information is NOT sufficient authorization for further disc losure. Allergies and Adverse Reactions Type Description Substance Reaction Status Data Source(s ) No Known Drug Allergies No Known Drug Allergies [facility] Family History Family Member Name Family Member Gender Family Member Status Date o f Status Description Data Source(s) Unknown Unknown Problem [facility] ([facility]) Encounters Encounter Providers Location Date Indications Data Source(s ) Outpatient Attender: NICHOLE ZARATE MD 08/24/2021 12:00:0 0 AM [facility] Anna Vazquez, WEIGHER AND MIXER: [id number], [place] [address], Ph. Attender: Anna Vazquez [facility] - Main Office 07/27/2021 12:00:00 AM EDT [facility] NA ([facility]) Outpatient Attender: Lilia Pahceco MD Physical Therap y 07/26/2021 02:30:00 PM EDT [facility] ([facility]) Outpatient Attender: PETER MERCER NP Family Practice 07/10/2021 10 :30:00 AM EDT [facility] ([facility]) Outpatient Attender: PETER MERCER NPConsultant: JACQUES ASHLEY INE DO 07/10/2021 10:18:00 AM EDT - 07/10/2021 10:18:00 AM EDT [facility] Anna Vazquez, WEIGHER AND MIXER: [id number], [place] [address], Ph. Attender: Anna Vazquez [facility] 06/05/2021 12:00:00 AM EDT [facility] NA ([facility]) Anna Vazquez, WEIGHER [employer] MIXER: [id number], [place] [address], Ph. Attender: Anna Vazquez [facility] 06/05/2021 12:00:00 AM EDT ATH[facility]ber NA ([facility]) Anna Vazquez, WEIGHER [employer] MIXER: [id number], [place] [address], Ph. Attender: Anna Vazquez [facility] 04/24/2021 12:00:00 AM EDT ATH[facility]ber NA ([facility]) Anna Schaffer George, WEIGHER [employer] MIXER: [id number], [place] [address], Ph. Attender: Anna Vazquez [facility] 04/24/2021 12:00:00 AM EDT ATHE NA ([facility]) Anna Vazquez, WEIGHER [employer] MIXER: [id number], [place] [address], Ph. Attender: Anna Vazquez [facility] 04/24/2021 12:00:00 AM EDT ATHE NA ([facility]) Anna Vazquez, WE[employer]HER [employer] MIXER: [address], [place] [address], Ph. Attender: Anna Vazquez [facility] - [facility] 03/13/2021 12:00:00 AM EDT ATHE NA ([facility]) Anna Vazquez, WEIGHER AND MIXER: [address], [place] [address], Ph. Attender: Anna Vazquez [facility] 03/13/2021 12:00:00 AM EDT ATHE NA ([facility]) Anna Vazquez, WEIGHER AND MIXER: [address], [place] [address], Ph. Attender: Anna Vazquez [facility] 03/13/2021 12:00:00 AM EDT ATHE NA ([facility]) Anna Vazquez, WEIGHER AND MIXER: [address], [place] [address], Ph. Attender: Anna Vazquez [facility] 03/13/2021 12:00:00 AM EDT ATHE NA ([facility]) Outpatient Attender: Lilia Pacheco MD Physical Therap y 02/15/2021 02:15:00 PM EDT MEDJUNG ([facility] ) Anna Vazquez, WEIGHER AND MIXER: [address], [address], [place] [address], Ph. Attender: Anna Vazquez [facility] - [facility] 02/13/2021 12:00:00 AM EDT ATHE NA ([facility]) Anna Vazquez, WEIGHER AND MIXER: [address], [address], [place] [address], Ph. Attender: Anna Vazquez [facility] 02/13/2021 12:00:00 AM EDT ATHE NA ([facility]) Anna Vazquez, WEIGHER AND MIXER: [address], [place] [address], Ph. Attender: Anna Vazquez [facility] 02/13/2021 12:00:00 AM EDT ATHE NA ([facility]) Anna Vazquez, WEIGHER AND MIXER: [address], [place] [address], Ph. Attender: Anna Vazquez [facility] 02/13/2021 12:00:00 AM EDT ATHE NA ([facility]) Anna Vazquez, WEIGHER AND MIXER: [address], [address], [place] [address], Ph. Attender: Anna Vazquez [facility] 02/13/2021 12:00:00 AM EDT ATHE NA ([facility]) Anna Vazquez, WEIGHER AND MIXER: [address], [place] [address], Ph. Attender: Anna Vazquez [facility] 01/10/2021 12:00:00 AM EDT ATHE NA ([facility]) Anna Vazquez, WEIGHER AND MIXER: [address], [place] [address], Ph. Attender: Anna Vazquez [facility] 01/10/2021 12:00:00 AM EDT ATHE NA ([facility]) Anna Vazquez, WEIGHER AND MIXER: [address], [place] [address], Ph. Attender: Anna Vazquez [facility] 01/10/2021 12:00:00 AM EDT ATHE NA ([facility]) Anna Vazquez, WEIGHER AND MIXER: [address], [place] [address], Ph. Attender: Anna Vazquez [facility] 01/10/2021 12:00:00 AM EDT ATHE NA ([facility]) Anna Vazquez, WEIGHER AND MIXER: [address], [place] [address], Ph. Attender: Anna Vazquez [facility] 01/10/2021 12:00:00 AM EDT ATHE NA ([facility]) Anna Vazquez, WEIGHER AND MIXER: [address], [place] [address], Ph. Attender: Anna Vazquez [facility] 01/10/2021 12:00:00 AM EDT ATHE NA ([facility]) Outpatient Attender: Lilia Pacheco MD Physical Therap y 01/05/2021 01:15:00 PM EDT MEDENT ([facility]) Anna Vazquez, WEIGHER AND MIXER: [address], [place] [address], Ph. Attender: Anna Vazquez [facility] 11/28/2020 12:00:00 AM EST ATHE NA ([facility]) Anna Vazquez, WEIGHER AND MIXER: [address], [place] [address], Ph. Attender: Anna Vazquez [facility] 11/28/2020 12:00:00 AM EST ATHE NA ([facility]) Anna Vazquez, WEIGHER AND MIXER: [address], [place] [address], Ph. Attender: Anna Vazquez [facility] - [facility] 11/28/2020 12:00:00 AM EST ATHE NA ([facility]) Anna Vazquez, WEIGHER AND MIXER: [address], [place] [address], Ph. Attender: nAna Vazquez [facility] - [facility] 11/28/2020 12:00:00 AM EST ATHE NA ([facility]) Anna Vazquez, WEIGHER AND MIXER: [address], [place] [address], Ph. Attender: Anna Vazquez [facility] 11/28/2020 12:00:00 AM EST ATHE NA ([facility]) Anna Vazquez, WEIGHER AND MIXER: [address], [place] [address], Ph. Attender: Anna Vazquez [facility] 11/28/2020 12:00:00 AM EST ATHE NA ([facility]) Anna Vazquez, WEIGHER AND MIXER: [address], [place] [address], Ph. Attender: Anna Vazquez [facility] 11/28/2020 12:00:00 AM EST ATHE NA ([facility]) Anna Vazquez, WEIGHER AND MIXER: [address], [place] [address], Ph. Attender: Anna Vazquez [facility] 10/31/2020 12:00:00 AM EST ATHE NA ([facility]) Anna Vazquez, WEIGHER AND MIXER: [address], [place] [address], Ph. Attender: Anna Vazquez [facility] 10/31/2020 12:00:00 AM EST ATHE NA ([facility]) Anna Vazquez, WEIGHER AND MIXER: [address], [place] [address], Ph. Attender: Anna Vazquez [facility] - [facility] 10/31/2020 12:00:00 AM EST ATHE NA ([facility]) Anna Vazquez, WEIGHER AND MIXER: [address], [place] [address], Ph. Attender: Anna Vazquez [facility] 10/31/2020 12:00:00 AM EST ATHE NA ([facility]) Annaalber Vazquez, WEIGHER AND MIXER: [address], [place] [address], Ph. Attender: Anna Vazquez [facility] 10/31/2020 12:00:00 AM EST ATHE NA ([facility]) Anna Vazquez, WEIGHER AND MIXER: [address], [place] [address], Ph. Attender: Anna Vazquez [facility] 10/31/2020 12:00:00 AM EST ATHE NA ([facility]) Anna Vazquez, WEIGHER AND MIXER: [address], [place] [address], Ph. Attender: Anna Vazquez [facility] 10/31/2020 12:00:00 AM EST ATHE NA ([facility]) Anna Vazquez, WEIGHER AND MIXER: [address], [place] [address], Ph. Attender: Anna Vazquez [facility] 10/31/2020 12:00:00 AM EST ATHE NA ([facility]) Unknown [address] [facility] [address] 10/12/2020 12:00:00 AM EST eCW1 (Critical access hospital) Outpatient [address] [facility] [address] 10/10/2020 12:00:00 AM EST eCW1 (Critical access hospital) Anna Vazquez, WEIGHER AND MIXER: [address], [place] [address], Ph. Attender: Anna Valdezosvaldo [facility] - [facility] 10/04/2020 12:00:00 AM EST ATHE NA ([facility]) Anna Vazquez, WEIGHER AND MIXER: [address], [place] [address], Ph. Attender: Anna Vazquez [facility] 10/04/2020 12:00:00 AM EST ATHE NA ([facility]) Anna Vazquez, WEIGHER AND MIXER: [address], [place] [address], Ph. Attender: Anna Vazquez [facility] 10/04/2020 12:00:00 AM EST ATHE NA ([facility]) Anna Vazquez, WEIGHER AND MIXER: [address], [place] [address], Ph. Attender: Anna Vazquez [facility] 10/04/2020 12:00:00 AM EST ATHE NA ([facility]) Anna Vazquez, WEIGHER AND MIXER: [address], [place] [address], Ph. Attender: Anna Vazquez [facility] 10/04/2020 12:00:00 AM EST ATHE NA ([facility]) Anna Vazquez, WEIGHER AND MIXER: [address], [place] [address], Ph. Attender: Anna Vazquez [facility] 10/04/2020 12:00:00 AM EST ATHE NA ([facility]) Anna Vazquez, WEIGHER AND MIXER: [address], [place] [address], Ph. Attender: Anna Vazquez [facility] 10/04/2020 12:00:00 AM EST ATHE NA ([facility]) Anna Vazquez, WEIGHER AND MIXER: [address], [place] [address], Ph. Attender: Anna Vazquez [facility] 10/04/2020 12:00:00 AM EST ATHE NA ([facility]) Anna Vazquez, WEIGHER AND MIXER: [address], [place] [address], Ph. Attender: Anna Vazquez [facility] 10/04/2020 12:00:00 AM EST ATHE NA ([facility]) Unknown [address] [facility] [address] 09/16/2020 12:00:00 AM EST eCW1 ([facility]) Outpatient Attender: HARI MARIN [employer]ER [id number] 09/12/2020 1 2:00:00 AM EST [facility] Unknown [address] [facility] [address] 09/08/2020 12:00:00 AM EST eCW1 ([facility]) Anna Vazquez, WEIGHER AND MIXER: [address], [place] [address], Ph. Attender: Anna Vazquez [facility] 09/05/2020 12:00:00 AM EST ATHE NA ([facility]) Anna Vazquez, WEIGHER AND MIXER: [address], [place] [address], Ph. Attender: Anna Vazquez [facility] 09/05/2020 12:00:00 AM EST ATHE NA ([facility]) Anna Vazquez, WEIGHER AND MIXER: [address], [place] [address], Ph. Attender: Anna Vazquez [facility] 09/05/2020 12:00:00 AM EST ATHE NA ([facility]) Anna Vazquez, WEIGHER AND MIXER: [address], [place] [address], Ph. Attender: Anna Vazquez [facility] 09/05/2020 12:00:00 AM EST ATHE NA ([facility]) Anna Vazquez, WEIGHER AND MIXER: [address], [place] [address], Ph. Attender: Anna Vazquez [facility] 09/05/2020 12:00:00 AM EST ATHE NA ([facility]) Anna Vazquez, WEIGHER AND MIXER: [address], [place] [address], Ph. Attender: Anna Vazquez [facility] 09/05/2020 12:00:00 AM EST ATHE NA ([facility]) Anna Vazquez, WEIGHER AND MIXER: [address], [place] [address], Ph. Attender: Anna Vazquez [facility] 09/05/2020 12:00:00 AM EST ATHE NA ([facility]) Anna Vazquez, WEIGHER AND MIXER: [address], [place] [address], Ph. Attender: Anna Vazquez [facility] 09/05/2020 12:00:00 AM EST ATHE NA ([facility]) Anna Vazquez, WEIGHER AND MIXER: [address], [place] [address], Ph. Attender: Anna Vazquez [facility] 09/05/2020 12:00:00 AM EST ATHE NA ([facility]) Anna Vazquez, WEIGHER AND MIXER: [address], [place] [address], Ph. Attender: Anna Vazquez [facility] 09/05/2020 12:00:00 AM EST ATHE NA ([facility]) Outpatient Attender: Whitney richard 08/23/2020 02:25:00 PM EST MEDENT ([facility]) Outpatient Attender: Pamela IZQUIERDO 08/04/2020 01:28:01 P M EDT [facility] Outpatient Attender: NICHOLE ZARATE MD [id number] 12:00:00 AM EDT - 07/28/2020 02:58:50 PM EDT [facility] Cervicalgia Outpatient Referrer: NICHOLE ZARATE MD 07/28/2020 1 2:00:00 AM EDT [facility] Cervicalgia Outpatient Attender: PETER MERCER NPConsultant: JACQUES VINCENT DO 07/25/2020 10:02:00 AM EDT - 07/25/2020 10:02:00 AM EDT [facility] Outpatient Attender: PETER MERCER [employer] [facility] 07/25/2020 10 :00:00 AM EDT MEDENT ([facility]) Outpatient Attender: ARASELI WEI MD 07/21/2020 12:00:00 A M [facility] Outpatient Attender: Pamela IZQUIERDO 07/20/2020 04:04:00 P M EDT [facility] Anna Vazquez, WEIGHER AND MIXER: [address], [place] [address], Ph. Attender: Anna Vazquez [facility] 07/18/2020 12:00:00 AM EDT ATHE NA ([facility]) Anna Vazquez, WEIGHER AND MIXER: [address], [place] [address], Ph. Attender: Anna Vazquez [facility] 07/18/2020 12:00:00 AM EDT ATHE NA ([facility]) Anna Vazquez, WEIGHER AND MIXER: [address], [place] [address], Ph. Attender: Anna Vazquez [facility] 07/18/2020 12:00:00 AM EDT ATHE NA ([facility]) Anna Vazquez, WEIGHER AND MIXER: [address], [place] [address], Ph. Attender: Anna Vazquez [facility] 07/18/2020 12:00:00 AM EDT ATHE NA ([facility]) Anna Vazquez, WEIGHER AND MIXER: [address], [place] [address], Ph. Attender: Anna Vazquez [facility] 07/18/2020 12:00:00 AM EDT ATHE NA ([facility]) Anna Vazquez, WEIGHER AND MIXER: [address], [place] [address], Ph. Attender: Anna Vazquez [facility] 07/18/2020 12:00:00 AM EDT ATHE NA ([facility]) Anna Vazquez, WEIGHER AND MIXER: [address], [place] [address], Ph. Attender: Anna Vazquez [facility] 07/18/2020 12:00:00 AM EDT ATHE NA ([facility]) Anna Vazquez, WEIGHER AND MIXER: [address], [place] [address], Ph. Attender: Anna Vazquez [facility] 07/18/2020 12:00:00 AM EDT ATHE NA ([facility]) Anna Vazquez, WEIGHER AND MIXER: [address], [place] [address], Ph. Attender: Anna Vazquez [facility] 07/18/2020 12:00:00 AM EDT ATHE NA ([facility]) Anna Vazquez, WEIGHER AND MIXER: [address], [place] [address], Ph. Attender: Anna Vazquez [facility] 07/18/2020 12:00:00 AM EDT ATHE NA ([facility]) Anna Vazquez, WEIGHER AND MIXER: [address], [place] [address], Ph. Attender: Anna Vazquez [facility] 07/18/2020 12:00:00 AM EDT ATHE NA ([facility]) Outpatient Attender: PETER MERCER [employer] 07/04/2020 11 :00:00 AM EDT MEDENT ([facility]) Outpatient Attender: PETER MERCER NPConsultant: JACQUES VINCENTMISSY VINCENT DO 07/04/2020 10:55:00 AM EDT - 07/04/2020 10:55:00 AM EDT [facility] Outpatient Attender: ARASELI WEI MD [id number] 06/30/2020 12:00:00 AM EDT [facility] Outpatient Attender: HARI MARIN NPAttender: ARASELI GONZALEZ MD 06/29/2020 12:00:00 AM EDT [facility] Outpatient Referrer: ARASELI WEI MD 06/21/2020 12:0 0:00 AM EDT Impingement syndrome of left shoulder [facility] Impingement syndrome of left shoulder Immunizations Vaccine Date Status Description Data Source(s) INFLUENZA VIRUS VACCINE QUADRIVALENT 2019- (6 MOS AN D UP) 07/01/2020 12:00:00 AM EDT completed [facility] Medications Medication Brand Name Start Date Product Form Dose Route Admi nistrative Instructions Pharmacy Instructions Status Indications Reaction Description Data Source(s) 5 % 07/18/2021 12:00:00 AM EDT adhesive patch,medicate d 15 APPLY 1 PATCH TO THE SKIN DIRECTED FOR 12 HOURS ON THEN OFF 12 HOURS APPLY 1 PATCH TO THE SKIN DIRECTED FOR 12 HOURS ON THEN OFF 12 HOURS SOLD: 07/19/2021 [facility] 300 mg 07/18/2021 12:00:00 AM EDT capsule 90 TAKE ONE CAPSULE BY MOUTH THREE TIMES A DAY TAKE ONE CAPSULE BY MOUTH THREE TIMES A DAY SOLD: 07/19/2021 [facility] Acetaminophen 325 MG / Hydrocodone Bitartrate 10 MG Or al Tablet 10-325 mg HYDROCODONE/ACETAMINOPHEN 07/17/2021 12:00:00 AM EDT tablet 20 TAKE ONE TABLET BY MOUTH EVERY 12 HOURS NEEDED MAXIMUM DAILY DOSE = 2 TABLETS TAKE ONE TABLET BY MOUTH EVERY 12 HOURS NEEDED MAXIMUM DAILY DOSE = 2 TABLETS SOLD: 07/19/2021 [facility] 800 mg 06/05/2021 12:00:00 AM EDT tablet 45 TAKE ONE TABLET BY MOUTH THREE TIMES A DAY NEEDED DO NOT TAKE MORE THAN 10 CONSECUTIVE DAYS TAKE ONE TABLET BY MOUTH THREE TIMES A DAY NEEDED DO NOT TAKE MORE THAN 10 CONSECUTIVE DAYS SOLD: 06/05/2021 [facility] 5 % 06/05/2021 12:00:00 AM EDT adhesive patch,medicate d 30 APPLY 1 PATCH TO THE SKIN DAILY DIRECTED 12 HOURS ON AND 12 HOURS OFF APPLY 1 PATCH TO THE SKIN DAILY DIRECTED 12 HOURS ON AND 12 HOURS OFF SOLD: 06/05/2021 [facility] Acetaminophen 325 MG / Hydrocodone Bitartrate 10 MG Or al Tablet 10-325 mg HYDROCODONE/ACETAMINOPHEN 06/05/2021 12:00:00 AM EDT tablet 60 TAKE ONE TABLET BY MOUTH EVERY 12 HOURS NEEDED MAXIMUM DAILY DOSE = 2 TABLETS TAKE ONE TABLET BY MOUTH EVERY 12 HOURS NEEDED MAXIMUM DAILY DOSE = 2 TABLETS SOLD: 06/05/2021 [facility] 300 mg 06/05/2021 12:00:00 AM EDT capsule 90 TAKE ONE CAPSULE BY MOUTH THREE TIMES A DAY TAKE ONE CAPSULE BY MOUTH THREE TIMES A DAY SOLD: 06/05/2021 [facility] 10 mg 04/30/2021 12:00:00 AM EDT tablet 20 TAKE ONE TABLET BY MOUTH EVERY 6 HOURS NEEDED FOR PAIN TAKE ONE TABLET BY MOUTH EVERY 6 HOURS A S NEEDED FOR PAIN SOLD: 04/30/2021 [facility] 0.4 mg 04/30/2021 12:00:00 AM EDT capsule 7 TAKE ONE CAPSULE BY MOUTH EVERY DAY TAKE ONE CAPSULE BY MOUTH EVERY DAY SOLD: 04/30/2021 [facility] 500 mg 04/30/2021 12:00:00 AM EDT tablet 14 TAKE ONE TABLET BY MOUTH TWICE A DAY TAKE ONE TABLET BY MOUTH TWICE A DAY SOLD: 04/30/2021 [facility] 300 mg 04/24/2021 12:00:00 AM EDT capsule 90 TAKE ONE CAPSULE BY MOUTH THREE TIMES A DAY TAKE ONE CAPSULE BY MOUTH THREE TIMES A DAY SOLD: 04/25/2021 [facility] Acetaminophen 325 MG / Hydrocodone Bitartrate 10 MG Or al Tablet 10-325 mg HYDROCODONE/ACETAMINOPHEN 04/24/2021 12:00:00 AM EDT tablet 60 TAKE ONE TABLET BY MOUTH EVERY 12 HOURS NEEDED MAXIMUM DAILY DOSE = 2 TABLETS TAKE ONE TABLET BY MOUTH EVERY 12 HOURS NEEDED MAXIMUM DAILY DOSE = 2 TABLETS SOLD: 04/25/2021 [facility] 20 mg 04/24/2021 12:00:00 AM EDT capsule,delayed release (DR/EC) 30 TAKE ONE CAPSULE BY MOUTH EVERY DAY TAKE ONE CAPSULE BY MOUTH EVERY DAY SOLD: 04/25/2021 [facility] 800 mg 04/24/2021 12:00:00 AM EDT tablet 45 TAKE ONE TABLET BY MOUTH THREE TIMES A DAY NEEDED DO NOT TAKE FOR MORE THAN 10 CONSECUTIVE DAYS TAKE ONE TABLET BY MOUTH THREE TIMES A DAY NEEDED DO NOT TAKE FOR MORE THAN 10 CONSECUTIVE DAYS SOLD: 04/25/2021 [facility] 5 % 04/24/2021 12:00:00 AM EDT adhesive patch,medicate d 30 APPLY ONE PATCH TOPICALLY FOR 12 HOURS, THEN REMOVE FOR 12 HOURS BEFORE APPLYING ANOTHER APPLY ONE PATCH TOPICALLY FOR 12 HOURS, THEN REMOVE FOR 12 HOURS BEFORE APPLYING ANOTHER SOLD: 04/25/2021 [facility] Acetaminophen 325 MG / Hydrocodone Bitartrate 10 MG Or al Tablet 10-325 mg HYDROCODONE/ACETAMINOPHEN 03/18/2021 12:00:00 AM EDT tablet 60 TAKE ONE TABLET BY MOUTH EVERY 12 HOURS NEEDED, MAXIMUM DAILY DOSE = 2 TAKE ONE TABLET BY MOUTH EVERY 12 HOURS NEEDED, MAXIMUM DAILY DOSE = 2 SOLD: 03/19/2021 [facility] 20 mg 03/17/2021 12:00:00 AM EDT capsule,delayed release (DR/EC) 30 TAKE ONE CAPSULE BY MOUTH EVERY DAY TAKE ONE CAPSULE BY MOUTH EVERY DAY SOLD: 05/25/2021 [facility] 300 mg 03/17/2021 12:00:00 AM EDT capsule 90 TAKE ONE CAPSULE BY MOUTH THREE TIMES A DAY TAKE ONE CAPSULE BY MOUTH THREE TIMES A DAY SOLD: 03/19/2021 [facility] 20 mg 03/17/2021 12:00:00 AM EDT capsule,delayed release (DR/EC) 30 TAKE ONE CAPSULE BY MOUTH EVERY DAY TAKE ONE CAPSULE BY MOUTH EVERY DAY SOLD: 03/19/2021 [facility] 800 mg 03/14/2021 12:00:00 AM EDT tablet 45 TAKE ONE TABLET BY MOUTH THREE TIMES A DAY NEEDED - DO NOT TAKE FOR MORE THAN 10 CONSECUTIVE DAYS TAKE ONE TABLET BY MOUTH THREE TIMES A DAY NEEDED - DO NOT TAKE FOR MORE THAN 10 CONSECUTIVE DAYS SOLD: 03/16/2021 [facility] 500 mg 03/04/2021 12:00:00 AM EDT tablet 90 TAKE ONE TABLET BY MOUTH EVERY DAY TAKE ONE TABLET BY MOUTH EVERY DAY SOLD: 05/25/2021 [facility] 500 mg 03/04/2021 12:00:00 AM EDT tablet 90 TAKE ONE TABLET BY MOUTH EVERY DAY TAKE ONE TABLET BY MOUTH EVERY DAY SOLD: 03/06/2021 [facility] 5 % 02/24/2021 12:00:00 AM EDT adhesive patch,medicate d 30 APPLY 1 PATCH TO THE SKIN ONCE DAILY DIRECTED APPLY 1 PATCH TO THE SKIN ONCE DAILY DIRECTED SOLD: 02/26/2021 [facility] valacyclovir 500 MG Oral Tablet Valacyclovir HCL 02/22/2021 12:00:00 AM EDT ORAL active MEDENT ([facility]) 300 mg 02/17/2021 12:00:00 AM EDT capsule 90 TAKE ONE CAPSULE BY MOUTH THREE TIMES A DAY TAKE ONE CAPSULE BY MOUTH THREE TIMES A DAY SOLD: 02/20/2021 [facility] 20 mg 02/17/2021 12:00:00 AM EDT capsule,delayed release (DR/EC) 30 TAKE ONE CAPSULE BY MOUTH EVERY DAY TAKE ONE CAPSULE BY MOUTH EVERY DAY SOLD: 02/20/2021 [facility] Acetaminophen 325 MG / Hydrocodone Bitartrate 10 MG Or al Tablet 10-325 mg HYDROCODONE/ACETAMINOPHEN 02/16/2021 12:00:00 AM EDT tablet 60 TAKE ONE TABLET BY MOUTH EVERY 12 HOURS NEEDED MAXIMUM DAILY DOSE = 2 TABLETS TAKE ONE TABLET BY MOUTH EVERY 12 HOURS NEEDED MAXIMUM DAILY DOSE = 2 TABLETS SOLD: 02/16/2021 [facility] 800 mg 02/13/2021 12:00:00 AM EDT tablet 45 TAKE ONE TABLET BY MOUTH THREE TIMES A DAY NEEDED, DO NOT TAKE FOR MORE THAN 10 CONSECUTIVE DAYS TAKE ONE TABLET BY MOUTH THREE TIMES A DAY NEEDED, DO NOT TAKE FOR MORE THAN 10 CONSECUTIVE DAYS SOLD: 02/15/2021 [facility] 5 % 01/25/2021 12:00:00 AM EDT adhesive patch,medicate d 30 APPLY 1 PATCH TOPICALLY EVERY DAY (12 HOURS ON AND 12 HOURS OFF) APPLY 1 PATCH TOPICALLY EVERY DAY (12 HOURS ON AND 12 HOURS OFF) SOLD: 01/27/2021 [facility] 10-325 mg 01/13/2021 12:00:00 AM EDT tablet 60 TAKE 1 TABLET BY MOUTH EVERY 12 HOURS NEEDED MAXIMUM DAILY DOSE = 2 TAKE 1 TABLET BY MOUTH EVERY 12 HOURS NEEDED MAXIMUM DAILY DOSE = 2 SOLD: 01/13/2021 [facility] 800 mg 01/11/2021 12:00:00 AM EDT tablet 45 TAKE ONE TABLET BY MOUTH THREE TIMES A DAY NEEDED DO NOT TAKE FOR MORE THAN 10 CONSECUTIVE DAY TAKE ONE TABLET BY MOUTH THREE TIMES A DAY NEEDED DO NOT TAKE FOR MORE THAN 10 CONSECUTIVE DAY SOLD: 01/12/2021 [facility] 10-325 mg 12/14/2020 12:00:00 AM EST tablet 60 TAKE ONE TABLET BY MOUTH EVERY 12 HOURS MAXIMUM DAILY DOSE = 2 TABLETS TAKE ONE TABLET BY MOUTH EVERY 12 HOURS MAXIMUM DAILY DOSE = 2 TABLETS SOLD: 12/14/2020 [facility] 10-325 mg 11/14/2020 12:00:00 AM EST tablet 60 TAKE ONE TABLET BY MOUTH EVERY 12 HOURS NEEDED MAXIMUM DAILY DOSE = 2 TAKE ONE TABLET BY MOUTH EVERY 12 HOURS NEEDED MAXIMUM DAILY DOSE = 2 SOLD: 11/15/2020 [facility] 300 mg 11/05/2020 12:00:00 AM EST capsule 90 TAKE ONE CAPSULE BY MOUTH THREE TIMES A DAY TAKE ONE CAPSULE BY MOUTH THREE TIMES A DAY SOLD: 12/14/2020 [facility] 300 mg 11/05/2020 12:00:00 AM EST capsule 90 TAKE ONE CAPSULE BY MOUTH THREE TIMES A DAY TAKE ONE CAPSULE BY MOUTH THREE TIMES A DAY SOLD: 11/09/2020 [facility] 0.01 % (0.1 mg/gram) 11/03/2020 12:00:00 AM EST cream 42 INSERT 1 APPLICATORFUL OF 1 GRAM VAGINALLY ONCE WEEKLY INSERT 1 APPLICATORFUL OF 1 GRAM VAGINALLY ONCE WEEKLY SOLD: 05/08/2021 [facility] 0.01 % (0.1 mg/gram) 11/03/2020 12:00:00 AM EST cream 42 INSERT 1 APPLICATORFUL OF 1 GRAM VAGINALLY ONCE WEEKLY INSERT 1 APPLICATORFUL OF 1 GRAM VAGINALLY ONCE WEEKLY SOLD: 11/04/2020 [facility] 20 mg 11/01/2020 12:00:00 AM EST capsule,delayed release (DR/EC) 30 TAKE ONE CAPSULE BY MOUTH EVERY DAY TAKE ONE CAPSULE BY MOUTH EVERY DAY SOLD: 11/02/2020 [facility] 20 mg 11/01/2020 12:00:00 AM EST capsule,delayed release (DR/EC) 30 TAKE ONE CAPSULE BY MOUTH EVERY DAY TAKE ONE CAPSULE BY MOUTH EVERY DAY SOLD: 01/12/2021 [facility] 800 mg 10/31/2020 12:00:00 AM EST tablet 45 TAKE ONE TABLET BY MOUTH THREE TIMES A DAY NEEDED DO NOT TAKE FOR MORE THAN 10 CONSECUTIVE DAYS TAKE ONE TABLET BY MOUTH THREE TIMES A DAY NEEDED DO NOT TAKE FOR MORE THAN 10 CONSECUTIVE DAYS SOLD: 11/02/2020 [facility] 10-325 mg 10/14/2020 12:00:00 AM EST tablet 60 TAKE ONE TABLET BY MOUTH EVERY 12 HOURS NEEDED MAXIMUM DAILY DOSE = 2 TABLETS TAKE ONE TABLET BY MOUTH EVERY 12 HOURS NEEDED MAXIMUM DAILY DOSE = 2 TABLETS SOLD: 10/14/2020 [facility] 300 mg 10/13/2020 12:00:00 AM EST capsule 90 TAKE ONE CAPSULE BY MOUTH THREE TIMES A DAY TAKE ONE CAPSULE BY MOUTH THREE TIMES A DAY SOLD: 10/14/2020 [facility] 300 mg 10/13/2020 12:00:00 AM EST capsule 90 TAKE ONE CAPSULE BY MOUTH THREE TIMES A DAY TAKE ONE CAPSULE BY MOUTH THREE TIMES A DAY SOLD: 01/12/2021 [facility] 5 % 10/12/2020 12:00:00 AM EST adhesive patch,medicate d 30 APPLY ONE PATCH TOPICALLY EVERY DAY ; LEAVE ON FOR 12 HOURS, LEAVE OFF FOR 12 HOURS APPLY ONE PATCH TOPICALLY EVERY DAY ; LEAVE ON FOR 12 HOURS, LEAVE OFF FOR 12 HOURS SOLD: 10/14/2020 [facility] 800 mg 10/05/2020 12:00:00 AM EST tablet 45 TAKE ONE TABLET BY MOUTH THREE TIMES A DAY NEEDED- DO NOT TAKE FOR MORE THAN 10 CONSECUTIVE DAYS TAKE ONE TABLET BY MOUTH THREE TIMES A DAY NEEDED- DO NOT TAKE FOR MORE THAN 10 CONSECUTIVE DAYS SOLD: 10/14/2020 [facility] 20 mg 10/05/2020 12:00:00 AM EST capsule,delayed release (DR/EC) 30 TAKE ONE CAPSULE BY MOUTH EVERY DAY TAKE ONE CAPSULE BY MOUTH EVERY DAY SOLD: 10/07/2020 [facility] 800 mg 10/05/2020 12:00:00 AM EST tablet 45 TAKE ONE TABLET BY MOUTH THREE TIMES A DAY NEEDED- DO NOT TAKE FOR MORE THAN 10 CONSECUTIVE DAYS TAKE ONE TABLET BY MOUTH THREE TIMES A DAY NEEDED- DO NOT TAKE FOR MORE THAN 10 CONSECUTIVE DAYS SOLD: 10/07/2020 [facility] 500 mg 09/26/2020 12:00:00 AM EST tablet 10 TAKE ONE TABLET BY MOUTH TWICE A DAY FOR 5 DAYS TAKE ONE TABLET BY MOUTH TWICE A DAY FOR 5 DAYS SOLD: 2019 [facility] Cephalexin 500 MG Oral Capsule CEPHALEXIN 09/16/2020 12:00:00 AM EST capsule 21 TAKE ONE CAPSULE BY MOUTH THREE TIMES A DAY FOR 7 DAYS TAKE ONE CAPSULE BY MOUTH THREE TIMES A DAY FOR 7 DAYS SOLD: 09/16/2020 [facility] 150 mg 09/16/2020 12:00:00 AM EST tablet 2 TAKE 1 TABLET BY MOUTH FOR 1 DAY, THEN TAKE 2ND TABLET IN 48 HOURS TAKE 1 TABLET BY MOUTH FOR 1 DAY, THEN T TERENCE 2ND TABLET IN 48 HOURS SOLD: 09/16/2020 [facility] 10-325 mg 09/14/2020 12:00:00 AM EST tablet 60 TAKE ONE TABLET BY MOUTH EVERY 12 HOURS NEEDED MAXIMUM DAILY DOSE = 2 TAKE ONE TABLET BY MOUTH EVERY 12 HOURS NEEDED MAXIMUM DAILY DOSE = 2 SOLD: 09/14/2020 [facility] methylPREDNISolone acetate (DEPO-MEDROL) injection 80 mg 0 3-3-09/12/2020 01:00:00 PM EST 80 mg Intra-articular completed 80 mg, Intra- articular, Once, Sat09/12/20 at 1300, For 1 dose
Dilute in lidocaine and marcaine 8cc total
[facility] Medication administered onsite methylPREDNISolone acetate (DEPO-MEDROL) injection 80 mg 3-004309/12/2020 01:00:00 PM EST 80 mg Intra-articular completed 80 mg, Intra- articular, Once, Sat09/12/20 at 1300, For 1 dose
Dilute in lidocaine and marcaine 8cc total
[facility] Medication administered onsite chlorhexidine gluconate 40 MG/ML Medicat ed Liquid Soap [Hibiclens] Hibiclens 4 % Hibiclens 4 % 09/06/2020 12:00:00 AM EST act roxana Hibiclens 4 % eCW1 ([facility]) 500 mg 09/06/2020 12:00:00 AM EST tablet 30 TAKE ONE TABLET BY MOUTH EVERY DAY TAKE ONE TABLET BY MOUTH EVERY DAY SOLD: 12/17/2020 [facility] 20 mg 09/06/2020 12:00:00 AM EST capsule,delayed release (DR/EC) 30 TAKE ONE CAPSULE BY MOUTH EVERY DAY TAKE ONE CAPSULE BY MOUTH EVERY DAY SOLD: 09/06/2020 [facility] 2 % 09/06/2020 12:00:00 AM EST ointment 22 APPLY EXTERNALLY TO NOSE, AXILLA , AND GROIN TWO TIMES A DAY FOR 10 DAYS APPLY EXTERNALLY TO NOSE, AXILLA , AND GROIN TWO TIMES A DAY FOR 10 DAYS SOLD: 09/06/2020 [facility] valacyclovir 500 MG Oral Tablet [Valtrex] Valtrex 500 MG Cec[facility] 500 MG 09/06/2020 12:00:00 AM EST 1.0 {tablet} active Valtrex 500 MG eCW1 ([facility]) Mupirocin 20 MG/ML Topical Cream Mupirocin Calcium 2 % Mupir ocin Calcium 2 % 09/06/2020 12:00:00 AM EST 1.0 {application} act roxana Mupirocin Calcium 2 % eCW1 ([facility]) 500 mg 09/06/2020 12:00:00 AM EST tablet 30 TAKE ONE TABLET BY MOUTH EVERY DAY TAKE ONE TABLET BY MOUTH EVERY DAY SOLD: 11/15/2020 [facility] Mupirocin 20 MG/ML Topical Cream Mupirocin Calcium 2 % Mupir ocin Calcium 2 % 09/06/2020 12:00:00 AM EST 1.0 {application} act roxana Mupirocin Calcium 2 % eCW1 ([facility]) 500 mg 09/06/2020 12:00:00 AM EST tablet 30 TAKE ONE TABLET BY MOUTH EVERY DAY TAKE ONE TABLET BY MOUTH EVERY DAY SOLD: 02/08/2021 [facility] 500 mg 09/06/2020 12:00:00 AM EST tablet 30 TAKE ONE TABLET BY MOUTH EVERY DAY TAKE ONE TABLET BY MOUTH EVERY DAY SOLD: 10/18/2020 [facility] Mupirocin 20 MG/ML Topical Cream Mupirocin Calcium 2 % Mupir ocin Calcium 2 % 09/06/2020 12:00:00 AM EST 1.0 {application} act roxana Mupirocin Calcium 2 % eCW1 ([facility]) 500 mg 09/06/2020 12:00:00 AM EST tablet 30 TAKE ONE TABLET BY MOUTH EVERY DAY TAKE ONE TABLET BY MOUTH EVERY DAY SOLD: 09/06/2020 [facility] 500 mg 09/06/2020 12:00:00 AM EST tablet 30 TAKE ONE TABLET BY MOUTH EVERY DAY TAKE ONE TABLET BY MOUTH EVERY DAY SOLD: 01/11/2021 [facility] 2 % 09/06/2020 12:00:00 AM EST ointment 22 APPLY EXTERNALLY TO NOSE, AXILLA , AND GROIN TWO TIMES A DAY FOR 10 DAYS APPLY EXTERNALLY TO NOSE, AXILLA , AND GROIN TWO TIMES A DAY FOR 10 DAYS SOLD: 10/05/2020 [facility] Mupirocin 20 MG/ML Topical Cream Mupirocin Calcium 2 % Mupir ocin Calcium 2 % 09/06/2020 12:00:00 AM EST 1.0 {application} act roxana Mupirocin Calcium 2 % eCW1 ([facility]) chlorhexidine gluconate 40 MG/ML Medicat ed Liquid Soap [Hibiclens] Hibiclens 4 % Hibiclens 4 % 09/06/2020 12:00:00 AM EST act roxana Hibiclens 4 % eCW1 ([facility]) valacyclovir 500 MG Oral Tablet [Valtrex] Valtrex 500 MG Cecilia trex 500 MG 09/06/2020 12:00:00 AM EST 1.0 {tablet} active Valtrex 500 MG eCW1 ([facility]) 800 mg 09/05/2020 12:00:00 AM EST tablet 45 TAKE ONE TABLET BY MOUTH THREE TIMES A DAY NEEDED TAKE ONE TABLET BY MOUTH THREE TIMES A DAY NEEDED S OLD: 09/06/2020 [facility] Oxymetazoline hydrochloride 0.5 MG/ML Nasal [place] Afrin 12 H our 08/23/2020 12:00:00 AM EST active M EDENT ([facility], [facility]) Cromolyn Sodium 5.2 MG/ACTUAT Nasal [place] Cromolyn Sodium 08/23/2020 12:00:00 AM EST active MEDENT ([facility], [facility]) 10-325 mg 08/16/2020 12:00:00 AM EST tablet 60 TAKE ONE TABLET BY MOUTH EVERY 12 HOURS NEEDED MAXIMUM DAILY DOSE = 2 TAKE ONE TABLET BY MOUTH EVERY 12 HOURS NEEDED MAXIMUM DAILY DOSE = 2 SOLD: 08/16/2020 [facility] Sulfamethoxazole 400 MG / Trimethoprim 80 MG Oral Tabl et 400-80 mg SULFAMETHOXAZOLE/TRIMETHOPRIM 08/01/2020 12:00:00 AM EDT tablet 14 TAKE ONE TABLET BY MOUTH TWICE A DAY FOR 7 DAYS TAKE ONE TABLET BY MOUTH TWICE A DAY FOR 7 DAYS SOLD: 08/01/2020 [facility] Sulfamethoxazole 400 MG / Trimethoprim 80 MG Oral Tabl et Sulfamethoxazole-Trimethoprim 08/01/2020 12:00:00 AM EDT ORAL active MEDENT ([facility]) 0.01 % (0.1 mg/gram) 07/26/2020 12:00:00 AM EDT cream 42 INSERT APPLICATOR VAGINALLY OF 1 GM ONCE A WEEK INSERT APPLICATOR VAGINALLY OF 1 GM ONCE A WEEK SOLD: 07/28/2020 [facility] Estradiol 0.1 MG/ML Vaginal Cream [Estrace] Estrace 07/07 12:00:00 AM EDT active MEDENT ( [facility]) 800 mg 07/18/2020 12:00:00 AM EDT tablet 45 TAKE ONE TABLET BY MOUTH THREE TIMES A DAY NEEDED TAKE ONE TABLET BY MOUTH THREE TIMES A DAY NEEDED S OLD: 07/23/2020 [facility] 5 % 07/16/2020 12:00:00 AM EDT adhesive patch,medicate d 30 APPLY ONE PATCH ONCE DAILY. 12 HOURS ON-12 HOURS OFF APPLY ONE PATCH ONCE DAILY. 12 HOURS ON- 12 HOURS OFF SOLD: 08/16/2020 [facility] 300 mg 07/16/2020 12:00:00 AM EDT capsule 90 TAKE ONE CAPSULE BY MOUTH THREE TIMES A DAY TAKE ONE CAPSULE BY MOUTH THREE TIMES A DAY SOLD: 07/17/2020 [facility] 5 % 07/16/2020 12:00:00 AM EDT adhesive patch,medicate d 30 APPLY ONE PATCH ONCE DAILY. 12 HOURS ON-12 HOURS OFF APPLY ONE PATCH ONCE DAILY. 12 HOURS ON- 12 HOURS OFF SOLD: 07/17/2020 [facility] 300 mg 07/16/2020 12:00:00 AM EDT capsule 90 TAKE ONE CAPSULE BY MOUTH THREE TIMES A DAY TAKE ONE CAPSULE BY MOUTH THREE TIMES A DAY SOLD: 08/16/2020 [facility] 10-325 mg 07/11/2020 12:00:00 AM EDT tablet 60 TAKE 1 TABLET BY MOUTH EVERY 12 HOURS NEEDED MAXIMUM DAILY DOSE = 2 TAKE 1 TABLET BY MOUTH EVERY 12 HOURS NEEDED MAXIMUM DAILY DOSE = 2 SOLD: 07/11/2020 [facility] 20 mg 07/11/2020 12:00:00 AM EDT capsule,delayed release (DR/EC) 30 TAKE ONE CAPSULE BY MOUTH EVERY DAY TAKE ONE CAPSULE BY MOUTH EVERY DAY SOLD: 08/16/2020 [facility] 20 mg 07/11/2020 12:00:00 AM EDT capsule,delayed release (DR/EC) 30 TAKE ONE CAPSULE BY MOUTH EVERY DAY TAKE ONE CAPSULE BY MOUTH EVERY DAY SOLD: 07/14/2020 [facility] 150 mg 07/04/2020 12:00:00 AM EDT tablet 3 TAKE ONE TABLET BY MOUTH ON DAYS 1, 3 AND 7 TAKE ONE TABLET BY MOUTH ON DAYS 1, 3 AND 7 SOLD: 07/05/2020 [facility] 500 mg 07/04/2020 12:00:00 AM EDT tablet 6 TAKE ONE TABLET BY MOUTH TWICE A DAY FOR 3 DAYS TAKE ONE TABLET BY MOUTH TWICE A DAY FOR 3 DAYS SOLD: 2019 [facility] Metronidazole 500 MG Oral Tablet METRONIDAZOLE 07/04/2020 12:0 0:00 AM EDT tablet 14 TAKE ONE TABLET BY MOUTH TWICE A DAY FOR 7 DAYS TAKE ONE TABLET BY MOUTH TWICE A DAY FOR 7 DAYS SOLD: 07/05/2020 [facility] Fluconazole 150 MG Oral Tablet Fluconazole 07/04/2020 12:00:00 AM EDT ORAL completed MEDENT ([facility]) 500 mg 07/04/2020 12:00:00 AM EDT tablet 6 TAKE ONE TABLET BY MOUTH TWICE A DAY FOR 3 DAYS TAKE ONE TABLET BY MOUTH TWICE A DAY FOR 3 DAYS SOLD: 2019 [facility] 150 mg 07/04/2020 12:00:00 AM EDT tablet 3 TAKE ONE TABLET BY MOUTH ON DAYS 1, 3 AND 7 TAKE ONE TABLET BY MOUTH ON DAYS 1, 3 AND 7 SOLD: 09/07/2020 [facility] 150 mg 07/04/2020 12:00:00 AM EDT tablet 3 TAKE ONE TABLET BY MOUTH ON DAYS 1, 3 AND 7 TAKE ONE TABLET BY MOUTH ON DAYS 1, 3 AND 7 SOLD: 08/05/2020 [facility] 500 mg 07/04/2020 12:00:00 AM EDT tablet 6 TAKE ONE TABLET BY MOUTH TWICE A DAY FOR 3 DAYS TAKE ONE TABLET BY MOUTH TWICE A DAY FOR 3 DAYS SOLD: 2019 [facility] 500 mg 07/04/2020 12:00:00 AM EDT tablet 6 TAKE ONE TABLET BY MOUTH TWICE A DAY FOR 3 DAYS TAKE ONE TABLET BY MOUTH TWICE A DAY FOR 3 DAYS SOLD: 2019 [facility] Metronidazole 500 MG Oral Tablet Metronidazole 07/04/2020 12:00:00 AM EDT ORAL completed MEDENT ([facility]) methylPREDNISolone acetate (DEPO-MEDROL) injection 80 mg 0 06/30/2020 01:30:00 PM EDT 80 mg Intra-articular completed 80 mg, Intra- articular, Once, Lenore 06/30/20 at 1330, For 1 dose
Depo-medrol genetic 2 cc - [id number]
[facility] Medication administered onsite methylPREDNISolone acetate (DEPO-MEDROL) injection 80 mg 06/30/2020 01:30:00 PM EDT 80 mg Intra-articular completed 80 mg, Intra- articular, Once, Lenore 06/30/20 at 1330, For 1 dose
Depo-medrol genetic 2 cc - [id number]
[facility] Medication administered onsite 500 mg 05/25/2020 12:00:00 AM EDT tablet 6 TAKE ONE TABLET BY MOUTH TWICE A DAY FOR 3 DAYS TAKE ONE TABLET BY MOUTH TWICE A DAY FOR 3 DAYS SOLD: 2019 [facility] Fluconazole 150 MG Oral Tablet Fluconazole 05/25/2020 12:00:00 AM EDT ORAL completed MEDENT ([facility]) 500 mg 05/25/2020 12:00:00 AM EDT tablet 6 TAKE ONE TABLET BY MOUTH TWICE A DAY FOR 3 DAYS TAKE ONE TABLET BY MOUTH TWICE A DAY FOR 3 DAYS SOLD: 2019 [facility] methylPREDNISolone acetate (DEPO-MEDROL) injection 80 mg 05/18/2020 02:45:00 PM EDT 80 mg Intra-articular [facility] Sulfamethoxazole 400 MG / Trimethoprim 8 0 MG Oral Tablet sulfamethoxazole 400 mg-trimethoprim 80 mg tablet TAKE ONE TABLET BY MOUTH TWICE A DAY FOR 7 DAYS sulfamethoxazole 400 mg-trimethoprim 80 mg tablet TAKE ONE TABLET BY MOUTH TWICE A DAY FOR 7 DAYS completed sulfamethoxazole 400 MG / trimethoprim 80 MG Oral Tablet [facility] ([facility]) Afluria Quad [id number] 60 mcg (15 mcg x 4)/0.5 mL intramuscular susp. INJECT DIRECTED [id number] completed Afluri a Quad 60 mcg (15 mcg x 4)/0.5 mL intramuscular susp. KADEN ([facility]) Ciprofloxacin 500 MG Oral Tablet ciprofl oxacin 500 mg tablet TAKE ONE TABLET BY MOUTH TWICE A DAY FOR 5 DAYS ciprofloxacin 500 mg tablet TAKE ONE TAB LET BY MOUTH TWICE A DAY FOR 5 DAYS completed ciprofloxacin 500 MG Oral Tablet [facility] ([facility]) Cephalexin 500 MG Oral Capsule cephalexin 500 mg capsu le cephalexin 500 mg capsule completed cephalexin 500 MG Oral Capsule [facility] ([facility]) Afluria Quad 60 mcg (15 mcg x 4)/0.5 mL intramuscular susp. INJECT DIRECTED [id number] completed influe nza A virus A/ (H1N1) antigen 0.03 MG/ML / influenza A virus A/[place] (H3N2) antigen 0.03 MG/ML / influenza B virus B/[place] antigen 0.03 MG/ML / influenza B virus B/[facility] antigen 0.03 MG/ML Injectable Suspension [Afluria Quadrivalent [id number]] [facility]EN ([facility]) Fluconazole 150 MG Oral Tablet fluconazole 150 mg tabl et fluconazole 150 mg tablet completed fluconazole 150 MG Oral Tablet [facility] ([facility]) Ciprofloxacin 500 MG Oral Tablet ciprofl oxacin 500 mg tablet TAKE ONE TABLET BY MOUTH TWICE A DAY ciprofloxacin 500 mg tablet TAKE ONE TAB LET BY MOUTH TWICE A DAY completed ciprofloxacin 50 0 MG Oral Tablet [facility] ([facility]) cetirizine hydrochloride 10 MG Oral Tabl et cetirizine 10 mg tablet TAKE ONE TABLET BY MOUTH EVERY DAY cetirizine 10 mg tablet TAKE ONE TABLET BY MOUTH EVERY DAY completed cetirizine hydro chloride 10 MG Oral Tablet [facility] ([facility]) Diclofenac Sodium 0.01 MG/MG Topical Gel diclofenac 1 % topical gel diclofenac 1 % topical gel completed diclofenac sodium 0.01 MG/MG Topical Gel [facility] ([facility]) Metronidazole 500 MG Oral Tablet metronidazole 500 mg tablet metronidazole 500 mg tablet completed metronidazol e 500 MG Oral Tablet [facility] ([facility]) Cephalexin 500 MG Oral Capsule cephalexin 500 mg capsu le cephalexin 500 mg capsule completed cephalexin 500 MG Oral Capsule [facility] ([facility]) Afluria Quad 60 mcg (15 mcg x 4)/0.5 mL intramuscular susp. INJECT DIRECTED [id number] completed Afluri a Quad 60 mcg (15 mcg x 4)/0.5 mL intramuscular susp. [facility]ADEN ([facility]) Cephalexin 500 MG Oral Capsule cephalexin 500 mg capsu le cephalexin 500 mg capsule completed cephalexin 500 MG Oral Capsule [facility] ([facility]) cetirizine hydrochloride 10 MG Oral Tabl et cetirizine 10 mg tablet TAKE ONE TABLET BY MOUTH EVERY DAY cetirizine 10 mg tablet TAKE ONE TABLET BY MOUTH EVERY DAY completed cetirizine hydro chloride 10 MG Oral Tablet [facility] ([facility]) Afluria Quad 60 mcg (15 mcg x 4)/0.5 mL intramuscular susp. INJECT DIRECTED [id number] completed influe nza A virus A/[place] (H3N2) antigen 0.03 MG/ML / influenza A virus A/ (H1N1) antigen 0.03 MG/ML / influenza B virus B/[facility] antigen 0.03 MG/ML / influenza B virus B/[place] antigen 0.03 MG/ML Injectable Suspension [Afluria Quadrivalent ] [facility] ([facility]) Sulfamethoxazole 400 MG / Trimethoprim 8 0 MG Oral Tablet sulfamethoxazole 400 mg-trimethoprim 80 mg tablet TAKE ONE TABLET BY MOUTH TWICE A DAY FOR 7 DAYS sulfamethoxazole 400 mg-trimethoprim 80 mg tablet TAKE ONE TABLET BY MOUTH TWICE A DAY FOR 7 DAYS completed sulfamethoxazole 400 MG / trimethoprim 80 MG Oral Tablet [facility] ([facility]) Afluria Quad 60 mcg (15 mcg x 4)/0.5 mL intramuscular susp. INJECT DIRECTED [id number] completed influe nza A virus A/[place] (H1N1) antigen 0.03 MG/ML / influenza A virus A/ (H3N2) antigen 0.03 MG/ML / influenza B virus B/ antigen 0.03 MG/ML / influenza B virus B/[facility] antigen 0.03 MG/ML Injectable Suspension [Afluria Quadrivalent ] [facility] ([facility]) Sulfamethoxazole 400 MG / Trimethoprim 8 0 MG Oral Tablet sulfamethoxazole 400 mg-trimethoprim 80 mg tablet TAKE ONE TABLET BY MOUTH TWICE A DAY FOR 7 DAYS sulfamethoxazole 400 mg-trimethoprim 80 mg tablet TAKE ONE TABLET BY MOUTH TWICE A DAY FOR 7 DAYS completed sulfamethoxazole 400 MG / trimethoprim 80 MG Oral Tablet [facility] ([facility]) cetirizine hydrochloride 10 MG Oral Tabl et cetirizine 10 mg tablet TAKE ONE TABLET BY MOUTH EVERY DAY cetirizine 10 mg tablet TAKE ONE TABLET BY MOUTH EVERY DAY completed cetirizine hydro chloride 10 MG Oral Tablet [facility] ([facility]) cetirizine hydrochloride 10 MG Oral Tabl et cetirizine 10 mg tablet TAKE ONE TABLET BY MOUTH EVERY DAY cetirizine 10 mg tablet TAKE ONE TABLET BY MOUTH EVERY DAY completed cetirizine hydro chloride 10 MG Oral Tablet [facility] ([facility]) Ciprofloxacin 500 MG Oral Tablet ciprofl oxacin 500 mg tablet TAKE ONE TABLET BY MOUTH TWICE A DAY FOR 5 DAYS ciprofloxacin 500 mg tablet TAKE ONE TAB LET BY MOUTH TWICE A DAY FOR 5 DAYS completed ciprofloxacin 500 MG Oral Tablet [facility] ([facility]) Diclofenac Sodium 0.01 MG/MG Topical Gel diclofenac 1 % topical gel diclofenac 1 % topical gel completed diclofenac sodium 0.01 MG/MG Topical Gel [facility] ([facility]) Metronidazole 500 MG Oral Tablet metronidazole 500 mg tablet metronidazole 500 mg tablet completed metronidazol e 500 MG Oral Tablet [facility] ([facility]) Metronidazole 500 MG Oral Tablet metronidazole 500 mg tablet metronidazole 500 mg tablet completed metronidazol e 500 MG Oral Tablet [facility] ([facility]) Afluria Quad 60 mcg (15 mcg x 4)/0.5 mL intramuscular susp. INJECT DIRECTED [id number] completed influe nza A virus A/ (H1N1) antigen 0.03 MG/ML / influenza A virus A/ (H3N2) antigen 0.03 MG/ML / influenza B virus B/[place] antigen 0.03 MG/ML / influenza B virus B/[facility]30712/2012 antigen 0.03 MG/ML Injectable Suspension [Afluria Quadrivalent [id number]] [facility] ([facility]) Diclofenac Sodium 0.01 MG/MG Topical Gel diclofenac 1 % topical gel diclofenac 1 % topical gel completed diclofenac sodium 0.01 MG/MG Topical Gel [facility] ([facility]) Estradiol 0.1 MG/ML Vaginal Cream estrad iol 0.01% (0.1 mg/gram) vaginal cream INSERT APPLICATOR VAGINALLY OF 1 GM ONCE A WEEK estradiol 0.01% (0.1 mg/gram) vaginal cream INSERT APPLICATOR VAGINALLY OF 1 GM ONCE A WEEK completed estradiol 0.1 MG/ML Vaginal Crea m [facility] ([facility]) Diclofenac Sodium 0.01 MG/MG Topical Gel diclofenac 1 % topical gel diclofenac 1 % topical gel completed diclofenac sodium 0.01 MG/MG Topical Gel [facility] ([facility]) Diclofenac Sodium 0.01 MG/MG Topical Gel diclofenac 1 % topical gel diclofenac 1 % topical gel completed diclofenac sodium 0.01 MG/MG Topical Gel [facility] ([facility]) Naproxen 375 MG Oral Tablet naproxen 375 mg tablet as directed naproxen 375 mg tablet as directed completed nap roxen 375 MG Oral Tablet [facility] ([facility]) Naproxen 375 MG Oral Tablet naproxen 375 mg tablet as directed naproxen 375 mg tablet as directed completed nap roxen 375 MG Oral Tablet [facility] ([facility]) Naproxen 375 MG Oral Tablet naproxen 375 mg tablet as directed naproxen 375 mg tablet as directed completed nap roxen 375 MG Oral Tablet [facility] ([facility] [facility]) Naproxen 375 MG Oral Tablet naproxen 375 mg tablet as directed naproxen 375 mg tablet as directed completed nap roxen 375 MG Oral Tablet KADEN ([facility]) Sulfamethoxazole 400 MG / Trimethoprim 8 0 MG Oral Tablet sulfamethoxazole 400 mg-trimethoprim 80 mg tablet TAKE ONE TABLET BY MOUTH TWICE A DAY FOR 7 DAYS sulfamethoxazole 400 mg-trimethoprim 80 mg tablet TAKE ONE TABLET BY MOUTH TWICE A DAY FOR 7 DAYS completed sulfamethoxazole 400 MG / trimethoprim 80 MG Oral Tablet KAD[facility] ([facility]) Afluria Quad 60 mcg (15 mcg x 4)/0.5 mL intramuscular susp. INJECT DIRECTED [id number] completed influe nza A virus A/ (H1N1) antigen 0.03 MG/ML / influenza A virus A/ (H3N2) antigen 0.03 MG/ML / influenza B virus B/ antigen 0.03 MG/ML / influenza B virus B/[facility] antigen 0.03 MG/ML Injectable Suspension [Afluria Quadrivalent ] KADEN ([facility]) Estradiol 0.1 MG/ML Vaginal Cream estrad iol 0.01% (0.1 mg/gram) vaginal cream INSERT APPLICATOR VAGINALLY OF 1 GM ONCE A WEEK estradiol 0.01% (0.1 mg/gram) vaginal cream INSERT APPLICATOR VAGINALLY OF 1 GM ONCE A WEEK completed estradiol 0.1 MG/ML Vaginal Crea m KADEN ([facility]) [facility] Quad 60 mcg (15 mcg x 4)/0.5 mL intramuscular susp. INJECT DIRECTED [id number] completed influe nza A virus A/ (H1N1) antigen 0.03 MG/ML / influenza A virus A/ (H3N2) antigen 0.03 MG/ML / influenza B virus B/ antigen 0.03 MG/ML / influenza B virus B/[facility] antigen 0.03 MG/ML Injectable Suspension [facility] ([facility]) Ciprofloxacin 500 MG Oral Tablet ciprofl oxacin 500 mg tablet TAKE ONE TABLET BY MOUTH TWICE A DAY FOR 5 DAYS ciprofloxacin 500 mg tablet TAKE ONE TAB LET BY MOUTH TWICE A DAY FOR 5 DAYS completed ciprofloxacin 500 MG Oral Tablet KADEN ([facility]) Naproxen 375 MG Oral Tablet naproxen 375 mg tablet as directed naproxen 375 mg tablet as directed completed nap roxen 375 MG Oral Tablet KAD[facility] ([facility]) Afluria Quad 60 mcg (15 mcg x 4)/0.5 mL intramuscular susp. INJECT DIRECTED [id number] completed influe nza A virus A/[place] (H1N1) antigen 0.03 MG/ML / influenza A virus A/[place] (H3N2) antigen 0.03 MG/ML / influenza B virus B/ antigen 0.03 MG/ML / influenza B virus B/[facility] antigen 0.03 MG/ML Injectable Suspension [Afluria Quadrivalent ] KADEN ([facility]) Cephalexin 500 MG Oral Capsule cephalexin 500 mg capsu le cephalexin 500 mg capsule completed cephalexin 500 MG Oral Capsule KADEN ([facility]) Naproxen 375 MG Oral Tablet naproxen 375 mg tablet as directed naproxen 375 mg tablet as directed completed nap roxen 375 MG Oral Tablet KADEN ([facility]) Cephalexin 500 MG Oral Capsule cephalexin 500 mg capsu le cephalexin 500 mg capsule completed cephalexin 500 MG Oral Capsule KADEN ([facility]) Ciprofloxacin 500 MG Oral Tablet ciprofl oxacin 500 mg tablet TAKE ONE TABLET BY MOUTH TWICE A DAY FOR 5 DAYS ciprofloxacin 500 mg tablet TAKE ONE TAB LET BY MOUTH TWICE A DAY FOR 5 DAYS completed ciprofloxacin 500 MG Oral Tablet KADEN ([facility]) Diclofenac Sodium 0.01 MG/MG Topical Gel diclofenac 1 % topical gel diclofenac 1 % topical gel completed diclofenac sodium 0.01 MG/MG Topical Gel KADEN ([facility]) Naproxen 375 MG Oral Tablet naproxen 375 mg tablet as directed naproxen 375 mg tablet as directed completed nap roxen 375 MG Oral Tablet KADEN ([facility]) Sulfamethoxazole 400 MG / Trimethoprim 8 0 MG Oral Tablet sulfamethoxazole 400 mg-trimethoprim 80 mg tablet TAKE ONE TABLET BY MOUTH TWICE A DAY FOR 7 DAYS sulfamethoxazole 400 mg-trimethoprim 80 mg tablet TAKE ONE TABLET BY MOUTH TWICE A DAY FOR 7 DAYS completed sulfamethoxazole 400 MG / trimethoprim 80 MG Oral Tablet KADEN ([facility]) cetirizine hydrochloride 10 MG Oral Tabl et cetirizine 10 mg tablet TAKE ONE TABLET BY MOUTH EVERY DAY cetirizine 10 mg tablet TAKE ONE TABLET BY MOUTH EVERY DAY completed cetirizine hydro chloride 10 MG Oral Tablet KADEN ([facility]) Afluria Quad 60 mcg (15 mcg x 4)/0.5 mL intramuscular susp. INJECT DIRECTED [id number] completed influe nza A virus A/ (H1N1) antigen 0.03 MG/ML / influenza A virus A/ (H3N2) antigen 0.03 MG/ML / influenza B virus B/ antigen 0.03 MG/ML / influenza B virus B/[facility] antigen 0.03 MG/ML Injectable Suspension [Afluria Quadrivalent ] KADEN ([facility]) Metronidazole 500 MG Oral Tablet metronidazole 500 mg tablet metronidazole 500 mg tablet completed metronidazol e 500 MG Oral Tablet KADEN ([facility]) Diclofenac Sodium 0.01 MG/MG Topical Gel diclofenac 1 % topical gel diclofenac 1 % topical gel completed diclofenac sodium 0.01 MG/MG Topical Gel KADEN ([facility]) cetirizine hydrochloride 10 MG Oral Tabl et cetirizine 10 mg tablet TAKE ONE TABLET BY MOUTH EVERY DAY cetirizine 10 mg tablet TAKE ONE TABLET BY MOUTH EVERY DAY completed cetirizine hydro chloride 10 MG Oral Tablet KADEN ([facility]) Naproxen 375 MG Oral Tablet naproxen 375 mg tablet as directed naproxen 375 mg tablet as directed completed nap roxen 375 MG Oral Tablet KADEN ([facility]) Diclofenac Sodium 0.01 MG/MG Topical Gel diclofenac 1 % topical gel diclofenac 1 % topical gel completed diclofenac sodium 0.01 MG/MG Topical Gel KADEN ([facility]) Sulfamethoxazole 400 MG / Trimethoprim 8 0 MG Oral Tablet sulfamethoxazole 400 mg-trimethoprim 80 mg tablet TAKE ONE TABLET BY MOUTH TWICE A DAY FOR 7 DAYS sulfamethoxazole 400 mg-trimethoprim 80 mg tablet TAKE ONE TABLET BY MOUTH TWICE A DAY FOR 7 DAYS completed sulfamethoxazole 400 MG / trimethoprim 80 MG Oral Tablet KADEN ([facility]) Afluria Quad 60 mcg (15 mcg x 4)/0.5 mL intramuscular susp. INJECT DIRECTED [id number] completed influe nza A virus A/ (H1N1) antigen 0.03 MG/ML / influenza A virus A/ (H3N2) antigen 0.03 MG/ML / influenza B virus B/ antigen 0.03 MG/ML / influenza B virus B/[facility] antigen 0.03 MG/ML Injectable Suspension [Afluria Quadrivalent ] KADEN ([facility]) Naproxen 375 MG Oral Tablet naproxen 375 mg tablet as directed naproxen 375 mg tablet as directed completed nap roxen 375 MG Oral Tablet KADEN ([facility]) Mupirocin 0.02 MG/MG Topical Ointment mupirocin 2 % to pical ointment mupirocin 2 % topical ointment completed mupirocin 0.02 MG/MG Topical Ointment KADEN ([facility]) Cephalexin 500 MG Oral Capsule cephalexin 500 mg capsu le cephalexin 500 mg capsule completed cephalexin 500 MG Oral Capsule KADEN ([facility]) Diclofenac Sodium 0.01 MG/MG Topical Gel diclofenac 1 % topical gel diclofenac 1 % topical gel completed diclofenac sodium 0.01 MG/MG Topical Gel KADEN ([facility]) Afluria Quad 60 mcg (15 mcg x 4)/0.5 mL intramuscular susp. INJECT DIRECTED [id number] completed influe nza A virus A/ (H1N1) antigen 0.03 MG/ML / influenza A virus A/[place] (H3N2) antigen 0.03 MG/ML / influenza B virus B/ antigen 0.03 MG/ML / influenza B virus B/[facility] antigen 0.03 MG/ML Injectable Suspension [Afluria Quadrivalent ] KADEN ([facility]) Afluria Quad 60 mcg (15 mcg x 4)/0.5 mL intramuscular susp. INJECT DIRECTED [id number] completed Afluri a Quad 60 mcg (15 mcg x 4)/0.5 mL intramuscular susp. KADEN ([facility]) Naproxen 375 MG Oral Tablet naproxen 375 mg tablet as directed naproxen 375 mg tablet as directed completed nap roxen 375 MG Oral Tablet KADEN ([facility]) Metronidazole 500 MG Oral Tablet metronidazole 500 mg tablet metronidazole 500 mg tablet completed metronidazol e 500 MG Oral Tablet KADEN ([facility]) Estradiol 0.1 MG/ML Vaginal Cream estrad iol 0.01% (0.1 mg/gram) vaginal cream INSERT 1 APPLICATORFUL OF 1 GRAM VAGINALLY ONCE WEEKLY estradiol 0.01% (0.1 mg/gram) vaginal cream INSERT 1 APPLICATORFUL OF 1 GRAM VAGINALLY ONCE WEEKLY completed estradiol 0.1 MG/ML Vaginal Cream KADEN ([facility]) Metronidazole 500 MG Oral Tablet metronidazole 500 mg tablet metronidazole 500 mg tablet completed metronidazol e 500 MG Oral Tablet KADEN ([facility]) Insurance Providers Payer name Policy type / Coverage type Policy ID Covered republican ID Covered republican's relationship to bertrand Policy Bertrand Plan Information [facility] [id number] Empl [id number] [facility] [id number] [facility] [id number] [facility] Self-Ins Workers Compensation [id number] Self [facility] [id number] [facility] [id number] Medicaid [facility] Part B [id number] Self [id number] MEDICARE [id number] SP [id number] [place] Med[place] B [id number] Self [id number] Medicare Part A [place] Medicare Primary 171 Self [place] Med[place] Part B [id number] Self [id number] [place] Part [place] [id number] Self 12 [id number] MEDICARE PART A [facility] [id number] 18 [id number] [place] [id number] Self 12 [id number] [place] [id number] Self 12 [id number] MEDICARE A [id number] Self [id number] [id number] Self [id number] [place] [id number] Self 12 [id number] [place] Med[place]ap [place] B [id number] Self [id number] MEDICARE [id number] A MEDICARE PART A [facility] [id number] 18 [id number] Medicare Part A [place] Medicare Primary [id number] Self 12 [id number] MEDICARE PART A [facility] [id number] 18 [id number] [facility] S.I. [id number] SP [id number] MEDICARE A [id number] Self [id number] [employer] Workers Compensation [id number] Self [id number] [employer] E [id number] Self [id number] [facility] SELF INSURED [id number] [employer] Workers Compensation [id number] Self [id number] [employer] [id number] 017 [id number] [facility] SELF INSURED [id number] [employer] Workers Compensation [id number] Self [id number] Self Pay P UNAVAILABLE S UNAVAILA BLE MEDICARE -O/P [id number] 18 [id number] MEDICARE PART A -O/P [id number] 18 [id number] MEDICAID [id number] SP [id number] MEDICARE PART A-CL[facility] [id number] 18 [id number] SELF PAY UNAVAILABLE SP UNAVAILA BLE [place] SELF INS O [id number] S [id number] [place] Medicare Primary [id number] Self [employer]-[place] [id number] SP [id number] [place] [id number] SP [id number] [place] SELF INSURED [id number] SP [id number] [employer] INS NO FAULT [id number] SP [id number] [employer] NO FAULT [id number] SP [id number] [employer] P [id number] S [id number] [employer] NO FAULT [id number] SP [id number] [employer] [id number] SP [id number] [place] [id number] SP [id number] MEDICARE [id number] SP [id number] [id number] A Sliding Fee Scale S [id number] S [id number] Self Pay P [id number] S [id number] MEDICARE [id number] S [id number] MEDICARE [id number] SP [id number] A ANSI-Medicare Part B [id number] ANSI-Medicare Part B [id number] ANSI-Medicare Part B [id number] ANSI-Medicare Part B [id number] Medicare Natl Gov't Servi Medicare Primary [id number] Self [id number] Blue Shield MCR Advantage Medigap Part B [id number] Self [id number] Blue Shield MCR Advantage Medigap Part B [id number] Self [id number] Medicare Natl Gov't Servi Medicare Primary [id number] Self [id number] Medicare Natl Gov't Servi Medicare Primary [id number] Self [id number] Medicare Natl Gov't Servi Medicare Primary [id number] [id number] Self [id number] [place] Medicare Primary [id number] Self 1 [id number] Medicare Natl Gov't Servi Medicare Primary [id number] [id number] Self [id number] [place] Medicare Primary [id number] Self 1 [id number] Medicare [place] Medicare Primary [id number] Self 1 [id number] Medicare Natl Gov't Servi Medicare Primary [id number] [id number] Self [id number] Medicare Natl Gov't Servi Medicare Primary [id number] [id number] Self [id number] [facility] Advantage Medigap Part B [id number] [id number] Self [id number] Medicare Natl Gov't Servi Medicare Primary [id number] [id number] Self [id number] Sliding Fee Scale P none S no ne Medicare (Part B) Medicare Primary [id number] [id number] Self 1 [id number] [place]/[facility] Medicare Primary [id number] [id number] Self 1 [id number] Medicare Natl Gov't Servi Medicare Primary [id number] [id number] Self [id number] Medicare Natl Gov't Servi Medicare Primary [id number] [id number] Self [id number] MEDICARE C [id number] S [id number] A Sliding Fee Scale P UNAVAILABLE S UNAVAILABLE Problems, Conditions, and Diagnoses Code Display Name Description Problem Type Effective Dates Data Source(s) B0089 Other herpesviral infection Other herpesviral infectio n Diagnosis 07/10/2021 10:18:00 AM EDT [facility] N952 Postmenopausal atrophic vaginitis Postmenopausal atrophic vaginitis Diagnosis 07/10/2021 10:18:00 AM T [facility] [id number] Encounter for gynecological examination (general) (routine) without abnormal findings Encounter for gynecological examination (general) (routine) without abnormal findings Diagnosis 07/10/2021 10:18:00 AM EDT [facility] M54.2 Cervicalgia Cervicalgia Diagnosis 07/28/2020 09:53:13 AM T [facility] Z803 Family history of malignant neoplasm of breast Family history of malignant neoplasm of breast Diagnosis 07/04/2020 10:55:00 AM EDT [facility] N760 Acute vaginitis Acute vaginitis Diagnosis 07/04/2020 10:5 5:00 AM EDT [facility] M75.42 Impingement syndrome of left shoulder Im pingement syndrome of left shoulder Diagnosis 06/21/2020 10:34:06 AM EDT 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 Problem 09/06/2020 12:00:00 AM EST eCW1 ([facility]) E89.40 [id number] Surgical menopause Problem 09/06/2020 12:00: 00 AM EST eCW1 ([facility]) A60.04 [id number] Herpes simplex vulvovaginitis Problem 09/06/2020 12:00:00 AM EST eCW1 ([facility]) 525.9 Dental disorder Dental disorder 08/04/2020 01:2 7:26 PM EDT [facility] [id number] Family history of breast cancer Family history o f breast cancer Problem 07/04/2020 12:00:00 AM EDT [facility] ([facility]) Note: M Surgeries/Procedures Procedure Description Date Indications Data Source(s) ARTHROCENTESIS ASPIR&/INJECTION MAJOR JT/BURSA 021 12:00:00 AM EDT [facility] ([facility] ) OFFICE OUTPATIENT VISIT 25 MINUTES 07/26/2021 12:00:00 AM EDT [facility] ([facility] ) PERIODIC PREVENTIVE MED EST PATIENT 40-64YRS 12:00:00 AM EDT [facility] ([facility]) ARTHROCENTESIS ASPIR&/INJECTION MAJOR JT/BURSA 021 12:00:00 AM EDT [facility] ([facility] ) OFFICE OUTPATIENT VISIT 25 MINUTES 02/15/2021 12:00:00 AM EDT [facility] ([facility] ) ARTHROCENTESIS ASPIR&/INJECTION MAJOR JT/BURSA 021 12:00:00 AM EST [facility] ([facility] ) RADEX SHOULDER COMPLETE MINIMUM 2 VIEWS 11/22/2020 12: 00:00 AM EST [facility] ([facility]) RADEX SHOULDER COMPLETE MINIMUM 2 VIEWS 11/22/2020 12: 00:00 AM EST [facility] ([facility]) Mammography (procedure) 07/15/2020 12:00:00 AM EDT [facility] ([facility]) Results ID Date Data Source [id number] 07/10/2021 10:51:00 AM EDT [facility] ([facility]) Name Value Range Interpretation Code Description Data Barbie rce(s) Supporting Document(s) Mammo Screening Bilateral with CAD Laboratory test result [facility] ([facility]) ID Date Data Source [id number] 06/27/2021 09:05:00 AM EDT [facility] ([facility]) Name Value Range Interpretation Code Description Data Barbie rce(s) Supporting Document(s) Mammo Screening Bilateral with CAD Laboratory test result [facility] ([facility]) ID Date Data Source MRSA PCR Screen 10/10/2020 12:00:00 AM EST eCW1 ([facility]) Name Value Range Interpretation Code Description Data Barbie rce(s) Supporting Document(s) MRSA PCR Screen eCW1 ([facility]) ID Date Data Source [id number] 10/07/2020 11:21:00 AM EST [facility] Name Value Range Interpretation Code Description Data Barbie rce(s) Supporting Document(s) Progress Note [facility] JFAPQx4zTlCYGcWl67/XIPhbQLWhr3IeBAkgENd3PJdvRTZpQ5SuDOU2uQ2pWTQ9HCjFKfKwTmUjMDAd lbm [file] ICAgICAgICAgICAgICAgICAgICAgICAgICAgICAgICAgICAgICAgICAgICAgICAgICAgICAgICAgICAg IAVzEKBgXBAmSMSnTI5AKMOrWYIbLFYaUEOaPADhYC AgICAgICAgICAgICAgICAgICAgICAgICAgICAgICAgICAgICAgICAgICAgICAgICAgICAgICAgICAgIC YvYFTvNMUhGIUbKBZlVYZcRLTtSERfEZ5JZRLzEPEfHNWvKENbSPTnJSXwUCSaTKQyOHQlSDVxCFYiFT AgICAgICAgICAgICAgICAgICAgICAgICAgICAgICAg IIMtBVMtQMOvKVZhHDYgHPCkXBQbMQLxQBIsEWMnXGYdDO9DCIPlJBFtUENyDRDgWWEsNVZzYWAqSSVv ICAgICAgICAgICAgICAgICAgICAgICAgICAgICAgICAgICAgICAgICAgICAgICAgICAgICAgICAgICAg OEAgSNXyYMPoMHRbVMIlAU9NRIIoVRFkNMDaJCTmOM AgICAgICAgICAgICAgICAgICAgICAgICAgICAgICAgICAgICAgICAgICAgICAgICAgICAgICAgICAgIC IcGLDnFIYkUTVnIYXrWAVyWOIiTLFqZNTfWW0KMPFmSLRjKDIjEYTrCSDkYMJdDLFyLARlEJVwMNFqBL AgICAgICAgICAgICAgICAgICAgICAgICAgICAgICAg CUPwBBUhKLJoURGgERQkOZFwFXXhCNIeTSKeAOAkVRQaRIYsWP3NCXRnSJUhOLBdAHLkVAEzBXXyVHId ICAgICAgICAgICAgICAgICAgICAgICAgICAgICAgICAgICAgICAgICAgICAgICAgICAgICAgICAgICAg SOZkHUNeWUAaRETiIDUlZYEfNJ0FUXDbFLKoVXOwJW AgICAgICAgICAgICAgICAgICAgICAgICAgICAgICAgICAgICAgICAgICAgICAgICAgICAgICAgICAgIC XlFAYzUOSxWXLmPAIjPHJePLEkTIAbQVBdYZJxKO9GHSXzOBCxGFYaEAAoHWRdFRKhAYFaLLSmVOAjOU AgICAgICAgICAgICAgICAgICAgICAgICAgICAgICAg VGCgKHQfFXXtLZJnDPCaKBLcIEVlBGRiPTDqNKUkVGFmZGHpZIWjVU8FAUPiWHOeHGGyULWuKALiERIp ICAgICAgICAgICAgICAgICAgICAgICAgICAgICAgICAgICAgICAgICAgICAgICAgICAgICAgICAgICAg HAGmXTQaXTFlNFQbKOPpPNHbSLDoSF9YLW70mZHxy5 A1KQEbQI6izyi/Ap1YTXgwgpCynAZoZV7WNkDuXZ8ppb5HEnDdZR5rlb0DPQqTQaAeT2Q4dEOiWMJpMM EMPbIpJ74kIDaoPx38EWoiENIsVwSpIXc5My5GYnVkG3jyOKGjDhV2TZUqEcV5LOYlYoF5WPNgZyFaCB AlZCYoMM2NFNIfQ864eoGjHV7BSf6PIrQtTL5qgs8U EvdsXCOgQhaFIet2VDxtDG0QlYPfeWVyNOUpMHQTQyGxX3ssu0SqGqndMLWLOPaqNY3Ue8YzuDIfATu+ Qk6OPK9wq0WxGQquQNWjOO0mvs8XYSxKSoUsE9OyaBvwSJCuf8agEYZqQU5sqTRoLAO1FDqnbDuvVU8p GdPRQDCrcBfxDKTMBPLgnLRmRE1rSn8yJNSeQNKlMk DeFXQAKQ8DVIMhFDBohKWcLJXbYHYHKL8FFLflQAO5SPIcosUxnRMxGFlaCP4XFASmcaXvLsyyUBFNEO o+Up6XUF2xg2UuDVxxGDIsLA2eeo7QJPyADrYjT5H2qLVwD6Z7MZsjAw0KGLSaVUNjOhLxNWPTBVpoKG 2MZW9cppQ0ZQ3VfFSxSWFfKJWucCTuXUo6M57pcVDj DMoxEZ7UPBY+Kezia+Kg3ZWICdYAYzBLAhKtLyULNXNsZyD3LzQ6VIa6ZnB0UuZM28rRyykmQqXNtaHP7L TO2mTAAtIKHMOA1QsROodV4mjkOyUOXmWYJSOjUkZ48kiDBnINLtUGA3SMTkKb5JDALjN5AtaqBtjYkc otWbVAZjVCOUVS2DOWskziPocKPxtBriEA11uPibXJ 8ZBz3HVaVaXL9xuw9XuLLnGe8ZMPZoEM7FMZSaVHMcXBKsZJC6MUYmZrDxFDwlNCNxYBVqDCV3JZHpHF CrPA0SWdRwHZXyJrc6GDWvSWVcVBQvrt6EXLUzCZLyPQJ2KeWdMMDeZICjEFtiVYIbBAVrOFP1QYMsTE NoFE5UKqQnMQEfKUW8RVzpNJPzQZVjgw5QSWSxNPOj QFFlJQSqEVBtCICcJSiiDJNtMZO8VHUfWPRlRQUyTZ7NFmKgQZNcXYgyVyvlIXLhKGBtbw8DNCVlHDMs JGHvMVBeZHEuEYDnOIthHLMoDOCbIrT7MEYxDHBrDK5UJyUvYSSyVQTgFcHdVRCyKYPzdf3RFJTgYHKo UzY7PZNwJMQzIEEhQRveJYKlBSYeYsZuTBIeTDJnUU 1IYaDjFXKgRZC2JbfxBAIgJJVdkc1TYTDcILNvZxvuTFMzBPIdXCLfIKcbQNCmPGW7GkA4DLXqSMTcJQ 9LWjHwGRMhCRU6ClHwTPPsHZAnpr8IXSKlJXRiLQQ5EGUmULOcEBQbKDsgQCZrJYG3DRf8FSNiAQMpAZ 5YPiYsCQXkRjL2AFKkDHXoNMWoce0UIHFtKKMiAoBx BiJySDZzPBMhSSmoWJQwSNC6RjehVFZmSTJjSV2YNmFuGGHdXuv4RAitFJPmBRIghf6ZYDBvVPZsHVC0 LzOgBRAnJHUbRUvvYBUyBGI5FAOcRKMvFEQgSM2JWjDwDXQiSlb7TianYMHcHBXkop8SVNOzCOZiEIC3 SlEoCFAqCWSdGJzpWDEjGNOtCpCxWHRiKWDdUL5ITk XgTXVoTnB9NcKaMQYxJJOufc0TRCVrETTvMQztIiQxLGFwBEPmZJf7caCoiVQlEQl7NT1CF1YlsiOyGe TABz5Lg808SELbPFJrDt0VJ4cbFe8qKFBkFFZUZb3BCSt8QEB0NZB9LmP8KSReXuYvCgAnRxA7GcDtHg R0YNopL7P+VJl9LPFzBZQiHXtjIJOpQUW3FMXaOzCx BSI8SmU9IwUqIF8jKBEXNa3+XEpuqIBkuUycEYFWYvNwGJmiFBxsEASRMo6F ID Date Data Source [id number] 10/04/2020 05:11:00 PM EST KADEN ([facility]) Name Value Range Interpretation Code Description Data Barbie rce(s) Supporting Document(s) Amphetamines: negative Amphetamines: KADEN ([facility]) Cocaine: negative Cocaine: KADEN ([facility]) Opiates: negative Opiates: KADEN ([facility]) THC negative Thc KADEN ([facility]) Barbiturates: negative Barbiturates: KADEN ([facility]) Benzodiazepines: negative Benzodiazepines: AT ERROL ([facility]) MTD negative Mtd KADEN ([facility]) Methamphetamine negative Methamphetamine ATHE NA ([facility]) PCP positive Pcp KADEN ([facility]) OXY positive Oxy KADEN ([facility]) ID Date Data Source [id number] 10/04/2020 05:11:00 PM EST KADEN ([facility]) Name Value Range Interpretation Code Description Data Barbie rce(s) Supporting Document(s) Amphetamines: negative Amphetamines: KADEN ([facility]) Opiates: negative Opiates: KADEN ([facility]) Cocaine: negative Cocaine: KADEN ([facility]) THC negative Thc KADEN ([facility]) Barbiturates: negative Barbiturates: KADEN ([facility]) Methamphetamine negative Methamphetamine ATHE NA ([facility]) Benzodiazepines: negative Benzodiazepines: AT ERROL ([facility]) MTD negative Mtd KADEN ([facility]) PCP positive Pcp KADEN ([facility]) OXY positive Oxy KADEN ([facility]) ID Date Data Source [id number] 10/04/2020 05:11:00 PM EST KADEN ([facility]) Name Value Range Interpretation Code Description Data Barbie rce(s) Supporting Document(s) Amphetamines: negative Amphetamines: KADEN ([facility]) Cocaine: negative Cocaine: KADEN ([facility]) THC negative Thc KADEN ([facility]) Benzodiazepines: negative Benzodiazepines: AT ERROL ([facility]) Barbiturates: negative Barbiturates: KADEN ([facility]) Opiates: negative Opiates: KADEN ([facility]) Methamphetamine negative Methamphetamine ATHE NA ([facility]) PCP positive Pcp KADEN ([facility]) MTD negative Mtd KADEN ([facility]) OXY positive Oxy KADEN ([facility]) ID Date Data Source [id number] 10/04/2020 05:11:00 PM EST KADEN ([facility]) Name Value Range Interpretation Code Description Data Barbie rce(s) Supporting Document(s) Amphetamines: negative Amphetamines: KADEN ([facility]) Opiates: negative Opiates: KADEN ([facility]) Cocaine: negative Cocaine: KADEN ([facility]) THC negative Thc KADEN ([facility]) Benzodiazepines: negative Benzodiazepines: AT ERROL ([facility]) Methamphetamine negative Methamphetamine ATHE NA ([facility]) Barbiturates: negative Barbiturates: KADEN ([facility]) OXY positive Oxy KADEN ([facility]) PCP positive Pcp KADEN ([facility]) MTD negative Mtd KADEN ([facility]) ID Date Data Source [id number] 10/04/2020 05:11:00 PM EST KADEN ([facility]) Name Value Range Interpretation Code Description Data Barbie rce(s) Supporting Document(s) Amphetamines: negative Amphetamines: KADEN ([facility]) THC negative Thc KADEN ([facility]) Cocaine: negative Cocaine: KADEN ([facility]) Opiates: negative Opiates: KADEN ([facility]) Barbiturates: negative Barbiturates: KADEN ([facility]) Benzodiazepines: negative Benzodiazepines: AT ERROL ([facility]) Methamphetamine negative Methamphetamine ATHE NA ([facility]) MTD negative Mtd KADEN ([facility]) PCP positive Pcp KADEN ([facility]) OXY positive Oxy KADEN ([facility]) ID Date Data Source [id number] 10/04/2020 05:11:00 PM EST KADEN ([facility]) Name Value Range Interpretation Code Description Data Barbie rce(s) Supporting Document(s) Amphetamines: negative Amphetamines: KADEN ([facility]) Cocaine: negative Cocaine: KADEN ([facility]) THC negative Thc KADEN ([facility]) Opiates: negative Opiates: KADEN ([facility]) Barbiturates: negative Barbiturates: KADEN ([facility]) Methamphetamine negative Methamphetamine ATHE NA ([facility]) Benzodiazepines: negative Benzodiazepines: AT ERROL ([facility]) OXY positive Oxy KADEN ([facility]) MTD negative Mtd KADEN ([facility]) PCP positive Pcp KADEN ([facility]) ID Date Data Source [id number] 10/04/2020 05:11:00 PM EST KADEN ([facility]) Name Value Range Interpretation Code Description Data Barbie rce(s) Supporting Document(s) Amphetamines: negative Amphetamines: KADEN ([facility]) THC negative Thc KADEN ([facility]) Cocaine: negative Cocaine: KADEN ([facility]) Opiates: negative Opiates: KADEN ([facility]) Barbiturates: negative Barbiturates: KADEN ([facility]) Benzodiazepines: negative Benzodiazepines: AT ERROL ([facility]) Methamphetamine negative Methamphetamine ATHE NA ([facility]) PCP positive Pcp KADEN ([facility]) MTD negative Mtd KADEN ([facility]) OXY positive Oxy KADEN ([facility]) ID Date Data Source [id number] 10/04/2020 05:11:00 PM EST KADEN ([facility]) Name Value Range Interpretation Code Description Data Barbie rce(s) Supporting Document(s) Amphetamines: negative Amphetamines: KADEN ([facility]) THC negative Thc KADEN ([facility]) Cocaine: negative Cocaine: KADEN ([facility]) Barbiturates: negative Barbiturates: KADEN ([facility]) Opiates: negative Opiates: KADEN ([facility]) Methamphetamine negative Methamphetamine ATHE NA ([facility]) Benzodiazepines: negative Benzodiazepines: AT ERROL ([facility]) PCP positive Pcp KADEN ([facility]) MTD negative Mtd KADEN ([facility]) OXY positive Oxy KADEN ([facility]) ID Date Data Source [id number] 10/04/2020 12:00:00 AM EST KADEN ([facility]) Name Value Range Interpretation Code Description Data Barbie rce(s) Supporting Document(s) gabapentin ur CMP <5 >=5 Abnormal (applies to no n-numeric results) Gabapentin Ur CMP KADEN ([facility]) hydrocodone ur CMP 5680 NG/mL >=100 Hydrocodone Ur CM P KADEN ([facility]) cotinine ur CMP 7400 NG/mL >=500 Abnormal (applies to non- numeric results) Cotinine Ur CMP KADNE ([facility]) ID Date Data Source [id number] 10/04/2020 12:00:00 AM EST [place] ([facility]) Name Value Range Interpretation Code Description Data [facility](s) Supporting Document(s) Buprenorphine [Presence] in Urine by Confirmatory method <1 >=1 Buprenorphine Ur Ql [facility] ([facility]) Ethyl glucuronide [Mass/volume] in Urine by Confirmatory method <50 0 >=500 Ethyl Glucuronide Ur [facility] ([facility]) alcohol metabolites ur ql [facility] <200 >=200 Alcoho l Metabolites Ur Ql [facility] ([facility]) Ethyl sulfate [Mass/volume] in Urine by Confirmatory method <200 >=200 Ethyl Sulfate Ur [facility] ([facility]) Amphetamines [Presence] in Urine by Confirmatory method <0 >=0 Amphetamines Ur Ql [facility] ([facility]) Tapentadol [Presence] in Urine by Confirmatory method <100 >=100 Tapentadol Ur Ql [facility] ([facility]) gabapentinpregabalin ur ql [facility] <5 >=5 Gabap entinpregabalin Ur Ql [facility] ([facility]) Benzodiazepines [Presence] in Urine by Confirmatory method <50 >=50 Benzodiaz Ur Ql [facility] ([facility]) Cocaine [Presence] in Urine by Confirmatory method <50 >=50 Bze Ur Ql [facility] ([facility]) Opiates [Presence] in Urine by Confirmatory method >=100 >=1 00 Opiates Ur Ql [facility] ([facility]) Dihydrocodeine [Mass/volume] in Urine by Confirmatory method 309 NG /mL >=100 Dhc Ur [facility] ([facility]) Hydromorphone [Mass/volume] in Urine by Confirmatory method 354 NG/ mL >=100 Hydromorphone Ur [facility] ([facility]) Norhydrocodone [Mass/volume] in Urine by Confirmatory method 1770 N G/mL >=100 Norhydrocodone Ur [facility] ([facility]) Hydrocodone [Mass/volume] in Urine by Confirmatory method 3240 NG/m L >=100 Hydrocodone Ur [facility] ([facility]) 6-Monoacetylmorphine (6-SHAR) [Presence] in Urine by Confirma tory method <10 >=10 [facility] Methadone [Presence] in Urine by Confirmatory method <200 > =200 Methadone Ur Ql [facility] ([facility]) Fentanyl+Norfentanyl [Presence] in Urine by Confirmatory method <5 >=5 Fentanyl+norfentanyl Ur Ql [facility] ([facility]) Carisoprodol+Meprobamate [Presence] in Urine by Screen method <200 >=200 Carisoprodol+meprob Ur Ql [facility] ([facility]) Meperidine [Presence] in Urine by Confirmatory method <100 >=100 Meperidine Ur Ql [facility] ([facility]) Tramadol [Presence] in Urine by Confirmatory method <100 >= 100 Tramadol Ur Ql [facility] ([facility]) Cotinine [Presence] in Urine by Confirmatory method >=125 >= 125 Cotinine Ur Ql [facility] ([facility]) Creatinine [Mass/volume] in Urine 201.8 mg/dL 20 - 370 C reat Ur-[facility] ([facility]) pH of Urine 4.5 - 9.0 pH Ur [place] ([facility]) Uttrq-1-Bihccqgypbvvfvd [Mass/volume] in Urine 7400 NG/mL >=125 Opbew-6-Jy-cotinine Ur-[facility] ([facility]) ID Date Data Source [id number] 10/04/2020 12:00:00 AM EST KADEN ([facility]) Name Value Range Interpretation Code Description Data Barbie rce(s) Supporting Document(s) ID Date Data Source [id number] 10/04/2020 12:00:00 AM EST KADEN ([facility]) Name Value Range Interpretation Code Description Data Barbie rce(s) Supporting Document(s) ID Date Data Source [id number] 10/04/2020 12:00:00 AM EST KADEN ([facility]) Name Value Range Interpretation Code Description Data Barbie rce(s) Supporting Document(s) cotinine ur CMP 7400 NG/mL >=500 Abnormal (applies to non- numeric results) Cotinine Ur CMP KADEN ([facility]) hydrocodone ur CMP 5680 NG/mL >=100 Hydrocodone Ur CM P KADEN ([facility]) gabapentin ur CMP <5 >=5 Abnormal (applies to no n-numeric results) Gabapentin Ur CMP KADEN ([facility]) ID Date Data Source [id number] 10/04/2020 12:00:00 AM EST KADEN ([facility]) Name Value Range Interpretation Code Description Data Barbie rce(s) Supporting Document(s) Buprenorphine [Presence] in Urine by Confirmatory method <1 >=1 Buprenorphine Ur Ql [facility] ([facility]) alcohol metabolites ur ql cfm <200 >=200 Alcoho l Metabolites [facility]) Ethyl sulfate [Mass/volume] in Urine by Confirmatory method <200 >=200 Ethyl Sulfate Ur [facility] ([facility]) Amphetamines [Presence] in Urine by Confirmatory method <0 >=0 Amphetamines Ur Ql [facility] ([facility]) Ethyl glucuronide [Mass/volume] in Urine by Confirmatory method <50 0 >=500 Ethyl Glucuronide Ur [facility] ([facility]) Tapentadol [Presence] in Urine by Confirmatory method <100 >=100 Tapentadol Ur Ql [facility] ([facility]) Benzodiazepines [Presence] in Urine by Confirmatory method <50 >=50 Benzodiaz Ur Ql [facility] ([facility]) gabapentinpregabalin ur ql cfm <5 >=5 Gabap entinpregabalin Ur Ql [facility] ([facility]) Cocaine [Presence] in Urine by Confirmatory method <50 >=50 Bze Ur Ql [facility] ([facility]) Hydrocodone [Mass/volume] in Urine by Confirmatory method 3240 NG/m L >=100 Hydrocodone Ur [facility] ([facility]) Opiates [Presence] in Urine by Confirmatory method >=100 >=1 00 Opiates Ur Ql [facility] ([facility]) Dihydrocodeine [Mass/volume] in Urine by Confirmatory method 309 NG /mL >=100 Dhc Ur [facility] ([facility]) Norhydrocodone [Mass/volume] in Urine by Confirmatory method 1770 N G/mL >=100 Norhydrocodone Ur [facility] ([facility]) 6-Monoacetylmorphine (6-SHAR) [Presence] in Urine by Confirma tory method <10 >=10 6Mam Ur Ql [facility] ([facility]) Hydromorphone [Mass/volume] in Urine by Confirmatory method 354 NG/ mL >=100 Hydromorphone Ur [facility] ([facility]) Meperidine [Presence] in Urine by Confirmatory method <100 >=100 Meperidine Ur Ql [facility] ([facility]) Methadone [Presence] in Urine by Confirmatory method <200 > =200 Methadone Ur Ql [facility] ([facility]) Carisoprodol+Meprobamate [Presence] in Urine by Screen method <200 >=200 Carisoprodol+meprob Ur Ql [facility] ([facility]) Fentanyl+Norfentanyl [Presence] in Urine by Confirmatory method <5 >=5 Fentanyl+norfentanyl Ur Ql [facility] ([facility]) Tramadol [Presence] in Urine by Confirmatory method <100 >= 100 Tramadol Ur Ql [facility] ([facility]) Zzpki-7-Mknbplmsmlpoflr [Mass/volume] in Urine 7400 NG/mL >=125 Hhlsj-9-Tj-cotinine [facility] ([facility]) Cotinine [Presence] in Urine by Confirmatory method >=125 >= 125 Cotinine Ur Ql [facility] ([facility]) Creatinine [Mass/volume] in Urine 201.8 mg/dL 20 - 370 C reat Ur-mcnc KADEN ([facility]) pH of Urine 4.5 - 9.0 pH Ur KADEN ([facility]) ID Date Data Source [id number] 10/04/2020 12:00:00 AM EST KADEN ([facility]) Name Value Range Interpretation Code Description Data Barbie rce(s) Supporting Document(s) ID Date Data Source [id number] 10/04/2020 12:00:00 AM EST KADEN ([facility]) Name Value Range Interpretation Code Description Data Barbie rce(s) Supporting Document(s) ID Date Data Source [id number] 10/04/2020 12:00:00 AM EST KADEN ([facility]) Name Value Range Interpretation Code Description Data Barbie rce(s) Supporting Document(s) gabapentin ur CMP <5 >=5 Abnormal (applies to no n-numeric results) Gabapentin Ur CMP KADEN ([facility]) hydrocodone ur CMP 5680 NG/mL >=100 Hydrocodone Ur CM P KADEN ([facility]) cotinine ur CMP 7400 NG/mL >=500 Abnormal (applies to non- numeric results) Cotinine Ur CMP KADEN ([facility]) ID Date Data Source [id number] 10/04/2020 12:00:00 AM EST KADEN ([facility]) Name Value Range Interpretation Code Description Data Barbie rce(s) Supporting Document(s) Buprenorphine [Presence] in Urine by Confirmatory method <1 >=1 Buprenorphine Ur Ql Cfm KADEN ([facility]) alcohol metabolites ur ql cfm <200 >=200 Alcoho l Metabolites Ur Ql Cfm KADEN ([facility]) Ethyl glucuronide [Mass/volume] in Urine by Confirmatory method <50 0 >=500 Ethyl Glucuronide Ur Cf-nc KADEN ([facility]) Ethyl sulfate [Mass/volume] in Urine by Confirmatory method <200 >=200 Ethyl Sulfate Ur Cf-nc KADEN ([facility]) Amphetamines [Presence] in Urine by Confirmatory method <0 >=0 Amphetamines Ur Ql [facility] ([facility]) Tapentadol [Presence] in Urine by Confirmatory method <100 >=100 Tapentadol Ur Ql [facility] ([facility]) Benzodiazepines [Presence] in Urine by Confirmatory method <50 >=50 Benzodiaz Ur Ql [facility] ([facility]) gabapentinpregabalin ur ql cf <5 >=5 Gabap entinpregabalin Ur Ql [facility] ([facility]) Cocaine [Presence] in Urine by Confirmatory method <50 >=50 Bze Ur Ql [facility] ([facility]) Opiates [Presence] in Urine by Confirmatory method >=100 >=1 00 Opiates Ur Ql [facility] ([facility]) Dihydrocodeine [Mass/volume] in Urine by Confirmatory method 309 NG /mL >=100 Dhc Ur [facility] ([facility]) Hydrocodone [Mass/volume] in Urine by Confirmatory method 3240 NG/m L >=100 Hydrocodone Ur [facility] ([facility]) Norhydrocodone [Mass/volume] in Urine by Confirmatory method 1770 N G/mL >=100 Norhydrocodone Ur [facility] ([facility]) 6-Monoacetylmorphine (6-SHAR) [Presence] in Urine by Confirma tory method <10 >=10 6Mam Ur Ql [facility] ([facility]) Hydromorphone [Mass/volume] in Urine by Confirmatory method 354 NG/ mL >=100 Hydromorphone Ur [facility] ([facility]) Methadone [Presence] in Urine by Confirmatory method <200 > =200 Methadone Ur Ql [facility] ([facility]) Meperidine [Presence] in Urine by Confirmatory method <100 >=100 Meperidine Ur Ql [facility] ([facility]) Fentanyl+Norfentanyl [Presence] in Urine by Confirmatory method <5 >=5 Fentanyl+norfentanyl Ur Ql [facility] ([facility]) Carisoprodol+Meprobamate [Presence] in Urine by Screen method <200 >=200 Carisoprodol+meprob Ur Ql Scn KADEN ([facility]) Tramadol [Presence] in Urine by Confirmatory method <100 >= 100 Tramadol Ur Ql Cfm KADEN ([facility]) Cotinine [Presence] in Urine by Confirmatory method >=125 >= 125 Cotinine Ur Ql Cfm KADEN ([facility]) Cgkna-4-Geenxtncwfeyaul [Mass/volume] in Urine 7400 NG/mL >=125 Arnni-3-Lj-cotinine Ur-mcnc KADEN ([facility]) Creatinine [Mass/volume] in Urine 201.8 mg/dL 20 - 370 C reat Ur-mcnc KADEN ([facility]) pH of Urine 4.5 - 9.0 pH Ur KADEN ([facility]) ID Date Data Source [id number] 10/04/2020 12:00:00 AM EST KADEN ([facility]) Name Value Range Interpretation Code Description Data Barbie rce(s) Supporting Document(s) ID Date Data Source [id number] 10/04/2020 12:00:00 AM EST KADEN ([facility]) Name Value Range Interpretation Code Description Data Barbie rce(s) Supporting Document(s) ID Date Data Source [id number] 10/04/2020 12:00:00 AM EST KADEN ([facility]) Name Value Range Interpretation Code Description Data Barbie rce(s) Supporting Document(s) hydrocodone ur CMP 5680 NG/mL >=100 Hydrocodone Ur CM P KADEN ([facility]) gabapentin ur CMP <5 >=5 Abnormal (applies to no n-numeric results) Gabapentin Ur CMP KADEN ([facility]) cotinine ur CMP 7400 NG/mL >=500 Abnormal (applies to non- numeric results) Cotinine Ur CMP KADEN ([facility]) ID Date Data Source [id number] 10/04/2020 12:00:00 AM EST KADEN ([facility]) Name Value Range Interpretation Code Description Data Barbie e(s) Supporting Document(s) alcohol metabolites ur ql [facility] <200 >=200 Alcoho l Metabolites Ur Ql [facility] ([facility]) Buprenorphine [Presence] in Urine by Confirmatory method <1 >=1 Buprenorphine Ur Ql [facility] ([facility]) Amphetamines [Presence] in Urine by Confirmatory method <0 >=0 Amphetamines Ur Ql [facility] ([facility]) Ethyl sulfate [Mass/volume] in Urine by Confirmatory method <200 >=200 Ethyl Sulfate Ur [facility] ([facility]) Ethyl glucuronide [Mass/volume] in Urine by Confirmatory method <50 0 >=500 Ethyl Glucuronide Ur [facility] ([facility]) Tapentadol [Presence] in Urine by Confirmatory method <100 >=100 Tapentadol Ur [facility] ([facility]) Benzodiazepines [Presence] in Urine by Confirmatory method <50 >=50 Benzodiaz Ur [facility] ([facility]) Cocaine [Presence] in Urine by Confirmatory method <50 >=50 Bze Ur Ql [facility] ([facility]) gabapentinpregabalin ur [facility] <5 >=5 Gabap entinpregabalin Ur [facility] ([facility]) Opiates [Presence] in Urine by Confirmatory method >=100 >=1 00 Opiates Ur [facility] ([facility]) Hydrocodone [Mass/volume] in Urine by Confirmatory method 3240 NG/m L >=100 Hydrocodone Ur [facility] ([facility]) Norhydrocodone [Mass/volume] in Urine by Confirmatory method 1770 N G/mL >=100 Norhydrocodone Ur [facility] ([facility]) Dihydrocodeine [Mass/volume] in Urine by Confirmatory method 309 NG /mL >=100 Dhc Ur [facility] ([facility]) 6-Monoacetylmorphine (6-SHAR) [Presence] in Urine by Confirma tory method <10 >=10 6Mam Ur Ql [facility] ([facility]) Hydromorphone [Mass/volume] in Urine by Confirmatory method 354 NG/ mL >=100 Hydromorphone Ur [facility] ([facility]) Methadone [Presence] in Urine by Confirmatory method <200 > =200 Methadone Ur Ql [facility] ([facility]) Meperidine [Presence] in Urine by Confirmatory method <100 >=100 Meperidine Ur Ql [facility] ([facility]) Carisoprodol+Meprobamate [Presence] in Urine by Screen method <200 >=200 Carisoprodol+meprob Ur Ql [facility] ([facility]) Fentanyl+Norfentanyl [Presence] in Urine by Confirmatory method <5 >=5 Fentanyl+norfentanyl Ur Ql [facility] ([facility]) Tramadol [Presence] in Urine by Confirmatory method <100 >= 100 Tramadol Ur Ql [facility] ([facility]) Cotinine [Presence] in Urine by Confirmatory method >=125 >= 125 Cotinine Ur Ql [facility] ([facility]) Vwvxe-9-Harxqananbonjzg [Mass/volume] in Urine 7400 NG/mL >=125 [facility] pH of Urine 4.5 - 9.0 pH Ur [facility] ([facility]) Creatinine [Mass/volume] in Urine 201.8 mg/dL 20 - 370 [facility]) ID Date Data Source [id number] 10/04/2020 12:00:00 AM EST [facility] ([facility]) Name Value Range Interpretation Code Description Data Barbie rce(s) Supporting Document(s) ID Date Data Source [id number] 10/04/2020 12:00:00 AM EST [facility] ([facility]) Name Value Range Interpretation Code Description Data Barbie rce(s) Supporting Document(s) ID Date Data Source [id number] 10/04/2020 12:00:00 AM EST [facility] ([facility]) Name Value Range Interpretation Code Description Data Barbie rce(s) Supporting Document(s) gabapentin ur CMP <5 >=5 Abnormal (applies to no n-numeric results) Gabapentin Ur CMP [facility] ([facility]) hydrocodone ur CMP 5680 NG/mL >=100 Hydrocodone Ur [facility] P [facility] ([facility]) cotinine ur CMP 7400 NG/mL >=500 Abnormal (applies to non- numeric results) Cotinine Ur CMP [facility] ([facility]) ID Date Data Source [id number] 10/04/2020 12:00:00 AM EST [facility] ([facility]) Name Value Range Interpretation Code Description Data Barbie rce(s) Supporting Document(s) Buprenorphine [Presence] in Urine by Confirmatory method <1 >=1 Buprenorphine Ur Ql [facility] ([facility]) alcohol metabolites ur ql cfm <200 >=200 Alcoho l Metabolites Ur Ql [facility] ([facility]) Ethyl glucuronide [Mass/volume] in Urine by Confirmatory method <50 0 >=500 Ethyl Glucuronide Ur [facility] ([facility]) Ethyl sulfate [Mass/volume] in Urine by Confirmatory method <200 >=200 Ethyl Sulfate Ur [facility] ([facility]) Amphetamines [Presence] in Urine by Confirmatory method <0 >=0 Amphetamines Ur Ql [facility] ([facility]) Tapentadol [Presence] in Urine by Confirmatory method <100 >=100 Tapentadol Ur Ql [facility] ([facility]) gabapentinpregabalin ur ql cfm <5 >=5 Gabap entinpregabalin Ur Ql [facility] ([facility]) Benzodiazepines [Presence] in Urine by Confirmatory method <50 >=50 Benzodiaz Ur Ql [facility] ([facility]) Cocaine [Presence] in Urine by Confirmatory method <50 >=50 Bze Ur Ql [facility] ([facility]) Opiates [Presence] in Urine by Confirmatory method >=100 >=1 00 Opiates Ur Ql [facility] ([facility]) Hydrocodone [Mass/volume] in Urine by Confirmatory method 3240 NG/m L >=100 Hydrocodone Ur [facility] ([facility]) Dihydrocodeine [Mass/volume] in Urine by Confirmatory method 309 NG /mL >=100 Dhc Ur [facility] ([facility]) Norhydrocodone [Mass/volume] in Urine by Confirmatory method 1770 N G/mL >=100 Norhydrocodone Ur [facility] ([facility]) 6-Monoacetylmorphine (6-SHAR) [Presence] in Urine by Confirma tory method <10 >=10 6Mam Ur Ql [facility] ([facility]) Hydromorphone [Mass/volume] in Urine by Confirmatory method 354 NG/ mL >=100 Hydromorphone Ur [facility] ([facility]) Meperidine [Presence] in Urine by Confirmatory method <100 >=100 Meperidine Ur Ql [facility] ([facility]) Methadone [Presence] in Urine by Confirmatory method <200 > =200 Methadone Ur Ql [facility] ([facility]) Carisoprodol+Meprobamate [Presence] in Urine by Screen method <200 >=200 Carisoprodol+meprob Ur Ql [facility] ([facility]) Fentanyl+Norfentanyl [Presence] in Urine by Confirmatory method <5 >=5 Fentanyl+norfentanyl Ur Ql [facility] ([facility]) Tramadol [Presence] in Urine by Confirmatory method <100 >= 100 Tramadol Ur Ql [facility] ([facility]) Cotinine [Presence] in Urine by Confirmatory method >=125 >= 125 Cotinine Ur Ql [facility] ([facility]) pH of Urine 4.5 - 9.0 pH Ur [facility] ([facility]) Irezv-5-Qxgebwwchslzdqg [Mass/volume] in Urine 7400 NG/mL >=125 Oqjvi-[facility] ([facility]) Creatinine [Mass/volume] in Urine 201.8 mg/dL 20 - 370 [facility]) ID Date Data Source [id number] 10/04/2020 12:00:00 AM EST [facility] ([facility]) Name Value Range Interpretation Code Description Data Barbie rce(s) Supporting Document(s) ID Date Data Source [id number] 10/04/2020 12:00:00 AM EST [facility] ([facility]) Name Value Range Interpretation Code Description Data Barbie rce(s) Supporting Document(s) ID Date Data Source [id number] 10/04/2020 12:00:00 AM EST [facility] ([facility]) Name Value Range Interpretation Code Description Data Barbie rce(s) Supporting Document(s) gabapentin ur CMP <5 >=5 Abnormal (applies to no n-numeric results) Gabapentin Ur CMP [facility] ([facility]) hydrocodone ur CMP 5680 NG/mL >=100 Hydrocodone Ur [facility] P [facility] ([facility]) cotinine ur CMP 7400 NG/mL >=500 Abnormal (applies to non- numeric results) Cotinine Ur CMP [facility] ([facility]) ID Date Data Source [id number] 10/04/2020 12:00:00 AM EST [facility] ([facility]) Name Value Range Interpretation Code Description Data Barbie rce(s) Supporting Document(s) Buprenorphine [Presence] in Urine by Confirmatory method <1 >=1 Buprenorphine Ur Ql [facility] ([facility]) alcohol metabolites ur ql cfm <200 >=200 Alcoho l Metabolites Ur Ql [facility] ([facility]) Ethyl sulfate [Mass/volume] in Urine by Confirmatory method <200 >=200 Ethyl Sulfate Ur [facility] ([facility]) Ethyl glucuronide [Mass/volume] in Urine by Confirmatory method <50 0 >=500 Ethyl Glucuronide Ur Cf-nc [facility] ([facility]) Tapentadol [Presence] in Urine by Confirmatory method <100 >=100 Tapentadol Ur Ql [facility] ([facility]) Amphetamines [Presence] in Urine by Confirmatory method <0 >=0 Amphetamines Ur Ql [facility] ([facility]) gabapentinpregabalin ur ql [facility] <5 >=5 Gabap entinpregabalin Ur Ql [facility] ([facility]) Benzodiazepines [Presence] in Urine by Confirmatory method <50 >=50 Benzodiaz Ur Ql [facility] ([facility]) Cocaine [Presence] in Urine by Confirmatory method <50 >=50 Bze Ur Ql [facility] ([facility]) Dihydrocodeine [Mass/volume] in Urine by Confirmatory method 309 NG /mL >=100 Dhc Ur [facility] ([facility]) Opiates [Presence] in Urine by Confirmatory method >=100 >=1 00 Opiates Ur Ql [facility] ([facility]) Norhydrocodone [Mass/volume] in Urine by Confirmatory method 1770 N G/mL >=100 Norhydrocodone Ur [facility] ([facility]) Hydromorphone [Mass/volume] in Urine by Confirmatory method 354 NG/ mL >=100 Hydromorphone Ur [facility] ([facility]) Hydrocodone [Mass/volume] in Urine by Confirmatory method 3240 NG/m L >=100 Hydrocodone Ur [facility] ([facility]) Methadone [Presence] in Urine by Confirmatory method <200 > =200 Methadone Ur Ql [facility] ([facility]) 6-Monoacetylmorphine (6-SHAR) [Presence] in Urine by Confirma tory method <10 >=10 6Mam Ur Ql [facility] ([facility]) Meperidine [Presence] in Urine by Confirmatory method <100 >=100 Meperidine Ur Ql [facility] ([facility]) Carisoprodol+Meprobamate [Presence] in Urine by Screen method <200 >=200 Carisoprodol+meprob Ur Ql [facility] ([facility]) Fentanyl+Norfentanyl [Presence] in Urine by Confirmatory method <5 >=5 Fentanyl+norfentanyl Ur Ql [facility] ([facility]) Tramadol [Presence] in Urine by Confirmatory method <100 >= 100 Tramadol Ur Ql [facility] ([facility]) Cotinine [Presence] in Urine by Confirmatory method >=125 >= 125 Cotinine Ur Ql [facility] ([facility]) Ojhed-7-Cfrrnwrtyulnvcn [Mass/volume] in Urine 7400 NG/mL >=125 Ovrkb-8-Mm-cotinine Ur-[facility]nc [facility] ([facility]) pH of Urine 4.5 - 9.0 pH Ur [facility] ([facility]) Creatinine [Mass/volume] in Urine 201.8 mg/dL 20 - 370 C reat Ur-mcnc [facility] ([facility]) ID Date Data Source [id number] 10/04/2020 12:00:00 AM EST [facility] ([facility]) Name Value Range Interpretation Code Description Data Barbie rce(s) Supporting Document(s) ID Date Data Source [id number] 10/04/2020 12:00:00 AM EST [facility] ([facility]) Name Value Range Interpretation Code Description Data Barbie rce(s) Supporting Document(s) ID Date Data Source [id number] 10/04/2020 12:00:00 AM EST [facility] ([facility]) Name Value Range Interpretation Code Description Data Barbie rce(s) Supporting Document(s) gabapentin ur CMP <5 >=5 Abnormal (applies to no n-numeric results) Gabapentin Ur CMP [facility] ([facility]) hydrocodone ur CMP 5680 NG/mL >=100 Hydrocodone Ur CM P [facility] ([facility]) cotinine ur CMP 7400 NG/mL >=500 Abnormal (applies to non- numeric results) Cotinine Ur CMP [facility] ([facility]) ID Date Data Source [id number] 10/04/2020 12:00:00 AM EST [facility] ([facility]) Name Value Range Interpretation Code Description Data Barbie e(s) Supporting Document(s) Buprenorphine [Presence] in Urine by Confirmatory method <1 >=1 Buprenorphine Ur Ql [facility] ([facility]) alcohol metabolites ur ql cfm <200 >=200 Alcoho l Metabolites Ur Ql [facility] ([facility]) Amphetamines [Presence] in Urine by Confirmatory method <0 >=0 Amphetamines Ur Ql [facility] ([facility]) Ethyl glucuronide [Mass/volume] in Urine by Confirmatory method <50 0 >=500 Ethyl Glucuronide Ur [facility] ([facility]) Ethyl sulfate [Mass/volume] in Urine by Confirmatory method <200 >=200 Ethyl Sulfate Ur [facility] ([facility]) Tapentadol [Presence] in Urine by Confirmatory method <100 >=100 Tapentadol Ur Ql [facility] ([facility]) Benzodiazepines [Presence] in Urine by Confirmatory method <50 >=50 Benzodiaz Ur Ql [facility] ([facility]) gabapentinpregabalin ur ql cf <5 >=5 Gabap entinpregabalin Ur Ql [facility] ([facility]) Cocaine [Presence] in Urine by Confirmatory method <50 >=50 Bze Ur Ql [facility] ([facility]) Dihydrocodeine [Mass/volume] in Urine by Confirmatory method 309 NG /mL >=100 Dhc Ur [facility] ([facility]) Opiates [Presence] in Urine by Confirmatory method >=100 >=1 00 Opiates Ur Ql [facility] ([facility]) Norhydrocodone [Mass/volume] in Urine by Confirmatory method 1770 N G/mL >=100 Norhydrocodone Ur [facility] ([facility]) Hydromorphone [Mass/volume] in Urine by Confirmatory method 354 NG/ mL >=100 Hydromorphone Ur [facility] ([facility]) Hydrocodone [Mass/volume] in Urine by Confirmatory method 3240 NG/m L >=100 Hydrocodone Ur [facility] ([facility]) 6-Monoacetylmorphine (6-SHAR) [Presence] in Urine by Confirma tory method <10 >=10 [facility] Methadone [Presence] in Urine by Confirmatory method <200 > =200 Methadone Ur Ql [facility] ([facility]) Meperidine [Presence] in Urine by Confirmatory method <100 >=100 [facility]) Fentanyl+Norfentanyl [Presence] in Urine by Confirmatory method <5 >=5 Fentanyl[facility]fentanyl [facility]) Carisoprodol+Meprobamate [Presence] in Urine by Screen method <200 >=200 Carisoprodol+meprob Ur Ql [facility] [place] ([facility]) Tramadol [Presence] in Urine by Confirmatory method <100 >= 100 Tramadol Ur Ql [facility] ([facility]) pH of Urine 4.5 - 9.0 pH Ur [facility] ([facility]) Biase-9-Ygrzquvfvsrrfdv [Mass/volume] in Urine 7400 NG/mL >=125 Dxldm-4-Bd-cotinine Ur-[facility] ([facility]) Cotinine [Presence] in Urine by Confirmatory method >=125 >= 125 Cotinine Ur Ql [facility] ([facility]) Creatinine [Mass/volume] in Urine 201.8 mg/dL 20 - 370 C reat Ur-[facility] ([facility]) ID Date Data Source [id number] 10/04/2020 12:00:00 AM EST [facility] ([facility]) Name Value Range Interpretation Code Description Data Barbie rce(s) Supporting Document(s) ID Date Data Source [id number] 10/04/2020 12:00:00 AM EST [facility] ([facility]) Name Value Range Interpretation Code Description Data Barbie rce(s) Supporting Document(s) ID Date Data Source [id number] 10/04/2020 12:00:00 AM EST [facility] ([facility]) Name Value Range Interpretation Code Description Data Barbie rce(s) Supporting Document(s) gabapentin ur CMP <5 >=5 Abnormal (applies to no n-numeric results) Gabapentin Ur CMP [facility] ([facility]) hydrocodone ur CMP 5680 NG/mL >=100 Hydrocodone Ur CM P [facility] ([facility]) cotinine ur CMP 7400 NG/mL >=500 Abnormal (applies to non- numeric results) Cotinine Ur CMP [facility] ([facility]) ID Date Data Source [id number] 10/04/2020 12:00:00 AM EST [facility] ([facility]) Name Value Range Interpretation Code Description Data Barbie rce(s) Supporting Document(s) Buprenorphine [Presence] in Urine by Confirmatory method <1 >=1 Buprenorphine Ur Ql [facility] ([facility]) alcohol metabolites ur ql cf <200 >=200 Alcoho l Metabolites Ur Ql [facility] ([facility]) Ethyl glucuronide [Mass/volume] in Urine by Confirmatory method <50 0 >=500 Ethyl Glucuronide Ur [facility] ([facility]) Ethyl sulfate [Mass/volume] in Urine by Confirmatory method <200 >=200 Ethyl Sulfate Ur [facility] ([facility]) Amphetamines [Presence] in Urine by Confirmatory method <0 >=0 Amphetamines Ur Ql [facility] ([facility]) Tapentadol [Presence] in Urine by Confirmatory method <100 >=100 Tapentadol Ur Ql [facility] ([facility]) Benzodiazepines [Presence] in Urine by Confirmatory method <50 >=50 Benzodiaz Ur Ql [facility] ([facility]) gabapentinpregabalin ur ql cfm <5 >=5 Gabap entinpregabalin Ur Ql [facility] ([facility]) Cocaine [Presence] in Urine by Confirmatory method <50 >=50 Bze Ur Ql [facility] ([facility]) Opiates [Presence] in Urine by Confirmatory method >=100 >=1 00 Opiates Ur Ql [facility] ([facility]) Hydrocodone [Mass/volume] in Urine by Confirmatory method 3240 NG/m L >=100 Hydrocodone Ur [facility] ([facility]) Dihydrocodeine [Mass/volume] in Urine by Confirmatory method 309 NG /mL >=100 Dhc Ur [facility] ([facility]) Hydromorphone [Mass/volume] in Urine by Confirmatory method 354 NG/ mL >=100 Hydromorphone Ur [facility] ([facility]) Norhydrocodone [Mass/volume] in Urine by Confirmatory method 1770 N G/mL >=100 Norhydrocodone Ur [facility] ([facility]) 6-Monoacetylmorphine (6-SHAR) [Presence] in Urine by Confirma tory method <10 >=10 6Mam Ur Ql [facility] ([facility]) Methadone [Presence] in Urine by Confirmatory method <200 > =200 Methadone Ur Ql [facility] ([facility]) Meperidine [Presence] in Urine by Confirmatory method <100 >=100 Meperidine Ur Ql [facility] ([facility]) Fentanyl+Norfentanyl [Presence] in Urine by Confirmatory method <5 >=5 Fentanyl+norfentanyl Ur Ql [facility] ([facility]) Carisoprodol+Meprobamate [Presence] in Urine by Screen method <200 >=200 Carisoprodol+meprob Ur Ql [facility] [place] ([facility]) Tramadol [Presence] in Urine by Confirmatory method <100 >= 100 Tramadol Ur Ql [facility] ([facility]) Cotinine [Presence] in Urine by Confirmatory method >=125 >= 125 Cotinine Ur Ql [facility] ([facility]) Qyrin-4-Robsytmpudmmiyn [Mass/volume] in Urine 7400 NG/mL >=125 Cwxez-1-Ap-[facility]inine [facility] ([facility]) pH of Urine 4.5 - 9.0 pH Ur [place] ([facility]) Creatinine [Mass/volume] in Urine 201.8 mg/dL 20 - 370 [facility]) ID Date Data Source [id number] 10/04/2020 12:00:00 AM EST KADEN ([facility]) Name Value Range Interpretation Code Description Data Barbie rce(s) Supporting Document(s) ID Date Data Source [id number] 10/04/2020 12:00:00 AM EST KADEN ([facility]) Name Value Range Interpretation Code Description Data Barbie rce(s) Supporting Document(s) ID Date Data Source [id number] 09/12/2020 12:47:58 PM EST [facility] Name Value Range Interpretation Code Description Data Barbie rce(s) Supporting Document(s) Progress Note [facility] INUZXl3aDjXOSkHt48/DFPphACKhn5QaBOpeSGv9UYziMOArI6PbCDE1gD7uNMC6DGbKXyGnRaEtHdA3 [facility] [file] ICAgICAgICAgICAgICAgICAgICAgICAgICAgICAgICAgICAgICAgICAgICAgICAgICAgICAgICAgICAg ICAgICAgICAgICAgICAgICANCiAgICAgICAgICAgICAgICAgICAgICAgICAgICAgICAgICAgICAgICAg ICAgICAgICAgICAgICAgICAgICAgICAgICAgICAgIC AgICAgICAgICAgICAgICAgICAgICAgICAgICANCiAgICAgICAgICAgICAgICAgICAgICAgICAgICAgIC AgICAgICAgICAgICAgICAgICAgICAgICAgICAgICAgICAgICAgICAgICAgICAgICAgICAgICAgICAgIC AgICAgICAgICANCiAgICAgICAgICAgICAgICAgICAg ICAgICAgICAgICAgICAgICAgICAgICAgICAgICAgICAgICAgICAgICAgICAgICAgICAgICAgICAgICAg ICAgICAgICAgICAgICAgICAgICANCiAgICAgICAgICAgICAgICAgICAgICAgICAgICAgICAgICAgICAg ICAgICAgICAgICAgICAgICAgICAgICAgICAgICAgIC AgICAgICAgICAgICAgICAgICAgICAgICAgICAgICANCiAgICAgICAgICAgICAgICAgICAgICAgICAgIC AgICAgICAgICAgICAgICAgICAgICAgICAgICAgICAgICAgICAgICAgICAgICAgICAgICAgICAgICAgIC AgICAgICAgICAgICANCiAgICAgICAgICAgICAgICAg ICAgICAgICAgICAgICAgICAgICAgICAgICAgICAgICAgICAgICAgICAgICAgICAgICAgICAgICAgICAg ICAgICAgICAgICAgICAgICAgICAgICANCiAgICAgICAgICAgICAgICAgICAgICAgICAgICAgICAgICAg ICAgICAgICAgICAgICAgICAgICAgICAgICAgICAgIC AgICAgICAgICAgICAgICAgICAgICAgICAgICAgICAgICANCiAgICAgICAgICAgICAgICAgICAgICAgIC AgICAgICAgICAgICAgICAgICAgICAgICAgICAgICAgICAgICAgICAgICAgICAgICAgICAgICAgICAgIC AgICAgICAgICAgICAgICANCiAgICAgICAgICAgICAg ICAgICAgICAgICAgICAgICAgICAgICAgICAgICAgICAgICAgICAgICAgICAgICAgICAgICAgICAgICAg ICAgICAgICAgICAgICAgICAgICAgICAgICANCjw/fZKtN6kzoAWalzO0V7qfLz0CZu4ANQ4lj8UwUNJj TUieyjWzQjyXGeOsVDRuAkmDRpu6ZOtxWA9UyBGnT2 SlF0AfCCugSV9SIQPfWCCxkKUzIJQgBEPwFoX0JKGxUUpiCI8WuDLiUIqiDAHoMOCyZgNgKLLhCZ6HKG UxI944jaQcQh4SIi4SSiGsRK7jvn0BBnUgIAJeSloNJmh1GMhyYN8MpHVgfEFfWIDvZURFMxIbV0gpx7 HkPeZoQCYUVTfdVH8Yk8VerHVoSKo+Lq7IZI1sr2Qg RZqxSZVuSX8yly4SBDlBLrSiG5MpwClfSIBta4mrQXXoPN7mhCEhLGR4QRGnnd8wlYs5HNWBi05wdnek XyXpCCTeCXEhSs2wMFMpRSZaHgY0YXURQM1OCQBuDCLjpXEcLGZlVLVJSO4PBHazPFT5QWDllrVrtERs SJjpJH1IQTWrpmKiFkWeJIGEXZc+Ts0DKG2ez3EkMU eyUcHaLO6gdp3ZIBhTJaPtK0A8wABzC7R9KKqqDy2QBONlWZFuFoEsTYNWJFleLD0CYI3tovG0ZS0PwD ReXFLqZXBgsCZbFAg1H42urULwQUsxEV1WGCT+Kezia+Il0GITJcXEQiVDNpCnHmDHDKMkSyQ0RaB1OGw5 OmH3MsFH45zTusyiVeWRuoVU9QNM3kOLUyBUEOVO0V uIPjhF8hiqOfHLMvQIQLKsQwZ91meTKlHYBnBQGqFVGgLi6WCGZmG3GcjhYqhFnaddOdLJQwTBNXQU9N SUvppzUufEKdgGwqII02rEltDB1TSi8XLvDuYC7qeh2VkRBmXc9ERKTbYj5TZFRzAXHqOYIlTDM8FDOm PuYsFZccDXKjSPPuPQB1NYYiRWFkOC9ITxRwEONvXj P3ZoXjABJeRYYemh3PCQEcFABjUeH5PJQhAUHmMLOzEIvwULBaNYZkTTJ3ISYrNEBeWF6GBnZmFKYiLV M6WiHcLSSoMJSckz9ZBQKzSZVvKPV3ISDnBUHbPVEkNHnrWNSnBQI3AZQhRUGjCYDoKL3RQxDrIYYhQO CdXQOtAJRaRKKgsy2REXAbAAMsHgPbStHfCDUwJFGs TYtfGCXgMKM4DgR7YDVbJZImPX6CFkHqQAKrAJK7YYGvIAZwMEKirm4RSPUxHULnWyM6RYDfKVXzFGEc XLlmUIHfDAI5DwVbFFDyJWGuUF3WPwTeFWApFCa4JjicUVViAFHqsp7YBTVpXCLpJVH2OAMeIKRpROCo GPzcNCRcVIX5YVFuFZXsRSOjYT9OAfZrQBTdQDz3NL sdDQCkATVvil6GTTWpNMDlZSe1KPWdGYQkFOQsQEjwHPCvIKPgZQH1CWRmQSAtVK1IXpDwNDSgKfCiON dmXAGnXXRsxf7QKHSbWYLiYQRySACuCLOkLHCiDAyhMVUqMPUuKMRbJPImLONxIM8KRqJmMNHbFoI9RI nsXVEaRQLbou7TCKMoAGNfPbA1ZjSdVJJgJRBvZOyc VGDkDFQpWwJuOXQkGUXzEE3KKnQzKSDvBhC9NPLtLOKfKSAztd4IsLKfyFxvul7QFWwFWu8YwRvxOVP1 FFezBx4kuXPhStEpMHDKRh5PcuDwBMIhMCLJNLdpDWRxLYhzMBQ3PYJ8MQt8YTKeHHglBXLfBCN4JUAi BOLtGwC1QlL5KID3DWzeJhHbKZMjVHQ3JpS6MNPoBe RlYmQwYjBmNDg+CX3rGXx+Ki7In6EqloX8gtXcURdvUvkiDo2YRCBSO3EDSk== ID Date Data Source [id number] 08/23/2020 12:00:00 AM EST [facility] Name Value Range Interpretation Code Description Data Barbie rce(s) Supporting Document(s) SARS coronavirus 2 Ag [facility] This lab was ordered by [facility] and reported by [facility]. ID Date Data Source [id number] 08/04/2020 12:38:59 PM EDT [facility] Patient History Medical History:Family H istory:Diabetes (Mother)Heart disease (Mother)Hypertension (Mother) Current Problems: Dental disorder (ICD-525.9) (LLR38-O89.9)Dental caries (ICD-521.00) (JVJ68-R50.9)Current Medications: * CALCIUM * MULTI VITAMINS * OMEPRAZOLE Dental Chart: Procedures:Type - CDT Code - Description B - (D0274) Bitewings, 4 radiographic images (Performed by Anabel Green) B - (D4910) Periodontal maintenance (Performed by Anabel Green) B - (D0120) Periodic oral evaluation - established patient (Performed by Pamela Birmingham DDS) Chart Notes:charlie (Aug 04 2020 1:27PM): [facility]- no changes or concerns Additional PPE requirements due to COVID- 19 in the dental setting, N95, surgical mask, hair covering, gown. Referred to OS for non wipable plaque in areas of # 17-19, 20 and distal to # 31 Perio mantainence - Handscaled and ultrasonic, polished - mint paste and flossed, , 0NRA-EL-fbvxOlyjbok brushes 1-2 times/day, flossing regularly and using List erine zero mouthwash Trace marginal and interproximal calculus in sextant 5 and generalized staining -coffee drinker . Subgingival calculus seen interproximally on # 3, 14 and 15. Used ultrasonic and hand instruments , patient able to tolerate well. Talked about smoking and periodontal diseaseRadiographs revealed generalized horizontal bone loss and localized vertical bone loss. Recommended- brushing am pm- using tartar control tp, flossing with string floss and then use Listerine zero total care. Exc patientNV-Perio mantainennAnabel Florez by charlie (08/04/2020 1:27 PM): ; darwin (Aug 04 2020 1:32PM): [facility](-). CC: none. Reviewed Xrays. Exam: no caries detected. OCS: WNL, IO/ EO completed, No significant hard findings upon clinical exam.Additional PPE requirements due to COVID-19 in the dental setting, N95, surgical mask, hair covering, gown and shieldPt was cooperative. OHI given Referral: white lesion on # 30 and distal of # 31- alveolar ridge. NV:Anabel Calles by darwin (08/04/2020 1:32 PM): Tooth Notes and Watches:- Tooth 21 Watch: mesialAnabel Green by charlie (11/19/2017 10:36 AM): - Tooth 6 Watch: distalAnabel Green by charlie (11/19/2017 10:36 AM): Assessment & Plan Problems:Added: Dental disorder (ICD-525.9) (TVG82-M02.9)Medications:CALCIUMMULTI VITAMINSOMEPRAZOLEAllergies:No Known Allergies (updated 08/04/2020) Orders:Oral Surgery Referral [CPT-48023] Name Value Range Interpretation Code Description Data Barbie rce(s) Supporting Document(s) ID Date Data Source [id number] 07/31/2020 01:48:47 PM EDT [facility] XR SPINE CERV 4 OR MORE VIEWS [id number] RESULTInterpreted by:Adama Coffman [facility] SPINECLINICAL STATEMENT: Neck pain TECHNIQUE: AP, neutral lateral, and flexion and extension views of the cervical spine.COMPARISON: 05/11/2016.FINDINGS:No acute fracture or subluxation is identified. There is grade 1 anterolisthesis at C3-C4 and C4-C5 measuring 2 mm, stable on flexion extension views.The prevertebral soft tissues are within normal limits.Normal intervertebral disc spaces are preserved. IMPRESSION:Grade 1 anterolisthesis at C3-C4 and C4-C5, stable on flexion extension views.This document has been electronically signed by Adama Coffman MD on 07/31/2020 1:46 PM Name Value Range Interpretation Code Description Data Barbie rce(s) Supporting Document(s) ID Date Data Source [id number] 07/25/2020 11:16:00 AM EDT [facility] ([facility]) Name Value Range Interpretation Code Description Data Barbie rce(s) Supporting Document(s) Culture Genital Laboratory test result [facility] ([facility]) {SPECIMEN TYPE: CLEAN CATCH~.~.~N95.2 ID Date Data Source [id number] 07/25/2020 11:16:00 AM EDT [facility] ([facility]) Name Value Range Interpretation Code Description Data Barbie rce(s) Supporting Document(s) Culture Urine Laboratory test result [facility] ([facility]) {SPECIMEN TYPE: CLEAN CATCH~.~.~N95.2 ID Date Data Source [id number] 07/25/2020 11:16:00 AM EDT [facility] Name Value Range Interpretation Code Description Data Barbie rce(s) Supporting Document(s) Bacteria identified in Genital specimen by Aerobe cult ure Laboratory test result [facility] ([facility]) ID Date Data Source [id number] 07/29/2020 02:58:00 PM EDT [facility] Name Value Range Interpretation Code Description Data Barbie rce(s) Supporting Document(s) CULTURE GENITAL [facility] _GENITAL CULTURE_$$[id number]$$[id number]$$ [id number]$$[id number]$$[id number]$$[id number] DATE/TIME: 07/29/2020 07:06Culture: CULTURE GENITAL Status: FinalGenital Culture, Routine: P1NO NORMAL RICK RECOVERED. Flag: A Previous result entered on 07/28/2020 09:15 ET NO NORMAL RICK RECOVERED.Isolate 1 Staphylococcus aureus Flag: A . . . . . . .3Heavy growthMethicillin resistant (MRSA)Based on resistance to oxacillin this isolate would be resistant toall currently available beta-lactam antimicrobial agents, with theexception of the newer cephalosporins with anti-MRSA activity, such asCeftaroline Previous result entered on 07/28/2020 09:15 ET Staphylococcus aureusStaphylococcus aureus Flag: APatient: TEGAN DO Order: [id number] Page 2Culture: CULTURE GENITAL Status: Final ====ISOLATE 1 Staphylococcus aureus Isolate 1Antibiotic RL IntUnits ug/mL Ciprofloxacin S S . . . . . .185- 9Clindamycin S S . . . . . .193-3Erythromycin R R . . . . . .233-7Gentamicin S S . . . . . .267-5Levofloxacin S S . . . . . .49149-4Mvecidqrw S S . . . . . .84893-4Xdxfnfrcy R R . . . . . .383-0Penicillin R R . . . . . .6932-8Rifampin S S . . . . . .428-3Tetracycline S S . . . . . .496- 0Trimethoprim/Sulfa S S . . . . . .516-5Vancomycin S S . . . . . .524-9P1 Test performed by: Anurag Concordiapineda CAREY #: [id number] [address] [place] [phone] [facility] [phone] Director : Martín Mccormick MD NPI #:Fixed Income Director : 07/28/20.1130.XMT.SENT REF 07/29/20.1458.XMT.SENT REF ID Date Data Source [id number] 07/27/2020 08:31:00 PM EDT [facility] Name Value Range Interpretation Code Description Data Barbie rce(s) Supporting Document(s) CULTURE URINE [facility] _CULTURE URINE_$$[id number]$$[id number]$$[id number]$$[id number]$$[id number]$$[id number]$$[id number]$$[id number]$$640132$$ 888971$$356768$$251744$$953955$$[id number]$$[id number]$$652066$$238188$$253859$$[id number]$$ 787383$$772297$$345799$$170741$$127081$$075999$$658497$$060101 -- Continued on next page --Patient: TEGAN DO Order: [id number] Page 2Culture: CULTURE URINE Status: Final ==== -- Continued on next page --Patient: TEGAN DO Order: [id number] Page 2Culture: CULTURE URINE Status: Prelim =====$$[id number]$$[id number] DATE/TIME: 07/27/2020 16:07Culture: CULTURE URINE Status: FinalUrine Culture,Comprehensive: P1No growth in 36 - 48 hours. Previous result entered on 07/27/2020 04:34 ET No growth after 18-24 hours.P1 Test performed by: [facility] CAREY #: [id number] [address] [place] [address] [phone] [facility] [id number] Director : Martín Mccormick MD NPI #:Fixed Income Director : 07/27/20.15.XMT.SENT REF 07/27/20.2031.XMT.SENT REF ID Date Data Source [id number] 07/04/2020 11:40:00 AM EDT [facility] ([facility]) Name Value Range Interpretation Code Description Data Barbie rce(s) Supporting Document(s) Inhouse Wet [facility] Laboratory test result [facility] ([facility]) ID Date Data Source [id number] 07/04/2020 11:32:00 AM EDT [facility] ([facility]) Name Value Range Interpretation Code Description Data Barbie rce(s) Supporting Document(s) Mammo Screening Bilateral with CAD Laboratory test result [facility] ([facility]) ID Date Data Source [id number] 07/03/2020 11:26:11 AM EDT [facility] Name Value Range Interpretation Code Description Data Barbie rce(s) Supporting Document(s) Progress Note [facility] CHKFQx0jJkHAWfYv00/ADSwnGYRpo9UrWUzlLCk1DWuyHEPdM6MmMKE0dJ7gDVA1QWeVOiNiIuKfVVI1 lbm [file] [id number]ItG4OXA3uZCuSq9UVeEzSRNZMgEdSV8HQTd= ID Date Data Source [id number] 06/21/2020 01:46:40 PM EDT [facility] MR EXTREMITY UPPER JOINT WITHOUT CONTRAS T [id number] RESULTInterpreted by:Bryce Ruth MDEXAM: MRI Left ShoulderINDICATION: Shoulder pain. History of left shoulder surgery.COMPARISON: X-rays 04/04/2020 TECHNIQUE: Multiplanar imaging is performed of the left shoulder using multiple pulse sequences.FINDINGS: Rotator cuff: Subtle focus of fluid signal in the supraspinatus tendon far anterolaterally at its humeral insertion. This extends the bursal side. Extension to the articular side is equivocal but this probably a small full- thickness tear. The infraspinatus, subscapularis and teres minor tendons are intact. No muscle atrophy or edema.Biceps tendon: Long head biceps tendon is visible in the upper arm to the bicipital groove. Intra-articular portion is nonvisualized. There is an anchor in the humeral head entering from anterior. This could be from biceps tenodesis or possibly previous subscapularis tendon repair.Glenoid labrum: Intact.Glenohumeral joint: Moderate thinning irregularity articular cartilage. Moderate juxta articular marrow edema in the glenoid. No marginal osteophytes. No significant joint effusion.Acromioclavicular joint: Acromion is type 1. The acromion is thin and the under surface is smooth suggesting previous acromioplasty. No prominent subacromial hypertrophic changes.Bones: No fracture or bone contusion. No destructive bone lesion. Bursae: Moderate amount of fluid subacromial subdeltoid bursa.IMPRESSION: 1. Small subtle supraspinatus tendon tear. This is most likely a small full- thickness tear, less likely a high-grade partial tear on the bursal side.2. Subacromial subdeltoid bursitis, moderate severity.3. Moderate chondrosis glenohumeral joint.4. Intra-articular long head biceps tendon nonvisualized. This is probably from a tenodesis given the anterior anchor in the humeral head. Less likely a biceps tendon tear.This document has been electronically signed by Bryce uRth MD on 06/21/2020 1:44 PM Name Value Range Interpretation Code Description Data Barbie rce(s) Supporting Document(s) Procedure Social History Code Duration Value Status Description Data Source(s ) Smoking 10/10/2020 12:00:00 AM EST Former Smoker completed Former Smoker eCW1 ([facility]) Smoking 10/10/2020 12:00:00 AM EST Former Smoker completed Former Smoker eCW1 ([facility]) Alcohol intake 09/12/2020 12:00:00 AM EST Current non-d yasmin of alcohol (finding) completed Current non-drinker of alcohol (finding) [facility] Tobacco use and exposure 09/12/2020 12:00:00 AM EST Never used co mpleted Never used [facility] Cigarette pack-years 09/12/2020 12:00:00 AM EST UNK completed [facility] Cigarettes smoked current (pack per day) - Reported 09/12/20 12:00:00 AM EST UNK completed [facility] Smoking 09/12/2020 12:00:00 AM EST Current every day smoker co mpleted Current every day smoker [facility] Smoking 09/06/2020 12:00:00 AM EST Former Smoker completed Former Smoker eCW1 ([facility]) Smoking 09/06/2020 12:00:00 AM EST Former Smoker completed Former Smoker eCW1 ([facility]) Smoking 08/23/2020 12:00:00 AM EST Patient is a former smoker completed Patient is a former smoker [facility] ([facility]) Alcohol intake 07/28/2020 12:00:00 AM EDT Current non-d yasmin of alcohol (finding) completed Current non-drinker of alcohol (finding) [facility] Alcohol intake 06/30/2020 12:00:00 AM EDT Current non-d yasmin of alcohol (finding) completed Current non-drinker of alcohol (finding) [facility] Vital Signs ID Date Data Source UNK Name Value Range Interpretation Code Description Data Source(s) Diastolic blood pressure 69 mm[Hg] 69 mm[Hg] KADEN ([facility]) Body height 64 [in_i] 64 [in_i] KADEN ([facility]) Systolic blood pressure 105 mm[Hg] 105 mm[Hg] A THENA ([facility]) Systolic blood pressure 116 mm[Hg] 116 mm[Hg] M EDENT ([facility]) Diastolic blood pressure 74 mm[Hg] 74 mm[Hg] [facility] ([facility]) Heart rate 93 /min 93 /min [facility] ([facility]) Oxygen saturation in Arterial blood by Pulse oximetry 98 % 98 % [facility] ([facility]) Body weight 141.25 [lb_av] 141.25 [lb_av] MEDEN T ([facility]) Body weight 64.071 kg 64.071 kg [facility] ([facility]) Body height 64 [in_i] 64 [in_i] [facility] ([facility]) 5'4" Body mass index (BMI) [Ratio] 24.2 kg/m2 24.2 k g/m2 [facility] ([facility]) Body surface area Derived from formula 1.69 m2 1.69 m2 [facility] ([facility]) Diastolic blood pressure 67 mm[Hg] 67 mm[Hg] KADEN ([facility]) Body height 64 [in_i] 64 [in_i] K[facility]EN ([facility]) Systolic blood pressure 97 mm[Hg] 97 mm[Hg] A THENA ([facility]) Diastolic blood pressure 67 mm[Hg] 67 mm[Hg] KADEN ([facility]) Body height 64 [in_i] 64 [in_i] [facility] ([facility]) Systolic blood pressure 97 mm[Hg] 97 mm[Hg] A THENA ([facility]) Diastolic blood pressure 67 mm[Hg] 67 mm[Hg] [facility]EN ([facility]) Body height 64 [in_i] 64 [in_i] [facility] ([facility]) Systolic blood pressure 97 mm[Hg] 97 mm[Hg] A THENA ([facility]) Systolic blood pressure 99 mm[Hg] 99 mm[Hg] A THENA ([facility]) Diastolic blood pressure 76 mm[Hg] 76 mm[Hg] KADEN ([facility]) Body height 64 [in_i] 64 [in_i] [facility] ([facility]) Diastolic blood pressure 76 mm[Hg] 76 mm[Hg] KADEN ([facility]) Body height 64 [in_i] 64 [in_i] [facility] ([facility]) Systolic blood pressure 99 mm[Hg] 99 mm[Hg] A THENA ([facility]) Diastolic blood pressure 76 mm[Hg] 76 mm[Hg] KADEN ([facility]) Body height 64 [in_i] 64 [in_i] [facility]EN ([facility]) Systolic blood pressure 99 mm[Hg] 99 mm[Hg] A THENA ([facility]) Diastolic blood pressure 76 mm[Hg] 76 mm[Hg] [facility]ADEN ([facility]) Body height 64 [in_i] 64 [in_i] [facility] ([facility]) Systolic blood pressure 99 mm[Hg] 99 mm[Hg] A THENA ([facility]) Body height 64 [in_i] 64 [in_i] KADEN ([facility]) Systolic blood pressure 99 mm[Hg] 99 mm[Hg] A THENA ([facility]) Diastolic blood pressure 66 mm[Hg] 66 mm[Hg] [facility]EN ([facility]) Diastolic blood pressure 66 mm[Hg] 66 mm[Hg] [facility] ([facility]) Body height 64 [in_i] 64 [in_i] [facility] ([facility]) Systolic blood pressure 99 mm[Hg] 99 mm[Hg] A THENA ([facility]) Diastolic blood pressure 66 mm[Hg] 66 mm[Hg] [facility]EN ([facility]) Body height 64 [in_i] 64 [in_i] [facility] ([facility]) Systolic blood pressure 99 mm[Hg] 99 mm[Hg] A THENA ([facility]) Diastolic blood pressure 66 mm[Hg] 66 mm[Hg] [facility]ADEN ([facility]) Body height 64 [in_i] 64 [in_i] [facility] ([facility]) Systolic blood pressure 99 mm[Hg] 99 mm[Hg] A THENA ([facility]) Diastolic blood pressure 66 mm[Hg] 66 mm[Hg] KADEN ([facility]) Diastolic blood pressure 66 mm[Hg] 66 mm[Hg] [facility]ADEN ([facility]) Body height 64 [in_i] 64 [in_i] [facility] ([facility]) Systolic blood pressure 99 mm[Hg] 99 mm[Hg] A THENA ([facility]) Body height 64 [in_i] 64 [in_i] KADNE ([facility]) Systolic blood pressure 99 mm[Hg] 99 mm[Hg] A THENA ([facility]) Body temperature 97.1 [degF] 97.1 [degF] [facility] ([facility]) Body height 64.5 [in_i] 64.5 [in_i] [facility] ([facility]) 5'4.50" Body weight 140.00 [lb_av] 140.00 [lb_av] MEDEN T ([facility]) Body mass index (BMI) [Ratio] 23.7 kg/m2 23.7 k g/m2 [facility] ([facility]) Diastolic blood pressure 54 mm[Hg] 54 mm[Hg] [facility] ([facility]) Body height 64 [in_i] 64 [in_i] [facility] ([facility]) Systolic blood pressure 88 mm[Hg] 88 mm[Hg] A THENA ([facility]) Diastolic blood pressure 54 mm[Hg] 54 mm[Hg] [facility] ([facility]) Body height 64 [in_i] 64 [in_i] [facility] ([facility]) Systolic blood pressure 88 mm[Hg] 88 mm[Hg] A THENA ([facility]) Diastolic blood pressure 54 mm[Hg] 54 mm[Hg] [facility]EN ([facility]) Body height 64 [in_i] 64 [in_i] [facility] ([facility]) Systolic blood pressure 88 mm[Hg] 88 mm[Hg] A THENA ([facility]) Diastolic blood pressure 54 mm[Hg] 54 mm[Hg] [facility] ([facility]) Body height 64 [in_i] 64 [in_i] [facility] ([facility]) Systolic blood pressure 88 mm[Hg] 88 mm[Hg] A THENA ([facility]) Diastolic blood pressure 54 mm[Hg] 54 mm[Hg] K[facility]EN ([facility]) Body height 64 [in_i] 64 [in_i] [facility]EN ([facility]) Systolic blood pressure 88 mm[Hg] 88 mm[Hg] A THENA ([facility]) Diastolic blood pressure 54 mm[Hg] 54 mm[Hg] KADEN ([facility]) Body height 64 [in_i] 64 [in_i] K[facility] ([facility]) Systolic blood pressure 88 mm[Hg] 88 mm[Hg] A THENA ([facility]) Diastolic blood pressure 54 mm[Hg] 54 mm[Hg] KADEN ([facility]) Body height 64 [in_i] 64 [in_i] KADEN ([facility]) Systolic blood pressure 88 mm[Hg] 88 mm[Hg] A THENA ([facility]) Diastolic blood pressure 64 mm[Hg] 64 mm[Hg] KADEN ([facility]) Body height 64 [in_i] 64 [in_i] KADEN ([facility]) Systolic blood pressure 90 mm[Hg] 90 mm[Hg] A THENA ([facility]) Diastolic blood pressure 64 mm[Hg] 64 mm[Hg] KADEN ([facility]) Body height 64 [in_i] 64 [in_i] KADEN ([facility]) Systolic blood pressure 90 mm[Hg] 90 mm[Hg] A THENA ([facility]) Diastolic blood pressure 64 mm[Hg] 64 mm[Hg] KADEN ([facility]) Body height 64 [in_i] 64 [in_i] KADEN ([facility]) Systolic blood pressure 90 mm[Hg] 90 mm[Hg] A THENA ([facility]) Diastolic blood pressure 64 mm[Hg] 64 mm[Hg] KADEN ([facility]) Body height 64 [in_i] 64 [in_i] KADEN ([facility]) Systolic blood pressure 90 mm[Hg] 90 mm[Hg] A THENA ([facility]) Diastolic blood pressure 64 mm[Hg] 64 mm[Hg] KADEN ([facility]) Body height 64 [in_i] 64 [in_i] KADEN ([facility]) Systolic blood pressure 90 mm[Hg] 90 mm[Hg] A THENA ([facility]) Diastolic blood pressure 64 mm[Hg] 64 mm[Hg] KADEN ([facility]) Body height 64 [in_i] 64 [in_i] KADEN ([facility]) Systolic blood pressure 90 mm[Hg] 90 mm[Hg] A THENA ([facility]) Diastolic blood pressure 64 mm[Hg] 64 mm[Hg] KADEN ([facility]) Body height 64 [in_i] 64 [in_i] KADEN ([facility]) Systolic blood pressure 90 mm[Hg] 90 mm[Hg] A THENA ([facility]) Diastolic blood pressure 64 mm[Hg] 64 mm[Hg] KADEN ([facility]) Body height 64 [in_i] 64 [in_i] KADEN ([facility]) Systolic blood pressure 90 mm[Hg] 90 mm[Hg] A THENA ([facility]) Body weight 140 [lb_av] 140 [lb_av] eCW1 (Count includes the [facility]) Body height 64 [in_i] 64 [in_i] eCW1 ([facility]) Body mass index (BMI) [Ratio] 24.03 kg/m2 24.03 kg/m2 W1 ([facility]) Heart rate 108 /min 108 /min W1 ([facility]) Respiratory rate 16 /min 16 /min W1 ([facility]) Body temperature 98.2 [degF] 98.2 [degF] eCW1 ( [facility]) Systolic blood pressure 108 mm[Hg] 108 mm[Hg] e CW1 ([facility]) Diastolic blood pressure 84 mm[Hg] 84 mm[Hg] eCW1 ([facility]) Systolic blood pressure 129 mm[Hg] 129 mm[Hg] A THENA ([facility]) Diastolic blood pressure 68 mm[Hg] 68 mm[Hg] KADEN ([facility]) Body height 64 [in_i] 64 [in_i] KADEN ([facility]) Diastolic blood pressure 68 mm[Hg] 68 mm[Hg] KADEN ([facility]) Body height 64 [in_i] 64 [in_i] KAEDN ([facility]) Systolic blood pressure 129 mm[Hg] 129 mm[Hg] A THENA ([facility]) Diastolic blood pressure 68 mm[Hg] 68 mm[Hg] KADEN ([facility]) Body height 64 [in_i] 64 [in_i] KADEN ([facility]) Systolic blood pressure 129 mm[Hg] 129 mm[Hg] A THENA ([facility]) Diastolic blood pressure 68 mm[Hg] 68 mm[Hg] KADEN ([facility]) Body height 64 [in_i] 64 [in_i] KADEN ([facility]) Systolic blood pressure 129 mm[Hg] 129 mm[Hg] A THENA ([facility]) Diastolic blood pressure 68 mm[Hg] 68 mm[Hg] KADEN ([facility]) Body height 64 [in_i] 64 [in_i] KADEN ([facility]) Systolic blood pressure 129 mm[Hg] 129 mm[Hg] A THENA ([facility]) Diastolic blood pressure 68 mm[Hg] 68 mm[Hg] KADEN ([facility]) Body height 64 [in_i] 64 [in_i] KADEN ([facility]) Systolic blood pressure 129 mm[Hg] 129 mm[Hg] A THENA ([facility]) Diastolic blood pressure 68 mm[Hg] 68 mm[Hg] KADEN ([facility]) Body height 64 [in_i] 64 [in_i] KADEN ([facility]) Systolic blood pressure 129 mm[Hg] 129 mm[Hg] A THENA ([facility]) Diastolic blood pressure 68 mm[Hg] 68 mm[Hg] KADEN ([facility]) Body height 64 [in_i] 64 [in_i] KADEN ([facility]) Systolic blood pressure 129 mm[Hg] 129 mm[Hg] A THENA ([facility]) Diastolic blood pressure 68 mm[Hg] 68 mm[Hg] KADEN ([facility]) Body height 64 [in_i] 64 [in_i] KADEN ([facility]) Systolic blood pressure 129 mm[Hg] 129 mm[Hg] A THENA ([facility]) Body height 64 [in_i] 64 [in_i] KADEN ([facility]) Body height 64 [in_i] 64 [in_i] KADEN ([facility]) Body height 64 [in_i] 64 [in_i] KADEN ([facility]) Body height 64 [in_i] 64 [in_i] KADEN ([facility]) Body height 64 [in_i] 64 [in_i] KADEN ([facility]) Body height 64 [in_i] 64 [in_i] KADEN ([facility]) Body height 64 [in_i] 64 [in_i] KADEN ([facility]) Body height 64 [in_i] 64 [in_i] KADEN ([facility]) Body height 64 [in_i] 64 [in_i] KADEN ([facility]) Body height 64 [in_i] 64 [in_i] KADEN ([facility]) Heart rate 79 /min 79 /min MEDENT ([facility], [facility]) Respiratory rate 16 /min 16 /min MEDENT ( [facility], [facility]) Oxygen saturation in Arterial blood by Pulse oximetry 96 % 96 % MEDENT ([facility], [facility]) Body temperature 98.4 [degF] 98.4 [degF] MEDENT ([facility], [facility]) Body weight 128.00 [lb_av] 128.00 [lb_av] MEDEN T ([facility], [facility]) Body height 64 [in_i] 64 [in_i] MEDENT ([facility], [facility]) 5'4" Body mass index (BMI) [Ratio] 22.0 kg/m2 22.0 k g/m2 MEDENT ([facility], [facility]) Systolic blood pressure 99 mm[Hg] 99 mm[Hg] M EDENT ([facility], [facility]) Diastolic blood pressure 68 mm[Hg] 68 mm[Hg] MEDENT ([facility], [facility]) Heart rate 104 /min 104 /min MEDENT ([facility]) Body temperature 97.0 [degF] 97.0 [degF] MEDENT ([facility]) Body weight 130.00 [lb_av] 130.00 [lb_av] MEDEN T ([facility]) Body weight 58.968 kg 58.968 kg MEDENT ([facility]) Body height 64 [in_i] 64 [in_i] MEDENT ([facility]) 5'4" Body mass index (BMI) [Ratio] 22.3 kg/m2 22.3 k [facility] Body surface area Derived from formula 1.63 m2 1.63 m2 MEDENT ([facility]) Systolic blood pressure 105 mm[Hg] 105 mm[Hg] M EDENT ([facility]) Diastolic blood pressure 70 mm[Hg] 70 mm[Hg] MEDENT ([facility]) Systolic blood pressure 108 mm[Hg] 108 mm[Hg] M EDENT ([facility]) Diastolic blood pressure 65 mm[Hg] 65 mm[Hg] MEDENT ([facility]) Body height 64 [in_i] 64 [in_i] MEDENT ([facility]) 5'4" Body mass index (BMI) [Ratio] 22.7 kg/m2 22.7 k g/m2 MEDENT ([facility]) Body surface area Derived from formula 1.64 m2 1.64 m2 MEDENT ([facility]) Body weight 132.00 [lb_av] 132.00 [lb_av] MEDEN T ([facility]) Body weight 59.875 kg 59.875 kg MEDENT ([facility]) Heart rate 85 /min 85 /min MEDENT ([facility]) Body temperature 98.0 [degF] 98.0 [degF] MEDENT ([facility]) ID Date Data Source [id number] 10/07/2020 11:21:00 AM [facility] Name Value Range Interpretation Code Description Data Source(s) WEIGHT RECORDED 115 lb 115 lb [facility] Body height Measured 64 in 64 in [facility] Patient Treatment Plan of Care Planned Activity Planned Date Details Description Data Source (s) methylPREDNISolone acetate (DEPO-MEDROL) injection 80 mg 09/12/2020 01:00:00 PM [facility] methylPREDNISolone acetate (DEPO-MEDROL) injection 80 mg 09/12/2020 01:00:00 PM [facility] chlorhexidine gluconate 40 MG/ML Medicated Liquid Soap [Hibiclens] 09/06/2020 12:00:00 AM EST eCW1 ([facility]) Mupirocin 20 MG/ML Topical Cream 09/06/2020 12:00:00 AM EST eCW1 ([facility]) valacyclovir 500 MG Oral Tablet [Valtrex] 09/06/2020 12:00:00 AM ES T eCW1 ([facility]) chlorhexidine gluconate 40 MG/ML Medicated Liquid Soap [Hibiclens] 09/06/2020 12:00:00 AM EST eCW1 ([facility]) Mupirocin 20 MG/ML Topical Cream 09/06/2020 12:00:00 AM EST eCW1 ([facility]) valacyclovir 500 MG Oral Tablet [Valtrex] 09/06/2020 12:00:00 AM ES T eCW1 ([facility]) methylPREDNISolone acetate (DEPO-MEDROL) injection 80 mg 06/30/2020 01:30:00 PM [facility] methylPREDNISolone acetate (DEPO-MEDROL) injection 80 mg 06/30/2020 01:30:00 PM [facility] methylPREDNISolone acetate (DEPO-MEDROL) injection 80 mg 05/18/2020 02:45:00 PM [facility] Afluria Quad 60 mcg (15 mcg x 4)/0.5 mL intramuscular susp. INJECT DIRECTED KADEN ([facility]) Afluria Quad 60 mcg (15 mcg x 4)/0.5 mL intramuscular susp. [facility] Sulfamethoxazole 400 MG / Trimethoprim 80 MG Oral Tablet KADEN ([facility]) Naproxen 375 MG Oral Tablet KADEN ([facility]) Metronidazole 500 MG Oral Tablet KADEN ([facility]) Diclofenac Sodium 0.01 MG/MG Topical Gel AKDEN ([facility]) cetirizine hydrochloride 10 MG Oral Tablet KADEN ([facility]) Cephalexin 500 MG Oral Capsule KADEN ([facility]) Afluria Quad 60 mcg (15 mcg x 4)/0.5 mL intramuscular susp. INJECT DIRECTED KADEN ([facility]) Afluria Quad 60 mcg (15 mcg x 4)/0.5 mL intramuscular susp. INJECT DIRECTED KADEN ([facility]) Sulfamethoxazole 400 MG / Trimethoprim 80 MG Oral Tablet KADEN ([facility]) Naproxen 375 MG Oral Tablet KADEN ([facility]) Metronidazole 500 MG Oral Tablet KADEN ([facility]) Diclofenac Sodium 0.01 MG/MG Topical Gel KADEN ([facility]) Ciprofloxacin 500 MG Oral Tablet KADEN ([facility]) cetirizine hydrochloride 10 MG Oral Tablet KADEN ([facility]) Cephalexin 500 MG Oral Capsule KADEN ([facility]) Afluria Quad 60 mcg (15 mcg x 4)/0.5 mL intramuscular susp. INJECT DIRECTED KADEN ([facility]) Afluria Quad 60 mcg (15 mcg x 4)/0.5 mL intramuscular susp. INJECT DIRECTED KADEN ([facility]) Sulfamethoxazole 400 MG / Trimethoprim 80 MG Oral Tablet KADEN ([facility]) Naproxen 375 MG Oral Tablet KADEN ([facility]) Metronidazole 500 MG Oral Tablet KADEN ([facility]) Diclofenac Sodium 0.01 MG/MG Topical Gel KADEN ([facility]) Ciprofloxacin 500 MG Oral Tablet KADEN ([facility]) cetirizine hydrochloride 10 MG Oral Tablet KADEN ([facility]) Cephalexin 500 MG Oral Capsule KADEN ([facility]) Afluria Quad 60 mcg (15 mcg x 4)/0.5 mL intramuscular susp. INJECT DIRECTED KADEN ([facility]) Sulfamethoxazole 400 MG / Trimethoprim 80 MG Oral Tablet KADEN ([facility]) Naproxen 375 MG Oral Tablet KADEN ([facility]) Sulfamethoxazole 400 MG / Trimethoprim 80 MG Oral Tablet KADEN ([facility]) Naproxen 375 MG Oral Tablet KADEN ([facility]) Metronidazole 500 MG Oral Tablet KADEN ([facility]) Fluconazole 150 MG Oral Tablet KADEN ([facility]) Estradiol 0.1 MG/ML Vaginal Cream KADEN ([facility]) Diclofenac Sodium 0.01 MG/MG Topical Gel KADEN ([facility]) Ciprofloxacin 500 MG Oral Tablet KADEN ([facility]) cetirizine hydrochloride 10 MG Oral Tablet KADEN ([facility]) Cephalexin 500 MG Oral Capsule KADEN ([facility]) Metronidazole 500 MG Oral Tablet KADEN ([facility]) Diclofenac Sodium 0.01 MG/MG Topical Gel KADEN ([facility]) Ciprofloxacin 500 MG Oral Tablet KADEN ([facility]) cetirizine hydrochloride 10 MG Oral Tablet KADEN ([facility]) Cephalexin 500 MG Oral Capsule KADEN ([facility]) Afluria Quad 60 mcg (15 mcg x 4)/0.5 mL intramuscular susp. INJECT DIRECTED KADEN ([facility]) Naproxen 375 MG Oral Tablet KADEN ([facility]) Afluria Quad 60 mcg (15 mcg x 4)/0.5 mL intramuscular susp. INJECT DIRECTED KADEN ([facility]) Naproxen 375 MG Oral Tablet KADEN ([facility]) Mupirocin 0.02 MG/MG Topical Ointment KADEN ([facility]) Estradiol 0.1 MG/ML Vaginal Cream KADEN ([facility]) Diclofenac Sodium 0.01 MG/MG Topical Gel KADEN ([facility]) Afluria Quad 60 mcg (15 mcg x 4)/0.5 mL intramuscular susp. INJECT DIRECTED KADEN ([facility]) Diclofenac Sodium 0.01 MG/MG Topical Gel KADEN ([facility]) Ciprofloxacin 500 MG Oral Tablet KADEN ([facility]) cetirizine hydrochloride 10 MG Oral Tablet KADEN ([facility]) Cephalexin 500 MG Oral Capsule KADEN ([facility]) Afluria Quad 60 mcg (15 mcg x 4)/0.5 mL intramuscular susp. INJECT DIRECTED KADEN ([facility]) Afluria Quad 60 mcg (15 mcg x 4)/0.5 mL intramuscular susp. INJECT DIRECTED KADEN ([facility]) Sulfamethoxazole 400 MG / Trimethoprim 80 MG Oral Tablet KADEN ([facility]) Naproxen 375 MG Oral Tablet KADEN ([facility]) Metronidazole 500 MG Oral Tablet KADEN ([facility]) Naproxen 375 MG Oral Tablet KADEN ([facility]) Diclofenac Sodium 0.01 MG/MG Topical Gel KADEN ([facility]) Afluria Quad 60 mcg (15 mcg x 4)/0.5 mL intramuscular susp. INJECT DIRECTED KADEN ([facility]) Naproxen 375 MG Oral Tablet KADEN ([facility]) Estradiol 0.1 MG/ML Vaginal Cream KADEN ([facility]) Diclofenac Sodium 0.01 MG/MG Topical Gel KADEN ([facility])
--- NOTE | 2021-08-13 12:08 | REP ---
INDICATION: pain. COMPARISON: None. TECHNIQUE: Four views FINDINGS: There is spurs the tibial spines without tibial plateau fracture proximal tibiofibular articulation intact visualized portions of distal femur and femoral condyles intact. Patella unremarkable. Tibia and fibular shaft show no fracture or focal lesion or adjacent soft tissue calcification. No radiopaque foreign body seen in the calf. The distal tibia and fibula show normal relationship to each other and the talus. IMPRESSION: 1. Some degenerative changes at the knee but without visible or displaced fracture, focal lesion of the tibia fibula nor other acute finding. <Electronically signed by Artur Benavidez > 08/13/21 [id number]
--- OUTSIDE RECORDS SUMMARY | 2021-08-13 12:18 | CCD ---
Author Author [facility] Organization [facility] Address Unknown Phone Unavailable Care Team Providers Care Yam Curer Name Role Phone Kath Lafleur Unavailable Unavailable LafleurKath ruano Unavailable Unavailable Kath Lafleur Unavailable Unavailable Kath Lafleur Unavailable Unavailable Kath Lafleur Unavailable Unavailable Kath Lafleur Unavailable Unavailable Kath Lafleur Unavailable Unavailable Kath Lafleur Unavailable Unavailable Kath Lafleur Unavailable Unavailable Kath Lafleur Unavailable Unavailable MARIN, R HARI FIBRE OPTICS JOINTER Unavailable Unavailable MARIN, R HARI FIBRE OPTICS JOINTER Unavailable Unavailable MARIN, R HARI FIBRE OPTICS JOINTER Unavailable Unavailable MARIN, R HARI FIBRE OPTICS JOINTER Unavailable Unavailable MARIN, R HARI FIBRE OPTICS JOINTER Unavailable Unavailable MARIN, R HARI FIBRE OPTICS JOINTER Unavailable Unavailable MARIN, R HARI FIBRE OPTICS JOINTER Unavailable Unavailable MARIN, R HARI FIBRE OPTICS JOINTER Unavailable Unavailable MARIN, R HARI FIBRE OPTICS JOINTER Unavailable Unavailable MARIN, R HARI FIBRE OPTICS JOINTER Unavailable Unavailable MARIN, R HARI FIBRE OPTICS JOINTER Unavailable Unavailable MARIN, R HARI FIBRE OPTICS JOINTER Unavailable Unavailable MARIN, R HARI FIBRE OPTICS JOINTER Unavailable Unavailable MARIN, R HARI FIBRE OPTICS JOINTER Unavailable Unavailable MARIN, R HARI FIBRE OPTICS JOINTER Unavailable Unavailable MARIN, R HARI FIBRE OPTICS JOINTER Unavailable Unavailable MARIN, R HARI FIBRE OPTICS JOINTER Unavailable Unavailable MARIN, R HARI FIBRE OPTICS JOINTER Unavailable Unavailable MARIN, R HARI FIBRE OPTICS JOINTER Unavailable Unavailable MARIN, R HARI FIBRE OPTICS JOINTER Unavailable Unavailable MARIN, R HARI FIBRE OPTICS JOINTER Unavailable Unavailable MARIN, R HARI FIBRE OPTICS JOINTER Unavailable Unavailable MARIN, R HARI FIBRE OPTICS JOINTER Unavailable Unavailable MARIN, R HARI FIBRE OPTICS JOINTER Unavailable Unavailable MARIN, R HARI FIBRE OPTICS JOINTER Unavailable Unavailable MARIN, R HARI FIBRE OPTICS JOINTER Unavailable Unavailable MARIN, R HARI FIBRE OPTICS JOINTER Unavailable Unavailable MARIN, R HARI FIBRE OPTICS JOINTER Unavailable Unavailable MARIN, R HARI FIBRE OPTICS JOINTER Unavailable Unavailable MARIN, R HARI FIBRE OPTICS JOINTER Unavailable Unavailable MARIN, R HARI FIBRE OPTICS JOINTER Unavailable Unavailable MARIN, R HARI FIBRE OPTICS JOINTER Unavailable Unavailable MARIN, R HARI FIBRE OPTICS JOINTER Unavailable Unavailable MARIN, R HARI FIBRE OPTICS JOINTER Unavailable Unavailable MARIN, R HARI FIBRE OPTICS JOINTER Unavailable Unavailable MARIN, R HARI FIBRE OPTICS JOINTER Unavailable Unavailable MARIN, R HARI FIBRE OPTICS JOINTER Unavailable Unavailable MARIN, R HARI FIBRE OPTICS JOINTER Unavailable Unavailable MARIN, R HARI FIBRE OPTICS JOINTER Unavailable Unavailable MARIN, R HARI FIBRE OPTICS JOINTER Unavailable Unavailable MARIN, R HARI FIBRE OPTICS JOINTER Unavailable Unavailable MARIN, R HARI FIBRE OPTICS JOINTER Unavailable Unavailable MARIN, R HARI FIBRE OPTICS JOINTER Unavailable Unavailable MARIN, R HARI FIBRE OPTICS JOINTER Unavailable Unavailable MERCER, JUDY PETER FIBRE OPTICS JOINTER Unavailable Unavailable MERCER, JUDY PETER FIBRE OPTICS JOINTER Unavailable Unavailable MERCER, JUDY PETER FIBRE OPTICS JOINTER Unavailable Unavailable MERCER, JUDY PETER FIBRE OPTICS JOINTER Unavailable Unavailable MERCER, JUDY PETER FIBRE OPTICS JOINTER Unavailable Unavailable MERCER, JUDY PETER FIBRE OPTICS JOINTER Unavailable Unavailable MERCER, JUDY PETER FIBRE OPTICS JOINTER Unavailable Unavailable MERCER, JUDY PETER FIBRE OPTICS JOINTER Unavailable Unavailable MERCER, JUDY PETER FIBRE OPTICS JOINTER Unavailable Unavailable MERCER, JUDY PETER FIBRE OPTICS JOINTER Unavailable Unavailable MERCER, JUDY PETER FIBRE OPTICS JOINTER Unavailable Unavailable MERCER, JUDY PETER FIBRE OPTICS JOINTER Unavailable Unavailable MERCER, JUDY PETER FIBRE OPTICS JOINTER Unavailable Unavailable MERCER, JUDY PETER FIBRE OPTICS JOINTER Unavailable Unavailable MERCER, JUDY PETER FIBRE OPTICS JOINTER Unavailable Unavailable MERCER, JUDY PETER FIBRE OPTICS JOINTER Unavailable Unavailable MERCER, JUDY PETER FIBRE OPTICS JOINTER Unavailable Unavailable MERCER, JUDY PETER FIBRE OPTICS JOINTER Unavailable Unavailable MERCER, JUDY PETER FIBRE OPTICS JOINTER Unavailable Unavailable MERCER, JUDY PETER FIBRE OPTICS JOINTER Unavailable Unavailable MERCER, JUDY PETER FIBRE OPTICS JOINTER Unavailable Unavailable MERCER, JUDY PETER FIBRE OPTICS JOINTER Unavailable Unavailable MERCER, JUDY PETER FIBRE OPTICS JOINTER Unavailable Unavailable Dille, E Pamela DDS Unavailable [...] JACQUES DO Unavailable Unavailable Jumalon, M Anna PROJECT FACILITATOR Unavailable Unavailable Jumalon, M Anna PROJECT FACILITATOR Unavailable Unavailable Jumalon, M Anna PROJECT FACILITATOR Unavailable Unavailable Jumalon, M Anna PROJECT FACILITATOR Unavailable Unavailable Jumalon, M Anna PROJECT FACILITATOR Unavailable Unavailable Jumalon, M Anna PROJECT FACILITATOR Unavailable Unavailable Jumalon, M Anna PROJECT FACILITATOR Unavailable Unavailable Jumalon, M Anna PROJECT FACILITATOR Unavailable Unavailable Jumalon, M Anna PROJECT FACILITATOR Unavailable Unavailable Jumalon, M Anna PROJECT FACILITATOR Unavailable Unavailable Jumalon, M Anna PROJECT FACILITATOR Unavailable Unavailable Jumalon, M Anna PROJECT FACILITATOR Unavailable Unavailable Jumalon, M Anna PROJECT FACILITATOR Unavailable Unavailable Jumalon, M Anna PROJECT FACILITATOR Unavailable Unavailable Jumalon, M Anna PROJECT FACILITATOR Unavailable Unavailable Jumalon, M Anna PROJECT FACILITATOR Unavailable Unavailable Jumalon, M Anna PROJECT FACILITATOR Unavailable Unavailable Jumalon, M Anna PROJECT FACILITATOR Unavailable Unavailable Jumalon, M Anna PROJECT FACILITATOR Unavailable Unavailable Jumalon, M Anna PROJECT FACILITATOR Unavailable Unavailable Jumalon, M Anna PROJECT FACILITATOR Unavailable Unavailable Jumalon, M Anna PROJECT FACILITATOR Unavailable Unavailable Jumalon, M Anna PROJECT FACILITATOR Unavailable Unavailable Jumalon, M Anna PROJECT FACILITATOR Unavailable Unavailable Jumalon, M Anna PROJECT FACILITATOR Unavailable Unavailable Jumalon, M Anna PROJECT FACILITATOR Unavailable Unavailable Jumalon, M Anna PROJECT FACILITATOR Unavailable Unavailable Jumalon, M Anna PROJECT FACILITATOR Unavailable Unavailable Jumalon, M Anna PROJECT FACILITATOR Unavailable Unavailable Jumalon, M Anna PROJECT FACILITATOR Unavailable Unavailable TESSA, Lawrence VARELA MD Unavailable Unavailable TESSA, Lawrence VARELA MD Unavailable Unavailable TESSALawrence FATIMA MD Unavailable Unavailable TESSALawrence FATIMA MD Unavailable Unavailable TESSALawrence FATIMA MD Unavailable Unavailable TESASLawrence FATIMA MD Unavailable Unavailable TESSALawrence FATIMA MD [...] Unavailable Unavailable TESSALawrence FATIMA MD Unavailable Unavailable Lawrence ZARATE MD Unavailable [...] Lawrence VARELA MD Unavailable Unavailable TESSA, Lawrence VARLEA MD Unavailable Unavailable TESSA, Lawrence VARELA MD [...] is protected by Article 27-F of the [facility] Public Health law. If you continue you may have access to information: Regarding HIV / AIDS; Provided by facilities licensed or operated by the [facility] Office of Mental Health; or Provided by the [facility] Office for People With Developmental Disabilities. If such information is present, then the following [facility] mandated warning applies: This information has been [...] law may result in a fine or alf sentence or both. A general authorization for the release of medical or other information is NOT sufficient authorization for further disc losure. Allergies and Adverse Reactions Type Description Substance Reaction Status Data Source(s ) No Known Drug Allergies No Known Drug Allergies [facility] Family History Family Member Name Family Member Gender Family Member Status Date o f Status Description Data Source(s) Unknown Unknown Problem MEDENT ([facility]) Encounters Encounter Providers Location Date Indications Data Source(s ) Outpatient Attender: NICHOLE ZARATE MD 08/24/2021 12:00:0 0 AM [facility] Anna Vazquez, FIBRE OPTICS JOINTER: [address], [place] [address], Ph. Attender: Anna Vazquez [facility] - Main Office 07/27/2021 12:00:00 AM EDT ATHAlber NA ([facility]) Outpatient Attender: Lilia Pacheco MD Physical Therap y 07/26/2021 02:30:00 PM EDT MEDENT ([facility]) Outpatient Attender: PETER MERCER NP Family Practice 07/10/2021 10 :30:00 AM EDT MEDENT ([facility]) Outpatient Attender: PETER MERCER NPConsultant: JACQUES ASHLEY INE DO 07/10/2021 10:18:00 AM EDT - 07/10/2021 10:18:[address] [facility] Anna Vazquez, FIBRE OPTICS JOINTER: [address], [place] [address], Ph. Attender: Anna Vazquez [facility] 06/05/2021 12:00:00 AM EDT ATHAlber NA ([facility]) Anna Vazquez, FIBRE OPTICS JOINTER: [address], [place] [address], Ph. Attender: Anna Vazquez [facility] 06/05/2021 12:00:00 AM EDT ATHAlber NA ([facility]) Anna Vazquez, FIBRE OPTICS JOINTER: [address], [place] [address], Ph. Attender: Anna Vazquez [facility] 04/24/2021 12:00:00 AM EDT ATHAlber NA ([facility]) Anna Schaffer George, FIBRE OPTICS JOINTER: [address], [place] [address], Ph. Attender: Anna Vazquez [facility] 04/24/2021 12:00:00 AM EDT ATHE NA ([facility]) Anna Vazquez, FIBRE OPTICS JOINTER: [address], [place] [address], Ph. Attender: Anna Vazquez [facility] 04/24/2021 12:00:00 AM EDT ATHE NA ([facility]) Anna Vazquez, FIBRE OPTICS JOINTER: [address], [place] [address], Ph. Attender: Anna Vazquez [facility] 03/13/2021 12:00:00 AM EDT ATHE NA ([facility]) Anna Vazquez, FIBRE OPTICS JOINTER: [address], [place] [address], Ph. Attender: Anna Vazquez [facility] 03/13/2021 12:00:00 AM EDT ATHE NA ([facility]) Anna Vazquez, FIBRE OPTICS JOINTER: [address], [place] [address], Ph. Attender: Anna Vazquez [facility] 03/13/2021 12:00:00 AM EDT ATHE NA ([facility]) Anna Vazquez, FIBRE OPTICS JOINTER: [address], [place] [address], Ph. Attender: Anna Vazquez [facility] 03/13/2021 12:00:00 AM EDT ATHE NA ([facility]) Outpatient Attender: Lilia Pacheco MD Physical Therap y 02/15/2021 02:15:00 PM EDT MEDJUNG ([facility] Anna Vazquez, FIBRE OPTICS JOINTER: [address], [address], [place] [address], Ph. Attender: Anna Vazquez [facility] 02/13/2021 12:00:00 AM EDT ATHE NA ([facility]) Anna Vazquez, FIBRE OPTICS JOINTER: [address], [address], [place] [address], Ph. Attender: Anna Vazquez [facility] 02/13/2021 12:00:00 AM EDT ATHE NA ([facility]) Anna Vazquez, FIBRE OPTICS JOINTER: [address], [place] [address], Ph. Attender: Anna Vazquez [facility] 02/13/2021 12:00:00 AM EDT ATHE NA ([facility]) Anna Vazquez, FIBRE OPTICS JOINTER: [address], [place] [address], Ph. Attender: Anna Vazquez [facility] 02/13/2021 12:00:00 AM EDT ATHE NA ([facility]) Anna Vazquez, FIBRE OPTICS JOINTER: [address], [address], [place] [address], Ph. Attender: Anna Vazquez [facility] 02/13/2021 12:00:00 AM EDT ATHE NA ([facility]) Anna Vazquez, FIBRE OPTICS JOINTER: [address], [place] [address], Ph. Attender: Anna Vazquez [facility] 01/10/2021 12:00:00 AM EDT ATHE NA ([facility]) Anna Vazquez, FIBRE OPTICS JOINTER: [address], [place] [address], Ph. Attender: Anna Vazquez [facility] 01/10/2021 12:00:00 AM EDT ATHE NA ([facility]) Anna Vazquez, FIBRE OPTICS JOINTER: [address], [place] [address], Ph. Attender: Anna Vazquez [facility] 01/10/2021 12:00:00 AM EDT ATHE NA ([facility]) Anna Vazquez, FIBRE OPTICS JOINTER: [address], [place] [address], Ph. Attender: Anna Vazquez [facility] 01/10/2021 12:00:00 AM EDT ATHE NA ([facility]) Anna Vazquez, FIBRE OPTICS JOINTER: [address], [place] [address], Ph. Attender: Anna Vazquez [facility] 01/10/2021 12:00:00 AM EDT ATHE NA ([facility]) Anna Vazquez, FIBRE OPTICS JOINTER: [address], [place] [address], Ph. Attender: Anna Vazquez [facility] 01/10/2021 12:00:00 AM EDT ATHE NA ([facility]) Outpatient Attender: Lilia Pacheco MD Physical Therap y 01/05/2021 01:15:00 PM EDT MEDENT ([facility]) Anna Vazquez, FIBRE OPTICS JOINTER: [address], [place] [address], Ph. Attender: Anna Vazquez [facility] 11/28/2020 12:00:00 AM EST ATHE NA ([facility]) Anna Vazquez, FIBRE OPTICS JOINTER: [address], [place] [address], Ph. Attender: Anna Vazquez [facility] 11/28/2020 12:00:00 AM EST ATHE NA ([facility]) Anna Vazquez, FIBRE OPTICS JOINTER: [address], [place] [address], Ph. Attender: Anna Vazquez [facility] 11/28/2020 12:00:00 AM EST ATHE NA ([facility]) Anna Vazquez, FIBRE OPTICS JOINTER: [address], [place] [address], Ph. Attender: Anna Vazquez [facility] 11/28/2020 12:00:00 AM EST ATHE NA ([facility]) Anna Vazquez, FIBRE OPTICS JOINTER: [address], [place] [address], Ph. Attender: Anna Vazquez [facility] 11/28/2020 12:00:00 AM EST ATHE NA ([facility]) Anna Vazquez, FIBRE OPTICS JOINTER: [address], [place] [address], Ph. Attender: Anna Vazquez [facility] 11/28/2020 12:00:00 AM EST ATHE NA ([facility]) Anna Vazquez, FIBRE OPTICS JOINTER: [address], [place] [address], Ph. Attender: Anna Vazquez [facility] 11/28/2020 12:00:00 AM EST ATHE NA ([facility]) Anna Vazquez, FIBRE OPTICS JOINTER: [address], [place] [address], Ph. Attender: Anna Vazquez [facility] 10/31/2020 12:00:00 AM EST ATHE NA ([facility]) Anna Vazquez, FIBRE OPTICS JOINTER: [address], [place] [address], Ph. Attender: Anna Vazquez [facility] 10/31/2020 12:00:00 AM EST ATHE NA ([facility]) Anna Vazquez, FIBRE OPTICS JOINTER: [address], [place] [address], Ph. Attender: Anna Vazquez [facility] 10/31/2020 12:00:00 AM EST ATHE NA ([facility]) Anna Vazquez, FIBRE OPTICS JOINTER: [address], [place] [address], Ph. Attender: Anna Vazquez [facility] 10/31/2020 12:00:00 AM EST ATHE NA ([facility]) Annaalber Vazquez, FIBRE OPTICS JOINTER: [address], [place] [address], Ph. Attender: Anna Vazquez [facility] 10/31/2020 12:00:00 AM EST ATHE NA ([facility]) Anna Vazquez, FIBRE OPTICS JOINTER: [address], [place] [address], Ph. Attender: Anna Vazquez [facility] 10/31/2020 12:00:00 AM EST ATHE NA ([facility]) Anna Vazquez, FIBRE OPTICS JOINTER: [address], [place] [address], Ph. Attender: Anna Vazquez [facility] 10/31/2020 12:00:00 AM EST ATHE NA ([facility]) Anna Vazquez, FIBRE OPTICS JOINTER: [address], [place] [address], Ph. Attender: Anna Vazquez [facility] 10/31/2020 12:00:00 AM EST ATHE NA ([facility]) [place] [address] [facility] [address] 10/12/2020 12:00:00 AM EST eCW1 ([facility]) [place] [address] [address] 10/10/2020 12:00:00 AM EST eCW1 ([facility]) Anna Vazquez, FIBRE OPTICS JOINTER: [address], [place] [address], Ph. Attender: Anna Valdezosvaldo [facility] 10/04/2020 12:00:00 AM EST ATHE NA ([facility]) Anna Vazquez, FIBRE OPTICS JOINTER: [address], [place] [address], Ph. Attender: Anna Vazquez [facility] 10/04/2020 12:00:00 AM EST ATHE NA ([facility]) Anna Vazquez, FIBRE OPTICS JOINTER: [address], [place] [address], Ph. Attender: Anna Vazquez [facility] 10/04/2020 12:00:00 AM EST ATHE NA ([facility]) Anna Vazquez, FIBRE OPTICS JOINTER: [address], [place] [address], Ph. Attender: Anna Vazquez [facility] 10/04/2020 12:00:00 AM EST ATHE NA ([facility]) Anna Vazquez, FIBRE OPTICS JOINTER: [address], [place] [address], Ph. Attender: Anna Vazquez [facility] 10/04/2020 12:00:00 AM EST ATHE NA ([facility]) Anna Vazquez, FIBRE OPTICS JOINTER: [address], [place] [address], Ph. Attender: Anna Vazquez [facility] 10/04/2020 12:00:00 AM EST ATHE NA ([facility]) Anna Vazquez, FIBRE OPTICS JOINTER: [address], [place] [address], Ph. Attender: Anna Vazquez [facility] 10/04/2020 12:00:00 AM EST ATHE NA ([facility]) Anna Vazquez, FIBRE OPTICS JOINTER: [address], [place] [address], Ph. Attender: Anna Vazquez [facility] 10/04/2020 12:00:00 AM EST ATHE NA ([facility]) Anna Vazquez, FIBRE OPTICS JOINTER: [address], [place] [address], Ph. Attender: Anna Vazquez [facility] 10/04/2020 12:00:00 AM EST ATHE NA ([facility]) [place] [address] [address] 09/16/2020 12:00:00 AM EST eCW1 ([facility]) Outpatient Attender: HARI MARIN [employer] JOINTER [id number] 09/12/2020 1 2:00:00 AM EST [facility] [place] [address] [address] 09/08/2020 12:00:00 AM EST eCW1 ([facility]) Anna Vazquez, FIBRE OPTICS JOINTER: [address], [place] [address], Ph. Attender: Anna Vazquez [facility] 09/05/2020 12:00:00 AM EST ATHE NA ([facility]) Anna Vazquez, FIBRE OPTICS JOINTER: [address], [place] [address], Ph. Attender: Anna Vazquez [facility] 09/05/2020 12:00:00 AM EST ATHE NA ([facility]) Anna Vazquez, FIBRE OPTICS JOINTER: [address], [place] [address], Ph. Attender: Anna Vazquez [facility] 09/05/2020 12:00:00 AM EST ATHE NA ([facility]) Anna Vazquez, FIBRE OPTICS JOINTER: [address], [place] [address], Ph. Attender: Anna Vazquez [facility] 09/05/2020 12:00:00 AM EST ATHE NA ([facility]) Anna Vazquez, FIBRE OPTICS JOINTER: [address], [place] [address], Ph. Attender: Anna Vazquez [facility] 09/05/2020 12:00:00 AM EST ATHE NA ([facility]) Anna Vazquez, [employer] JOINTER: [address], [place] [address], Ph. Attender: Anna Vazquez [facility] - [facility] 09/05/2020 12:00:00 AM EST ATHE NA ([facility]) Anna Vazquez, [employer] JOINTER: [address], [place] [address], Ph. Attender: Anna Vazquez [facility] - [facility] 09/05/2020 12:00:00 AM EST ATHE NA ([facility]) Anna Vazquez, [employer] JOINTER: [address], [place] [address], Ph. Attender: Anna Vazquez [facility] - [facility] 09/05/2020 12:00:00 AM EST ATHE NA ([facility]) Anna Vazquez, [employer] JOINTER: [address], [place] [address], Ph. Attender: Anna Vazquez [facility] - [facility] 09/05/2020 12:00:00 AM EST ATHE NA ([facility]) Anna Vazquez, [employer] JOINTER: [address], [place] [address], Ph. Attender: Anna Vazquez [facility] 09/05/2020 12:00:00 AM EST ATHE NA ([facility]) Outpatient Attender: Whitney richard 08/23/2020 02:25:00 PM EST MEDENT ([facility]) Outpatient Attender: Pamela IZQUIERDO 08/04/2020 01:28:01 P M EDT [facility] Outpatient Attender: NICHOLE ZARATE MD [id number] 12:00:00 AM EDT - 07/28/2020 02:58:50 PM EDT [facility] Cervicalgia Outpatient Referrer: NICHOLE ZARATE MD 07/28/2020 1 2:00:00 AM EDT [facility] Cervicalgia Outpatient Attender: PETER MERCER NPConsultant: JACQUES VINCENT DO 07/25/2020 10:02:00 AM EDT - 07/25/2020 10:02:[address] [facility] Outpatient Attender: PETER MERCER [employer] JO[employer] Family Practice 07/25/2020 10 :00:00 AM EDT MEDENT ([facility]) Outpatient Attender: ARASELI WEI MD 07/21/2020 12:00:00 A M [facility] Outpatient Attender: Pamela IZQUIERDO 07/20/2020 04:04:00 P M EDT [facility] Anna Vazquez, [employer] JOINTER: [address], [place] [address], Ph. Attender: Anna Vazquez [facility] - [facility] 07/18/2020 12:00:00 AM EDT ATHE NA ([facility]) Anna Vazquez, [employer] JOINTER: [address], [place] [address], Ph. Attender: Anna Vazquez [facility] - [facility] 07/18/2020 12:00:00 AM EDT ATHE NA ([facility]) Anna Vazquez, [employer] JOINTER: [address], [place] [address], Ph. Attender: Anna Vazquez [facility] - [facility] 07/18/2020 12:00:00 AM EDT ATHE NA ([facility]) Anna Vazquez, [employer] JOINTER: [address], [place] [address], Ph. Attender: Anna Vazquez [facility] - [facility] 07/18/2020 12:00:00 AM EDT ATHE NA ([facility]) Anna Vazquez, [employer] JOINTER: [address], [place] [address], Ph. Attender: Anna Vazquez [facility] - [facility] 07/18/2020 12:00:00 AM EDT ATHE NA ([facility]) Anna Vazquez, [employer] JOINTER: [address], [place] [address], Ph. Attender: Anna Vazquez [facility] - [facility] 07/18/2020 12:00:00 AM EDT ATHE NA ([facility]) Anna Vazquez, [employer] JOINTER: [address], [place] [address], Ph. Attender: Anna Vazquez [facility] - [facility] 07/18/2020 12:00:00 AM EDT ATHE NA ([facility]) Anna Vazquez, [employer] JOINTER: [address], [place] [address], Ph. Attender: Anna Vazquez [facility] - [facility] 07/18/2020 12:00:00 AM EDT ATHE NA ([facility]) Anna Vazquez, [employer] JOINTER: [address], [place] [address], Ph. Attender: Anna Vazquez [facility] - [facility] 07/18/2020 12:00:00 AM EDT ATHE NA ([facility]) Anna Vazquez, [employer] JOINTER: [address], [place] [address], Ph. Attender: Anna Vazquez [facility] - [facility] 07/18/2020 12:00:00 AM EDT ATHE NA ([facility]) Anna Vazquez, [employer] JOINTER: [address], [place] [address], Ph. Attender: Anna Vazquez [facility] - [facility] 07/18/2020 12:00:00 AM EDT ATHE NA ([facility]) Outpatient Attender: PETER MERCER [employer] JO[employer] Family Practice 07/04/2020 11 :00:00 AM EDT MEDENT ([facility]) Outpatient Attender: PETER MERCER NPConsultant: JACQUES VNICENTMISSY VINCENT DO 07/04/2020 10:55:00 AM EDT - 07/04/2020 10:55:[address] [facility] Outpatient Attender: ARASELI WEI MD [id number] 06/30/2020 12:00:00 AM EDT [facility] Outpatient Attender: HARI MARIN NPAttender: ARASELI GONZALEZ MD 06/29/2020 12:00:00 AM EDT [facility] Outpatient Referrer: ARASELI WEI MD 06/21/2020 12:0 0:00 AM EDT Impingement syndrome of left shoulder [facility] Impingement syndrome of left shoulder Immunizations [...] 02/22/2021 12:00:00 AM EDT ORAL active MEDENT ([facility]) 300 mg 02/17/2021 12:00:00 AM EDT [...] DAILY DOSE = 2 TABLETS SOLD: 10/14/2020 [facility] 300 mg 10/13/2020 12:00:00 AM EST capsule 90 TAKE ONE CAPSULE BY MOUTH THREE TIMES A DAY TAKE ONE CAPSULE BY MOUTH THREE TIMES A DAY SOLD: 10/14/2020 [facility] 300 mg 10/13/2020 12:00:00 AM EST capsule 90 TAKE ONE CAPSULE BY MOUTH THREE TIMES A DAY TAKE ONE CAPSULE BY MOUTH THREE TIMES A DAY SOLD: 01/12/2021 [facility] 5 % 10/12/2020 12:00:00 AM EST [...]
Dilute in lidocaine and marcaine 8cc total
[facility] Medication administered onsite methylPREDNISolone acetate (DEPO-MEDROL) injection 80 mg 3-004309/12/2020 01:00:00 PM EST 80 mg Intra-articular completed 80 mg, Intra- articular, Once, Sat09/12/20 at 1300, For 1 dose
Dilute in lidocaine and marcaine 8cc total
[facility] Medication administered onsite chlorhexidine gluconate 40 MG/ML Medicat ed Liquid Soap [Hibiclens] Hibiclens 4 % Hibiclens 4 % 09/06/2020 12:00:00 AM EST act roxana Hibiclens 4 % eCW1 ([facility]) 500 mg 09/06/2020 12:00:00 AM EST tablet [...] 1.0 {tablet} active Valtrex 500 MG eCW1 ([facility]) Mupirocin 20 MG/ML Topical Cream Mupirocin Calcium 2 % Mupir ocin Calcium 2 % 09/06/2020 12:00:00 AM EST 1.0 {application} act roxana Mupirocin Calcium 2 % eCW1 ([facility]) 500 mg 09/06/2020 12:00:00 AM EST tablet 30 TAKE ONE TABLET BY MOUTH EVERY DAY TAKE ONE TABLET BY MOUTH EVERY DAY SOLD: 11/15/2020 [facility] Mupirocin 20 MG/ML Topical Cream Mupirocin Calcium 2 % Mupir ocin Calcium 2 % 09/06/2020 12:00:00 AM EST 1.0 {application} act roxana Mupirocin Calcium 2 % eCW1 ([facility]) 500 mg 09/06/2020 12:00:00 AM EST tablet [...] act roxana Mupirocin Calcium 2 % eCW1 ([facility]) 500 mg 09/06/2020 12:00:00 AM EST tablet [...] 09/06/2020 12:00:00 AM EST 1.0 {application} act roaxna Mupirocin Calcium 2 % eCW1 ([facility]) chlorhexidine gluconate 40 MG/ML Medicat ed Liquid Soap [Hibiclens] Hibiclens 4 % Hibiclens 4 % 09/06/2020 12:00:00 AM EST act roxana Hibiclens 4 % eCW1 ([facility]) valacyclovir 500 MG Oral Tablet [Valtrex] Valtrex 500 MG Cecilia trex 500 MG 09/06/2020 12:00:00 AM EST 1.0 {tablet} active Valtrex 500 MG eCW1 ([facility]) 800 mg 09/05/2020 12:00:00 AM EST tablet 45 TAKE ONE TABLET BY MOUTH THREE TIMES A DAY NEEDED TAKE ONE TABLET BY MOUTH THREE TIMES A DAY NEEDED S OLD: 09/06/2020 [facility] Oxymetazoline hydrochloride 0.5 MG/ML [facility] [place] [facility] 12 H our 08/23/2020 12:00:00 AM EST active M EDENT ([facility]) Cromolyn Sodium 5.2 MG/ACTUAT [facility] [place] Cromolyn Sodium 08/23/2020 12:00:00 AM EST active MEDENT ([facility], [facility]) 10-325 mg 08/16/2020 12:00:00 AM EST tablet [...] 08/01/2020 12:00:00 AM EDT ORAL active MEDENT ([facility]) 0.01 % (0.1 mg/gram) 07/26/2020 12:00:00 AM EDT cream 42 INSERT APPLICATOR VAGINALLY OF 1 GM ONCE A WEEK INSERT APPLICATOR VAGINALLY OF 1 GM ONCE A WEEK SOLD: 07/28/2020 [facility] Estradiol 0.1 MG/ML Vaginal Cream [Estrace] Estrace 07/07 12:00:00 AM EDT active MEDENT ( [facility]) 800 mg 07/18/2020 12:00:00 AM EDT [...] 07/04/2020 12:00:00 AM EDT ORAL completed MEDENT ([facility]) 500 mg 07/04/2020 12:00:00 AM EDT [...] 07/04/2020 12:00:00 AM EDT ORAL completed MEDENT ([facility]) methylPREDNISolone acetate (DEPO-MEDROL) injection 80 mg 0 06/30/2020 01:30:00 PM EDT 80 mg Intra-articular completed 80 mg, Intra- articular, Once, Lenore 06/30/20 at 1330, For 1 dose
Depo-medrol genetic 2 cc - [id number]
[facility] Medication administered onsite methylPREDNISolone acetate (DEPO-MEDROL) injection 80 mg 06/30/2020 01:30:00 PM EDT 80 mg Intra-articular completed 80 mg, Intra- articular, Once, Lenore 06/30/20 at 1330, For 1 dose
Depo-medrol genetic 2 cc - [id number]
[facility] Medication administered onsite 500 mg 05/25/2020 12:00:00 AM EDT tablet 6 TAKE ONE TABLET BY MOUTH TWICE A DAY FOR 3 DAYS TAKE ONE TABLET BY MOUTH TWICE A DAY FOR 3 DAYS SOLD: 2019 [facility] Fluconazole 150 MG Oral Tablet Fluconazole 05/25/2020 12:00:00 AM EDT ORAL completed MEDENT ([facility]) 500 mg 05/25/2020 12:00:00 AM EDT tablet 6 TAKE ONE TABLET BY MOUTH TWICE A DAY FOR 3 DAYS TAKE ONE TABLET BY MOUTH TWICE A DAY FOR 3 DAYS SOLD: 2019 [facility] methylPREDNISolone acetate (DEPO-MEDROL) injection 80 mg 05/18/2020 02:45:00 PM EDT 80 mg Intra-articular [facility] Sulfamethoxazole 400 MG / Trimethoprim 8 0 MG Oral Tablet sulfamethoxazole 400 mg-trimethoprim 80 mg tablet TAKE ONE TABLET BY MOUTH TWICE A DAY FOR 7 DAYS sulfamethoxazole 400 mg-trimethoprim 80 mg tablet TAKE ONE TABLET BY MOUTH TWICE A DAY FOR 7 DAYS completed sulfamethoxazole 400 MG / trimethoprim 80 MG Oral Tablet KADEN ([facility]) Afluria Quad [id number] 60 mcg (15 mcg x 4)/0.5 mL intramuscular susp. INJECT DIRECTED [id number] completed Afluri a Quad 60 mcg (15 mcg x 4)/0.5 mL intramuscular susp. KADEN ([facility]) Ciprofloxacin 500 MG Oral Tablet ciprofl oxacin 500 mg tablet TAKE ONE TABLET BY MOUTH TWICE A DAY FOR 5 DAYS ciprofloxacin 500 mg tablet TAKE ONE TAB LET BY MOUTH TWICE A DAY FOR 5 DAYS completed ciprofloxacin 500 MG Oral Tablet KADEN ([facility]) Cephalexin 500 MG Oral Capsule cephalexin 500 mg capsu le cephalexin 500 mg capsule completed cephalexin 500 MG Oral Capsule KADEN ([facility]) Afluria Quad 60 mcg (15 mcg x 4)/0.5 mL intramuscular susp. INJECT DIRECTED [id number] completed influe nza A virus A/ (H1N1) antigen 0.03 MG/ML / influenza A virus A/[place] (H3N2) antigen 0.03 MG/ML / influenza B virus B/[place] antigen 0.03 MG/ML / influenza B virus B/[facility] antigen 0.03 MG/ML Injectable Suspension [Afluria Quadrivalent [id number]] KADEN ([facility]) Fluconazole 150 MG Oral Tablet fluconazole 150 mg tabl et fluconazole 150 mg tablet completed fluconazole 150 MG Oral Tablet KADEN ([facility]) Ciprofloxacin 500 MG Oral Tablet ciprofl oxacin 500 mg tablet TAKE ONE TABLET BY MOUTH TWICE A DAY ciprofloxacin 500 mg tablet TAKE ONE TAB LET BY MOUTH TWICE A DAY completed ciprofloxacin 50 0 MG Oral Tablet KADEN ([facility]) cetirizine hydrochloride 10 MG Oral Tabl et cetirizine 10 mg tablet TAKE ONE TABLET BY MOUTH EVERY DAY cetirizine 10 mg tablet TAKE ONE TABLET BY MOUTH EVERY DAY completed cetirizine hydro chloride 10 MG Oral Tablet KADEN ([facility]) Diclofenac Sodium 0.01 MG/MG Topical Gel diclofenac 1 % topical gel diclofenac 1 % topical gel completed diclofenac sodium 0.01 MG/MG Topical Gel KADEN ([facility]) Metronidazole 500 MG Oral Tablet metronidazole 500 mg tablet metronidazole 500 mg tablet completed metronidazol e 500 MG Oral Tablet KADEN ([facility]) Cephalexin 500 MG Oral Capsule cephalexin 500 mg capsu le cephalexin 500 mg capsule completed cephalexin 500 MG Oral Capsule KADEN ([facility]) Afluria Quad 60 mcg (15 mcg x 4)/0.5 mL intramuscular susp. INJECT DIRECTED [id number] completed Afluri a Quad 60 mcg (15 mcg x 4)/0.5 mL intramuscular susp. KADEN ([facility]) Cephalexin 500 MG Oral Capsule cephalexin 500 mg capsu le cephalexin 500 mg capsule completed cephalexin 500 MG Oral Capsule KADEN ([facility]) cetirizine hydrochloride 10 MG Oral Tabl et cetirizine 10 mg tablet TAKE ONE TABLET BY MOUTH EVERY DAY cetirizine 10 mg tablet TAKE ONE TABLET BY MOUTH EVERY DAY completed cetirizine hydro chloride 10 MG Oral Tablet KADEN ([facility]) Afluria Quad 60 mcg (15 mcg x 4)/0.5 mL intramuscular susp. INJECT DIRECTED [id number] completed influe nza A virus A/[place] (H3N2) antigen 0.03 MG/ML / influenza A virus A/ (H1N1) antigen 0.03 MG/ML / influenza B virus B/[facility] antigen 0.03 MG/ML / influenza B virus B/[place] antigen 0.03 MG/ML Injectable Suspension [Afluria Quadrivalent ] KADEN ([facility]) Sulfamethoxazole 400 MG / Trimethoprim 8 0 MG Oral Tablet sulfamethoxazole 400 mg-trimethoprim 80 mg tablet TAKE ONE TABLET BY MOUTH TWICE A DAY FOR 7 DAYS sulfamethoxazole 400 mg-trimethoprim 80 mg tablet TAKE ONE TABLET BY MOUTH TWICE A DAY FOR 7 DAYS completed sulfamethoxazole 400 MG / trimethoprim 80 MG Oral Tablet KADEN ([facility]) Afluria Quad 60 mcg (15 mcg x 4)/0.5 mL intramuscular susp. INJECT DIRECTED [id number] completed influe nza A virus A/[place] (H1N1) antigen 0.03 MG/ML / influenza A virus A/ (H3N2) antigen 0.03 MG/ML / influenza B virus B/ antigen 0.03 MG/ML / influenza B virus B/[facility] antigen 0.03 MG/ML Injectable Suspension [Afluria Quadrivalent ] KADEN ([facility]) Sulfamethoxazole 400 MG / Trimethoprim 8 0 MG Oral Tablet sulfamethoxazole 400 mg-trimethoprim 80 mg tablet TAKE ONE TABLET BY MOUTH TWICE A DAY FOR 7 DAYS sulfamethoxazole 400 mg-trimethoprim 80 mg tablet TAKE ONE TABLET BY MOUTH TWICE A DAY FOR 7 DAYS completed sulfamethoxazole 400 MG / trimethoprim 80 MG Oral Tablet KADEN ([facility]) cetirizine hydrochloride 10 MG Oral Tabl et cetirizine 10 mg tablet TAKE ONE TABLET BY MOUTH EVERY DAY cetirizine 10 mg tablet TAKE ONE TABLET BY MOUTH EVERY DAY completed cetirizine hydro chloride 10 MG Oral Tablet KADEN ([facility]) cetirizine hydrochloride 10 MG Oral Tabl et cetirizine 10 mg tablet TAKE ONE TABLET BY MOUTH EVERY DAY cetirizine 10 mg tablet TAKE ONE TABLET BY MOUTH EVERY DAY completed cetirizine hydro chloride 10 MG Oral Tablet KADEN ([facility]) Ciprofloxacin 500 MG Oral Tablet ciprofl oxacin 500 mg tablet TAKE ONE TABLET BY MOUTH TWICE A DAY FOR 5 DAYS ciprofloxacin 500 mg tablet TAKE ONE TAB LET BY MOUTH TWICE A DAY FOR 5 DAYS completed ciprofloxacin 500 MG Oral Tablet KADEN ([facility]) Diclofenac Sodium 0.01 MG/MG Topical Gel diclofenac 1 % topical gel diclofenac 1 % topical gel completed diclofenac sodium 0.01 MG/MG Topical Gel KADEN ([facility]) Metronidazole 500 MG Oral Tablet metronidazole 500 mg tablet metronidazole 500 mg tablet completed metronidazol e 500 MG Oral Tablet KADEN ([facility]) Metronidazole 500 MG Oral Tablet metronidazole 500 mg tablet metronidazole 500 mg tablet completed metronidazol e 500 MG Oral Tablet KADEN ([facility]) Afluria Quad 60 mcg (15 mcg x 4)/0.5 mL intramuscular susp. INJECT DIRECTED [id number] completed influe nza A virus A/ (H1N1) antigen 0.03 MG/ML / influenza A virus A/ (H3N2) antigen 0.03 MG/ML / influenza B virus B/[place] antigen 0.03 MG/ML / influenza B virus B/[facility]30712/2012 antigen 0.03 MG/ML Injectable Suspension [Afluria Quadrivalent [id number]] KADEN ([facility]) Diclofenac Sodium 0.01 MG/MG Topical Gel diclofenac 1 % topical gel diclofenac 1 % topical gel completed diclofenac sodium 0.01 MG/MG Topical Gel KADEN ([facility]) Estradiol 0.1 MG/ML Vaginal Cream estrad iol 0.01% (0.1 mg/gram) vaginal cream INSERT APPLICATOR VAGINALLY OF 1 GM ONCE A WEEK estradiol 0.01% (0.1 mg/gram) vaginal cream INSERT APPLICATOR VAGINALLY OF 1 GM ONCE A WEEK completed estradiol 0.1 MG/ML Vaginal Crea m KADEN ([facility]) Diclofenac Sodium 0.01 MG/MG Topical Gel diclofenac 1 % topical gel diclofenac 1 % topical gel completed diclofenac sodium 0.01 MG/MG Topical Gel KADEN ([facility]) Diclofenac Sodium 0.01 MG/MG Topical Gel diclofenac 1 % topical gel diclofenac 1 % topical gel completed diclofenac sodium 0.01 MG/MG Topical Gel KADEN ([facility]) Naproxen 375 MG Oral Tablet naproxen 375 mg tablet as directed naproxen 375 mg tablet as directed completed nap roxen 375 MG Oral Tablet KADEN ([facility]) Naproxen 375 MG Oral Tablet naproxen 375 mg tablet as directed naproxen 375 mg tablet as directed completed nap roxen 375 MG Oral Tablet KADEN ([facility]) Naproxen 375 MG Oral Tablet naproxen 375 mg tablet as directed naproxen 375 mg tablet as directed completed nap roxen 375 MG Oral Tablet KADEN ([facility]) Naproxen 375 MG Oral Tablet naproxen 375 mg tablet as directed naproxen 375 mg tablet as directed completed nap roxen 375 MG Oral Tablet KADEN ([facility]) Sulfamethoxazole 400 MG / Trimethoprim 8 0 MG Oral Tablet sulfamethoxazole 400 mg-trimethoprim 80 mg tablet TAKE ONE TABLET BY MOUTH TWICE A DAY FOR 7 DAYS sulfamethoxazole 400 mg-trimethoprim 80 mg tablet TAKE ONE TABLET BY MOUTH TWICE A DAY FOR 7 DAYS completed sulfamethoxazole 400 MG / trimethoprim 80 MG Oral Tablet KADEN ([facility]) Afluria Quad 60 mcg (15 mcg x 4)/0.5 mL intramuscular susp. INJECT DIRECTED [id number] completed influe nza A virus A/ (H1N1) antigen 0.03 MG/ML / influenza A virus A/ (H3N2) antigen 0.03 MG/ML / influenza B virus B/ antigen 0.03 MG/ML / influenza B virus B/[facility] antigen 0.03 MG/ML Injectable Suspension [Afluria Quadrivalent ] KADEN ([facility]) Estradiol 0.1 MG/ML Vaginal Cream estrad iol 0.01% (0.1 mg/gram) vaginal cream INSERT APPLICATOR VAGINALLY OF 1 GM ONCE A WEEK estradiol 0.01% (0.1 mg/gram) vaginal cream INSERT APPLICATOR VAGINALLY OF 1 GM ONCE A WEEK completed estradiol 0.1 MG/ML Vaginal Crea m KADEN ([facility]) [facility] Quad 60 mcg (15 mcg x 4)/0.5 mL intramuscular susp. INJECT DIRECTED [id number] completed influe nza A virus A/ (H1N1) antigen 0.03 MG/ML / influenza A virus A/ (H3N2) antigen 0.03 MG/ML / influenza B virus B/ antigen 0.03 MG/ML / influenza B virus B/[facility] antigen 0.03 MG/ML [facility] KADEN ([facility]) Ciprofloxacin 500 MG Oral Tablet ciprofl oxacin 500 mg tablet TAKE ONE TABLET BY MOUTH TWICE A DAY FOR 5 DAYS ciprofloxacin 500 mg tablet TAKE ONE TAB LET BY MOUTH TWICE A DAY FOR 5 DAYS completed ciprofloxacin 500 MG Oral Tablet KADEN ([facility]) Naproxen 375 MG Oral Tablet naproxen 375 mg tablet as directed naproxen 375 mg tablet as directed completed nap roxen 375 MG Oral Tablet KADEN ([facility]) Afluria Quad 60 mcg (15 mcg x 4)/0.5 mL intramuscular susp. INJECT DIRECTED [id number] completed influe nza A virus A/[place] (H1N1) antigen 0.03 MG/ML / influenza A virus A/[place] (H3N2) antigen 0.03 MG/ML / influenza B virus B/ antigen 0.03 MG/ML / influenza B virus B/[facility] antigen 0.03 MG/ML Injectable Suspension [Afluria Quadrivalent ] KADEN ([facility]) Cephalexin 500 MG Oral Capsule cephalexin 500 mg capsu le cephalexin 500 mg capsule completed cephalexin 500 MG Oral Capsule KADEN ([facility]) Naproxen 375 MG Oral Tablet naproxen 375 mg tablet as directed naproxen 375 mg tablet as directed completed nap roxen 375 MG Oral Tablet KADEN ([facility]) Cephalexin 500 MG Oral Capsule cephalexin 500 mg capsu le cephalexin 500 mg capsule completed cephalexin 500 MG Oral Capsule KADEN ([facility]) Ciprofloxacin 500 MG Oral Tablet ciprofl oxacin 500 mg tablet TAKE ONE TABLET BY MOUTH TWICE A DAY FOR 5 DAYS ciprofloxacin 500 mg tablet TAKE ONE TAB LET BY MOUTH TWICE A DAY FOR 5 DAYS completed ciprofloxacin 500 MG Oral Tablet KADEN ([facility]) Diclofenac Sodium 0.01 MG/MG Topical Gel diclofenac 1 % topical gel diclofenac 1 % topical gel completed diclofenac sodium 0.01 MG/MG Topical Gel KADEN ([facility]) Naproxen 375 MG Oral Tablet naproxen 375 mg tablet as directed naproxen 375 mg tablet as directed completed nap roxen 375 MG Oral Tablet KADEN ([facility]) Sulfamethoxazole 400 MG / Trimethoprim 8 0 MG Oral Tablet sulfamethoxazole 400 mg-trimethoprim 80 mg tablet TAKE ONE TABLET BY MOUTH TWICE A DAY FOR 7 DAYS sulfamethoxazole 400 mg-trimethoprim 80 mg tablet TAKE ONE TABLET BY MOUTH TWICE A DAY FOR 7 DAYS completed sulfamethoxazole 400 MG / trimethoprim 80 MG Oral Tablet KADEN ([facility]) cetirizine hydrochloride 10 MG Oral Tabl et cetirizine 10 mg tablet TAKE ONE TABLET BY MOUTH EVERY DAY cetirizine 10 mg tablet TAKE ONE TABLET BY MOUTH EVERY DAY completed cetirizine hydro chloride 10 MG Oral Tablet KADEN ([facility]) Afluria Quad 60 mcg (15 mcg x 4)/0.5 mL intramuscular susp. INJECT DIRECTED [id number] completed influe nza A virus A/ (H1N1) antigen 0.03 MG/ML / influenza A virus A/ (H3N2) antigen 0.03 MG/ML / influenza B virus B/ antigen 0.03 MG/ML / influenza B virus B/[facility] antigen 0.03 MG/ML Injectable Suspension [Afluria Quadrivalent ] KADEN ([facility]) Metronidazole 500 MG Oral Tablet metronidazole 500 mg tablet metronidazole 500 mg tablet completed metronidazol e 500 MG Oral Tablet KADEN ([facility]) Diclofenac Sodium 0.01 MG/MG Topical Gel diclofenac 1 % topical gel diclofenac 1 % topical gel completed diclofenac sodium 0.01 MG/MG Topical Gel KADEN ([facility]) cetirizine hydrochloride 10 MG Oral Tabl et cetirizine 10 mg tablet TAKE ONE TABLET BY MOUTH EVERY DAY cetirizine 10 mg tablet TAKE ONE TABLET BY MOUTH EVERY DAY completed cetirizine hydro chloride 10 MG Oral Tablet KADEN ([facility]) Naproxen 375 MG Oral Tablet naproxen 375 mg tablet as directed naproxen 375 mg tablet as directed completed nap roxen 375 MG Oral Tablet KADEN ([facility]) Diclofenac Sodium 0.01 MG/MG Topical Gel diclofenac 1 % topical gel diclofenac 1 % topical gel completed diclofenac sodium 0.01 MG/MG Topical Gel KADEN ([facility]) Sulfamethoxazole 400 MG / Trimethoprim 8 0 MG Oral Tablet sulfamethoxazole 400 mg-trimethoprim 80 mg tablet TAKE ONE TABLET BY MOUTH TWICE A DAY FOR 7 DAYS sulfamethoxazole 400 mg-trimethoprim 80 mg tablet TAKE ONE TABLET BY MOUTH TWICE A DAY FOR 7 DAYS completed sulfamethoxazole 400 MG / trimethoprim 80 MG Oral Tablet KADEN ([facility]) Afluria Quad 60 mcg (15 mcg x 4)/0.5 mL intramuscular susp. INJECT DIRECTED [id number] completed influe nza A virus A/ (H1N1) antigen 0.03 MG/ML / influenza A virus A/ (H3N2) antigen 0.03 MG/ML / influenza B virus B/ antigen 0.03 MG/ML / influenza B virus B/[facility] antigen 0.03 MG/ML Injectable Suspension [Afluria Quadrivalent ] KADEN ([facility]) Naproxen 375 MG Oral Tablet naproxen 375 mg tablet as directed naproxen 375 mg tablet as directed completed nap roxen 375 MG Oral Tablet KADEN ([facility]) Mupirocin 0.02 MG/MG Topical Ointment mupirocin 2 % to pical ointment mupirocin 2 % topical ointment completed mupirocin 0.02 MG/MG Topical Ointment KADEN ([facility]) Cephalexin 500 MG Oral Capsule cephalexin 500 mg capsu le cephalexin 500 mg capsule completed cephalexin 500 MG Oral Capsule KADEN ([facility]) Diclofenac Sodium 0.01 MG/MG Topical Gel diclofenac 1 % topical gel diclofenac 1 % topical gel completed diclofenac sodium 0.01 MG/MG Topical Gel KADEN ([facility]) Afluria Quad 60 mcg (15 mcg x 4)/0.5 mL intramuscular susp. INJECT DIRECTED [id number] completed influe nza A virus A/ (H1N1) antigen 0.03 MG/ML / influenza A virus A/[place] (H3N2) antigen 0.03 MG/ML / influenza B virus B/ antigen 0.03 MG/ML / influenza B virus B/[facility] antigen 0.03 MG/ML Injectable Suspension [Afluria Quadrivalent ] KADEN ([facility]) Afluria Quad 60 mcg (15 mcg x 4)/0.5 mL intramuscular susp. INJECT DIRECTED [id number] completed Afluri a Quad 60 mcg (15 mcg x 4)/0.5 mL intramuscular susp. KADEN ([facility]) Naproxen 375 MG Oral Tablet naproxen 375 mg tablet as directed naproxen 375 mg tablet as directed completed nap roxen 375 MG Oral Tablet KADEN ([facility]) Metronidazole 500 MG Oral Tablet metronidazole 500 mg tablet metronidazole 500 mg tablet completed metronidazol e 500 MG Oral Tablet KADEN ([facility]) Estradiol 0.1 MG/ML Vaginal Cream estrad iol 0.01% (0.1 mg/gram) vaginal cream INSERT 1 APPLICATORFUL OF 1 GRAM VAGINALLY ONCE WEEKLY estradiol 0.01% (0.1 mg/gram) vaginal cream INSERT 1 APPLICATORFUL OF 1 GRAM VAGINALLY ONCE WEEKLY completed estradiol 0.1 MG/ML Vaginal Cream KADEN ([facility]) Metronidazole 500 MG Oral Tablet metronidazole 500 mg tablet metronidazole 500 mg tablet completed metronidazol e 500 MG Oral Tablet KADEN ([facility]) Insurance Providers Payer name Policy type / Coverage type Policy ID Covered democrat ID Covered democrat's relationship to bertrand Policy Bertrand Plan Information [facility] [id number] Empl [id number] [facility] [id number] [facility] [id number] [facility] Self-Ins Workers Compensation [id number] Self [facility] [id number] [facility] [id number] Medicaid [facility] Part B [id number] Self [id number] MEDICARE [id number] SP [id number] [place] Med[place] B [id number] Self [id number] Medicare Part A [place] Medicare Primary 171 [place] Med[place] Part B [id number] Self [id number] Medicare Part [place] Primary [id number] Self 12 [id number] MEDICARE PART A [facility] [id number] 18 [id number] Medicare Part A [place] Medicare Primary [id number] Self 12 [id number] Medicare Part [place] Primary [id number] Self 12 [id number] MEDICARE A [id number] Self [id number] [place] Medicare Part [place] [id number] Self [id number] [place] Part [place] Primary [id number] Self 12 [id number] [place] Med[place] B [id number] Self [id number] MEDICARE [id number] A MEDICARE PART A [facility] [id number] 18 [id number] Medicare Part A [place] Medicare Primary [id number] Self 12 [id number] MEDICARE PART A [facility] [id number] 18 [id number] [facility] S.I. [id number] SP [id number] MEDICARE A [id number] Self [id number] [employer] Workers Compensation [id number] Self [id number] [employer] E [id number] Self [id number] [facility] SELF INSURED [id number] [employer] Workers Compensation [id number] Self [id number] [employer] [id number] 017 [id number] [facility] SELF INSURED [id number] [employer] Workers Compensation [id number] Self [id number] Self Pay P UNAVAILABLE S UNAVAILA BLE MEDICARE -O/P [id number] 18 [id number] MEDICARE PART A -O/P [id number] 18 [id number] MEDICAID [id number] SP [id number] MEDICARE PART A-[facility] [id number] 18 [id number] SELF PAY UNAVAILABLE SP UNAVAILA BLE [place] SELF INS O [id number] S [id number] [place] Medicare Primary [id number] Self [employer]-DEW [id number] SP [id number] [employer] [place] SELF INSURED [id number] SP [id number] [place] SELF INSURED [id number] SP [id number] [employer] INS NO FAULT [id number] SP [id number] [employer] NO FAULT [id number] SP [id number] [employer] P [id number] S [id number] [employer] INS NO FAULT [id number] SP [id number] [employer] [id number] SP [id number] [employer] OR SELF INSURED [id number] SP [id number] MEDICARE [id number] SP [id number] [id number] A Sliding Fee Scale S [id number] S [id number] Self Pay P [id number] S [id number] MEDICARE [id number] S [id number] MEDICARE [id number] SP [id number] A ANSI-Medicare Part B [id number] ANSI-Medicare Part B [id number] ANSI-Medicare Part B [id number] ANSI-Medicare Part B [id number] Medicare Natl Gov't Servi Medicare Primary [id number] Self [id number] Blue Shield MCR Advantage Medigap Part B [id number] Self [id number] Blue Shield MCR Advantage Medigap Part B [id number] Self [id number] Medicare Natl Gov't Servi Medicare Primary [id number] Self [id number] Medicare Natl Gov't Servi Medicare Primary [id number] Self [id number] Medicare Natl Gov't Servi Medicare Primary [id number] [id number] Self [id number] [place]/NGS Medicare Primary [id number] Self 1 [id number] Medicare Natl Gov't Servi Medicare Primary [id number] [id number] Self [id number] [place]/NGS Medicare Primary [id number] [id number] Self 1 [id number] [place]/NGS Medicare Primary [id number] [id number] Self 1 [id number] Medicare Natl Gov't Servi Medicare Primary [id number] [id number] Self [id number] Medicare Natl Gov't Servi Medicare Primary [id number] Self [id number] [facility] Advantage Medigap Part B [id number] [id number] Self [id number] Medicare Natl Gov't Servi Medicare Primary [id number] [id number] Self [id number] Sliding Fee Scale P none S no ne Medicare (Part B) Medicare Primary [id number] [id number] Self 1 [id number] [place] Medicare Primary [id number] Self 1 [id number] Medicare Natl Gov't Servi Medicare Primary [id number] [id number] Self [id number] Medicare Natl Gov't Servi Medicare Primary [id number] Self [id number] MEDICARE C [id number] S [id number] A Sliding Fee Scale P UNAVAILABLE S UNAVAILABLE Problems, Conditions, and Diagnoses Code Display Name Description Problem Type Effective Dates Data Source(s) B0089 Other herpesviral infection Other herpesviral infectio n Diagnosis 07/10/2021 10:18:[address] [facility] N952 Postmenopausal atrophic vaginitis Postmenopausal atrophic vaginitis Diagnosis 07/10/2021 10:18:[address] [facility] [id number] Encounter for gynecological examination (general) (routine) without abnormal findings Encounter for gynecological examination (general) (routine) without abnormal findings Diagnosis 07/10/2021 10:18:00 AM EDT [facility] M54.2 Cervicalgia Cervicalgia Diagnosis 07/28/2020 09:53:13 AM T [facility] Z803 Family history of malignant neoplasm of breast Family history of malignant neoplasm of breast Diagnosis 07/04/2020 10:55:[address] [facility] N760 Acute vaginitis Acute vaginitis Diagnosis 07/04/2020 10:5 5:[address] 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 09/06/2020 12:00:00 AM EST eCW1 ([facility]) E89.40 [id number] Surgical menopause Problem 09/06/2020 12:00: 00 AM EST eCW1 ([facility]) A60.04 [id number] Herpes simplex vulvovaginitis Problem 09/06/2020 12:00:00 AM EST eCW1 ([facility]) 525.9 Dental disorder Dental disorder 08/04/2020 01:2 7:26 PM EDT [facility] [id number] Family history of breast cancer Family history o f breast cancer Problem 07/04/2020 12:00:00 AM EDT [facility] ([facility]) Note: M Surgeries/Procedures Procedure Description Date Indications Data Source(s) ARTHROCENTESIS ASPIR&/INJECTION MAJOR JT/BURSA 021 12:00:00 AM EDT [facility] ([facility] ) OFFICE OUTPATIENT VISIT 25 MINUTES 07/26/2021 12:00:00 AM EDT [facility] ([facility] ) PERIODIC PREVENTIVE MED EST PATIENT 40-64YRS 12:00:00 AM EDT MEDENT ([facility]) ARTHROCENTESIS ASPIR&/INJECTION MAJOR JT/BURSA 021 12:00:00 AM EDT [facility] ([facility] ) OFFICE OUTPATIENT VISIT 25 MINUTES 02/15/2021 12:00:00 AM EDT [facility] ([facility] ) ARTHROCENTESIS ASPIR&/INJECTION MAJOR JT/BURSA 021 12:00:00 AM EST [facility] ([facility] ) RADEX SHOULDER COMPLETE MINIMUM 2 VIEWS 11/22/2020 12: 00:00 AM EST [facility] ([facility]) RADEX SHOULDER COMPLETE MINIMUM 2 VIEWS 11/22/2020 12: 00:00 AM EST [facility] ([facility]) Mammography (procedure) 07/15/2020 12:00:00 AM EDT MED[facility] ([facility]) Results ID Date Data Source [id number] 07/10/2021 10:51:00 AM EDT [facility] ([facility]) Name Value Range Interpretation Code Description Data Barbie rce(s) Supporting Document(s) Mammo Screening Bilateral with CAD Laboratory test result [facility] ([facility]) ID Date Data Source [id number] 06/27/2021 09:05:00 AM EDT [facility] ([facility]) Name Value Range Interpretation Code Description Data Barbie rce(s) Supporting Document(s) Mammo Screening Bilateral with CAD Laboratory test result [facility] ([facility]) ID Date Data Source MRSA PCR Screen 10/10/2020 12:00:00 AM EST eCW1 ([facility]) Name Value Range Interpretation Code Description Data Barbie rce(s) Supporting Document(s) MRSA PCR Screen eCW1 ([facility]) ID Date Data Source [id number] 10/07/2020 11:21:00 AM EST [facility] Name Value Range Interpretation Code Description Data Barbie rce(s) Supporting Document(s) Progress Note [facility] AAIVIg4tQmWPFsZq69/DCFqnUJHid8AhCYgsNVo5RMegDCChF3PdIWN1bK8iJPK7KHjLKoYcYzQbVPAi lbm [file] ICAgICAgICAgICAgICAgICAgICAgICAgICAgICAgICAgICAgICAgICAgICAgICAgICAgICAgICAgICAg AOFsICWcGUQwSVOiAJ2PORLiHTRzYFHaEYAiXLGlUP AgICAgICAgICAgICAgICAgICAgICAgICAgICAgICAgICAgICAgICAgICAgICAgICAgICAgICAgICAgIC JiSQFkWYWgNEEbFMEuJPRlUHQjKHAqWE5UMJBnNKPmADIlDXWkEYOmEVVdLDRhSKSuSCHhCWUaJDKdNR AgICAgICAgICAgICAgICAgICAgICAgICAgICAgICAg NTOsWYRuKLHoIRArIIAhOCFiCNSqSYNnKUQaXRBoJXDcAR6QHEPkRZMzSHEjRSGwPMNyFSXvXBLxFSEd ICAgICAgICAgICAgICAgICAgICAgICAgICAgICAgICAgICAgICAgICAgICAgICAgICAgICAgICAgICAg NOKbMRRcRBMnSBCdSGMtPK8SEDMsTGWuAEHoWZDiFK AgICAgICAgICAgICAgICAgICAgICAgICAgICAgICAgICAgICAgICAgICAgICAgICAgICAgICAgICAgIC CpMIJlHJXyHKVxVEDkPGSgVGAwEENlIYLtXU7MNFBdLEBfJURvYGOiAUJrOQAeFMLdLBPxQSJwCTGxJQ AgICAgICAgICAgICAgICAgICAgICAgICAgICAgICAg JFUrWDFwRZGyXXJgVLXyCNIsFWPbEPEjRVAlWBNmCRThNLOsXP2TPNLlDFXiCRVdNIKuRBFhHDWzUKPr ICAgICAgICAgICAgICAgICAgICAgICAgICAgICAgICAgICAgICAgICAgICAgICAgICAgICAgICAgICAg FSSsBOTuDQQwDFJcXQOmEQDzTW2WAMFjILHhGKTfIG AgICAgICAgICAgICAgICAgICAgICAgICAgICAgICAgICAgICAgICAgICAgICAgICAgICAgICAgICAgIC MqPTRnIDSsPOXrARLlKQMhWEGrSJYnGSVmDUCaTG4SPCUwFZKfYYShOQDkQTEmSWPmKKCdRSSfACScRW AgICAgICAgICAgICAgICAgICAgICAgICAgICAgICAg FIIiMGMsZZObHRJyUJLbJWAxMJOtVDAdVVFpCNFmVPTeWJMmZSBvKC1JLZDuJHDfKOJbOCLzWZTfCJZd ICAgICAgICAgICAgICAgICAgICAgICAgICAgICAgICAgICAgICAgICAgICAgICAgICAgICAgICAgICAg PHSgSOBjFIYgBVApWJDyFELoSWXnFO7XXP15cLWdz1 W7ITYvDR2gyob/Zp7KSIfrwnVfqBKyNY1TTcHxRP4oqh6HFrZqEK3pzt9AUOrVJmYhH5D6bNGmWNKeXE PAGcOjA51sJGirZo30FRihKVWiGwLmWQf5Ee8ELeAnV3xlYTSiXoG0CEMbOzS2XKBvPxC1TDTuJaFsGB XbYRPpIA4XNTDrM364wsLcQQ0IIi7HIfTlFQ4rfs4D EsvbPPEyLusDPmv2VSveBR8GiRQldQQmBHEmCKARVbLkE2mlz3VsLorbNLJQFMccBB8Qf5BgrJNfARl+ Pg6RIP7bu9YbZNepKOXeFX7raq1KURiJBdSjZ0QpmLabDBEqb0ntETPmHY9tyOMoXNX0UIyrpFlsLO4g TwVZXFVqrTvkWQIZBJYtcRFbSI0lLl3jYEUhPZSuEj DxPUBFUM0USIKhERTliUFiQXPtNLOUII1ILDrwMEC7AMJyjqAryBNwAEnnPB2ETBRxuoRhBjueYLZZTW o+Vg4ZUI1le5XzEKuyNHUtFP8nqi1CGLlJZxEvG8S2sMUrO8S4VLrgDg3PLRQwADPwGzRvEPYPNDpaNF 9BXO2hegU0TJ9ApRHbXYLqEPCbaBWiHNw7P30vwIGw XXzpNS8NDOA+Kezia+Zh3ZQBGsDCEcPTRiUiCxVYBMMeXpY3MtU9JXh7YaF1RfPC32nFlrjjXuNHnlUA4L OZ1tQXLoTLBKDC6LfPYbpQ7tqyXiTFMkFSNLVyAyI28euJKmRJYkQTZ1AAIkGr3VXVUyH7LhjtVnuZed niZcNHAcYLIHZS9NPDjbafPraTSniJujSL56cYqoBE 3WXa7DCpXrGU2cgy8TuEJrOx0LALUrDF6UXPSsUGXlDZCkMMQ0MVAhIrNtYLgpXMMiMSUhVXU7UVVzPQ XhAD6KSnAtHLFdSrr3HNKlPNFhOUGohn2RRHOaIZCmLBC4RwCeXNSiDDPdWGruUIHhGVFtPNS7KMKjVI NaGA0BTaTaBPSiWUZ2HDreUQQbNALepf4CODJnQZWt ZIFtNQKlZWEiXLVuXAyzAQAaJCZ9INUlZQHzXRQdQU3DYlMoSZQpPHmjIssrOWJwTMFubi7HKTVnGFPx HSRiLPCqPPBdCTXrEQkgEKObNLAlLtN0AFLzMSZoGC7GIiBwLMHkAKFcXdWtQONgQTPuqz8LCQNzHZPn KwV0FIPxLOJrKVOeIChvTQKeRAAgMtLeOWDoNJOpYF 4AFeQgKHQlQSS6MjrgAGUvOORklf3XEJDeJNFcGubtRJNkLVNrCUBtYSsfNHSnAFO7KjL8FRNtGUAvCB 7RYmLgKNIoAPS7KoDsNSAhMQPnqi6WYHVvVSZtKFP6POUzFOKzAKPbBKcuSRMnEMA7YEe8BMMwARAfUK 9DShGbWTOcXmC7ECRnBVMrFETcjm5HFLVhWLMxMuBw DuAnLEWtSFOhEGkcLOTkMYQ8RghzTFBsZFImQI9ZMmAmLYSxZzn4YWuzOSYfMIYztk1TJJNnXZKxGFI7 HgRzJUJvBRVeGFegZEIaTHQ9RCJwBNZuXZDeLL4BRjYaZABxEjs2DrofQUPbNOOsaq3AHZQjUOHoPDR4 WwUnTFFkZWHiELiwNQMeNRRqReIhJJVcMUJoID5HFw FiKTMcYtB6SoRsXOXqLYDsnf9FISFfBQIuRLptGnAlUDHdDVBqYAd0pcVhzOUgZHl2LU7EW8LtxgZnAu QCVy6Ul129KUBnIXVtIa3VX7xpYj2aNQJrXLDKGs2QMDr3WKL8RND1RzI4GXUgUdHmAiHdMfY1BkEuVo E6YJhzI0C+YJy3OHZlMUZwCDspBWYoSHA0KHXhHgEw ULQ8EsD2JzXvBV5gYMBNWy5+KBzskERneAcpHDMXViOkPRddKOdeZPANYc5V ID Date Data Source [id number] 10/04/2020 05:11:00 PM EST KADEN ([facility]) Name Value Range Interpretation Code Description Data Barbie rce(s) Supporting Document(s) Amphetamines: negative Amphetamines: KADEN ([facility]) Cocaine: negative Cocaine: [facility] ([facility] Opiates: negative Opiates: KADEN ([facility]) THC negative Thc KADEN ([facility]) Barbiturates: negative Barbiturates: KADEN ([facility]) Benzodiazepines: negative Benzodiazepines: AT ERROL ([facility]) MTD negative Mtd KADEN ([facility]) Methamphetamine negative Methamphetamine ATHE NA ([facility]) PCP positive Pcp KADEN ([facility]) OXY positive Oxy KADEN ([facility]) ID Date Data Source [id number] 10/04/2020 05:11:00 PM EST KADEN ([facility]) Name Value Range Interpretation Code Description Data Barbie rce(s) Supporting Document(s) Amphetamines: negative Amphetamines: KADEN ([facility]) Opiates: negative Opiates: KADEN ([facility]) Cocaine: negative Cocaine: KADEN ([facility]) THC negative Thc KADEN ([facility]) Barbiturates: negative Barbiturates: KADEN ([facility]) Methamphetamine negative Methamphetamine ATHE NA ([facility]) Benzodiazepines: negative Benzodiazepines: AT ERROL ([facility]) MTD negative Mtd KADEN ([facility]) PCP positive Pcp KADEN ([facility]) OXY positive Oxy KADEN ([facility]) ID Date Data Source [id number] 10/04/2020 05:11:00 PM EST KADEN ([facility]) Name Value Range Interpretation Code Description Data Barbie rce(s) Supporting Document(s) Amphetamines: negative Amphetamines: KADEN ([facility]) Cocaine: negative Cocaine: KADEN ([facility]) THC negative Thc KADEN ([facility]) Benzodiazepines: negative Benzodiazepines: AT ERROL ([facility]) Barbiturates: negative Barbiturates: KADEN ([facility]) Opiates: negative Opiates: KADEN ([facility]) Methamphetamine negative Methamphetamine ATHE NA ([facility]) PCP positive Pcp KADEN ([facility]) MTD negative Mtd KADEN ([facility]) OXY positive Oxy KADEN ([facility]) ID Date Data Source [id number] 10/04/2020 05:11:00 PM EST KADEN ([facility]) Name Value Range Interpretation Code Description Data Barbie rce(s) Supporting Document(s) Amphetamines: negative Amphetamines: KADEN ([facility]) Opiates: negative Opiates: KADEN ([facility]) Cocaine: negative Cocaine: KADEN ([facility]) THC negative Thc KADEN ([facility]) Benzodiazepines: negative Benzodiazepines: AT ERROL ([facility]) Methamphetamine negative Methamphetamine ATHE NA ([facility]) Barbiturates: negative Barbiturates: KADEN ([facility]) OXY positive Oxy KADEN ([facility]) PCP positive Pcp KADEN ([facility]) MTD negative Mtd KADEN ([facility]) ID Date Data Source [id number] 10/04/2020 05:11:00 PM EST KADEN ([facility]) Name Value Range Interpretation Code Description Data Barbie rce(s) Supporting Document(s) Amphetamines: negative Amphetamines: KADEN ([facility]) THC negative Thc KADEN ([facility]) Cocaine: negative Cocaine: KADEN ([facility]) Opiates: negative Opiates: KADEN ([facility]) Barbiturates: negative Barbiturates: KADEN ([facility]) Benzodiazepines: negative Benzodiazepines: AT ERROL ([facility]) Methamphetamine negative Methamphetamine ATHE NA ([facility]) MTD negative Mtd KADEN ([facility]) PCP positive Pcp KADEN ([facility]) OXY positive Oxy KADEN ([facility]) ID Date Data Source [id number] 10/04/2020 05:11:00 PM EST KADEN ([facility]) Name Value Range Interpretation Code Description Data Barbie rce(s) Supporting Document(s) Amphetamines: negative Amphetamines: KADEN ([facility]) Cocaine: negative Cocaine: KADEN ([facility]) THC negative Thc KADEN ([facility]) Opiates: negative Opiates: KADEN ([facility]) Barbiturates: negative Barbiturates: KADEN ([facility]) Methamphetamine negative Methamphetamine ATHE NA ([facility]) Benzodiazepines: negative Benzodiazepines: AT ERROL ([facility]) OXY positive Oxy KADEN ([facility]) MTD negative Mtd KADEN ([facility]) PCP positive Pcp KADEN ([facility]) ID Date Data Source [id number] 10/04/2020 05:11:00 PM EST KADEN ([facility]) Name Value Range Interpretation Code Description Data Barbie rce(s) Supporting Document(s) Amphetamines: negative Amphetamines: KADEN ([facility]) THC negative Thc KADEN ([facility]) Cocaine: negative Cocaine: KADEN ([facility]) Opiates: negative Opiates: KADEN ([facility]) Barbiturates: negative Barbiturates: KADEN ([facility]) Benzodiazepines: negative Benzodiazepines: AT ERROL ([facility]) Methamphetamine negative Methamphetamine ATHE NA ([facility]) PCP positive Pcp KADEN ([facility]) MTD negative Mtd KADEN ([facility]) OXY positive Oxy KADEN ([facility]) ID Date Data Source [id number] 10/04/2020 05:11:00 PM EST KADEN ([facility]) Name Value Range Interpretation Code Description Data Barbie rce(s) Supporting Document(s) Amphetamines: negative Amphetamines: KADEN ([facility]) THC negative Thc KADEN ([facility]) Cocaine: negative Cocaine: KADEN ([facility]) Barbiturates: negative Barbiturates: KADEN ([facility]) Opiates: negative Opiates: KADEN ([facility]) Methamphetamine negative Methamphetamine ATHE NA ([facility]) Benzodiazepines: negative Benzodiazepines: AT ERROL ([facility]) PCP positive Pcp KADEN ([facility]) MTD negative Mtd KADEN ([facility]) OXY positive Oxy KADEN ([facility]) ID Date Data Source [id number] 10/04/2020 12:00:00 AM EST KADEN ([facility]) Name Value Range Interpretation Code Description Data Barbie rce(s) Supporting Document(s) gabapentin ur CMP <5 >=5 Abnormal (applies to no n-numeric results) Gabapentin Ur CMP KADEN ([facility]) hydrocodone ur CMP 5680 NG/mL >=100 Hydrocodone Ur CM P KADEN ([facility]) cotinine ur CMP 7400 NG/mL >=500 Abnormal (applies to non- numeric results) Cotinine Ur CMP KADEN ([facility]) ID Date Data Source [id number] 10/04/2020 12:00:00 AM EST HANCOCK ([facility]) Name Value Range Interpretation Code Description Data [facility](s) Supporting Document(s) Buprenorphine [Presence] in Urine by Confirmatory method <1 >=1 Buprenorphine Ur Ql [facility] ([facility]) Ethyl glucuronide [Mass/volume] in Urine by Confirmatory method <50 0 >=500 Ethyl Glucuronide Ur [facility] ([facility]) alcohol metabolites ur ql [facility] <200 >=200 Alcoho l Metabolites Ur Ql [facility] ([facility]) Ethyl sulfate [Mass/volume] in Urine by Confirmatory method <200 >=200 Ethyl Sulfate Ur [facility] ([facility]) Amphetamines [Presence] in Urine by Confirmatory method <0 >=0 Amphetamines Ur Ql [facility] ([facility]) Tapentadol [Presence] in Urine by Confirmatory method <100 >=100 Tapentadol Ur Ql [facility] ([facility]) gabapentinpregabalin ur ql [facility] <5 >=5 Gabap entinpregabalin Ur Ql [facility] ([facility]) Benzodiazepines [Presence] in Urine by Confirmatory method <50 >=50 Benzodiaz Ur Ql [facility] ([facility]) Cocaine [Presence] in Urine by Confirmatory method <50 >=50 Bze Ur Ql [facility] ([facility]) Opiates [Presence] in Urine by Confirmatory method >=100 >=1 00 Opiates Ur Ql [facility] ([facility]) Dihydrocodeine [Mass/volume] in Urine by Confirmatory method 309 NG /mL >=100 Dhc Ur [facility] ([facility]) Hydromorphone [Mass/volume] in Urine by Confirmatory method 354 NG/ mL >=100 Hydromorphone Ur [facility] ([facility]) Norhydrocodone [Mass/volume] in Urine by Confirmatory method 1770 N G/mL >=100 Norhydrocodone Ur [facility] ([facility]) Hydrocodone [Mass/volume] in Urine by Confirmatory method 3240 NG/m L >=100 Hydrocodone Ur [facility] ([facility]) 6-Monoacetylmorphine (6-SHAR) [Presence] in Urine by Confirma tory method <10 >=10 6[facility] Methadone [Presence] in Urine by Confirmatory method <200 > =200 Methadone Ur Ql [facility] ([facility]) Fentanyl+Norfentanyl [Presence] in Urine by Confirmatory method <5 >=5 Fentanyl+norfentanyl Ur Ql [facility] ([facility]) Carisoprodol+Meprobamate [Presence] in Urine by Screen method <200 >=200 Carisoprodol+meprob Ur Ql [facility] ([facility]) Meperidine [Presence] in Urine by Confirmatory method <100 >=100 Meperidine Ur Ql [facility] ([facility]) Tramadol [Presence] in Urine by Confirmatory method <100 >= 100 Tramadol Ur Ql [facility] ([facility]) Cotinine [Presence] in Urine by Confirmatory method >=125 >= 125 Cotinine Ur Ql [facility] ([facility]) Creatinine [Mass/volume] in Urine 201.8 mg/dL 20 - 370 C reat Ur-[facility] ([facility]) pH of Urine 4.5 - 9.0 pH Ur HANCOCK ([facility]) Khksk-8-Cxttkbblqhvgvuy [Mass/volume] in Urine 7400 NG/mL >=125 Pnusy-2-Wl-cotinine Ur-[facility] ([facility]) ID Date Data Source [id number] 10/04/2020 12:00:00 AM EST KADEN ([facility]) Name Value Range Interpretation Code Description Data Barbie rce(s) Supporting Document(s) ID Date Data Source [id number] 10/04/2020 12:00:00 AM EST KADEN ([facility]) Name Value Range Interpretation Code Description Data Barbie rce(s) Supporting Document(s) ID Date Data Source [id number] 10/04/2020 12:00:00 AM EST KADEN ([facility]) Name Value Range Interpretation Code Description Data Barbie rce(s) Supporting Document(s) cotinine ur CMP 7400 NG/mL >=500 Abnormal (applies to non- numeric results) Cotinine Ur CMP KADEN ([facility]) hydrocodone ur CMP 5680 NG/mL >=100 Hydrocodone Ur CM P KADEN ([facility]) gabapentin ur CMP <5 >=5 Abnormal (applies to no n-numeric results) Gabapentin Ur CMP KADEN ([facility]) ID Date Data Source [id number] 10/04/2020 12:00:00 AM EST KADEN ([facility]) Name Value Range Interpretation Code Description Data Barbie rce(s) Supporting Document(s) Buprenorphine [Presence] in Urine by Confirmatory method <1 >=1 Buprenorphine Ur Ql [facility] ([facility]) alcohol metabolites ur ql cfm <200 >=200 Alcoho l Metabolites [facility]) Ethyl sulfate [Mass/volume] in Urine by Confirmatory method <200 >=200 Ethyl Sulfate Ur [facility] ([facility]) Amphetamines [Presence] in Urine by Confirmatory method <0 >=0 Amphetamines Ur Ql [facility] ([facility]) Ethyl glucuronide [Mass/volume] in Urine by Confirmatory method <50 0 >=500 Ethyl Glucuronide Ur [facility] ([facility]) Tapentadol [Presence] in Urine by Confirmatory method <100 >=100 Tapentadol Ur Ql [facility] ([facility]) Benzodiazepines [Presence] in Urine by Confirmatory method <50 >=50 Benzodiaz Ur Ql [facility] ([facility]) gabapentinpregabalin ur ql cfm <5 >=5 Gabap entinpregabalin Ur Ql [facility] ([facility]) Cocaine [Presence] in Urine by Confirmatory method <50 >=50 Bze Ur Ql [facility] ([facility]) Hydrocodone [Mass/volume] in Urine by Confirmatory method 3240 NG/m L >=100 Hydrocodone Ur [facility] ([facility]) Opiates [Presence] in Urine by Confirmatory method >=100 >=1 00 Opiates Ur Ql [facility] ([facility]) Dihydrocodeine [Mass/volume] in Urine by Confirmatory method 309 NG /mL >=100 Dhc Ur [facility] ([facility]) Norhydrocodone [Mass/volume] in Urine by Confirmatory method 1770 N G/mL >=100 Norhydrocodone Ur [facility] ([facility]) 6-Monoacetylmorphine (6-SHAR) [Presence] in Urine by Confirma tory method <10 >=10 6Mam Ur Ql [facility] ([facility]) Hydromorphone [Mass/volume] in Urine by Confirmatory method 354 NG/ mL >=100 Hydromorphone Ur [facility] ([facility]) Meperidine [Presence] in Urine by Confirmatory method <100 >=100 Meperidine Ur Ql [facility] ([facility]) Methadone [Presence] in Urine by Confirmatory method <200 > =200 Methadone Ur Ql [facility] ([facility]) Carisoprodol+Meprobamate [Presence] in Urine by Screen method <200 >=200 Carisoprodol+meprob Ur Ql [facility] ([facility]) Fentanyl+Norfentanyl [Presence] in Urine by Confirmatory method <5 >=5 Fentanyl+norfentanyl Ur Ql [facility] ([facility]) Tramadol [Presence] in Urine by Confirmatory method <100 >= 100 Tramadol Ur Ql [facility] ([facility]) Ztqen-1-Vfkneztylugmxzh [Mass/volume] in Urine 7400 NG/mL >=125 Nusfo-5-Pu-cotinine [facility] ([facility]) Cotinine [Presence] in Urine by Confirmatory method >=125 >= 125 Cotinine Ur Ql [facility] ([facility]) Creatinine [Mass/volume] in Urine 201.8 mg/dL 20 - 370 C reat Ur-mcnc KADEN ([facility]) pH of Urine 4.5 - 9.0 pH Ur KADEN ([facility]) ID Date Data Source [id number] 10/04/2020 12:00:00 AM EST KADEN ([facility]) Name Value Range Interpretation Code Description Data Barbie rce(s) Supporting Document(s) ID Date Data Source [id number] 10/04/2020 12:00:00 AM EST KADEN ([facility]) Name Value Range Interpretation Code Description Data Barbie rce(s) Supporting Document(s) ID Date Data Source [id number] 10/04/2020 12:00:00 AM EST KADEN ([facility]) Name Value Range Interpretation Code Description Data Barbie rce(s) Supporting Document(s) gabapentin ur CMP <5 >=5 Abnormal (applies to no n-numeric results) Gabapentin Ur CMP KADEN ([facility]) hydrocodone ur CMP 5680 NG/mL >=100 Hydrocodone Ur CM P KADEN ([facility]) cotinine ur CMP 7400 NG/mL >=500 Abnormal (applies to non- numeric results) Cotinine Ur CMP KADEN ([facility]) ID Date Data Source [id number] 10/04/2020 12:00:00 AM EST KADEN ([facility]) Name Value Range Interpretation Code Description Data Barbie rce(s) Supporting Document(s) Buprenorphine [Presence] in Urine by Confirmatory method <1 >=1 Buprenorphine Ur Ql Cfm KADEN ([facility]) alcohol metabolites ur ql cfm <200 >=200 Alcoho l Metabolites Ur Ql Cfm KADEN ([facility]) Ethyl glucuronide [Mass/volume] in Urine by Confirmatory method <50 0 >=500 Ethyl Glucuronide Ur Cf-nc KADEN ([facility]) Ethyl sulfate [Mass/volume] in Urine by Confirmatory method <200 >=200 Ethyl Sulfate Ur Cf-nc KADEN ([facility]) Amphetamines [Presence] in Urine by Confirmatory method <0 >=0 Amphetamines Ur Ql [facility] ([facility]) Tapentadol [Presence] in Urine by Confirmatory method <100 >=100 Tapentadol Ur Ql [facility] ([facility]) Benzodiazepines [Presence] in Urine by Confirmatory method <50 >=50 Benzodiaz Ur Ql [facility] ([facility]) gabapentinpregabalin ur ql cf <5 >=5 Gabap entinpregabalin Ur Ql [facility] ([facility]) Cocaine [Presence] in Urine by Confirmatory method <50 >=50 Bze Ur Ql [facility] ([facility]) Opiates [Presence] in Urine by Confirmatory method >=100 >=1 00 Opiates Ur Ql [facility] ([facility]) Dihydrocodeine [Mass/volume] in Urine by Confirmatory method 309 NG /mL >=100 Dhc Ur [facility] ([facility]) Hydrocodone [Mass/volume] in Urine by Confirmatory method 3240 NG/m L >=100 Hydrocodone Ur [facility] ([facility]) Norhydrocodone [Mass/volume] in Urine by Confirmatory method 1770 N G/mL >=100 Norhydrocodone Ur [facility] ([facility]) 6-Monoacetylmorphine (6-SHAR) [Presence] in Urine by Confirma tory method <10 >=10 6Mam Ur Ql [facility] ([facility]) Hydromorphone [Mass/volume] in Urine by Confirmatory method 354 NG/ mL >=100 Hydromorphone Ur [facility] ([facility]) Methadone [Presence] in Urine by Confirmatory method <200 > =200 Methadone Ur Ql [facility] ([facility]) Meperidine [Presence] in Urine by Confirmatory method <100 >=100 Meperidine Ur Ql [facility] ([facility]) Fentanyl+Norfentanyl [Presence] in Urine by Confirmatory method <5 >=5 Fentanyl+norfentanyl Ur Ql [facility] ([facility]) Carisoprodol+Meprobamate [Presence] in Urine by Screen method <200 >=200 Carisoprodol+meprob Ur Ql Scn KADEN ([facility]) Tramadol [Presence] in Urine by Confirmatory method <100 >= 100 Tramadol Ur Ql Cfm KADEN ([facility]) Cotinine [Presence] in Urine by Confirmatory method >=125 >= 125 Cotinine Ur Ql Cfm KADEN ([facility]) Ukfwk-2-Ppcnnlaibmusrrg [Mass/volume] in Urine 7400 NG/mL >=125 Jyjsn-5-Ev-cotinine Ur-mcnc KADEN ([facility]) Creatinine [Mass/volume] in Urine 201.8 mg/dL 20 - 370 C reat Ur-mcnc KADEN ([facility]) pH of Urine 4.5 - 9.0 pH Ur KADEN ([facility]) ID Date Data Source [id number] 10/04/2020 12:00:00 AM EST KADEN ([facility]) Name Value Range Interpretation Code Description Data Barbie rce(s) Supporting Document(s) ID Date Data Source [id number] 10/04/2020 12:00:00 AM EST KADEN ([facility]) Name Value Range Interpretation Code Description Data Barbie rce(s) Supporting Document(s) ID Date Data Source [id number] 10/04/2020 12:00:00 AM EST KADEN ([facility]) Name Value Range Interpretation Code Description Data Barbie rce(s) Supporting Document(s) hydrocodone ur CMP 5680 NG/mL >=100 Hydrocodone Ur CM P KADEN ([facility]) gabapentin ur CMP <5 >=5 Abnormal (applies to no n-numeric results) Gabapentin Ur CMP KADEN ([facility]) cotinine ur CMP 7400 NG/mL >=500 Abnormal (applies to non- numeric results) Cotinine Ur CMP KADEN ([facility]) ID Date Data Source [id number] 10/04/2020 12:00:00 AM EST KADEN ([facility]) Name Value Range Interpretation Code Description Data Barbie e(s) Supporting Document(s) alcohol metabolites ur ql [facility] <200 >=200 Alcoho l Metabolites Ur Ql [facility] ([facility]) Buprenorphine [Presence] in Urine by Confirmatory method <1 >=1 Buprenorphine Ur Ql [facility] ([facility]) Amphetamines [Presence] in Urine by Confirmatory method <0 >=0 Amphetamines Ur Ql [facility] ([facility]) Ethyl sulfate [Mass/volume] in Urine by Confirmatory method <200 >=200 Ethyl Sulfate Ur [facility] ([facility]) Ethyl glucuronide [Mass/volume] in Urine by Confirmatory method <50 0 >=500 Ethyl Glucuronide Ur [facility] ([facility]) Tapentadol [Presence] in Urine by Confirmatory method <100 >=100 Tapentadol Ur [facility]) Benzodiazepines [Presence] in Urine by Confirmatory method <50 >=50 Benzodiaz Ur [facility] ([facility]) Cocaine [Presence] in Urine by Confirmatory method <50 >=50 Bze Ur Ql [facility] ([facility]) gabapentinpregabalin ur [facility] <5 >=5 Gabap entinpregabalin Ur [facility] ([facility]) Opiates [Presence] in Urine by Confirmatory method >=100 >=1 00 Opiates Ur [facility] ([facility]) Hydrocodone [Mass/volume] in Urine by Confirmatory method 3240 NG/m L >=100 Hydrocodone Ur [facility] ([facility]) Norhydrocodone [Mass/volume] in Urine by Confirmatory method 1770 N G/mL >=100 Norhydrocodone Ur [facility] ([facility]) Dihydrocodeine [Mass/volume] in Urine by Confirmatory method 309 NG /mL >=100 Dhc Ur [facility] ([facility]) 6-Monoacetylmorphine (6-SHAR) [Presence] in Urine by Confirma tory method <10 >=10 6Mam Ur Ql [facility] ([facility]) Hydromorphone [Mass/volume] in Urine by Confirmatory method 354 NG/ mL >=100 Hydromorphone Ur [facility] ([facility]) Methadone [Presence] in Urine by Confirmatory method <200 > =200 Methadone Ur Ql [facility] ([facility]) Meperidine [Presence] in Urine by Confirmatory method <100 >=100 Meperidine Ur Ql [facility] ([facility]) Carisoprodol+Meprobamate [Presence] in Urine by Screen method <200 >=200 Carisoprodol+meprob Ur Ql [facility] ([facility]) Fentanyl+Norfentanyl [Presence] in Urine by Confirmatory method <5 >=5 Fentanyl+norfentanyl Ur Ql [facility] ([facility]) Tramadol [Presence] in Urine by Confirmatory method <100 >= 100 Tramadol Ur Ql [facility] ([facility]) Cotinine [Presence] in Urine by Confirmatory method >=125 >= 125 Cotinine Ur Ql [facility] ([facility]) Zrtlz-4-Fkrylgdhbgxaydq [Mass/volume] in Urine 7400 NG/mL >=125 Fhivb[facility] pH of Urine 4.5 - 9.0 pH Ur [place]OCK ([facility]) Creatinine [Mass/volume] in Urine 201.8 mg/dL 20 - 370 [facility] ID Date Data Source [id number] 10/04/2020 12:00:00 AM EST KADEN ([facility]) Name Value Range Interpretation Code Description Data Barbie rce(s) Supporting Document(s) ID Date Data Source [id number] 10/04/2020 12:00:00 AM EST KADEN ([facility]) Name Value Range Interpretation Code Description Data Barbie rce(s) Supporting Document(s) ID Date Data Source [id number] 10/04/2020 12:00:00 AM EST KADEN ([facility]) Name Value Range Interpretation Code Description Data Barbie rce(s) Supporting Document(s) gabapentin ur CMP <5 >=5 Abnormal (applies to no n-numeric results) Gabapentin Ur CMP KADEN ([facility]) hydrocodone ur CMP 5680 NG/mL >=100 Hydrocodone Ur CM P KADEN ([facility]) cotinine ur CMP 7400 NG/mL >=500 Abnormal (applies to non- numeric results) Cotinine Ur CMP KADEN ([facility]) ID Date Data Source [id number] 10/04/2020 12:00:00 AM EST KADEN ([facility]) Name Value Range Interpretation Code Description Data Barbie rce(s) Supporting Document(s) Buprenorphine [Presence] in Urine by Confirmatory method <1 >=1 Buprenorphine Ur Ql [facility] ([facility]) alcohol metabolites ur ql cfm <200 >=200 Alcoho l Metabolites Ur Ql [facility] ([facility]) Ethyl glucuronide [Mass/volume] in Urine by Confirmatory method <50 0 >=500 Ethyl Glucuronide Ur [facility] ([facility]) Ethyl sulfate [Mass/volume] in Urine by Confirmatory method <200 >=200 Ethyl Sulfate Ur [facility] KADEN ([facility]) Amphetamines [Presence] in Urine by Confirmatory method <0 >=0 Amphetamines Ur Ql [facility] ([facility]) Tapentadol [Presence] in Urine by Confirmatory method <100 >=100 Tapentadol Ur Ql [facility] ([facility]) gabapentinpregabalin ur ql cfm <5 >=5 Gabap entinpregabalin Ur Ql [facility] ([facility]) Benzodiazepines [Presence] in Urine by Confirmatory method <50 >=50 Benzodiaz Ur Ql [facility] ([facility]) Cocaine [Presence] in Urine by Confirmatory method <50 >=50 Bze Ur Ql [facility] ([facility]) Opiates [Presence] in Urine by Confirmatory method >=100 >=1 00 Opiates Ur Ql [facility] ([facility]) Hydrocodone [Mass/volume] in Urine by Confirmatory method 3240 NG/m L >=100 Hydrocodone Ur [facility] ([facility]) Dihydrocodeine [Mass/volume] in Urine by Confirmatory method 309 NG /mL >=100 Dhc Ur [facility] ([facility]) Norhydrocodone [Mass/volume] in Urine by Confirmatory method 1770 N G/mL >=100 Norhydrocodone Ur [facility] ([facility]) 6-Monoacetylmorphine (6-SHAR) [Presence] in Urine by Confirma tory method <10 >=10 6Mam Ur Ql [facility] ([facility]) Hydromorphone [Mass/volume] in Urine by Confirmatory method 354 NG/ mL >=100 Hydromorphone Ur [facility] ([facility]) Meperidine [Presence] in Urine by Confirmatory method <100 >=100 Meperidine Ur Ql [facility] ([facility]) Methadone [Presence] in Urine by Confirmatory method <200 > =200 Methadone Ur Ql [facility] ([facility]) Carisoprodol+Meprobamate [Presence] in Urine by Screen method <200 >=200 Carisoprodol+meprob Ur Ql [facility] ([facility]) Fentanyl+Norfentanyl [Presence] in Urine by Confirmatory method <5 >=5 Fentanyl+norfentanyl Ur Ql [facility] ([facility]) Tramadol [Presence] in Urine by Confirmatory method <100 >= 100 Tramadol Ur Ql [facility] ([facility]) Cotinine [Presence] in Urine by Confirmatory method >=125 >= 125 Cotinine Ur Ql [facility] ([facility]) pH of Urine 4.5 - 9.0 pH Ur [facility] ([facility]) Debkq-7-Pnnanrnyelaqoya [Mass/volume] in Urine 7400 NG/mL >=125 Qbsit-7-Bx-cotinine [facility] ([facility]) Creatinine [Mass/volume] in Urine 201.8 mg/dL 20 - 370 C reat [facility] ([facility]) ID Date Data Source [id number] 10/04/2020 12:00:00 AM EST [facility] ([facility]) Name Value Range Interpretation Code Description Data Barbie rce(s) Supporting Document(s) ID Date Data Source [id number] 10/04/2020 12:00:00 AM EST [facility] ([facility]) Name Value Range Interpretation Code Description Data Barbie rce(s) Supporting Document(s) ID Date Data Source [id number] 10/04/2020 12:00:00 AM EST [facility] ([facility]) Name Value Range Interpretation Code Description Data Barbie rce(s) Supporting Document(s) gabapentin ur CMP <5 >=5 Abnormal (applies to no n-numeric results) Gabapentin Ur CMP [facility] ([facility]) hydrocodone ur CMP 5680 NG/mL >=100 Hydrocodone Ur CM P [facility] ([facility]) cotinine ur CMP 7400 NG/mL >=500 Abnormal (applies to non- numeric results) Cotinine Ur CMP [facility] ([facility]) ID Date Data Source [id number] 10/04/2020 12:00:00 AM EST [facility] ([facility]) Name Value Range Interpretation Code Description Data Barbie rce(s) Supporting Document(s) Buprenorphine [Presence] in Urine by Confirmatory method <1 >=1 Buprenorphine Ur Ql [facility] ([facility]) alcohol metabolites ur ql cfm <200 >=200 Alcoho l Metabolites Ur Ql [facility] ([facility]) Ethyl sulfate [Mass/volume] in Urine by Confirmatory method <200 >=200 Ethyl Sulfate Ur Cfm-nc [facility] ([facility]) Ethyl glucuronide [Mass/volume] in Urine by Confirmatory method <50 0 >=500 Ethyl Glucuronide Ur Cf-nc [facility] ([facility]) Tapentadol [Presence] in Urine by Confirmatory method <100 >=100 Tapentadol Ur Ql [facility] ([facility]) Amphetamines [Presence] in Urine by Confirmatory method <0 >=0 Amphetamines Ur Ql [facility] ([facility]) gabapentinpregabalin ur ql [facility] <5 >=5 Gabap entinpregabalin Ur Ql [facility] ([facility]) Benzodiazepines [Presence] in Urine by Confirmatory method <50 >=50 Benzodiaz Ur Ql [facility] ([facility]) Cocaine [Presence] in Urine by Confirmatory method <50 >=50 Bze Ur Ql [facility] ([facility]) Dihydrocodeine [Mass/volume] in Urine by Confirmatory method 309 NG /mL >=100 Dhc Ur [facility] ([facility]) Opiates [Presence] in Urine by Confirmatory method >=100 >=1 00 Opiates Ur Ql [facility] ([facility]) Norhydrocodone [Mass/volume] in Urine by Confirmatory method 1770 N G/mL >=100 Norhydrocodone Ur [facility] ([facility]) Hydromorphone [Mass/volume] in Urine by Confirmatory method 354 NG/ mL >=100 Hydromorphone Ur [facility] ([facility]) Hydrocodone [Mass/volume] in Urine by Confirmatory method 3240 NG/m L >=100 Hydrocodone Ur [facility] ([facility]) Methadone [Presence] in Urine by Confirmatory method <200 > =200 Methadone Ur Ql [facility] ([facility]) 6-Monoacetylmorphine (6-SHAR) [Presence] in Urine by Confirma tory method <10 >=10 6Mam Ur Ql [facility] ([facility]) Meperidine [Presence] in Urine by Confirmatory method <100 >=100 Meperidine Ur Ql [facility] ([facility]) Carisoprodol+Meprobamate [Presence] in Urine by Screen method <200 >=200 Carisoprodol+meprob Ur Ql [facility] ([facility]) Fentanyl+Norfentanyl [Presence] in Urine by Confirmatory method <5 >=5 Fentanyl+norfentanyl Ur Ql [facility] ([facility]) Tramadol [Presence] in Urine by Confirmatory method <100 >= 100 Tramadol Ur Ql [facility] ([facility]) Cotinine [Presence] in Urine by Confirmatory method >=125 >= 125 Cotinine Ur Ql [facility] ([facility]) Hpsnq-8-Ujgwrwavphncsyb [Mass/volume] in Urine 7400 NG/mL >=125 Zbtla-9-Xk-cotinine Ur-mcnc [facility] ([facility]) pH of Urine 4.5 - 9.0 pH Ur [facility] ([facility]) Creatinine [Mass/volume] in Urine 201.8 mg/dL 20 - 370 C reat Ur-mcnc [facility] ([facility]) ID Date Data Source [id number] 10/04/2020 12:00:00 AM EST [facility] ([facility]) Name Value Range Interpretation Code Description Data Barbie rce(s) Supporting Document(s) ID Date Data Source [id number] 10/04/2020 12:00:00 AM EST [facility] ([facility]) Name Value Range Interpretation Code Description Data Barbie rce(s) Supporting Document(s) ID Date Data Source [id number] 10/04/2020 12:00:00 AM EST [facility] ([facility]) Name Value Range Interpretation Code Description Data Barbie rce(s) Supporting Document(s) gabapentin ur CMP <5 >=5 Abnormal (applies to no n-numeric results) Gabapentin Ur CMP [facility] ([facility]) hydrocodone ur CMP 5680 NG/mL >=100 Hydrocodone Ur CM P [facility] ([facility]) cotinine ur CMP 7400 NG/mL >=500 Abnormal (applies to non- numeric results) Cotinine Ur CMP [facility] ([facility]) ID Date Data Source [id number] 10/04/2020 12:00:00 AM EST [facility] ([facility]) Name Value Range Interpretation Code Description Data Barbie e(s) Supporting Document(s) Buprenorphine [Presence] in Urine by Confirmatory method <1 >=1 Buprenorphine Ur Ql [facility] ([facility]) alcohol metabolites ur ql cfm <200 >=200 Alcoho l Metabolites Ur Ql [facility] ([facility]) Amphetamines [Presence] in Urine by Confirmatory method <0 >=0 Amphetamines Ur Ql [facility] ([facility]) Ethyl glucuronide [Mass/volume] in Urine by Confirmatory method <50 0 >=500 Ethyl Glucuronide Ur [facility] ([facility]) Ethyl sulfate [Mass/volume] in Urine by Confirmatory method <200 >=200 Ethyl Sulfate Ur [facility] ([facility]) Tapentadol [Presence] in Urine by Confirmatory method <100 >=100 Tapentadol Ur Ql [facility] ([facility]) Benzodiazepines [Presence] in Urine by Confirmatory method <50 >=50 Benzodiaz Ur Ql [facility] ([facility]) gabapentinpregabalin ur ql cf <5 >=5 Gabap entinpregabalin Ur Ql [facility] ([facility]) Cocaine [Presence] in Urine by Confirmatory method <50 >=50 Bze Ur Ql [facility] ([facility]) Dihydrocodeine [Mass/volume] in Urine by Confirmatory method 309 NG /mL >=100 Dhc Ur [facility] ([facility]) Opiates [Presence] in Urine by Confirmatory method >=100 >=1 00 Opiates Ur Ql [facility] ([facility]) Norhydrocodone [Mass/volume] in Urine by Confirmatory method 1770 N G/mL >=100 Norhydrocodone Ur [facility] ([facility]) Hydromorphone [Mass/volume] in Urine by Confirmatory method 354 NG/ mL >=100 Hydromorphone Ur [facility] ([facility]) Hydrocodone [Mass/volume] in Urine by Confirmatory method 3240 NG/m L >=100 Hydrocodone Ur [facility] ([facility]) 6-Monoacetylmorphine (6-SHAR) [Presence] in Urine by Confirma tory method <10 >=10 6Mam [facility] Methadone [Presence] in Urine by Confirmatory method <200 > =200 Methadone Ur Ql [facility] ([facility]) Meperidine [Presence] in Urine by Confirmatory method <100 >=100 [facility]) Fentanyl+Norfentanyl [Presence] in Urine by Confirmatory method <5 >=5 Fentanyl[facility]fentanyl [facility]) Carisoprodol+Meprobamate [Presence] in Urine by Screen method <200 >=200 Carisoprodol+meprob Ur Ql Scn [facility] ([facility]) Tramadol [Presence] in Urine by Confirmatory method <100 >= 100 Tramadol Ur Ql [facility] ([facility]) pH of Urine 4.5 - 9.0 pH Ur [facility] ([facility]) Jnntl-6-Xdzzniwyutnthnl [Mass/volume] in Urine 7400 NG/mL >=125 Ybuae-4-Iv-cotinine [facility] ([facility]) Cotinine [Presence] in Urine by Confirmatory method >=125 >= 125 Cotinine Ur Ql [facility] ([facility]) Creatinine [Mass/volume] in Urine 201.8 mg/dL 20 - 370 C reat Ur-[facility] ([facility]) ID Date Data Source [id number] 10/04/2020 12:00:00 AM EST [facility] ([facility]) Name Value Range Interpretation Code Description Data Barbie rce(s) Supporting Document(s) ID Date Data Source [id number] 10/04/2020 12:00:00 AM EST [facility] ([facility]) Name Value Range Interpretation Code Description Data Barbie rce(s) Supporting Document(s) ID Date Data Source [id number] 10/04/2020 12:00:00 AM EST [facility] ([facility]) Name Value Range Interpretation Code Description Data Barbie rce(s) Supporting Document(s) gabapentin ur CMP <5 >=5 Abnormal (applies to no n-numeric results) Gabapentin Ur CMP [facility] ([facility]) hydrocodone ur CMP 5680 NG/mL >=100 Hydrocodone Ur CM P [facility] ([facility]) cotinine ur CMP 7400 NG/mL >=500 Abnormal (applies to non- numeric results) Cotinine Ur CMP [facility] ([facility]) ID Date Data Source [id number] 10/04/2020 12:00:00 AM EST [facility] ([facility]) Name Value Range Interpretation Code Description Data Barbie rce(s) Supporting Document(s) Buprenorphine [Presence] in Urine by Confirmatory method <1 >=1 Buprenorphine Ur Ql [facility] ([facility]) alcohol metabolites ur ql cf <200 >=200 Alcoho l Metabolites Ur Ql [facility] ([facility]) Ethyl glucuronide [Mass/volume] in Urine by Confirmatory method <50 0 >=500 Ethyl Glucuronide Ur [facility] ([facility]) Ethyl sulfate [Mass/volume] in Urine by Confirmatory method <200 >=200 Ethyl Sulfate Ur [facility] ([facility]) Amphetamines [Presence] in Urine by Confirmatory method <0 >=0 Amphetamines Ur Ql [facility] ([facility]) Tapentadol [Presence] in Urine by Confirmatory method <100 >=100 Tapentadol Ur Ql [facility] ([facility]) Benzodiazepines [Presence] in Urine by Confirmatory method <50 >=50 Benzodiaz Ur Ql [facility] ([facility]) gabapentinpregabalin ur ql cfm <5 >=5 Gabap entinpregabalin Ur Ql [facility] ([facility]) Cocaine [Presence] in Urine by Confirmatory method <50 >=50 Bze Ur Ql [facility] ([facility]) Opiates [Presence] in Urine by Confirmatory method >=100 >=1 00 Opiates Ur Ql [facility] ([facility]) Hydrocodone [Mass/volume] in Urine by Confirmatory method 3240 NG/m L >=100 Hydrocodone Ur [facility] ([facility]) Dihydrocodeine [Mass/volume] in Urine by Confirmatory method 309 NG /mL >=100 Dhc Ur [facility] ([facility]) Hydromorphone [Mass/volume] in Urine by Confirmatory method 354 NG/ mL >=100 Hydromorphone Ur [facility] ([facility]) Norhydrocodone [Mass/volume] in Urine by Confirmatory method 1770 N G/mL >=100 Norhydrocodone Ur [facility] ([facility]) 6-Monoacetylmorphine (6-SHAR) [Presence] in Urine by Confirma tory method <10 >=10 6Mam Ur Ql [facility] ([facility]) Methadone [Presence] in Urine by Confirmatory method <200 > =200 Methadone Ur Ql [facility] ([facility]) Meperidine [Presence] in Urine by Confirmatory method <100 >=100 Meperidine Ur Ql [facility] ([facility]) Fentanyl+Norfentanyl [Presence] in Urine by Confirmatory method <5 >=5 Fentanyl+norfentanyl Ur Ql [facility] ([facility]) Carisoprodol+Meprobamate [Presence] in Urine by Screen method <200 >=200 Carisoprodol+meprob Ur Ql Scn [place] ([facility]) Tramadol [Presence] in Urine by Confirmatory method <100 >= 100 Tramadol Ur Ql [facility] ([facility]) Cotinine [Presence] in Urine by Confirmatory method >=125 >= 125 Cotinine Ur Ql [facility] ([facility]) Cbodt-6-Izhondfntcghuoa [Mass/volume] in Urine 7400 NG/mL >=125 Muabb-1-St-cotinine [facility] ([facility]) pH of Urine 4.5 - 9.0 pH Ur [facility] ([facility]) Creatinine [Mass/volume] in Urine 201.8 mg/dL 20 - 370 C reat [facility] ([facility]) ID Date Data Source [id number] 10/04/2020 12:00:00 AM EST [facility] ([facility]) Name Value Range Interpretation Code Description Data Barbie rce(s) Supporting Document(s) ID Date Data Source [id number] 10/04/2020 12:00:00 AM EST [facility] ([facility]) Name Value Range Interpretation Code Description Data Barbie rce(s) Supporting Document(s) ID Date Data Source [id number] 09/12/2020 12:47:58 PM EST [facility] Name Value Range Interpretation Code Description Data Barbie rce(s) Supporting Document(s) Progress Note [facility] IWAKWw4uNxPUWoEh07/VKVfhXOAyk7VwACzzYLs3EEbsCLSmX2TpEVR1hF6xTXQ9ZDvPAwCqMuQvTcN3 [facility] [file] ICAgICAgICAgICAgICAgICAgICAgICAgICAgICAgICAgICAgICAgICAgICAgICAgICAgICAgICAgICAg ICAgICAgICAgICAgICAgICANCiAgICAgICAgICAgICAgICAgICAgICAgICAgICAgICAgICAgICAgICAg ICAgICAgICAgICAgICAgICAgICAgICAgICAgICAgIC AgICAgICAgICAgICAgICAgICAgICAgICAgICANCiAgICAgICAgICAgICAgICAgICAgICAgICAgICAgIC AgICAgICAgICAgICAgICAgICAgICAgICAgICAgICAgICAgICAgICAgICAgICAgICAgICAgICAgICAgIC AgICAgICAgICANCiAgICAgICAgICAgICAgICAgICAg ICAgICAgICAgICAgICAgICAgICAgICAgICAgICAgICAgICAgICAgICAgICAgICAgICAgICAgICAgICAg ICAgICAgICAgICAgICAgICAgICANCiAgICAgICAgICAgICAgICAgICAgICAgICAgICAgICAgICAgICAg ICAgICAgICAgICAgICAgICAgICAgICAgICAgICAgIC AgICAgICAgICAgICAgICAgICAgICAgICAgICAgICANCiAgICAgICAgICAgICAgICAgICAgICAgICAgIC AgICAgICAgICAgICAgICAgICAgICAgICAgICAgICAgICAgICAgICAgICAgICAgICAgICAgICAgICAgIC AgICAgICAgICAgICANCiAgICAgICAgICAgICAgICAg ICAgICAgICAgICAgICAgICAgICAgICAgICAgICAgICAgICAgICAgICAgICAgICAgICAgICAgICAgICAg ICAgICAgICAgICAgICAgICAgICAgICANCiAgICAgICAgICAgICAgICAgICAgICAgICAgICAgICAgICAg ICAgICAgICAgICAgICAgICAgICAgICAgICAgICAgIC AgICAgICAgICAgICAgICAgICAgICAgICAgICAgICAgICANCiAgICAgICAgICAgICAgICAgICAgICAgIC AgICAgICAgICAgICAgICAgICAgICAgICAgICAgICAgICAgICAgICAgICAgICAgICAgICAgICAgICAgIC AgICAgICAgICAgICAgICANCiAgICAgICAgICAgICAg ICAgICAgICAgICAgICAgICAgICAgICAgICAgICAgICAgICAgICAgICAgICAgICAgICAgICAgICAgICAg ICAgICAgICAgICAgICAgICAgICAgICAgICANCjw/wLJwE8xkjPOskeO4U7coWf5JRh4FBS4vv2XxLXZp TMwaqzKyNxoKEfDlBFZyGwqWCch5CWvkDT4HgQIyP4 JiI6FsBMbaKN7PRGFsGFIttBQkOLVfAACaJtT5KCJlVYxzIU6OmRIjMIqcLOItLELrBwQsGUCdRK7DWS YsA763vjDiXb9WVa3SUaGrRI2wfa6CXoLeDHHdGvlABfe4JBxhEF5IfJPqbTWeXQPtFONFIpVvC4jux0 WkPlGiMQBNKJosPL4Ba4HbaEThBJn+Uo9SUM7as4Zm MCkcJFHuZX2mqh4XVHwYSkGaN6OigHqjIAQcz6weTADkRG8dpSYxGOM4NKCsms9jvZf6UQWRc25kefwv ZsFeLHJnCSKpAz7aMDNeRQOeRvP1QOFNJI4UJKYaJTMpyHBfTCBcONNOVO9LGUogGFB4CXFifbBmsXTb HTsdXQ6ORZVyavEkHkDyEJVDPNd+Tu6HTF0tt6RkWZ yuMgKgHT5szj7RLWwVBxQnQ9S2zPHpF1V0SZtgXc6QXSZtFLTqWwLbCUCJCFzoJV9DOV4piaW2LB8HvG KdOTDyUGMcmPOgXNw8J03aqBMwLDvyUJ2XKJM+Kezia+Qc3KIOHkEXCkLBZeLoLfAOXWBeFqL2MsK7TDk6 JgZ8OfCN10xTvzltUeODtgWS2CKM8bZEUoZKLYVB4F gPImmJ8qghMtLWFzRGOGMjQkN87liHWxTBPdHQKvITDtIr5ONVJlY1JwbwEqxEanzbOjTNDbBBMHCV1Q FSeezyYmxDZtdBvpAD66eGsyCV5HQf3MMoAbHR5yek0SzUCaMv9AVBWuXd5AEYWzUALeHWQlIBI9HYEi LfCjVTxyCFFyPIWgKPH0QYTiHHOfQJ5ZGzGvSUYtEe J0CvIiRSUxPJVjrf9MGNEuEUWbBnN7YPGpTPAbTEHjRNnsEHEyREOiRKS7JLOnEDYjUG3RHqBvALLwCW D4YlSkXYKlMDPlhr9UTHYiYWTtWKI5EELjPLCiNCQsVVfsPOHhCFN4CSKrKZJdYELzZK9FWtHzJKXmWI KlHBKnQBWaYPXhmc3MQIWhFZNvLvKmGgOpVVKlNNXg SDvzBFQkIIH0FrT9WUSoNNStLE6QNvCtCTWyOLU4XWSqVOGyFFAnjn2IDWAiFEUzFdA9CVSlEYZiEYOy BJrsOWQxYVX8RrZoETSyPDBdGW5DHaKcAQIhIQj6LwjhPINyJNKlaz6MBSCoEESrERZ2CLRgWCQvETUl YMieEBIoSBI6JJDjUTVbJMIpYF2JWpObDPNmKJg3GO ryIASmPPRnci9JVIZbEQXeCVf7AKBcJMSuUEBcJXhdJRVuVJBiWGE5VDGkHHIaOU3PSrIfPJRzBlXoPE yrXVQvLTCmgg8GUPDaROXlTSAzPLXzYTFnFLYeYLhpSNXmFKRmPNYmWYKeVHNsRG8SQiUdXCOtHpD4MJ pkGNAhFNUrzu8FMLZdONRpQcL8JdRtYTBcZNGiXVlp GEUgDFBrJcTaMPLwPXMqID7AJuSgHKQrVqG7WRJmLYPrHYIfve7DfQQhyNnijz4OLMdAZl9WxHukQTH8 FJfzOs1vzQDwSaSpSYOGPa2YknJkQKZcNPUBMZhqWHRjHRjgQGJ4FYB9DGq7NKWoCOzvGBCiPRS5OYXe CNTaEqC4HdD6OUQ2YXgqJlIiTEByQFQ4OuA3VUBuMx RlYmQwYjBmNDg+RB7rFJn+Pk7Bc1QsfbZ4hvAjYSdhBrghBy6VXWPPI9FFOf== ID Date Data Source [id number] 08/23/2020 12:00:00 AM EST [facility] Name Value Range Interpretation Code Description Data Barbie rce(s) Supporting Document(s) SARS coronavirus 2 Ag [facility] This lab was ordered by [facility] and reported by [facility]. ID Date Data Source [id number] 08/04/2020 12:38:59 PM EDT [facility] Patient History Medical History:Family H istory:Diabetes (Mother)Heart disease (Mother)Hypertension (Mother) Current Problems: Dental disorder (ICD-525.9) (DNY16-H98.9)Dental caries (ICD-521.00) (KCJ29-V76.9)Current Medications: * CALCIUM * MULTI VITAMINS * OMEPRAZOLE Dental Chart: Procedures:Type - CDT Code - Description B - (D0274) Bitewings, 4 radiographic images (Performed by Anabel Green) B - (D4910) Periodontal maintenance (Performed by Anabel Green) B - (D0120) Periodic oral evaluation - established patient (Performed by Pamela Birmingham DDS) Chart Notes:charlie (Aug 04 2020 1:27PM): [facility]- no changes or concerns Additional PPE requirements due to COVID- 19 in the dental setting, N95, surgical mask, hair covering, gown. Referred to OS for non wipable plaque in areas of # 17-19, 20 and distal to # 31 Perio mantainence - Handscaled and ultrasonic, polished - mint paste and flossed, , 2YAG-KK-wgfgHcdiceh brushes 1-2 times/day, flossing regularly and using [...] PM): ; darwin (Aug 04 2020 1:32PM): [facility](-). CC: none. Reviewed Xrays. Exam: no [...] Assessment & Plan Problems:Added: Dental disorder (ICD-525.9) (FSB41-R16.9)Medications:CALCIUMMULTI VITAMINSOMEPRAZOLEAllergies:No Known Allergies (updated 08/04/2020) Orders:Oral Surgery Referral [CPT-04197] Name Value Range Interpretation Code Description Data Barbie rce(s) Supporting Document(s) ID Date Data Source [id number] 07/31/2020 01:48:47 PM EDT [facility] XR SPINE CERV 4 OR MORE VIEWS [id number] RESULTInterpreted by:Adama Coffman [facility] SPINECLINICAL STATEMENT: Neck pain TECHNIQUE: AP, [...] rce(s) Supporting Document(s) ID Date Data Source [id number] 07/25/2020 11:16:00 AM EDT [facility] ([facility]) Name Value Range Interpretation Code Description Data Barbie rce(s) Supporting Document(s) Culture Genital Laboratory test result [facility] ([facility]) {SPECIMEN TYPE: CLEAN CATCH~.~.~N95.2 ID Date Data Source [id number] 07/25/2020 11:16:00 AM EDT [facility] ([facility]) Name Value Range Interpretation Code Description Data Barbie rce(s) Supporting Document(s) Culture Urine Laboratory test result [facility] ([facility]) {SPECIMEN TYPE: CLEAN CATCH~.~.~N95.2 ID Date Data Source [id number] 07/25/2020 11:16:00 AM EDT [facility] Name Value Range Interpretation Code Description Data Barbie rce(s) Supporting Document(s) Bacteria identified in Genital specimen by Aerobe cult ure Laboratory test result [facility] ([facility]) ID Date Data Source [id number] 07/29/2020 02:58:[address] [facility] Name Value Range Interpretation Code Description Data Barbie rce(s) Supporting Document(s) CULTURE GENITAL [facility] _GENITAL CULTURE_$$[id number]$$[id number]$$ [id number]$$[id number]$$[id number]$$[id number] DATE/TIME: 07/29/2020 07:06Culture: CULTURE GENITAL Status: FinalGenital [...] aureusStaphylococcus aureus Flag: APatient: TEGAN DO Order: [id number] Page 2Culture: CULTURE GENITAL Status: Final ====ISOLATE 1 Staphylococcus aureus Isolate 1Antibiotic RL IntUnits ug/mL Ciprofloxacin S S . . . . . .185- 9Clindamycin S S . . . . . .193-3Erythromycin R R . . . . . .233-7Gentamicin S S . . . . . .267-5Levofloxacin S S . . . . . .26095-1Iitdvpsjy S S . . . . . .11375-6Wbxdudvpn R R . . . . . .383-0Penicillin R R . . . . . .6932-8Rifampin S S . . . . . .428-3Tetracycline S S . . . . . .496- 0Trimethoprim/Sulfa S S . . . . . .516-5Vancomycin S S . . . . . .524-9P1 Test performed by: Anurag Waupacapineda CAREY #: [id number] [address] [place] [address] [id number] [facility] [id number] Director : Martín Mccormick MD NPI #:Yarn Dumper : 07/28/[email or web address].SENT REF 07/29/[email or web address].SENT REF ID Date Data Source [id number] 07/27/2020 08:31:00 PM EDT [facility] Name Value Range Interpretation Code Description Data Barbie rce(s) Supporting Document(s) CULTURE URINE [facility] spital _CULTURE URINE_$$[id number]$$[id number]$$[id number]$$030444$$356666$$[id number]$$[id number]$$[id number]$$[id number]$$ [id number]$$724671$$240007$$042730$$[id number]$$[id number]$$[id number]$$419351$$155435$$325204$$ 934535$$176675$$254703$$438974$$706126$$428152$$[id number]$$[id number] -- Continued on next page --Patient: TEGAN DO Order: [id number] Page 2Culture: CULTURE URINE Status: Final ==== -- Continued on next page --Patient: TEGAN DO Order: [id number] Page 2Culture: CULTURE URINE Status: Prelim =====$$[id number] DATE/TIME: 07/27/2020 16:07Culture: CULTURE URINE Status: FinalUrine Culture,Comprehensive: P1No growth in 36 - 48 hours. Previous result entered on 07/27/2020 04:34 ET No growth after 18-24 hours.P1 [facility] #: [id number] [address] [place] [address] [id number] [facility] [id number] Director : Martín Mccormick MD NPI #:[id number] Dumper : 07/27/20.15.XMT.SENT REF 07/27/20.2031.XMT.SENT REF ID Date Data Source [id number] 07/04/2020 11:40:00 AM EDT MEDENT ([facility]) Name Value Range Interpretation Code Description Data Barbie rce(s) Supporting Document(s) Inhouse Wet [facility] Laboratory test result MEDENT ([facility]) ID Date Data Source [id number] 07/04/2020 11:32:00 AM EDT MEDENT ([facility]) Name Value Range Interpretation Code Description Data Barbie rce(s) Supporting Document(s) Mammo Screening Bilateral with CAD Laboratory test result MEDENT ([facility]) ID Date Data Source [id number] 07/03/2020 11:26:11 AM EDT [facility] Name Value Range Interpretation Code Description Data Barbie rce(s) Supporting Document(s) Progress Note [facility] [id number] lbm [file] [id number]= ID Date Data Source [id number] 06/21/2020 01:46:40 PM EDT [facility] MR EXTREMITY UPPER JOINT WITHOUT CONTRAS T [id number] RESULTInterpreted by:Bryce Ruth MDEXAM: MRI Left ShoulderINDICATION: [...] document has been electronically signed by Bryce Ruth MD on 06/21/2020 1:44 PM Name Value Range Interpretation Code Description Data Barbie rce(s) Supporting Document(s) Procedure Social History Code Duration Value Status Description Data Source(s ) Smoking 10/10/2020 12:00:00 AM EST Former Smoker completed Former Smoker eCW1 ([facility]) Smoking 10/10/2020 12:00:00 AM EST Former Smoker completed Former Smoker eCW1 ([facility]) Alcohol intake 09/12/2020 12:00:00 AM EST Current non-d yasmin of alcohol (finding) completed Current non-drinker of alcohol (finding) [facility] Tobacco use and exposure 09/12/2020 12:00:00 AM EST Never used co mpleted Never used [facility] Cigarette pack-years 09/12/2020 12:00:00 AM EST UNK completed [facility] Cigarettes smoked current (pack per day) - Reported 09/12/20 12:00:00 AM EST UNK completed [facility] Smoking 09/12/2020 12:00:00 AM EST Current every day smoker co mpleted Current every day smoker [facility] Smoking 09/06/2020 12:00:00 AM EST Former Smoker completed Former Smoker eCW1 ([facility]) Smoking 09/06/2020 12:00:00 AM EST Former Smoker completed Former Smoker eCW1 ([facility]) Smoking 08/23/2020 12:00:00 AM EST Patient is a former smoker completed Patient is a former smoker MEDENT ([facility], [facility]) Alcohol intake 07/28/2020 12:00:00 AM EDT Current non-d yasmin of alcohol (finding) completed Current non-drinker of alcohol (finding) [facility] Alcohol intake 06/30/2020 12:00:00 AM EDT Current non-d yasmin of alcohol (finding) completed Current non-drinker of alcohol (finding) [facility] Vital Signs ID Date Data Source UNK Name Value Range Interpretation Code Description Data Source(s) Diastolic blood pressure 69 mm[Hg] 69 mm[Hg] KADEN ([facility]) Body height 64 [in_i] 64 [in_i] KADEN ([facility]) Systolic blood pressure 105 mm[Hg] 105 mm[Hg] A THENA ([facility]) Systolic blood pressure 116 mm[Hg] 116 mm[Hg] M EDENT ([facility]) Diastolic blood pressure 74 mm[Hg] 74 mm[Hg] MEDENT ([facility]) Heart rate 93 /min 93 /min MEDENT ([facility]) Oxygen saturation in Arterial blood by Pulse oximetry 98 % 98 % MEDENT ([facility]) Body weight 141.25 [lb_av] 141.25 [lb_av] MEDEN T ([facility]) Body weight 64.071 kg 64.071 kg MEDENT ([facility]) Body height 64 [in_i] 64 [in_i] MEDENT ([facility]) 5'4" Body mass index (BMI) [Ratio] 24.2 kg/m2 24.2 k g/m2 MEDENT ([facility]) Body surface area Derived from formula 1.69 m2 1.69 m2 MEDENT ([facility]) Diastolic blood pressure 67 mm[Hg] 67 mm[Hg] KADEN ([facility]) Body height 64 [in_i] 64 [in_i] KADEN ([facility]) Systolic blood pressure 97 mm[Hg] 97 mm[Hg] A THENA ([facility]) Diastolic blood pressure 67 mm[Hg] 67 mm[Hg] KADEN ([facility]) Body height 64 [in_i] 64 [in_i] KADEN ([facility]) Systolic blood pressure 97 mm[Hg] 97 mm[Hg] A THENA ([facility]) Diastolic blood pressure 67 mm[Hg] 67 mm[Hg] KAEDN ([facility]) Body height 64 [in_i] 64 [in_i] KADEN ([facility]) Systolic blood pressure 97 mm[Hg] 97 mm[Hg] A THENA ([facility]) Systolic blood pressure 99 mm[Hg] 99 mm[Hg] A THENA ([facility]) Diastolic blood pressure 76 mm[Hg] 76 mm[Hg] KADEN ([facility]) Body height 64 [in_i] 64 [in_i] KADEN ([facility]) Diastolic blood pressure 76 mm[Hg] 76 mm[Hg] KADEN ([facility]) Body height 64 [in_i] 64 [in_i] KADEN ([facility]) Systolic blood pressure 99 mm[Hg] 99 mm[Hg] A THENA ([facility]) Diastolic blood pressure 76 mm[Hg] 76 mm[Hg] KADEN ([facility]) Body height 64 [in_i] 64 [in_i] KADEN ([facility]) Systolic blood pressure 99 mm[Hg] 99 mm[Hg] A THENA ([facility]) Diastolic blood pressure 76 mm[Hg] 76 mm[Hg] KADEN ([facility]) Body height 64 [in_i] 64 [in_i] KADEN ([facility]) Systolic blood pressure 99 mm[Hg] 99 mm[Hg] A THENA ([facility]) Diastolic blood pressure 66 mm[Hg] 66 mm[Hg] KADEN ([facility]) Body height 64 [in_i] 64 [in_i] KADEN ([facility]) Systolic blood pressure 99 mm[Hg] 99 mm[Hg] A THENA ([facility]) Diastolic blood pressure 66 mm[Hg] 66 mm[Hg] KADEN ([facility]) Body height 64 [in_i] 64 [in_i] KADEN ([facility]) Systolic blood pressure 99 mm[Hg] 99 mm[Hg] A THENA ([facility]) Diastolic blood pressure 66 mm[Hg] 66 mm[Hg] KADEN ([facility]) Body height 64 [in_i] 64 [in_i] KADEN ([facility]) Systolic blood pressure 99 mm[Hg] 99 mm[Hg] A THENA ([facility]) Diastolic blood pressure 66 mm[Hg] 66 mm[Hg] KADEN ([facility]) Body height 64 [in_i] 64 [in_i] KADEN ([facility]) Systolic blood pressure 99 mm[Hg] 99 mm[Hg] A THENA ([facility]) Diastolic blood pressure 66 mm[Hg] 66 mm[Hg] KADEN ([facility]) Body height 64 [in_i] 64 [in_i] KADEN ([facility]) Systolic blood pressure 99 mm[Hg] 99 mm[Hg] A THENA ([facility]) Diastolic blood pressure 66 mm[Hg] 66 mm[Hg] KADEN ([facility]) Body height 64 [in_i] 64 [in_i] KADEN ([facility]) Systolic blood pressure 99 mm[Hg] 99 mm[Hg] A THENA ([facility]) Body temperature 97.1 [degF] 97.1 [degF] MEDENT ([facility]) Body weight 140.00 [lb_av] 140.00 [lb_av] MEDEN T ([facility]) Body height 64.5 [in_i] 64.5 [in_i] MEDENT ([facility]) 5'4.50" Body mass index (BMI) [Ratio] 23.7 kg/m2 23.7 k g/m2 MEDENT ([facility]) Diastolic blood pressure 54 mm[Hg] 54 mm[Hg] KADEN ([facility]) Body height 64 [in_i] 64 [in_i] KADEN ([facility]) Systolic blood pressure 88 mm[Hg] 88 mm[Hg] A THENA ([facility]) Diastolic blood pressure 54 mm[Hg] 54 mm[Hg] KADEN ([facility]) Body height 64 [in_i] 64 [in_i] KADEN ([facility]) Systolic blood pressure 88 mm[Hg] 88 mm[Hg] A THENA ([facility]) Diastolic blood pressure 54 mm[Hg] 54 mm[Hg] KADEN ([facility]) Body height 64 [in_i] 64 [in_i] KADEN ([facility]) Systolic blood pressure 88 mm[Hg] 88 mm[Hg] A THENA ([facility]) Diastolic blood pressure 54 mm[Hg] 54 mm[Hg] KADEN ([facility]) Body height 64 [in_i] 64 [in_i] KADEN ([facility]) Systolic blood pressure 88 mm[Hg] 88 mm[Hg] A THENA ([facility]) Diastolic blood pressure 54 mm[Hg] 54 mm[Hg] KADEN ([facility]) Body height 64 [in_i] 64 [in_i] KADEN ([facility]) Systolic blood pressure 88 mm[Hg] 88 mm[Hg] A THENA ([facility]) Diastolic blood pressure 54 mm[Hg] 54 mm[Hg] KADEN ([facility]) Diastolic blood pressure 54 mm[Hg] 54 mm[Hg] KADEN ([facility]) Body height 64 [in_i] 64 [in_i] KADEN ([facility]) Systolic blood pressure 88 mm[Hg] 88 mm[Hg] A THENA ([facility]) Body height 64 [in_i] 64 [in_i] KADEN ([facility]) Systolic blood pressure 88 mm[Hg] 88 mm[Hg] A THENA ([facility]) Diastolic blood pressure 64 mm[Hg] 64 mm[Hg] KADEN ([facility]) Body height 64 [in_i] 64 [in_i] KADEN ([facility]) Systolic blood pressure 90 mm[Hg] 90 mm[Hg] A THENA ([facility]) Diastolic blood pressure 64 mm[Hg] 64 mm[Hg] KADEN ([facility]) Body height 64 [in_i] 64 [in_i] KADEN ([facility]) Systolic blood pressure 90 mm[Hg] 90 mm[Hg] A THENA ([facility]) Diastolic blood pressure 64 mm[Hg] 64 mm[Hg] KADEN ([facility]) Body height 64 [in_i] 64 [in_i] KADEN ([facility]) Systolic blood pressure 90 mm[Hg] 90 mm[Hg] A THENA ([facility]) Diastolic blood pressure 64 mm[Hg] 64 mm[Hg] KADEN ([facility]) Body height 64 [in_i] 64 [in_i] KADEN ([facility]) Systolic blood pressure 90 mm[Hg] 90 mm[Hg] A THENA ([facility]) Diastolic blood pressure 64 mm[Hg] 64 mm[Hg] KADEN ([facility]) Body height 64 [in_i] 64 [in_i] KADEN ([facility]) Systolic blood pressure 90 mm[Hg] 90 mm[Hg] A THENA ([facility]) Diastolic blood pressure 64 mm[Hg] 64 mm[Hg] KADEN ([facility]) Body height 64 [in_i] 64 [in_i] KADEN ([facility]) Systolic blood pressure 90 mm[Hg] 90 mm[Hg] A THENA ([facility]) Diastolic blood pressure 64 mm[Hg] 64 mm[Hg] KADEN ([facility]) Body height 64 [in_i] 64 [in_i] KADEN ([facility]) Systolic blood pressure 90 mm[Hg] 90 mm[Hg] A THENA ([facility]) Diastolic blood pressure 64 mm[Hg] 64 mm[Hg] KADEN ([facility]) Body height 64 [in_i] 64 [in_i] KADEN ([facility]) Systolic blood pressure 90 mm[Hg] 90 mm[Hg] A THENA ([facility]) Body weight 140 [lb_av] 140 [lb_av] eCW1 ([facility]) Body height 64 [in_i] 64 [in_i] eCW1 ([facility]) Body mass index (BMI) [Ratio] 24.03 kg/m2 24.03 kg/m2 W1 ([facility]) Heart rate 108 /min 108 /min W1 ([facility]) Respiratory rate 16 /min 16 /min W1 ([facility]) Body temperature 98.2 [degF] 98.2 [degF] eCW1 ( [facility]) Systolic blood pressure 108 mm[Hg] 108 mm[Hg] e CW1 ([facility]) Diastolic blood pressure 84 mm[Hg] 84 mm[Hg] eCW1 ([facility]) Systolic blood pressure 129 mm[Hg] 129 mm[Hg] A THENA ([facility]) Diastolic blood pressure 68 mm[Hg] 68 mm[Hg] KADEN ([facility]) Body height 64 [in_i] 64 [in_i] KADEN ([facility]) Diastolic blood pressure 68 mm[Hg] 68 mm[Hg] KADEN ([facility]) Body height 64 [in_i] 64 [in_i] KADEN ([facility]) Systolic blood pressure 129 mm[Hg] 129 mm[Hg] A THENA ([facility]) Diastolic blood pressure 68 mm[Hg] 68 mm[Hg] KADEN ([facility]) Body height 64 [in_i] 64 [in_i] KADEN ([facility]) Systolic blood pressure 129 mm[Hg] 129 mm[Hg] A THENA ([facility]) Diastolic blood pressure 68 mm[Hg] 68 mm[Hg] KADEN ([facility]) Body height 64 [in_i] 64 [in_i] KADEN ([facility]) Systolic blood pressure 129 mm[Hg] 129 mm[Hg] A THENA ([facility]) Diastolic blood pressure 68 mm[Hg] 68 mm[Hg] KADEN ([facility]) Body height 64 [in_i] 64 [in_i] KADEN ([facility]) Systolic blood pressure 129 mm[Hg] 129 mm[Hg] A THENA ([facility]) Diastolic blood pressure 68 mm[Hg] 68 mm[Hg] KADEN ([facility]) Body height 64 [in_i] 64 [in_i] KADEN ([facility]) Systolic blood pressure 129 mm[Hg] 129 mm[Hg] A THENA ([facility]) Diastolic blood pressure 68 mm[Hg] 68 mm[Hg] KADEN ([facility]) Body height 64 [in_i] 64 [in_i] KADEN ([facility]) Systolic blood pressure 129 mm[Hg] 129 mm[Hg] A THENA ([facility]) Diastolic blood pressure 68 mm[Hg] 68 mm[Hg] KADEN ([facility]) Body height 64 [in_i] 64 [in_i] KADEN ([facility]) Systolic blood pressure 129 mm[Hg] 129 mm[Hg] A THENA ([facility]) Diastolic blood pressure 68 mm[Hg] 68 mm[Hg] KADEN ([facility]) Body height 64 [in_i] 64 [in_i] KADEN ([facility]) Systolic blood pressure 129 mm[Hg] 129 mm[Hg] A THENA ([facility]) Body height 64 [in_i] 64 [in_i] KADEN ([facility]) Body height 64 [in_i] 64 [in_i] KADEN ([facility]) Body height 64 [in_i] 64 [in_i] KADEN ([facility]) Body height 64 [in_i] 64 [in_i] KADEN ([facility]) Body height 64 [in_i] 64 [in_i] KADEN ([facility]) Body height 64 [in_i] 64 [in_i] KADEN ([facility]) Body height 64 [in_i] 64 [in_i] KADEN ([facility]) Body height 64 [in_i] 64 [in_i] KADEN ([facility]) Body height 64 [in_i] 64 [in_i] KADEN ([facility]) Body height 64 [in_i] 64 [in_i] KADEN ([facility]) Heart rate 79 /min 79 /min MEDENT ([facility]) Systolic blood pressure 99 mm[Hg] 99 mm[Hg] M EDENT ([facility], [facility]) Diastolic blood pressure 68 mm[Hg] 68 mm[Hg] MEDENT ([facility], [facility]) Respiratory rate 16 /min 16 /min MEDENT ( [facility] [place]) Oxygen saturation in Arterial blood by Pulse oximetry 96 % 96 % MEDENT ([facility], [facility]) Body temperature 98.4 [degF] 98.4 [degF] MEDENT ([facility], [facility]) Body weight 128.00 [lb_av] 128.00 [lb_av] MEDEN T ([facility], [facility]) Body height 64 [in_i] 64 [in_i] MEDENT ([facility], [facility]) 5'4" Body mass index (BMI) [Ratio] 22.0 kg/m2 22.0 k g/m2 MEDENT ([facility], [facility]) Heart rate 104 /min 104 /min MEDENT ([facility]) Body temperature 97.0 [degF] 97.0 [degF] MEDENT ([facility]) Body weight 130.00 [lb_av] 130.00 [lb_av] MEDEN T ([facility]) Body weight 58.968 kg 58.968 kg MEDENT ([facility]) Body height 64 [in_i] 64 [in_i] MEDENT ([facility]) 5'4" Body mass index (BMI) [Ratio] 22.3 kg/m2 22.3 k g/m2 [facility] ([facility]) Body surface area Derived from formula 1.63 m2 1.63 m2 MEDENT ([facility]) Systolic blood pressure 105 mm[Hg] 105 mm[Hg] M EDENT ([facility]) Diastolic blood pressure 70 mm[Hg] 70 mm[Hg] MEDENT ([facility]) Systolic blood pressure 108 mm[Hg] 108 mm[Hg] M EDENT ([facility]) Diastolic blood pressure 65 mm[Hg] 65 mm[Hg] MEDENT ([facility]) Body height 64 [in_i] 64 [in_i] MEDENT ([facility]) 5'4" Body mass index (BMI) [Ratio] 22.7 kg/m2 22.7 k g/m2 MEDENT ([facility]) Body surface area Derived from formula 1.64 m2 1.64 m2 MEDENT ([facility]) Body weight 132.00 [lb_av] 132.00 [lb_av] MEDEN T ([facility]) Body weight 59.875 kg 59.875 kg MEDENT ([facility]) Heart rate 85 /min 85 /min MEDENT ([facility]) Body temperature 98.0 [degF] 98.0 [degF] MEDENT ([facility]) ID Date Data Source [id number] 10/07/2020 11:21:00 AM [facility] Name Value Range Interpretation Code Description Data Source(s) WEIGHT RECORDED 115 lb 115 lb [facility] Body height Measured 64 in 64 in [facility] Patient Treatment Plan of Care Planned Activity Planned Date Details Description Data Source (s) methylPREDNISolone acetate (DEPO-MEDROL) injection 80 mg 09/12/2020 01:00:00 PM [facility] methylPREDNISolone acetate (DEPO-MEDROL) injection 80 mg 09/12/2020 01:00:00 PM [facility] chlorhexidine gluconate 40 MG/ML Medicated Liquid Soap [Hibiclens] 09/06/2020 12:00:00 AM EST eCW1 ([facility]) Mupirocin 20 MG/ML Topical Cream 09/06/2020 12:00:00 AM EST eCW1 ([facility]) valacyclovir 500 MG Oral Tablet [Valtrex] 09/06/2020 12:00:00 AM ES T eCW1 ([facility]) chlorhexidine gluconate 40 MG/ML Medicated Liquid Soap [Hibiclens] 09/06/2020 12:00:00 AM EST eCW1 ([facility]) Mupirocin 20 MG/ML Topical Cream 09/06/2020 12:00:00 AM EST eCW1 ([facility]) valacyclovir 500 MG Oral Tablet [Valtrex] 09/06/2020 12:00:00 AM ES T eCW1 ([facility]) methylPREDNISolone acetate (DEPO-MEDROL) injection 80 mg 06/30/2020 01:30:00 PM [facility] methylPREDNISolone acetate (DEPO-MEDROL) injection 80 mg 06/30/2020 01:30:00 PM [facility] methylPREDNISolone acetate (DEPO-MEDROL) injection 80 mg 05/18/2020 02:45:00 PM [facility] Afluria Quad 60 mcg (15 mcg x 4)/0.5 mL intramuscular susp. INJECT DIRECTED KADEN ([facility]) Afluria Quad 60 mcg (15 mcg x 4)/0.5 mL intramuscular susp. INJECT DIRECTED KADEN [facility] Sulfamethoxazole 400 MG / Trimethoprim 80 MG Oral Tablet KADEN ([facility]) Naproxen 375 MG Oral Tablet KADEN ([facility]) Metronidazole 500 MG Oral Tablet KADEN ([facility]) Diclofenac Sodium 0.01 MG/MG Topical Gel KADEN ([facility]) cetirizine hydrochloride 10 MG Oral Tablet KADEN ([facility]) Cephalexin 500 MG Oral Capsule KADEN ([facility]) Afluria Quad 60 mcg (15 mcg x 4)/0.5 mL intramuscular susp. INJECT DIRECTED KADEN ([facility]) Afluria Quad 60 mcg (15 mcg x 4)/0.5 mL intramuscular susp. INJECT DIRECTED KADEN ([facility]) Sulfamethoxazole 400 MG / Trimethoprim 80 MG Oral Tablet KADEN ([facility]) Naproxen 375 MG Oral Tablet KADEN ([facility]) Metronidazole 500 MG Oral Tablet KADEN ([facility]) Diclofenac Sodium 0.01 MG/MG Topical Gel KADEN ([facility]) Ciprofloxacin 500 MG Oral Tablet KADEN ([facility]) cetirizine hydrochloride 10 MG Oral Tablet KADEN ([facility]) Cephalexin 500 MG Oral Capsule KADEN ([facility]) Afluria Quad 60 mcg (15 mcg x 4)/0.5 mL intramuscular susp. INJECT DIRECTED KADEN ([facility]) Afluria Quad 60 mcg (15 mcg x 4)/0.5 mL intramuscular susp. INJECT DIRECTED KADEN ([facility]) Sulfamethoxazole 400 MG / Trimethoprim 80 MG Oral Tablet KADEN ([facility]) Naproxen 375 MG Oral Tablet KADEN ([facility]) Metronidazole 500 MG Oral Tablet KADEN ([facility]) Diclofenac Sodium 0.01 MG/MG Topical Gel KADEN ([facility]) Ciprofloxacin 500 MG Oral Tablet KADEN ([facility]) cetirizine hydrochloride 10 MG Oral Tablet KADEN ([facility]) Cephalexin 500 MG Oral Capsule KADEN ([facility]) Afluria Quad 60 mcg (15 mcg x 4)/0.5 mL intramuscular susp. INJECT DIRECTED KADEN ([facility]) Sulfamethoxazole 400 MG / Trimethoprim 80 MG Oral Tablet KADEN ([facility]) Naproxen 375 MG Oral Tablet [facility]ADEN ([facility]) Sulfamethoxazole 400 MG / Trimethoprim 80 MG Oral Tablet KADEN ([facility]) Naproxen 375 MG Oral Tablet [facility]AD[facility] ([facility]) Metronidazole 500 MG Oral Tablet [facility] ([facility]) Fluconazole 150 MG Oral Tablet [facility]AD[facility] ([facility]) Estradiol 0.1 MG/ML Vaginal Cream [facility]ADEN ([facility]) Diclofenac Sodium 0.01 MG/MG Topical Gel [facility]ADEN ([facility]) Ciprofloxacin 500 MG Oral Tablet [facility]AD[facility] ([facility]) cetirizine hydrochloride 10 MG Oral Tablet [facility] ([facility]) Cephalexin 500 MG Oral Capsule [facility]ADEN ([facility]) Metronidazole 500 MG Oral Tablet [facility]ADEN ([facility]) Diclofenac Sodium 0.01 MG/MG Topical Gel KADEN ([facility]) Ciprofloxacin 500 MG Oral Tablet [facility]ADEN ([facility]) cetirizine hydrochloride 10 MG Oral Tablet [facility]AD[facility] ([facility]) Cephalexin 500 MG Oral Capsule KADEN ([facility]) Afluria Quad 60 mcg (15 mcg x 4)/0.5 mL intramuscular susp. INJECT DIRECTED [facility] ([facility]) Naproxen 375 MG Oral Tablet [facility]ADEN ([facility]) Afluria Quad 60 mcg (15 mcg x 4)/0.5 mL intramuscular susp. INJECT DIRECTED K[facility]EN ([facility]) Naproxen 375 MG Oral Tablet [facility]AD[facility] ([facility]) Mupirocin 0.02 MG/MG Topical Ointment [facility]ADEN ([facility]) Estradiol 0.1 MG/ML Vaginal Cream [facility]ADEN ([facility]) Diclofenac Sodium 0.01 MG/MG Topical Gel KADEN ([facility]) Afluria Quad 60 mcg (15 mcg x 4)/0.5 mL intramuscular susp. INJECT DIRECTED [facility]EN ([facility]) Diclofenac Sodium 0.01 MG/MG Topical Gel KADEN ([facility]) Ciprofloxacin 500 MG Oral Tablet [facility]AD[facility] ([facility]) cetirizine hydrochloride 10 MG Oral Tablet [facility]AD[facility] ([facility]) Cephalexin 500 MG Oral Capsule KADEN ([facility]) Afluria Quad 60 mcg (15 mcg x 4)/0.5 mL intramuscular susp. INJECT DIRECTED KADEN ([facility]) Afluria Quad 60 mcg (15 mcg x 4)/0.5 mL intramuscular susp. INJECT DIRECTED [facility] ([facility]) Sulfamethoxazole 400 MG / Trimethoprim 80 MG Oral Tablet [facility]AD[facility] ([facility]) Naproxen 375 MG Oral Tablet [facility] ([facility]) Metronidazole 500 MG Oral Tablet [facility] ([facility]) Naproxen 375 MG Oral Tablet [facility] ([facility]) Diclofenac Sodium 0.01 MG/MG Topical Gel KADEN ([facility]) Afluria Quad 60 mcg (15 mcg x 4)/0.5 mL intramuscular susp. INJECT DIRECTED [facility] ([facility]) Naproxen 375 MG Oral Tablet [facility]AD[facility] ([facility]) Estradiol 0.1 MG/ML Vaginal Cream [facility]ADEN ([facility]) Diclofenac Sodium 0.01 MG/MG Topical Gel KADEN ([facility])
--- NOTE | 2021-08-13 12:23 | REP ---
INDICATION: pain. COMPARISON: 05/28/2012 TECHNIQUE: Multiple ultrasonographic images of the deep venous structures of the left thigh were obtained from the level of the common femoral vein to the popliteal vein in the longitudinal and transverse scan planes along with Doppler interrogation and color flow Doppler imaging. Compression scanning of the proximal calf also performed for posterior tibial and peroneal veins. FINDINGS: There is no abnormal echogenic material seen within any of the visualized deep venous structures that would suggest acute thrombosis. Coaptation is unremarkable throughout. Doppler interrogation shows an expected response to respiratory variability and augmentation. The color flow Doppler images show what appears to be a normal vascular pattern throughout. The left posterior tibial and peroneal veins are compressible in the proximal calf. IMPRESSION: There is no ultrasonographic evidence of deep venous thrombosis involving any of the visualized deep venous structures of the left thigh and proximal calf as described above. Accredited by the [employer] [place] [employer] in Vascular Peripheral Ultrasound. <Electronically signed by Artur Benavidez > 08/13/21 [id number]
[2021-08-13 12:43] VITALS: BP 112/71
== END 2021-08-13 12:49 | disposition home or self-care (01) ==
LOC: M ED 10:47
DX: M79.605 Pain in left leg (principal); K21.9 Gastro-esophageal reflux disease without esophagitis; F33.9 Major depressive disorder, recurrent, unspecified; Z79.899 Other long term (current) drug therapy

== ENCOUNTER → 2021-08-17 | Outpatient (CLI) | payer MEDICARE ==
[~2021-08-17] MED LIST changes: +VALA500T5 PO
--- NOTE | 2021-08-17 15:22 | REP ---
INDICATION: SCREENING MAMMOGRAM. COMPARISON: 07/15/2020 as well as other prior exams. TECHNIQUE: MLO and CC views bilateral breasts with tomosynthesis. FINDINGS: Moderate fibroglandular tissue is scattered bilaterally. There is a possible 1 cm nodule in the upper outer quadrant of the left breast. Two metallic clips are seen in the region of 12 o'clock left breast. There is a metallic clip in the right retroareolar region. No other new mass or clustered microcalcifications are seen. The Volpara volumetric breast density pattern is B. IMPRESSION: BIRADS/ACR category 0, incomplete. Suspect 1 cm smoothly marginated nodule upper-outer quadrant left breast. Recommend spot compression views and ultrasound to further evaluate. This patient's Tyrer-Cuzick lifetime breast cancer risk assessment score is 5.3%. This mammogram was interpreted with the aid of an FDA-approved computer-aided detection system. The patient states she had a clinical breast exam in 07/10/2021. The patient letter being requested is M0. RECOMMENDATION: Recommend spot compression views and ultrasound left breast as discussed above. <Electronically signed by Jerome Lopez > 08/17/21 [id number]
== END ==
LOC: M WHC 14:25
PROVIDERS: ATTEND Nurse Practitioner Adult Health
DX: R92.2 Inconclusive mammogram (principal); Z80.3 Family history of malignant neoplasm of breast

== ENCOUNTER → 2021-09-06 | Outpatient (CLI) | payer MEDICARE ==
[~2021-09-06] MED LIST changes: -CEFD1CAP8; +CEFD300C41; +OMEP40CA4 PO; +OXYC1TAB23 PO; +SUCR1TA PO
== END ==
LOC: M WHC 07:57
PROVIDERS: ATTEND Nurse Practitioner Adult Health
DX: R92.8 Other abnormal and inconclusive findings on diagnostic imaging of breast (principal); Z12.31 Encounter for screening mammogram for malignant neoplasm of breast; Z80.3 Family history of malignant neoplasm of breast
CPT/HCPCS: 77065; G0279

== ENCOUNTER 2021-09-29 13:36 | Emergency (ER) | payer MEDICARE ==
[~2021-09-29] VITALS: Ht 162.6 cm; Wt 65.9 kg
[~2021-09-29 13:36] MED LIST changes: +CEFD1CAP8; -CEFD300C41; -OMEP40CA4 PO; -OXYC1TAB23 PO; -SUCR1TA PO
--- NOTE | 2021-09-29 14:08 | REP ---
INDICATION: trauma COMPARISON: None. TECHNIQUE: AP, lateral, bilateral oblique views right wrist. FINDINGS: There is a comminuted Colles' fracture of the distal radial metaphysis along with nondisplaced fracture of the ulnar styloid and overlying soft tissue swelling. The carpal bones and osseous structures demonstrate osteopenia and degenerative changes without obvious further injury. IMPRESSION: Colles' fracture of the distal radius along with nondisplaced ulnar styloid fracture. <Electronically signed by Tony Greco > 09/29/21 [id number]
--- NOTE | 2021-09-29 14:09 | REP ---
INDICATION: trauma COMPARISON: None. TECHNIQUE: AP, lateral, bilateral oblique views of the right elbow. FINDINGS: Osteopenia and degenerative changes. No evidence for acute fracture or dislocation. Anterior and posterior fat pads are in normal position without evidence for effusion or swelling. IMPRESSION: No obvious acute fracture or dislocation. <Electronically signed by Tony Greco > 09/29/21 [id number]
[2021-09-29] MEDS ORDERED: PERCOCET 5MG/325MG TAB PO ONE (14:10)
[2021-09-29] MEDS ORDERED: PERC5TAB12 PO (14:32)
--- NOTE | 2021-09-29 14:45 | CR ---
CONSULTATION DATE: 09/29/2021 CHIEF COMPLAINT: Right distal radius fracture. HISTORY OF PRESENT ILLNESS: I was called by the [facility] at [facility] ED, Dr. Regi Barajas at approximately 2:15 p.m., date of service 09/29/21. According to [facility], the patient sustained a mechanical fall. She is otherwise healthy. PHYSICAL EXAMINATION: Per Dr. Barajas, this is a closed, neurovascularly intact injury. Radiographs were reviewed by myself as well as radiologist. This shows a transverse metaphyseal area distal radius fracture with minimal shortening, minimal dorsal angulation as well as an associated ulnar styloid fracture. Radiographic interpretation by the radiologist of the elbow was negative although there could be potentially on the inferior surface of the proximal radius on the lateral x-ray service center representative of undisplaced radial head fracture. ASSESSMENT AND PLAN: This 66-year-old female with a right distal radius fracture. I recommend initial dorsal wrist mobilizing splint, sling for comfort, the elbow pain and injury, possible radial head fracture. Gentle range of motion of the elbow 3-4 times a day, avoiding heavy lifting, elevating, rest, ice and follow up early next week in clinic on Saturday or Saturday. Dr. Barajsa understood and is in agreement with the plan and no further questions or concerns in regards to this patient.
[2021-09-29 14:55] VITALS: BP 140/73
[2021-10-01] MEDS ORDERED: PERC5TAB12 PO (08:04)
--- NOTE | 2021-10-01 08:06 | ED PDOC ---
Post-Departure Follow-Up pt called requesting pain medication. chart reviewed. she iza received one pill in ED w no Rx. Wrote for 4 percocets . She has follow up on saturday w ortho who will resume care. Raman Garcia MD Oct 01, 2021 08:06
== END 2021-09-29 14:57 | disposition home or self-care (01) ==
LOC: M ED 13:36 → EDBD 13:36 → M ED 14:57
DX: S52.531A Colles' fracture of right radius, initial encounter for closed fracture (principal); W18.39XA Other fall on same level, initial encounter; Y92.018 Other place in single-family (private) house as the place of occurrence of the external cause; G89.29 Other chronic pain; F17.210 Nicotine dependence, cigarettes, uncomplicated

== ENCOUNTER → 2021-10-02 | Outpatient (CLI) | payer MEDICARE ==
[~2021-10-02] MED LIST changes: -CEFD1CAP8; +CEFD300C41; +OMEP40CA4 PO; +OXYC1TAB23 PO; +SUCR1TA PO
== END ==
LOC: M SOG 14:05
PROVIDERS: ATTEND Orthopaedic Surgery Sports Medicine
DX: S52.591A Other fractures of lower end of right radius, initial encounter for closed fracture (principal); X58.XXXA Exposure to other specified factors, initial encounter; Y92.89 Other specified places as the place of occurrence of the external cause

== ENCOUNTER → 2021-10-10 | Outpatient (CLI) | payer MEDICARE ==
[~2021-10-10] MED LIST changes: +CEFD1CAP8; -CEFD300C41; -OMEP40CA4 PO; -OXYC1TAB23 PO; -SUCR1TA PO
--- NOTE | 2021-10-10 13:57 | REP ---
INDICATION: RT RADIUS FX. COMPARISON: 10/02/2021 TECHNIQUE: Three views. FINDINGS: Once again, overlying casting material obscures the bony detail. There is no significant change in appearance of the fracture. IMPRESSION: No change <Electronically signed by Morales Collier > 10/10/21 [id number]
== END ==
LOC: M SOG 13:21
PROVIDERS: ATTEND Orthopaedic Surgery Hand Surgery
DX: S52.591A Other fractures of lower end of right radius, initial encounter for closed fracture (principal); Y92.9 Unspecified place or not applicable; Y93.9 Activity, unspecified; Y99.9 Unspecified external cause status

== ENCOUNTER → 2021-10-11 | Outpatient (CLI) | payer MEDICARE ==
[~2021-10-11] MED LIST changes: -CEFD1CAP8; +CEFD300C41; +OMEP40CA4 PO; +SUCR1TA PO
== END ==
LOC: M LABSMTC 11:00
PROVIDERS: ATTEND Anesthesiology
DX: Z01.812 Encounter for preprocedural laboratory examination (principal); Z20.822 Contact with and (suspected) exposure to COVID-19
CPT/HCPCS: 93005; G0463; U0003

== ENCOUNTER 2021-10-13 05:56 | Day surgery (SDC) | payer MEDICARE ==
[~2021-10-13] VITALS: Ht 162.6 cm; Wt 68.0 kg
[~2021-10-13 05:56] MED LIST changes: -OMEP40CA4 PO; -SUCR1TA PO
[2021-10-13] MEDS ORDERED: LR 1,000 ML IV ONE (06:00)
[2021-10-13] MEDS ORDERED: ceFAZolin SOD 2 GM in IV 1 EA IV ONE (06:00)
[2021-10-13] MEDS ORDERED: MIDAZOLAM INJ 2MG/2ML VIAL (J2250 PER 1MG) IV PRN (07:01)
[2021-10-13] MEDS ORDERED: fentaNYL 100 MCG/2 ML INJECTION (J3010) IV PRN ×2 (07:01→09:10)
[2021-10-13] MEDS ORDERED: EPINEPHrine INJ 1 MG/ML 1ML AMP XX ONE (07:10)
[2021-10-13] MEDS ORDERED: ROPIvacaine 0.5% 30ML INJECTION (J2795 PER 1MG) XX ONE (07:10)
[2021-10-13] MEDS ORDERED: dexameTHASONE 10MG/1ML VIAL PRES.FREE (J1100 PER 1MG) XX ONE (07:10)
[2021-10-13] MEDS ORDERED: PHENYLephrine 500MCG 5ML (100MCG/ML) SYRINGE As Ordered ONE (07:52)
[2021-10-13] MEDS ORDERED: MIDAZOLAM INJ 2MG/2ML VIAL (J2250 PER 1MG) As Ordered ONE (07:52)
[2021-10-13] MEDS ORDERED: ONDANSETRON 4MG/2ML VIAL As Ordered ONE (07:52)
[2021-10-13] MEDS ORDERED: dexameTHASONE 4 MG/ML 1ML VIAL (J1100 PER 1MG) As Ordered ONE (07:52)
[2021-10-13] MEDS ORDERED: propofoL 200 MG/20 ML VIAL As Ordered ONE (07:52)
[2021-10-13] MEDS ORDERED: fentaNYL 250 MCG/5 ML INJECTION (J3010) As Ordered ONE (07:52)
[2021-10-13] MEDS ORDERED: LIDOCAINE 2% 100MG/5ML SDV (FOR ANES.) As Ordered ONE (07:52)
[2021-10-13] MEDS ORDERED: oxyCODONE 5MG TAB PO PRN (09:10)
[2021-10-13] MEDS ORDERED: LR 1,000 ML IV SCH (09:10)
[2021-10-13] MEDS ORDERED: ONDANSETRON 4MG/2ML VIAL IV PRN (09:10)
[2021-10-13 10:58] VITALS: BP 129/68
== END 2021-10-13 11:10 | disposition home or self-care (01) ==
LOC: M SDC 05:56
PROVIDERS: ATTEND Orthopaedic Surgery Hand Surgery
DX: S52.551A Other extraarticular fracture of lower end of right radius, initial encounter for closed fracture (principal); W18.30XA Fall on same level, unspecified, initial encounter; Y92.090 Kitchen in other non-institutional residence as the place of occurrence of the external cause; M54.50 Low back pain, unspecified; M54.2 Cervicalgia; R51.9 Headache, unspecified; Z79.899 Other long term (current) drug therapy; Z88.5 Allergy status to narcotic agent; Z79.891 Long term (current) use of opiate analgesic; Z87.891 Personal history of nicotine dependence; Z87.442 Personal history of urinary calculi
CPT/HCPCS: 25607; 76000; C1713; J0171; J0690; J1100; J2250; J2370; J2405; J2795; J3010

== ENCOUNTER 2021-10-27 04:35 | Emergency (ER) | payer MEDICARE ==
[~2021-10-27] VITALS: Ht 162.6 cm; Wt 63.6 kg
[2021-10-27 05:34] LABS: BASO % 0.6 % (0.0-1.0); EOS # 0.1 10^3/uL (0.0-0.5); EOS % 1.9 % (0.0-3.0); HEMATOCRIT 38.8 % (36.0-47.0); HEMOGLOBIN 12.6 g/dl (12.0-15.5); LYMPH # 3.2 10^3/uL (1.5-5.0); LYMPH % 44.6 % (24.0-44.0); MEAN CORPUSCULAR HEMOGLOBIN 31.7 pg (27.0-33.0); MEAN CORPUSCULAR HGB CONC 32.5 g/dl (32.0-36.5); MEAN CORPUSCULAR VOLUME 97.5 fl (80.0-96.0); MONO # 0.6 10^3/uL (0.0-0.8); MONO % 8.7 % (2.0-8.0); NEUTROPHILS # 3.2 10^3/uL (1.5-8.5); NEUTROPHILS % 43.9 % (36.0-66.0); PLATELET COUNT, AUTOMATED 324 10^3/uL (150-450); RED BLOOD COUNT 3.98 10^6/uL (4.00-5.40); WHITE BLOOD COUNT 7.3 10^3/uL (4.0-10.0)
[2021-10-27 05:53] LABS: BLOOD UREA NITROGEN 23 MG/DL (7-18); CARBON DIOXIDE LEVEL 29 MEQ/L (21-32); CHLORIDE LEVEL 107 MEQ/L (98-107); CREATININE FOR GFR 0.79 MG/DL (0.55-1.30); GLOMERULAR FILTRATION RATE > 60.0 (>45); GLUCOSE, FASTING 99 MG/DL (70-100); SODIUM LEVEL 141 MEQ/L (136-145)
[2021-10-27] MEDS ORDERED: ISOVUE-370 76% 100ML VIAL As Ordered ONE (08:08)
[2021-10-27] MEDS ORDERED: OMEP40CA4 PO (09:36)
[2021-10-27] MEDS ORDERED: SUCR1TA PO (09:36)
[2021-10-27 09:45] VITALS: BP 121/64
== END 2021-10-27 10:00 | disposition home or self-care (01) ==
LOC: M ED 04:35
DX: K21.9 Gastro-esophageal reflux disease without esophagitis (principal); N28.1 Cyst of kidney, acquired; Z79.899 Other long term (current) drug therapy
CPT/HCPCS: 36415; 71045; 71275; 80048; 84484; 85025; 87798; 93005; 93041; 94760; 99285; Q9967

== ENCOUNTER 2021-11-01 13:08 | Outpatient (RCR) | payer MEDICARE ==
[~2021-11-01 13:08] MED LIST changes: +OMEP40CA4 PO; +SUCR1TA PO
== END 2021-11-06 ==
LOC: M OT 13:08
PROVIDERS: ATTEND Orthopaedic Surgery Hand Surgery
DX: Z48.89 Encounter for other specified surgical aftercare (principal); M25.531 Pain in right wrist

== ENCOUNTER → 2021-11-17 | Outpatient (CLI) | payer MEDICARE | LOC: M LABSMTC 10:17 | PROVIDERS: ATTEND Anesthesiology | DX: Z01.812 Encounter for preprocedural laboratory examination (principal); Z20.822 Contact with and (suspected) exposure to COVID-19 ==

== ENCOUNTER 2021-11-22 10:55 | Day surgery (SDC) | payer MEDICARE ==
[~2021-11-22] VITALS: Ht 162.6 cm; Wt 63.5 kg
[~2021-11-22 10:55] MED LIST changes: +LR 1,000 ML IV ONE; +ceFAZolin SOD 2 GM in IV 1 EA IV ONE
[2021-11-22] MEDS ORDERED: MIDAZOLAM INJ 2MG/2ML VIAL (J2250 PER 1MG) As Ordered ONE (12:51)
[2021-11-22] MEDS ORDERED: ONDANSETRON 4MG/2ML VIAL As Ordered ONE (12:52)
[2021-11-22] MEDS ORDERED: dexameTHASONE 4 MG/ML 1ML VIAL (J1100 PER 1MG) As Ordered ONE (12:52)
[2021-11-22] MEDS ORDERED: fentaNYL 100 MCG/2 ML INJECTION As Ordered ONE ×3 (12:52→14:52)
[2021-11-22] MEDS ORDERED: propofoL 200 MG/20 ML VIAL As Ordered ONE (12:52)
[2021-11-22] MEDS ORDERED: LIDOCAINE 2% 100MG/5ML SDV (FOR ANES.) As Ordered ONE (12:52)
[2021-11-22] MEDS ORDERED: BUPIVACAINE HCL 0.25% 30ML VIAL As Ordered ONE (12:55)
[2021-11-22] MEDS ORDERED: BACITRACIN OINTMENT 30GM TUBE As Ordered ONE (12:55)
[2021-11-22] MEDS ORDERED: ACETAMINOPHEN 1000MG 100ML IV BTL (OFIRMEV) (J0131 PER 10MG) As Ordered ONE (13:26)
[2021-11-22] MEDS ORDERED: OXYC1TAB23 PO (14:21)
[2021-11-22] MEDS ORDERED: LR 1,000 ML IV SCH (14:30)
[2021-11-22] MEDS ORDERED: ONDANSETRON 4MG/2ML VIAL IV PRN (14:30)
[2021-11-22] MEDS ORDERED: oxyCODONE 5MG TAB PO PRN (14:30)
[2021-11-22] MEDS ORDERED: fentaNYL 100 MCG/2 ML INJECTION IV PRN (14:30)
[2021-11-22] MEDS: HYDROMORPHONE HCL 0.5 MG/ 0.5 ML SYRINGE (J1170 PER 1) IV PRN ×2 (14:33→14:38)
[2021-11-22] MEDS ORDERED: PHENYLephrine 500MCG 5ML (100MCG/ML) SYRINGE As Ordered ONE (15:14)
[2021-11-22 15:40] VITALS: BP 113/74
== END 2021-11-22 15:50 | disposition home or self-care (01) ==
LOC: M SDC 10:55
PROVIDERS: ATTEND Orthopaedic Surgery Hand Surgery
DX: T84.84XA Pain due to internal orthopedic prosthetic devices, implants and grafts, initial encounter (principal); Y79.2 Prosthetic and other implants, materials and accessory orthopedic devices associated with adverse incidents; K21.9 Gastro-esophageal reflux disease without esophagitis; M81.0 Age-related osteoporosis without current pathological fracture; H91.90 Unspecified hearing loss, unspecified ear; Z79.899 Other long term (current) drug therapy; Z79.52 Long term (current) use of systemic steroids; Z86.16 Personal history of COVID-19
CPT/HCPCS: 20680; J0131; J0690; J1100; J1170; J2250; J2370; J2405; J3010

== ENCOUNTER → 2021-11-28 | Outpatient (CLI) | payer MEDICARE ==
[~2021-11-28] MED LIST changes: -LR 1,000 ML IV ONE; +OXYC1TAB23 PO; -ceFAZolin SOD 2 GM in IV 1 EA IV ONE
[2021-11-28 19:12] LABS: ALBUMIN 3.9 GM/DL (3.2-5.2); ALT/SGPT 23 U/L (12-78); BILIRUBIN,TOTAL 0.4 MG/DL (0.2-1.0); BLOOD UREA NITROGEN 15 MG/DL (7-18); CALCIUM LEVEL 9.6 MG/DL (8.8-10.2); CARBON DIOXIDE LEVEL 26 MEQ/L (21-32); CHLORIDE LEVEL 104 MEQ/L (98-107); CREATININE FOR GFR 0.85 MG/DL (0.55-1.30); FREE T4 1.12 NG/DL (0.76-1.46); GLOMERULAR FILTRATION RATE > 60.0 (>45); GLUCOSE, FASTING 96 MG/DL (70-100); POTASSIUM SERUM 4.3 MEQ/L (3.5-5.1); SODIUM LEVEL 139 MEQ/L (136-145); TOTAL PROTEIN 6.7 GM/DL (6.4-8.2); URIC ACID 3.8 MG/DL (2.6-6.0)
== END ==
LOC: M PLALAB 14:51
PROVIDERS: ATTEND Student in an Organized Health Care Education/Training Program
DX: L29.9 Pruritus, unspecified (principal)

== ENCOUNTER → 2021-11-28 | Outpatient (REF) | payer MEDICARE | LOC: M SFHCPLAZ 14:40 | PROVIDERS: ATTEND Family Medicine | DX: L29.9 Pruritus, unspecified (principal) ==

== ENCOUNTER 2021-11-30 13:45 | Outpatient (RCR) | payer MEDICARE | END 2021-12-04 | LOC: M OT 13:45 | PROVIDERS: ATTEND Orthopaedic Surgery Hand Surgery | DX: Z48.89 Encounter for other specified surgical aftercare (principal); M25.531 Pain in right wrist ==

== ENCOUNTER → 2021-12-01 | Outpatient (CLI) | payer MEDICARE | LOC: M SOG 13:00 | PROVIDERS: ATTEND Orthopaedic Surgery Hand Surgery | DX: T84.89XA Other specified complication of internal orthopedic prosthetic devices, implants and grafts, initial encounter (principal); Y83.1 Surgical operation with implant of artificial internal device as the cause of abnormal reaction of the patient, or of later complication, without mention of misadventure at the time of the procedure ==

== ENCOUNTER → 2021-12-22 | Outpatient (CLI) | payer MEDICARE | LOC: M SOG 11:07 | PROVIDERS: ATTEND Physician Assistant | DX: S52.551D Other extraarticular fracture of lower end of right radius, subsequent encounter for closed fracture with routine healing (principal); X58.XXXD Exposure to other specified factors, subsequent encounter; L84 Corns and callosities ==

== ENCOUNTER 2022-03-18 00:09 | Emergency (ER) | payer MEDICARE ==
[~2022-03-18] VITALS: Ht 162.6 cm; Wt 68.2 kg
[2022-03-18 00:10] VITALS: BP 131/76
== END 2022-03-18 00:33 | disposition left against medical advice (07) ==
LOC: M ED 00:09
DX: Z53.29 Procedure and treatment not carried out because of patient's decision for other reasons (principal)

== ENCOUNTER 2022-03-25 09:59 | Emergency (ER) | payer MEDICARE ==
[~2022-03-25] VITALS: Ht 162.6 cm; Wt 69.2 kg
[2022-03-25] MEDS ORDERED: LIDO1PAD (11:27)
[2022-03-25] MEDS ORDERED: CALC500C16 PO (11:27)
[2022-03-25] MEDS ORDERED: MULT-90 PO (11:27)
[2022-03-25 12:47] VITALS: BP 142/82
== END 2022-03-25 12:49 | disposition home or self-care (01) ==
LOC: M ED 09:59
DX: M25.562 Pain in left knee (principal); M25.552 Pain in left hip; M79.602 Pain in left arm; K21.9 Gastro-esophageal reflux disease without esophagitis; G89.29 Other chronic pain; Z87.442 Personal history of urinary calculi; Z79.899 Other long term (current) drug therapy

== ENCOUNTER → 2022-05-29 | Outpatient (CLI) | payer MEDICARE ==
[~2022-05-29] MED LIST changes: +CALC500C16 PO; +LIDO1PAD; +MULT-90 PO
[2022-05-29 13:42] LABS: HEMATOCRIT 41.1 % (36.0-47.0); HEMOGLOBIN 13.3 g/dl (12.0-15.5); MEAN CORPUSCULAR HEMOGLOBIN 30.9 pg (27.0-33.0); MEAN CORPUSCULAR HGB CONC 32.4 g/dl (32.0-36.5); MEAN CORPUSCULAR VOLUME 95.4 fl (80.0-96.0); PLATELET COUNT, AUTOMATED 312 10^3/uL (150-450); RED BLOOD COUNT 4.31 10^6/uL (4.00-5.40); WHITE BLOOD COUNT 5.2 10^3/uL (4.0-10.0)
[2022-05-29 13:52] LABS: ALT/SGPT 21 U/L (12-78); BILIRUBIN,TOTAL 0.4 MG/DL (0.2-1.0); BLOOD UREA NITROGEN 12 MG/DL (7-18); CALCIUM LEVEL 9.6 MG/DL (8.8-10.2); CARBON DIOXIDE LEVEL 29 MEQ/L (21-32); CHLORIDE LEVEL 108 MEQ/L (98-107); CHOLESTEROL LEVEL 292 MG/DL (<200); CHOLESTEROL RISK RATIO 4.294 (<5); CREATININE FOR GFR 0.83 MG/DL (0.55-1.30); GLOMERULAR FILTRATION RATE > 60.0 (>45); GLUCOSE, FASTING 96 MG/DL (70-100); HDL CHOLESTEROL 68 MG/DL (>40); LDL CHOLESTEROL 186 MG/DL (<100); NON-HDL-C 224 MG/DL; POTASSIUM SERUM 4.5 MEQ/L (3.5-5.1); SODIUM LEVEL 141 MEQ/L (136-145); TOTAL PROTEIN 6.9 GM/DL (6.4-8.2); TRIGLYCERIDES LEVEL 189 MG/DL (<150)
== END ==
LOC: M PLALAB 11:06
PROVIDERS: ATTEND Student in an Organized Health Care Education/Training Program
DX: Z13.220 Encounter for screening for lipoid disorders (principal); L29.9 Pruritus, unspecified; Z79.899 Other long term (current) drug therapy

== ENCOUNTER → 2022-09-14 | Outpatient (CLI) | payer MEDICARE | LOC: M WHC 10:14 | PROVIDERS: ATTEND Nurse Practitioner Adult Health | DX: Z12.31 Encounter for screening mammogram for malignant neoplasm of breast (principal); Z80.3 Family history of malignant neoplasm of breast ==

== ENCOUNTER → 2022-10-03 | Outpatient (REF) | payer MEDICARE ==
[2022-10-03 17:15] LABS: APPEARANCE, URINE MANUAL CLOUDY (CLEAR); COLOR, URINE MANUAL ORANGE (YELLOW); SPECIFIC GRAVITY,URINE MANUAL 1.015 (1.002-1.035)
[2022-10-03 18:41] LABS: BILIRUBIN, URINE MANUAL OBSCURED (NEGATIVE); BLOOD URINE MANUAL NEGATIVE (NEGATIVE); GLUCOSE, URINE (UA) MANUAL NEGATIVE (NEGATIVE); KETONE, URINE MANUAL NEGATIVE (NEGATIVE); LEUKOCYTE ESTERASE, URINE MAN POSITIVE (NEGATIVE); NITRITE, URINE MANUAL OBSCURED (NEGATIVE); PROTEIN, URINE MANUAL OBSCURED mg/dL (NEGATIVE); UROBILINOGEN, URINE MANUAL OBSCURED mg/dl (NORMAL)
[2022-10-03 18:42] LABS: WBC, URINE TNTC /hpf (0-3)
[2022-10-03 18:43] LABS: BACTERIA, URINE MOD AMOUNT; HYALINE CAST, URINE NONE SEEN /lpf (0-1); RBC, URINE 0-1 /hpf (0-3); SQUAMOUS EPITHELIAL CELL URINE SMALL AMOUNT /hpf (SMALL AMT); TRANSITIONAL EPI CELLS, URINE MOD AMOUNT /hpf
== END ==
LOC: M LAB REF 16:29
PROVIDERS: ATTEND Physician Assistant
DX: N39.0 Urinary tract infection, site not specified (principal)

== ENCOUNTER → 2022-10-22 | Outpatient (CLI) | payer MEDICARE ==
[2022-10-22 11:31] LABS: APPEARANCE, URINE MANUAL CLEAR (CLEAR); COLOR, URINE MANUAL ORANGE (YELLOW)
[2022-10-22 11:32] LABS: SPECIFIC GRAVITY,URINE MANUAL 1.015 (1.002-1.035)
[2022-10-22 11:33] LABS: BILIRUBIN, URINE MANUAL OBSCURED (NEGATIVE); BLOOD URINE MANUAL OBSCURED (NEGATIVE); GLUCOSE, URINE (UA) MANUAL OBSCURED mg/dL (NEGATIVE); KETONE, URINE MANUAL OBSCURED mg/dL (NEGATIVE); LEUKOCYTE ESTERASE, URINE MAN OBSCURED (NEGATIVE); NITRITE, URINE MANUAL OBSCURED (NEGATIVE); PROTEIN, URINE MANUAL OBSCURED mg/dL (NEGATIVE); UROBILINOGEN, URINE MANUAL OBSCURED mg/dl (NORMAL)
[2022-10-22 11:45] LABS: BACTERIA, URINE SMALL AMOUNT; HYALINE CAST, URINE NONE SEEN /lpf (0-1); SQUAMOUS EPITHELIAL CELL URINE SMALL AMOUNT /hpf (SMALL AMT); WBC, URINE 30-40 /hpf (0-3)
== END ==
LOC: M LAB 10:28
PROVIDERS: ATTEND Physician Assistant
DX: N39.0 Urinary tract infection, site not specified (principal)

== ENCOUNTER → 2022-11-28 | Outpatient (CLI) | payer MEDICARE | LOC: M LAB 11:06 | PROVIDERS: ATTEND Physician Assistant | DX: N39.0 Urinary tract infection, site not specified (principal) ==

== ENCOUNTER → 2022-12-27 | Outpatient (REF) | payer MEDICARE, MEDICAID ==
[2022-12-27 16:57] LABS: APPEARANCE, URINE MANUAL HAZY (CLEAR); COLOR, URINE MANUAL ORANGE (YELLOW)
[2022-12-27 17:07] LABS: BILIRUBIN, URINE MANUAL OBSCURED (NEGATIVE); BLOOD URINE MANUAL OBSCURED (NEGATIVE); GLUCOSE, URINE (UA) MANUAL OBSCURED mg/dL (NEGATIVE); KETONE, URINE MANUAL OBSCURED mg/dL (NEGATIVE); LEUKOCYTE ESTERASE, URINE MAN OBSCURED (NEGATIVE); NITRITE, URINE MANUAL OBSCURED (NEGATIVE); PROTEIN, URINE MANUAL OBSCURED mg/dL (NEGATIVE); UROBILINOGEN, URINE MANUAL OBSCURED mg/dl (NORMAL)
[2022-12-27 17:54] LABS: BACTERIA, URINE SMALL AMOUNT; HYALINE CAST, URINE NONE SEEN /lpf (0-1); SQUAMOUS EPITHELIAL CELL URINE SMALL AMOUNT /hpf (SMALL AMT); WBC, URINE TNTC /hpf (0-3)
== END ==
LOC: M LAB REF 16:15
PROVIDERS: ATTEND Physician Assistant Medical
DX: N39.0 Urinary tract infection, site not specified (principal)

== ENCOUNTER → 2023-01-26 | Outpatient (REF) | payer MEDICARE, MEDICAID ==
[2023-01-26 17:21] LABS: APPEARANCE, URINE CLOUDY (CLEAR); BACTERIA, URINE AUTO 1+ (NEGATIVE); BILIRUBIN, URINE AUTO NEGATIVE (NEGATIVE); BLOOD, URINE BLOOD 1+ (NEGATIVE); COLOR, URINE YELLOW (YELLOW); GLUCOSE, URINE (UA) AUTO NEGATIVE (NEGATIVE); KETONE, URINE AUTO NEGATIVE (NEGATIVE); LEUKOCYTE ESTERASE, URINE AUTO 3+ (NEGATIVE); MUCUS, URINE SMALL (NEGATIVE); NITRITE, URINE AUTO NEGATIVE (NEGATIVE); PROTEIN, URINE AUTO NEGATIVE (NEGATIVE); RBC, URINE AUTO 3 /HPF (0-3); SPECIFIC GRAVITY URINE AUTO 1.005 (1.002-1.035); SQUAMOUS EPITHELIAL CELL UR AU 0 /HPF (0-6); UROBILINOGEN, URINE AUTO 0.2 mg/dL (0.0-2.0); WBC, URINE AUTO 157 /HPF (0-3)
== END ==
LOC: M LAB REF 16:43
PROVIDERS: ATTEND Physician Assistant Medical
DX: N39.0 Urinary tract infection, site not specified (principal)

== ENCOUNTER → 2023-09-19 | Outpatient (CLI) | payer MEDICARE, MEDICAID ==
[~2023-09-19] MED LIST changes: +CEFD1CAP9; -CEFD300C41
== END ==
LOC: M WHC 11:28
PROVIDERS: ATTEND Nurse Practitioner Family
DX: Z12.31 Encounter for screening mammogram for malignant neoplasm of breast (principal)

== ENCOUNTER 2024-01-22 05:31 | Emergency (ER) | payer MEDICARE, MEDICAID ==
[~2024-01-22] VITALS: Ht 162.6 cm; Wt 71.4 kg
[2024-01-22] MEDS ORDERED: MECL-209 PO (07:21)
[2024-01-22] MEDS: NAPROXEN 250 MG TAB PO ONE (07:27)
[2024-01-22 07:47] VITALS: BP 129/74; TEMP 97.6; O2SAT 98
== END 2024-01-22 07:48 | disposition home or self-care (01) ==
LOC: M ED 05:31
DX: H65.01 Acute serous otitis media, right ear (principal); H92.01 Otalgia, right ear; J06.9 Acute upper respiratory infection, unspecified; R42 Dizziness and giddiness; K21.9 Gastro-esophageal reflux disease without esophagitis

== ENCOUNTER 2024-03-15 09:08 | Emergency (ER) | payer MEDICARE, MEDICAID ==
[~2024-03-15] VITALS: Ht 162.6 cm; Wt 68.2 kg
[~2024-03-15 09:08] MED LIST changes: +MECL-209 PO
[2024-03-15] MEDS ORDERED: HYDR-4517 PO (09:16)
[2024-03-15] MEDS ORDERED: OXYB5TAB14 PO (09:16)
[2024-03-15] MEDS ORDERED: OMEP40CA5 PO (09:16)
[2024-03-15] MEDS: ACETAMINOPHEN TAB 650MG DOSE (2X325MG) PO ONE (11:33)
[2024-03-15] MEDS: LIDOCAINE 5% (LIDODERM) PATCH TD ONE (11:33)
[2024-03-15] MEDS: KETOROLAC 30 MG/ML 1ML VIAL IM ONE (11:34)
[2024-03-15] MEDS ORDERED: KETO10TAB PO (13:05)
[2024-03-15] MEDS ORDERED: METH-1165 PO (13:05)
[2024-03-15] MEDS ORDERED: ASPE4PAD TOP (13:05)
[2024-03-15 13:18] VITALS: BP 128/89; TEMP 97.2; O2SAT 98
== END 2024-03-15 13:18 | disposition home or self-care (01) ==
LOC: M ED 09:08
DX: S39.012A Strain of muscle, fascia and tendon of lower back, initial encounter (principal); M54.32 Sciatica, left side; M47.817 Spondylosis without myelopathy or radiculopathy, lumbosacral region; X50.3XXA Overexertion from repetitive movements, initial encounter; Y92.007 Garden or yard of unspecified non-institutional (private) residence as the place of occurrence of the external cause; Y93.H2 Activity, gardening and landscaping; K21.9 Gastro-esophageal reflux disease without esophagitis
CPT/HCPCS: 72110; 81001; 96372; 99283; J1885

== ENCOUNTER → 2024-04-17 | Outpatient (CLI) | payer MEDICARE, MEDICAID ==
[~2024-04-17] MED LIST changes: +ASPE4PAD TOP; +HYDR-4517 PO; +METH-1165 PO; +OMEP40CA5 PO; +OXYB5TAB14 PO
== END ==
LOC: M RAD 08:06
PROVIDERS: ATTEND Physician Assistant
DX: Z12.2 Encounter for screening for malignant neoplasm of respiratory organs (principal); F17.211 Nicotine dependence, cigarettes, in remission

== ENCOUNTER → 2024-04-22 | Outpatient (REF) | payer MEDICARE, MEDICAID ==
[2024-04-22 14:02] LABS: ALBUMIN 3.9 G/DL (3.2-5.2); ALKALINE PHOSPHATASE 84 U/L (46-116); ALT/SGPT 17 U/L (7.0-40); AST/SGOT < 8 U/L (<34); BILIRUBIN,TOTAL 0.4 MG/DL (0.3-1.2); BLOOD UREA NITROGEN 16 MG/DL (9-23); CALCIUM LEVEL 9.5 MG/DL (8.3-10.6); CARBON DIOXIDE LEVEL 27 MMOL/L (20-31); CHLORIDE LEVEL 107 MMOL/L (98-107); CHOLESTEROL LEVEL 234 MG/DL (<200); CHOLESTEROL RISK RATIO 4.49 (<5); CREATININE FOR GFR 0.84 MG/DL (0.55-1.30); GLOMERULAR FILTRATION RATE > 60.0 (>45); GLUCOSE, FASTING 94 MG/DL (74-106); HDL CHOLESTEROL 52.1 MG/DL (>40); LDL CHOLESTEROL 142.1 MG/DL (<100); NON-HDL-C 181.9 MG/DL; POTASSIUM SERUM 4.7 MMOL/L (3.5-5.1); SODIUM LEVEL 140 MMOL/L (136-145); TOTAL PROTEIN 6.5 G/DL (5.7-8.2); TRIGLYCERIDES LEVEL 199 MG/DL (<150)
[2024-04-22 14:04] LABS: THYROID STIMULATING HORMONE 0.961 uIU/ML (0.55-4.78)
[2024-04-22 14:05] LABS: TOTAL 25(OH) VITAMIN D 58.4 NG/ML (20.0-100.0)
[2024-04-22 14:21] LABS: HEMOGLOBIN A1c 5.6 % (4.0-6.0)
== END ==
LOC: M LAB REF 12:47
PROVIDERS: ATTEND Physician Assistant
DX: E55.9 Vitamin D deficiency, unspecified (principal); E66.1 Drug-induced obesity; E07.9 Disorder of thyroid, unspecified

== ENCOUNTER → 2024-09-21 | Outpatient (CLI) | payer MEDICARE, MEDICAID ==
[~2024-09-21] MED LIST changes: +GABA-1172 PO; -GABA-282 PO
== END ==
LOC: M WHC 10:15
PROVIDERS: ATTEND Physician Assistant
DX: Z12.31 Encounter for screening mammogram for malignant neoplasm of breast (principal); M81.0 Age-related osteoporosis without current pathological fracture

== ENCOUNTER → 2024-10-06 | Outpatient (REF) | payer MEDICARE, MEDICAID ==
[2024-10-06 13:23] LABS: APPEARANCE, URINE CLEAR (CLEAR); BACTERIA, URINE AUTO NEGATIVE (NEGATIVE); BILIRUBIN, URINE AUTO NEGATIVE (NEGATIVE); BLOOD, URINE BLOOD NEGATIVE (NEGATIVE); COLOR, URINE AMBER (YELLOW); GLUCOSE, URINE (UA) AUTO NEGATIVE (NEGATIVE); KETONE, URINE AUTO NEGATIVE (NEGATIVE); LEUKOCYTE ESTERASE, URINE AUTO NEGATIVE (NEGATIVE); MUCUS, URINE SMALL (NEGATIVE); NITRITE, URINE AUTO POSITIVE (NEGATIVE); PROTEIN, URINE AUTO NEGATIVE (NEGATIVE); RBC, URINE AUTO 5 /HPF (0-3); SPECIFIC GRAVITY URINE AUTO 1.019 (1.002-1.035); SQUAMOUS EPITHELIAL CELL UR AU 3 /HPF (0-6); WBC, URINE AUTO 4 /HPF (0-3)
== END ==
LOC: M LAB REF 12:17
PROVIDERS: ATTEND Physician Assistant Medical
DX: N39.0 Urinary tract infection, site not specified (principal)

== ENCOUNTER 2024-10-22 18:22 | Emergency (ER) | payer MEDICARE, MEDICAID ==
[~2024-10-22] VITALS: Ht 162.6 cm; Wt 65.9 kg
[2024-10-22 19:12] LABS: BASO # 0.1 10^3/uL (0.0-0.2); BASO % 0.4 % (0.0-1.0); EOS # 0.1 10^3/uL (0.0-0.5); EOS % 0.6 % (0.0-3.0); HEMATOCRIT 38.7 % (36.0-47.0); LYMPH # 1.7 10^3/uL (1.5-5.0); LYMPH % 13.6 % (24.0-44.0); MEAN CORPUSCULAR HEMOGLOBIN 31.5 pg (27.0-33.0); MEAN CORPUSCULAR HGB CONC 33.6 g/dl (32.0-36.5); MEAN CORPUSCULAR VOLUME 93.7 fl (80.0-96.0); MONO # 0.5 10^3/uL (0.0-0.8); MONO % 4.3 % (2.0-8.0); NEUTROPHILS % 80.8 % (36.0-66.0); PLATELET COUNT, AUTOMATED 347 10^3/uL (150-450); RED BLOOD COUNT 4.13 10^6/uL (4.00-5.40); WHITE BLOOD COUNT 12.4 10^3/uL (4.0-10.0)
[2024-10-22] MEDS: NS (Normal Saline) 0.9% 1,000 ML IV ONE (20:55)
[2024-10-22] MEDS: KETOROLAC 30 MG/ML 1ML VIAL IV ONE (20:55)
[2024-10-22 21:49] LABS: KETONE, URINE MANUAL REFLEX OBSCURED mg/dL (NEGATIVE); NITRITE, URINE MANUAL RFX OBSCURED (NEGATIVE); PROTEIN, URINE MANUAL REFLEX OBSCURED mg/dL (NEGATIVE); SP GRAVITY,URINE MANUAL REFLEX 1.023 (1.002-1.035); UROBILINOGEN, UA MANUAL REFLEX OBSCURED mg/dl (NORMAL)
[2024-10-22 21:57] LABS: SQUAMOUS EPITHELIAL URINE RFX SMALL AMOUNT /hpf (SMALL AMT)
[2024-10-22 21:58] LABS: HYALINE CAST, URINE RFX NONE SEEN /lpf (0-1)
[2024-10-22 21:59] LABS: MICROSCOPIC EXAM RFX PERFORMED
[2024-10-22] MEDS ORDERED: KETO10TAB PO (22:23)
[2024-10-22] MEDS ORDERED: FLOM0.4C39 PO (22:27)
[2024-10-22 22:42] VITALS: BP 147/70; TEMP 97.2; O2SAT 97
== END 2024-10-22 22:47 | disposition home or self-care (01) ==
LOC: EDBD 18:22 → M ED 18:22
DX: N20.1 Calculus of ureter (principal); Z79.2 Long term (current) use of antibiotics; Z79.899 Other long term (current) drug therapy
CPT/HCPCS: 74176; 80047; 81000; 81015; 85025; 87086; 96374; 99284; J1885

== ENCOUNTER 2024-10-25 13:39 | Emergency (ER) | payer MEDICARE, MEDICAID ==
[~2024-10-25] VITALS: Ht 162.6 cm; Wt 63.6 kg
[2024-10-25 14:49] LABS: BASO % 0.4 % (0.0-1.0); EOS # 0.2 10^3/uL (0.0-0.5); EOS % 1.4 % (0.0-3.0); HEMATOCRIT 38.7 % (36.0-47.0); HEMOGLOBIN 12.9 g/dl (12.0-15.5); LYMPH # 1.6 10^3/uL (1.5-5.0); LYMPH % 14.5 % (24.0-44.0); MEAN CORPUSCULAR HEMOGLOBIN 31.7 pg (27.0-33.0); MEAN CORPUSCULAR HGB CONC 33.3 g/dl (32.0-36.5); MEAN CORPUSCULAR VOLUME 95.1 fl (80.0-96.0); MONO # 0.6 10^3/uL (0.0-0.8); MONO % 5.9 % (2.0-8.0); NEUTROPHILS # 8.3 10^3/uL (1.5-8.5); NEUTROPHILS % 77.5 % (36.0-66.0); PLATELET COUNT, AUTOMATED 320 10^3/uL (150-450); RED BLOOD COUNT 4.07 10^6/uL (4.00-5.40); WHITE BLOOD COUNT 10.7 10^3/uL (4.0-10.0)
[2024-10-25 15:23] LABS: CALCIUM LEVEL 9.6 MG/DL (8.3-10.6); CREATININE FOR GFR 1.14 MG/DL (0.55-1.30); GLOMERULAR FILTRATION RATE 50.6 (>45); POTASSIUM SERUM 4.8 MMOL/L (3.5-5.1)
[2024-10-25] MEDS: ACETAMINOPHEN 500 MG TAB PO ONE (16:45)
[2024-10-25] MEDS ORDERED: KETOROLAC 60MG 2ML VIAL IM ONE (18:45)
[2024-10-25 19:05] LABS: KETONE, URINE AUTO RFX TRACE mg/dL (NEGATIVE); MUCUS, URINE RFX SMALL (NEGATIVE); NITRITE, URINE AUTO RFX NEGATIVE (NEGATIVE); RBC, URINE AUTO RFX 0 /HPF (0-3); SQUAM EPITHELIAL CELL UR AURFX 3 /HPF (0-6); WBC, URINE AUTO RFX 5 /HPF (0-3)
[2024-10-25] MEDS: KETOROLAC 30 MG/ML 1ML VIAL IV ONE (19:09)
[2024-10-25 19:17] LABS: LEUKOCYTE ESTERASE UR AUTO RFX TRACE (NEGATIVE)
[2024-10-25 20:00] VITALS: BP 120/68; O2SAT 96
[2024-10-25 20:18] VITALS: TEMP 97.2
[2024-10-25] MEDS: KETOROLAC TROMETHAMINE 10 MG TAB PO ONE (20:37)
== END 2024-10-25 20:42 | disposition home or self-care (01) ==
LOC: M ED 13:39
DX: R10.32 Left lower quadrant pain (principal); K21.9 Gastro-esophageal reflux disease without esophagitis; Z87.442 Personal history of urinary calculi; Z79.899 Other long term (current) drug therapy
CPT/HCPCS: 80048; 81001; 85025; 87086; 96374; 99284; J1885

== ENCOUNTER → 2024-11-04 | Outpatient (CLI) | payer MEDICARE, MEDICAID | LOC: M PLAIMG 10:57 | PROVIDERS: ATTEND Nurse Practitioner Family | DX: N20.0 Calculus of kidney (principal) ==

== ENCOUNTER → 2025-01-11 | Outpatient (REF) | payer MEDICARE, MEDICAID ==
[2025-01-11 15:04] LABS: BASO % 0.7 % (0.0-1.0); EOS # 0.2 10^3/uL (0.0-0.5); EOS % 2.6 % (0.0-3.0); HEMATOCRIT 39.8 % (36.0-47.0); HEMOGLOBIN 13.1 g/dl (12.0-15.5); LYMPH # 2.6 10^3/uL (1.5-5.0); LYMPH % 43.4 % (24.0-44.0); MEAN CORPUSCULAR HEMOGLOBIN 31.1 pg (27.0-33.0); MEAN CORPUSCULAR HGB CONC 32.9 g/dl (32.0-36.5); MEAN CORPUSCULAR VOLUME 94.5 fl (80.0-96.0); MONO # 0.5 10^3/uL (0.0-0.8); MONO % 8.4 % (2.0-8.0); NEUTROPHILS # 2.7 10^3/uL (1.5-8.5); NEUTROPHILS % 44.7 % (36.0-66.0); PLATELET COUNT, AUTOMATED 347 10^3/uL (150-450); RED BLOOD COUNT 4.21 10^6/uL (4.00-5.40); WHITE BLOOD COUNT 6.1 10^3/uL (4.0-10.0)
[2025-01-11 15:09] LABS: C REACTIVE PROTEIN QUANTITATIV < 0.50 MG/DL (<1.0)
[2025-01-11 15:10] LABS: BLOOD UREA NITROGEN 18 MG/DL (9-23); CALCIUM LEVEL 9.2 MG/DL (8.3-10.6); CARBON DIOXIDE LEVEL 27 MMOL/L (20-31); CHLORIDE LEVEL 106 MMOL/L (98-107); CREATININE FOR GFR 0.75 MG/DL (0.55-1.30); GLOMERULAR FILTRATION RATE > 60.0 (>45); GLUCOSE, FASTING 88 MG/DL (74-106); POTASSIUM SERUM 4.4 MMOL/L (3.5-5.1); SODIUM LEVEL 143 MMOL/L (136-145)
[2025-01-11 15:12] LABS: ERYTHROCYTE SEDIMENTATION RATE 10 mm/hr (0-30)
[2025-01-14 15:30] LABS: ANA PATTERN Nuclear, Speckled (NEGATIVE); ANA PATTERN 2 Nuclear, Homogeneous; ANA SCREEN, IFA POSITIVE (NEGATIVE); ANA TITER 3 1:40 titer (<1:40)
== END ==
LOC: M LAB REF 14:19
PROVIDERS: ATTEND Student in an Organized Health Care Education/Training Program
DX: R53.1 Weakness (principal); M79.18 Myalgia, other site

== ENCOUNTER → 2025-02-18 | Outpatient (REF) | payer MEDICARE, MEDICAID ==
[~2025-02-18] MED LIST changes: -FLOM0.4C39 PO; +TAMS-18 PO
[2025-02-18 18:15] LABS: RHEUMATOID FACTOR QUANT 9.1 IU/ML (<14)
[2025-02-18 18:16] LABS: ALBUMIN 3.9 G/DL (3.2-5.2); ALKALINE PHOSPHATASE 57 U/L (35-104); ALT/SGPT 15 U/L (7.0-40); AST/SGOT 11 U/L (<34); BILIRUBIN,TOTAL 0.3 MG/DL (0.3-1.2); BLOOD UREA NITROGEN 22 MG/DL (9-23); C REACTIVE PROTEIN QUANTITATIV < 0.50 MG/DL (<1.0); CALCIUM LEVEL 9.6 MG/DL (8.3-10.6); CARBON DIOXIDE LEVEL 25 MMOL/L (20-31); CHLORIDE LEVEL 106 MMOL/L (98-107); CHOLESTEROL LEVEL 242 MG/DL (<200); CHOLESTEROL RISK RATIO 3.93 (<5); CREATININE FOR GFR 0.86 MG/DL (0.55-1.30); GLUCOSE, FASTING 97 MG/DL (74-106); HDL CHOLESTEROL 61.5 MG/DL (>40); LDL CHOLESTEROL 154.3 MG/DL (<100); NON-HDL-C 180.5 MG/DL; POTASSIUM SERUM 4.6 MMOL/L (3.5-5.1); SODIUM LEVEL 141 MMOL/L (136-145); TOTAL PROTEIN 6.7 G/DL (5.7-8.2); TRIGLYCERIDES LEVEL 131 MG/DL (<150)
[2025-02-18 18:17] LABS: THYROID STIMULATING HORMONE 0.749 uIU/ML (0.55-4.78)
[2025-02-18 18:58] LABS: BASO % 0.5 % (0.0-1.0); EOS # 0.1 10^3/uL (0.0-0.5); EOS % 2.5 % (0.0-3.0); HEMATOCRIT 39.4 % (36.0-47.0); HEMOGLOBIN 13.2 g/dl (12.0-15.5); LYMPH # 2.7 10^3/uL (1.5-5.0); LYMPH % 48.2 % (24.0-44.0); MEAN CORPUSCULAR HEMOGLOBIN 31.7 pg (27.0-33.0); MEAN CORPUSCULAR HGB CONC 33.5 g/dl (32.0-36.5); MEAN CORPUSCULAR VOLUME 94.7 fl (80.0-96.0); MONO # 0.3 10^3/uL (0.0-0.8); MONO % 6.2 % (2.0-8.0); NEUTROPHILS # 2.3 10^3/uL (1.5-8.5); NEUTROPHILS % 42.6 % (36.0-66.0); PLATELET COUNT, AUTOMATED 330 10^3/uL (150-450); RED BLOOD COUNT 4.16 10^6/uL (4.00-5.40); WHITE BLOOD COUNT 5.5 10^3/uL (4.0-10.0)
[2025-02-18 19:02] LABS: ERYTHROCYTE SEDIMENTATION RATE 12 mm/hr (0-30)
[2025-02-22 14:51] LABS: SSA SJOGRENS A <1.0 NEG AI (<1.0 NEG); SSB SJOGRENS B <1.0 NEG AI (<1.0 NEG)
[2025-02-22 18:47] LABS: ANA PATTERN Nuclear, Homogeneous (NEGATIVE); ANA PATTERN 2 Nuclear, Speckled; ANA SCREEN, IFA POSITIVE (NEGATIVE)
[2025-02-25 16:38] LABS: HLA-B27 Negative (Negative)
== END ==
LOC: M LAB REF 13:34
PROVIDERS: ATTEND Physician Assistant
DX: R53.81 Other malaise (principal); R53.83 Other fatigue; E78.2 Mixed hyperlipidemia

== ENCOUNTER → 2025-04-12 | Outpatient (REF) | payer MEDICARE, MEDICAID ==
[2025-04-12 18:02] LABS: APPEARANCE, URINE CLOUDY (CLEAR); BACTERIA, URINE AUTO 1+ (NEGATIVE); BILIRUBIN, URINE AUTO NEGATIVE (NEGATIVE); BLOOD, URINE BLOOD NEGATIVE (NEGATIVE); GLUCOSE, URINE (UA) AUTO NEGATIVE (NEGATIVE); KETONE, URINE AUTO NEGATIVE (NEGATIVE); LEUKOCYTE ESTERASE, URINE AUTO 3+ (NEGATIVE); MUCUS, URINE SMALL (NEGATIVE); NITRITE, URINE AUTO NEGATIVE (NEGATIVE); PROTEIN, URINE AUTO 1+ mg/dL (NEGATIVE); RBC, URINE AUTO 10 /HPF (0-3); SPECIFIC GRAVITY URINE AUTO 1.023 (1.002-1.035); SQUAMOUS EPITHELIAL CELL UR AU 0 /HPF (0-6); UROBILINOGEN, URINE AUTO 0.2 mg/dL (0.0-2.0); WBC, URINE AUTO TNTC /HPF (0-3)
== END ==
LOC: M SMT 16:46
PROVIDERS: ATTEND Nurse Practitioner Family
DX: R39.9 Unspecified symptoms and signs involving the genitourinary system (principal)

== ENCOUNTER → 2025-05-06 | Outpatient (CLI) | payer MEDICARE, MEDICAID | LOC: M RAD 14:04 | PROVIDERS: ATTEND Nurse Practitioner Family | DX: N20.0 Calculus of kidney (principal) ==

== ENCOUNTER → 2025-06-04 | Outpatient (REF) | payer MEDICARE, MEDICAID ==
[~2025-06-04] MED LIST changes: -IBUP-1022 PO; +IBUP600T42 PO
[2025-06-04 18:01] LABS: APPEARANCE, URINE CLOUDY (CLEAR); BACTERIA, URINE AUTO NEGATIVE (NEGATIVE); BILIRUBIN, URINE AUTO NEGATIVE (NEGATIVE); BLOOD, URINE BLOOD NEGATIVE (NEGATIVE); CALCIUM OXALATE CRYSTALS MODERATE; GLUCOSE, URINE (UA) AUTO NEGATIVE (NEGATIVE); KETONE, URINE AUTO TRACE mg/dL (NEGATIVE); LEUKOCYTE ESTERASE, URINE AUTO 3+ (NEGATIVE); MUCUS, URINE LARGE (NEGATIVE); NITRITE, URINE AUTO NEGATIVE (NEGATIVE); PROTEIN, URINE AUTO 1+ mg/dL (NEGATIVE); RBC, URINE AUTO 0 /HPF (0-3); SPECIFIC GRAVITY URINE AUTO 1.028 (1.002-1.035); SQUAMOUS EPITHELIAL CELL UR AU 5 /HPF (0-6); UROBILINOGEN, URINE AUTO 2.0 mg/dL (0.0-2.0); WBC, URINE AUTO 67 /HPF (0-3)
== END ==
LOC: M SMT 16:56
PROVIDERS: ATTEND Nurse Practitioner Family
DX: R30.0 Dysuria (principal)

== ENCOUNTER → 2025-07-12 | Outpatient (REF) | payer MEDICARE, MEDICAID | LOC: M LAB REF 16:17 | PROVIDERS: ATTEND Student in an Organized Health Care Education/Training Program | DX: R35.0 Frequency of micturition (principal) ==

== ENCOUNTER → 2025-07-29 | Outpatient (REF) | payer MEDICARE, MEDICAID ==
[2025-07-29 14:30] LABS: APPEARANCE, URINE HAZY (CLEAR); BACTERIA, URINE AUTO 2+ (NEGATIVE); BILIRUBIN, URINE AUTO NEGATIVE (NEGATIVE); BLOOD, URINE BLOOD NEGATIVE (NEGATIVE); CALCIUM OXALATE CRYSTALS SMALL; GLUCOSE, URINE (UA) AUTO NEGATIVE (NEGATIVE); KETONE, URINE AUTO NEGATIVE (NEGATIVE); LEUKOCYTE ESTERASE, URINE AUTO 3+ (NEGATIVE); MUCUS, URINE SMALL (NEGATIVE); NITRITE, URINE AUTO NEGATIVE (NEGATIVE); PROTEIN, URINE AUTO NEGATIVE (NEGATIVE); RBC, URINE AUTO 4 /HPF (0-3); SPECIFIC GRAVITY URINE AUTO 1.017 (1.002-1.035); SQUAMOUS EPITHELIAL CELL UR AU 1 /HPF (0-6); UROBILINOGEN, URINE AUTO 0.2 mg/dL (0.0-2.0); WBC, URINE AUTO 68 /HPF (0-3)
== END ==
LOC: M SMT 13:08
PROVIDERS: ATTEND Nurse Practitioner Family
DX: N39.0 Urinary tract infection, site not specified (principal)

== ENCOUNTER → 2025-08-11 | Outpatient (CLI) | payer MEDICARE, MEDICAID ==
[2025-08-11 13:30] LABS: CALCIUM LEVEL 9.1 MG/DL (8.3-10.6); CARBON DIOXIDE LEVEL 28.0 MMOL/L (20-31); CHLORIDE LEVEL 104.0 MMOL/L (98-107); CREATININE FOR GFR 0.9 MG/DL (0.55-1.30); GLOMERULAR FILTRATION RATE 69.6 (>45); POTASSIUM SERUM 4.5 MMOL/L (3.5-5.1); SODIUM LEVEL 142.0 MMOL/L (136-145)
== END ==
LOC: M WUC 10:38
PROVIDERS: ATTEND Nurse Practitioner Family
DX: N39.0 Urinary tract infection, site not specified (principal)

== ENCOUNTER → 2025-08-13 | Outpatient (REF) | payer MEDICARE ==
[2025-08-13 17:37] LABS: APPEARANCE, URINE CLEAR (CLEAR); BACTERIA, URINE AUTO NEGATIVE (NEGATIVE); BILIRUBIN, URINE AUTO NEGATIVE (NEGATIVE); BLOOD, URINE BLOOD NEGATIVE (NEGATIVE); GLUCOSE, URINE (UA) AUTO NEGATIVE (NEGATIVE); KETONE, URINE AUTO NEGATIVE (NEGATIVE); LEUKOCYTE ESTERASE, URINE AUTO NEGATIVE (NEGATIVE); MUCUS, URINE SMALL (NEGATIVE); NITRITE, URINE AUTO NEGATIVE (NEGATIVE); PROTEIN, URINE AUTO NEGATIVE (NEGATIVE); RBC, URINE AUTO 3 /HPF (0-3); SPECIFIC GRAVITY URINE AUTO 1.023 (1.002-1.035); SQUAMOUS EPITHELIAL CELL UR AU 0 /HPF (0-6); UROBILINOGEN, URINE AUTO 0.2 mg/dL (0.0-2.0); WBC, URINE AUTO 6 /HPF (0-3)
== END ==
LOC: M LABSMT 13:36
PROVIDERS: ATTEND Nurse Practitioner Family
DX: N39.0 Urinary tract infection, site not specified (principal)

== ENCOUNTER → 2025-09-10 | Outpatient (CLI) | payer MEDICARE ==
[2025-09-10 15:40] LABS: CALCIUM LEVEL 9.5 MG/DL (8.3-10.6); CARBON DIOXIDE LEVEL 29.0 MMOL/L (20-31); CHLORIDE LEVEL 106.0 MMOL/L (98-107); CREATININE FOR GFR 0.94 MG/DL (0.55-1.30); GLOMERULAR FILTRATION RATE 66.1 (>45); POTASSIUM SERUM 5.0 MMOL/L (3.5-5.1); SODIUM LEVEL 143.0 MMOL/L (136-145)
== END ==
LOC: M PLALAB 12:36
PROVIDERS: ATTEND Nurse Practitioner Family
DX: N39.0 Urinary tract infection, site not specified (principal)

== ENCOUNTER → 2025-09-16 | Outpatient (CLI) | payer MEDICARE ==
[~2025-09-16] MED LIST changes: +ISOVUE-370 76% 100 ML VIAL As Ordered ONE
== END ==
LOC: M RAD 14:55
PROVIDERS: ATTEND Urology
DX: N20.1 Calculus of ureter (principal); N28.9 Disorder of kidney and ureter, unspecified
CPT/HCPCS: 74178; Q9967

== ENCOUNTER 2025-09-26 14:32 | Emergency (ER) | payer MEDICARE ==
[~2025-09-26] VITALS: Ht 162.6 cm; Wt 78.1 kg
[~2025-09-26 14:32] MED LIST changes: -ISOVUE-370 76% 100 ML VIAL As Ordered ONE
[2025-09-26] MEDS ORDERED: FLUTISP (14:55)
[2025-09-26] MEDS ORDERED: ATOR40TA75 PO (14:55)
[2025-09-26] MEDS ORDERED: D 50CAP2 PO (14:55)
[2025-09-26] MEDS ORDERED: OXYB10TA23 PO (14:55)
[2025-09-26] MEDS ORDERED: METH-1100 PO (14:55)
[2025-09-26 15:11] LABS: KETONE, URINE AUTO RFX NEGATIVE (NEGATIVE); NITRITE, URINE AUTO RFX NEGATIVE (NEGATIVE); RBC, URINE AUTO RFX 3 /HPF (0-3); SQUAM EPITHELIAL CELL UR AURFX 1 /HPF (0-6); WBC, URINE AUTO RFX 2 /HPF (0-3)
[2025-09-26 15:13] LABS: LEUKOCYTE ESTERASE UR AUTO RFX TRACE (NEGATIVE)
[2025-09-26] MEDS: ACETAMINOPHEN *IV* 1,000 MG in IV 1 EA IV ONE (17:08)
[2025-09-26] MEDS: KETOROLAC 30 MG/ML 1 ML VIAL IV ONE (17:09)
[2025-09-26] MEDS: NS (Normal Saline) 0.9% 1,000 ML IV ONE (17:10)
[2025-09-26 17:32] LABS: BASO # 0.1 10^3/uL (0.0-0.2); BASO % 0.5 % (0.0-1.0); EOS # 0.1 10^3/uL (0.0-0.5); EOS % 1.2 % (0.0-3.0); LYMPH # 2.5 10^3/uL (1.5-5.0); LYMPH % 21.8 % (24.0-44.0); MONO # 0.6 10^3/uL (0.0-0.8); MONO % 5.3 % (2.0-8.0); NEUTROPHILS # 8.1 10^3/uL (1.5-8.5); NEUTROPHILS % 70.9 % (36.0-66.0); PLATELET COUNT, AUTOMATED 335 10^3/uL (150-450)
[2025-09-26 17:49] LABS: ALT/SGPT 19 U/L (7.0-40); AST/SGOT 17 U/L (<34); CALCIUM LEVEL 10.1 MG/DL (8.3-10.6); CARBON DIOXIDE LEVEL 25 MMOL/L (20-31); CHLORIDE LEVEL 103 MMOL/L (98-107); CK-MB VALUE MASS 1.8 NG/ML (<3.6); CPK CREATINE PHOSPHOKINASE 82 U/L (34-145); CREATININE FOR GFR 0.94 MG/DL (0.55-1.30); GLOMERULAR FILTRATION RATE 66.1 (>45); MB/CK RELATIVE INDEX 2.19 (< OR =4); POTASSIUM SERUM 4.3 MMOL/L (3.5-5.1); SODIUM LEVEL 139 MMOL/L (136-145)
[2025-09-26] MEDS ORDERED: ONDA-282 PO (19:28)
[2025-09-26] MEDS ORDERED: TAMS1CAP17 PO (19:28)
[2025-09-26] MEDS ORDERED: OXYC-517 PO (19:28)
[2025-09-26] MEDS: TAMSULOSIN 0.4 MG CAP PO ONE (19:49)
[2025-09-26] MEDS: ONDANSETRON 4MG ORAL DISINTEGRATING TAB PO ONE ×2 (19:49→19:53)
[2025-09-26] MEDS: ACETAMINOPHEN 325 MG TAB PO ONE ×2 (19:49)
[2025-09-26 20:15] VITALS: BP 130/68; TEMP 96.6; O2SAT 98
== END 2025-09-26 20:18 | disposition home or self-care (01) ==
LOC: M ED 14:32
DX: N20.1 Calculus of ureter (principal); E78.5 Hyperlipidemia, unspecified; K21.9 Gastro-esophageal reflux disease without esophagitis; Z87.442 Personal history of urinary calculi; Z85.41 Personal history of malignant neoplasm of cervix uteri; Z79.899 Other long term (current) drug therapy
CPT/HCPCS: 74176; 80048; 80076; 81001; 82550; 82553; 83605; 83690; 84484; 85025; 87086; 93005; 96365; 96366; 96375; 99284; J0134; J1885; J2765

== ENCOUNTER 2025-10-01 02:14 | Observation (INO) | payer MEDICARE ==
[~2025-10-01] VITALS: Ht 162.6 cm; Wt 73.1 kg
[~2025-10-01 02:14] MED LIST changes: +ATOR40TA75 PO; +D 50CAP2 PO; +FLUTISP; +METH-1100 PO; +ONDA-282 PO; +OXYB10TA23 PO; +OXYC-517 PO; +TAMS1CAP17 PO
[2025-10-01 03:34] LABS: APPEARANCE, URINE HAZY (CLEAR); BACTERIA, URINE AUTO 1+ (NEGATIVE); BILIRUBIN, URINE AUTO NEGATIVE (NEGATIVE); BLOOD, URINE BLOOD 1+ (NEGATIVE); GLUCOSE, URINE (UA) AUTO NEGATIVE (NEGATIVE); KETONE, URINE AUTO NEGATIVE (NEGATIVE); LEUKOCYTE ESTERASE, URINE AUTO 1+ (NEGATIVE); MUCUS, URINE SMALL (NEGATIVE); NITRITE, URINE AUTO NEGATIVE (NEGATIVE); PROTEIN, URINE AUTO 2+ mg/dL (NEGATIVE); RBC, URINE AUTO 16 /HPF (0-3); SPECIFIC GRAVITY URINE AUTO 1.020 (1.002-1.035); SQUAMOUS EPITHELIAL CELL UR AU 2 /HPF (0-6); UROBILINOGEN, URINE AUTO 0.2 mg/dL (0.0-2.0); WBC, URINE AUTO 130 /HPF (0-3)
[2025-10-01 03:36] LABS: BASO # 0.0 10^3/uL (0.0-0.2); BASO % 0.3 % (0.0-1.0); EOS # 0.2 10^3/uL (0.0-0.5); EOS % 2.2 % (0.0-3.0); LYMPH # 2.6 10^3/uL (1.5-5.0); LYMPH % 29.7 % (24.0-44.0); MONO # 0.5 10^3/uL (0.0-0.8); MONO % 6.3 % (2.0-8.0); NEUTROPHILS # 5.3 10^3/uL (1.5-8.5); NEUTROPHILS % 61.4 % (36.0-66.0); PLATELET COUNT, AUTOMATED 305 10^3/uL (150-450)
[2025-10-01 03:37] LABS: ALT/SGPT 19.0 U/L (7.0-40); AST/SGOT 21.0 U/L (<34); CALCIUM LEVEL 9.2 MG/DL (8.3-10.6); CARBON DIOXIDE LEVEL 25.0 MMOL/L (20-31); CHLORIDE LEVEL 107.0 MMOL/L (98-107); CREATININE FOR GFR 1.21 MG/DL (0.55-1.30); GLOMERULAR FILTRATION RATE 48.8 (>45); POTASSIUM SERUM 4.7 MMOL/L (3.5-5.1); SODIUM LEVEL 141.0 MMOL/L (136-145)
[2025-10-01] MEDS: ONDANSETRON 4MG/2ML VIAL IV ONE (06:20)
[2025-10-01] MEDS: TAMSULOSIN 0.4 MG CAP PO ONE (06:20)
[2025-10-01] MEDS: KETOROLAC 30 MG/ML 1 ML VIAL IV ONE (06:21)
[2025-10-01] MEDS: NS (Normal Saline) 0.9% 1,000 ML IV ONE (06:21)
[2025-10-01] MEDS ORDERED: dexmedeTOMIDine (4 MCG/ML) 200 MCG/50 ML BTL As Ordered ONE (07:28)
[2025-10-01] MEDS ORDERED: MIDAZOLAM INJ 2 MG/2 ML VIAL As Ordered ONE (07:28)
[2025-10-01] MEDS ORDERED: LIDOCAINE 2% 100 MG/5 ML SDV (FOR ANES.) As Ordered ONE (07:28)
[2025-10-01] MEDS ORDERED: ONDANSETRON 4MG/2ML VIAL IV PRN (07:55)
[2025-10-01] MEDS: cefTRIAXone SOD 1 GM in DEXTROSE 5% (D5W) ADV/MINI-BAG 50 ML IV ONE (08:00)
[2025-10-01] MEDS ORDERED: GABA-1171 PO (08:13)
[2025-10-01] MEDS ORDERED: ALEN10TA5 PO (08:13)
[2025-10-01] MEDS ORDERED: OXYC-517 PO (08:13)
[2025-10-01] MEDS ORDERED: CALCTAB89 PO (08:13)
[2025-10-01] MEDS ORDERED: TAMS1CAP17 PO (08:13)
[2025-10-01] MEDS ORDERED: HOME MED LIST COMPLETE! XX SCH (08:15)
[2025-10-01] MEDS ORDERED: ACETAMINOPHEN 1000MG/100ML IV BAG As Ordered ONE (09:02)
[2025-10-01] MEDS: ISOVUE-300 61% 100 ML VIAL As Ordered ONE (09:13)
[2025-10-01] MEDS: LIDOCAINE 2% 5 ML JELLY UROJET As Ordered ONE (09:13)
[2025-10-01 10:10] VITALS: BP 122/64; TEMP 97.1; O2SAT 96
[2025-10-01] MEDS: NS (Normal Saline) 0.9% 1,000 ML IV SCH (10:41)
[2025-10-01 11:00] VITALS: BP 128/74; TEMP 97.3; O2SAT 98
[2025-10-01] MEDS ORDERED: KETOROLAC 30 MG/ML 1 ML VIAL IV PRN (12:00)
[2025-10-01 12:01] VITALS: BP 117/56; TEMP 98.2; O2SAT 95
[2025-10-01 13:00] VITALS: BP 128/63; TEMP 97.3; O2SAT 96
[2025-10-01 14:00] VITALS: BP 120/63; TEMP 97.5; O2SAT 94
[2025-10-01 15:00] VITALS: BP 126/59; TEMP 97.3; O2SAT 95
== END 2025-10-01 15:52 | disposition home or self-care (01) ==
LOC: M ED 02:14 → M ED INP 07:51 → M MS4PR 10:08
PROVIDERS: ADMIT Student in an Organized Health Care Education/Training Program; ATTEND Student in an Organized Health Care Education/Training Program
DX: N20.1 Calculus of ureter (principal); R10.A1 Flank pain, right side; K44.9 Diaphragmatic hernia without obstruction or gangrene; K57.93 Diverticulitis of intestine, part unspecified, without perforation or abscess with bleeding; E78.5 Hyperlipidemia, unspecified; K21.9 Gastro-esophageal reflux disease without esophagitis; M54.9 Dorsalgia, unspecified; Z87.442 Personal history of urinary calculi; Z87.81 Personal history of (healed) traumatic fracture; Z90.79 Acquired absence of other genital organ(s); Z79.899 Other long term (current) drug therapy; Z79.891 Long term (current) use of opiate analgesic
CPT/HCPCS: 52332; 74176; 74420; 80048; 80076; 81001; 83690; 85025; 87086; 96374; 96375; 99284; C2617; G0378; J0131; J0696; J1885; J2250; J2405; J3010; Q9967